=== PATIENT | male | born 1950 | race Caucasian/White ===

== ENCOUNTER 2017-08-30 11:09 | Emergency (ER) | payer OTHER ==
[2017-08-30 12:52] LABS: Absolute Lymphocytes (CBC) 0.7 K/uL (0.7-4.9); Absolute Monocytes 0.5 K/uL (0.1-1.3); Absolute Neutrophil 2.1 K/uL (1.8-8.0); Basophils % 0.7 % (0-1.3); Lymphocytes % 21.5 % (15.3-44.8); MPV 8.9 fL (7.6-11.3); Monocytes % 14.6 % (3.3-12.3); RBC Red Blood Cell Count 4.65 M/uL (4.33-5.43)
[2017-08-30 12:58] LABS: Protime INR 1.13
[2017-08-30 13:01] LABS: Bicarbonate 25 mEq/L (21-31); Glucose Level 159 mg/dL (65-120); Potassium 3.8 mEq/L (3.6-5.0); Sodium Level 136 mEq/L (135-145)
[2017-08-30 13:08] LABS: ALT/SGPT 27 IU/L (10-60); AST/SGOT 34 IU/L (10-42); Albumin 4.3 g/dL (3.2-5.5); Alkaline Phosphatase 86 IU/L (42-121); Amylase Level 50 U/L (28-100); BUN Blood Urea Nitrogen 12 mg/dL (6-20); Bilirubin Direct 0.3 mg/dL (0-0.2); Bilirubin Total 1.8 mg/dL (0.3-1.2); Protein, Total 7.8 g/dL (6.0-8.3)
[2017-08-30 14:07] LABS: Urine Blood TRACE (NEG); Urine Glucose NEGATIVE (NEG); Urine Protein NEGATIVE (NEG); Urine pH 6.5 (5.0-7.0)
[2017-08-30 14:43] LABS: Urine Bacteria NONE SEEN /HPF (NONE SEEN); Urine Culture Reflex Order NOT NEEDED
--- NOTE | 2017-08-30 16:09 | RAD REPORT ---
EXAM DESCRIPTION: CT - Abdomen Pelvis W Contrast - 08/30/2017 3:31 pm CLINICAL HISTORY: Abdominal pain, possible GI bleed, history of cirrhosis splenomegaly and hernia re pair COMPARISON: None. TECHNIQUE: Biphasic, helical CT imaging of the abdomen and pelvis was performed following 100 ml non -ionic IV contrast. Oral contrast was given. All CT scans are performed using dose optimization technique as appropriate and may include automated exposure control or mA/KV adjustment according to patient size. FINDINGS: No suspicious findings in the lung bases. Large diaphragmatic hernia is present with appro ximately 30% of the stomach intrathoracic. GE junction is not well visualized due to the hernia. Liver shows a prominent nodular capsular contour with prominent caudate and left lobes. No focal live r lesion. Splenomegaly to 16 cm is present. No focal splenic lesion. Pancreas is unremarkable. No acu te gallbladder or biliary tree finding. Symmetric renal function is seen with no hydronephrosis or suspicious renal mass. No pyelonephritis o r acute renal parenchymal process. Partially filled urinary bladder shows no suspicious finding. Pros calloway gland and seminal vesicles within normal limits. Gastric assessment is limited but no wall thickening or mass suspected. No dilatation. Small bowel lo ops are not dilated. There is a nodular appearance to the ileocecal valve still within normal limits. No appendicitis. Colon is not dilated. There is a mild sigmoid diverticulosis. Escobar of the rectosig moid colon are slightly thickened. This is in part due to incomplete distension by the oral contrast. However, given patient's symptoms, mild rectosigmoid colitis is suspected. No free air, free fluid or pneumatosis. No hernia, mass or bulky lymphadenopathy. No adrenal abnorm ality. No suspicious bony findings. IMPRESSION: Mild rectosigmoid colitis is identifiable. No colon mass. No abscess, free air or other surgically emergent finding. Liver cirrhosis with splenomegaly. No ascites or focal liver lesion. Large hiatal hernia with 30% of the stomach intrathoracic. GE junction is not well visualized due to the hernia.
[2017-08-30 16:46] LABS: Hematocrit 38.5 % (39.6-49.0)
[2017-08-30 17:32] LABS: Lipase 25 U/L (22-51)
--- NOTE | 2017-08-30 17:44 | EDPHYS ---
Physician Documentation [facility] Name: Flako Lugo Age: 67 yrs Sex: Male : 1950 Arrival Date: 08/30/2017 Time: 11:12 Bed 16 Private MD: Mary Thacker ED Physician Luis Antonio Ramos HPI: 08/30 12:15 This 67 yrs old Male presents to ER via Ambulatory with complaints of Rectal cp Bleeding. 12:15 The patient presents to the emergency department with dark colored stools. Onset: The cp symptoms/episode began/occurred 1 week(s) ago. 12:15 Context: the patient has no known special context relating to the rectal area cp complaint(s). Associate signs and symptoms: Pertinent positives: abdominal pain in the right lower quadrant and left lower quadrant, Pertinent negatives: constipation, diarrhea, dysuria, fever, vomiting. Patient reports that he takes daily iron supplement for history of anemia. Historical: - Allergies: 11:29 No Known Allergies; aj - PMHx: 11:29 Diabetes - NIDDM; Cirrhosis; Enlarged spleen; aj - PSHx: 11:29 Hernia repair; aj - Immunization history:: Adult Immunizations up to date. - Social history:: Smoking status: Patient/guardian denies using tobacco. - Ebola Screening: : Patient negative for fever greater than or equal to 101.5 degrees Fahrenheit, and additional compatible Ebola Virus Disease symptoms Patient denies exposure to infectious person Patient denies travel to an Ebola-affected area in the 21 days before illness onset No symptoms or risks identified at this time. ROS: 12:20 Constitutional: Negative for body aches, chills, fever, poor PO intake. cp 12:20 Eyes: Negative for injury, pain, redness, and discharge. cp 12:20 ENT: Negative for drainage from ear(s), ear pain, sore throat, difficulty swallowing, cp difficulty handling secretions. 12:20 Cardiovascular: Negative for chest pain, edema, palpitations. cp 12:20 Respiratory: Negative for cough, shortness of breath, wheezing. 12:20 Abdomen/GI: Positive for abdominal pain, dark colored stool, Negative for nausea, vomiting, and diarrhea, constipation, anorexia. 12:20 Back: Negative for radiated pain. 12:20 Skin: Negative for cellulitis, rash. 12:20 All other systems are negative. Exam: 12:25 Constitutional: The patient appears in no acute distress, alert, awake, cp non-diaphoretic, non-toxic, well developed, well nourished. 12:25 Head/Face: Normocephalic, atraumatic. cp 12:25 Eyes: Periorbital structures: appear normal, Pupils: equal, round, and reactive to cp light and accomodation, Conjunctiva: normal, no exudate, no injection, Lids and lashes: appear normal, bilaterally. 12:25 ENT: External ear(s): are unremarkable, Ear canal(s): are normal, clear, TM's: bulging, is not appreciated, bilaterally, dullness, bilaterally, erythema, is not appreciated, bilaterally, Nose: is normal, Mouth: Lips: moist, Oral mucosa: moist, Posterior pharynx: is normal, airway is patent, no erythema, no exudate. 12:25 Neck: ROM/movement: is normal, is supple, without pain, no range of motions limitations, no meningismus, no nuchal rigidity. 12:25 Chest/axilla: Inspection: normal, Palpation: is normal, no crepitus, no tenderness. 12:25 Cardiovascular: Rate: normal, Rhythm: regular, Pulses: Pulses are 2+ in right radial artery and left radial artery. Edema: is not appreciated, JVD: is not appreciated. 12:25 Respiratory: the patient does not display signs of respiratory distress, Respirations: normal, no use of accessory muscles, no retractions, no splinting, no tachypnea, Breath sounds: are clear throughout, no decreased breath sounds, no stridor, no wheezing. 12:25 Abdomen/GI: Inspection: abdomen appears normal, Bowel sounds: active, all quadrants, Palpation: soft, in all quadrants, mild abdominal tenderness, in the right lower quadrant and left lower quadrant, Rectal exam: Stool: guaiac positive, appears dark colored but not tarry. 12:25 Back: pain, is absent, ROM is normal. 12:25 Skin: cellulitis, is not appreciated, no rash present. 12:25 Neuro: Orientation: to person, place \T\ time. Mentation: is normal, Cerebellar function: cp is grossly normal, Motor: moves all fours, strength is normal, Sensation: is normal, Gait: is steady. Vital Signs: 11:29 BP 159 / 98; Pulse 80; Resp 18; Temp 97.8; Pulse Ox 97% on R/A; Weight 96.16 kg; Height aj 5 ft. 10 in. (177.80 cm); 13:09 BP 154 / 87; Pulse 78; Resp 17 S; Pulse Ox 96% on R/A; Pain 0/10; sg 11:29 Body Mass Index 30.42 (96.16 kg, 177.80 cm) aj [place] Coma Score: 13:09 Eye Response: spontaneous(4). Verbal Response: oriented(5). Motor Response: obeys sg commands(6). Total: 15. MDM: 11:58 Patient medically screened. cp 13:00 Differential diagnosis: hemorrhoids, diverticulitis, colitis, anemia. cp 17:25 Data reviewed: vital signs, nurses notes, lab test result(s), EKG, radiologic studies, cp CT scan. 18:00 Counseling: I had a detailed discussion with the patient and/or guardian regarding: the cp historical points, exam findings, and any diagnostic results supporting the discharge/admit diagnosis, lab results, radiology results, the need for outpatient follow up, a family practitioner, to return to the emergency department if symptoms worsen or persist or if there are any questions or concerns that arise at home. 18:00 ED course: VSS. Labs and CT reviewed and stable. Will discharge to home for continued cp monitoring. 08/30 12:09 Order name: Lipase; Complete Time: 17:36 cp 08/30 12:09 Order name: Amylase, Serum; Complete Time: 17:36 cp 08/30 12:09 Order name: Basic Metabolic Panel; Complete Time: 17:36 cp 08/30 13:20 Interpretation: Normal except: GLUC 159. cp 08/30 12:09 Order name: CBC with Diff; Complete Time: 13:19 cp 08/30 13:20 Interpretation: Normal except: WBC 3.4; HGB 13.0; PLT 105; RDW 17.2; MN% 14.6. cp 08/30 12:09 Order name: Creatinine for Radiology; Complete Time: 13:19 cp 08/30 12:09 Order name: Hepatic Function; Complete Time: 17:36 cp 08/30 14:50 Interpretation: Normal except: BILIT 1.8; BILID 0.3. cp 08/30 12:09 Order name: Urine Microscopic Only; Complete Time: 14:50 08/30 14:50 Interpretation: Normal except: URBC 5-10; SQEPI 5-10. 08/30 12:09 Order name: PT-INR; Complete Time: 13:19 cp 08/30 12:09 Order name: Ptt, Activated; Complete Time: 13:19 cp 08/30 12:09 Order name: AMMONIA; Complete Time: 13:19 cp 08/30 12:25 Order name: Type And Screen; Complete Time: 14:50 cp 08/30 14:02 Order name: Urine Dipstick--Ancillary (enter results); Complete Time: 14:50 bd 08/30 16:30 Order name: Hematocrit; Complete Time: 17:24 cp 08/30 17:25 Interpretation: Abnormal: HCT 38.5. 08/30 16:30 Order name: Hemoglobin; Complete Time: 17:24 cp 08/30 17:25 Interpretation: Abnormal: HGB 12.5. 08/30 12:09 Order name: IV Saline Lock; Complete Time: 14:12 cp 08/30 12:09 Order name: Labs collected and sent; Complete Time: 14:12 08/30 12:09 Order name: Urine Dipstick-Ancillary (obtain specimen); Complete Time: 14:13 08/30 12:26 Order name: CT Abd/Pelvis - W/Contrast; Complete Time: 16:16 08/30 16:17 Interpretation: Report reviewed. 08/30 17:42 Order name: ABO/RH no charge; Complete Time: 17:44 EDMS Administered Medications: 17:50 Not Given (Other Intervention Used): metroNIDAZOLE 500 mg 100 ml IVPB once over 30 mins sg 18:00 Drug: Flagyl 500 mg Route: PO; sg 18:00 Drug: Cipro 500 mg Route: PO; sg Disposition: 08/31 10:42 Co-signature as Attending Physician, Luis Antonio Ramos MD. [facility] Disposition: 08/30/17 17:43 Discharged to Home. Impression: Sigmoid Colitis. - Condition is Stable. - Prescriptions for Cipro 500 mg Oral Tablet - take 1 tablet by ORAL route every 12 hours for 10 days; 20 tablet. Metronidazole 500 mg Oral Tablet - take 1 tablet by ORAL route every 8 hours; 30 tablet. Bentyl 20 mg Oral Tablet - take 2 tablets by ORAL route every 6 hours As needed; 30 tablet. Zofran 4 mg Oral Tablet - take 1 tablet by ORAL route every 12 hours As needed; 20 tablet. - Medication Reconciliation Form, Thank You Letter, Antibiotic Education, Prescription Opioid Use form. - Follow up: Private Physician; When: 2 - 3 days; Reason: Recheck today's complaints. - Problem is new. - Symptoms have improved. Signatures: Dispatcher [employer] EDIsaac Delarosa RN RN sg Myers, Amanda, RN RN aj Rittger, Kevin, MD MD kdr Page, Corey, PA PA cp Corrections: (The following items were deleted from the chart) 08/30 11: 11:20 Allergies: No Known Allergies; [facility] 11:20 Home Meds: None; aj 11:20 PMHx: None; aj 11:20 PSHx: None; aj 11:20 Immunization history: Adult Immunizations up to date, [facility] 11:20 Social history: Smoking status: Patient/guardian denies using tobacco, Patient/guardian denies using street drugs, 18:02 17:43 08/30/2017 17:43 Discharged to Home. Impression: Sigmoid Colitis. Condition is sg Stable. Forms are Medication Reconciliation Form, Thank You Letter, Antibiotic Education, Prescription Opioid Use. Follow up: Private Physician; When: 2 - 3 days; Reason: Recheck today's complaints. Problem is new. Symptoms have improved. cp
--- NOTE | 2017-08-30 17:44 | ER ---
Nurse's Notes [facility] Name: Flako Lugo Age: 67 yrs Sex: Male : 1950 Arrival Date: 08/30/2017 Time: 11:12 Bed 16 Private MD: Mary Thacker Diagnosis: Sigmoid Colitis Presentation: 08/30 11:25 Presenting complaint: Patient states: Sent by Oncologist for possible GI bleed. Patient aj reports black stools for 1 week. Reports lower abdominal pain. Transition of care: patient was not received from another setting of care. Onset of symptoms was August 23, 2017. Care prior to arrival: None. 11:25 Acuity: KENYETTA 3 aj 11:25 Method Of Arrival: Ambulatory aj 12:30 Risk Assessment: Do you want to hurt yourself or someone else? Patient reports no sg desire to harm self or others. Initial Sepsis Screen: Does the patient meet any 2 criteria? No. Patient's initial sepsis screen is negative. Does the patient have a suspected source of infection? No. Patient's initial sepsis screen is negative. Triage Assessment: 11:29 General: Appears in no apparent distress. comfortable, Behavior is calm, cooperative, aj appropriate for age. Pain: Complains of pain in right lower quadrant and left lower quadrant Pain currently is 7 out of 10 on a pain scale. Neuro: Level of Consciousness is awake, alert, obeys commands, Oriented to person, place, time, situation, Appropriate for age. Respiratory: Airway is patent Trachea midline Respiratory effort is even, unlabored, Respiratory pattern is regular, symmetrical. GI: Reports lower abdominal pain, bloody stool. Derm: Skin is intact, is healthy with good turgor, Skin is pink, warm \\T\\ dry. normal. Historical: - Allergies: 11:29 No Known Allergies; aj - PMHx: 11:29 Diabetes - NIDDM; Cirrhosis; Enlarged spleen; aj - PSHx: 11:29 Hernia repair; aj - Immunization history:: Adult Immunizations up to date. - Social history:: Smoking status: Patient/guardian denies using tobacco. - Ebola Screening: : Patient negative for fever greater than or equal to 101.5 degrees Fahrenheit, and additional compatible Ebola Virus Disease symptoms Patient denies exposure to infectious person Patient denies travel to an Ebola-affected area in the 21 days before illness onset No symptoms or risks identified at this time. Screenin:30 Abuse screen: Denies threats or abuse. Denies injuries from another. Nutritional sg screening: No deficits noted. Tuberculosis screening: No symptoms or risk factors identified. Fall Risk None identified. Assessment: 12:30 General: Appears in no apparent distress. comfortable, well groomed, well developed, sg well nourished, Behavior is calm, cooperative, appropriate for age. Pain: Denies pain. Neuro: No deficits noted. Cardiovascular: Heart tones S1 S2 present Capillary refill is brisk in bilateral fingers Patient's skin is warm and dry. Chest pain is denied. Respiratory: No deficits noted. Airway is patent Respiratory effort is even, unlabored, Respiratory pattern is regular, symmetrical, Breath sounds are clear. GI: Abdomen is round obese, Bowel sounds present X 4 quads. Reports rectal bleeding, dark green/black watery stools Patient currently denies nausea, pain, vomiting. : No signs and/or symptoms were reported regarding the genitourinary system. EENT: No signs and/or symptoms were reported regarding the EENT system. Derm: Skin is pink, warm \\T\\ dry. Musculoskeletal: No signs and/or symptoms reported regarding the musculoskeletal system. 13:06 Reassessment: CT notified pt finished PO contrast at this time. sg 14:40 Reassessment: Patient appears in no apparent distress at this time. Patient and/or sg family updated on plan of care and expected duration. Pain level reassessed. Patient is alert, oriented x 3, equal unlabored respirations, skin warm/dry/pink. Patient denies pain at this time. 15:40 Reassessment: Patient appears in no apparent distress at this time. Patient and/or sg family updated on plan of care and expected duration. Pain level reassessed. Patient is alert, oriented x 3, equal unlabored respirations, skin warm/dry/pink. awaiting CT scan/ CT results at this time, no new orders received, will continue to monitor Patient denies pain at this time. 16:40 Reassessment: Patient and/or family updated on plan of care and expected duration. Pain sg level reassessed. Patient is alert, oriented x 3, equal unlabored respirations, skin warm/dry/pink. Tao FRANCO at bedside updating pt and pt family on need for repeat blood work prior to dispo, pt and pt stated understanding, repeat labs drawn, awaiting results at this time. 17:31 Reassessment: Patient appears in no apparent distress at this time. Patient and/or sg family updated on plan of care and expected duration. Pain level reassessed. Patient is alert, oriented x 3, equal unlabored respirations, skin warm/dry/pink. pt and pt family updated on lab results, awaiting dispo at this time, pt and pt family stated understanding, C.Renata FRANCO notified of returned lab results, no new orders received, will continue to monitor Patient denies pain at this time. Vital Signs: 11:29 BP 159 / 98; Pulse 80; Resp 18; Temp 97.8; Pulse Ox 97% on R/A; Weight 96.16 kg; Height aj 5 ft. 10 in. (177.80 cm); 13:09 BP 154 / 87; Pulse 78; Resp 17 S; Pulse Ox 96% on R/A; Pain 0/10; sg 11:29 Body Mass Index 30.42 (96.16 kg, 177.80 cm) aj [place] Coma Score: 13:09 Eye Response: spontaneous(4). Verbal Response: oriented(5). Motor Response: obeys sg commands(6). Total: 15. ED Course: 11:12 Patient arrived in ED. mr 11:13 Mary Thacker is Private Physician. mr 11:20 Triage completed. aj 11:29 Arm band placed on left wrist. Patient placed in waiting room. aj 11:57 Eliezer Yanez PA is PHCP. cp 11:57 Luis Antonio Ramos MD is Attending Physician. cp 12:05 Isaac Ridley, ARELIS is Primary Nurse. sg 12:20 Initial lab(s) drawn, by nm, sent to lab. Inserted saline lock: 20 gauge in left sg antecubital area, using aseptic technique. Blood collected. 12:30 Patient has correct armband on for positive identification. Placed in gown. Bed in low sg position. Call light in reach. Side rails up X2. Pulse ox on. NIBP on. Warm blanket given. Head of bed elevated. 12:30 No provider procedures requiring assistance completed. sg 12:40 T\\T\\S collected, blood band applied to patient. sg 15:[address] sj 15:26 CT completed. Patient tolerated procedure well. Patient moved back from CT. mw3 15:32 CT Abd/Pelvis - W/Contrast In Process Unspecified. EDMS 18:20 IV discontinued, intact, bleeding controlled, No redness/swelling at site. Pressure sg dressing applied. Administered Medications: 17:50 Not Given (Other Intervention Used): metroNIDAZOLE 500 mg 100 ml IVPB once over 30 mins sg 18:00 Drug: Flagyl 500 mg Route: PO; sg 18:00 Drug: Cipro 500 mg Route: PO; sg Outcome: 17:43 Discharge ordered by MD. cp 18:00 Discharged to home ambulatory, with family. sg 18:00 Condition: good 18:00 Discharge instructions given to patient, Instructed on discharge instructions, follow up and referral plans. medication usage, safety practices, Demonstrated understanding of instructions, follow-up care, medications, Prescriptions given X 4. 18:02 Patient left the ED. sg Signatures: Dispatcher [employer] EDMS Isaac Ridley RN RN sg Myers, Amanda, RN RN aj Rivera, Maria mr Jones, Eliezer Adrian PA PA cp Willis, Michelle mw3 Corrections: (The following items were deleted from the chart) :18 Presenting complaint: Patient states: "There's a parasite in my foot since yesterday." Patient c/o insect moving in right 3rd toe. Small black line noted to toe, no movement visualized. Patient is drowsy in triage :18 Transition of care: patient was not received from another setting of care. aj :18 Onset of symptoms was August 29, 2017 aj :18 Care prior to arrival: None. aj :18 Method Of Arrival: Wheelchair aj :18 Acuity: KENYETTA 5 aj 11:20 Allergies: No Known Allergies; aj aj :20 Home Meds: None; aj aj : PMHx: None; aj aj : PSHx: None; aj aj :20 Immunization history: Adult Immunizations up to date, aj 11:20 Social history: Smoking status: Patient/guardian denies using tobacco, aj Patient/guardian denies using street drugs, aj : General: Appears in no apparent distress. comfortable, Behavior is calm, drowsy, aj 11:20 Neuro: Level of Consciousness is awake, alert, obeys commands, Oriented to aj person, place, time, situation, Appropriate for age : Respiratory: Airway is patent Respiratory effort is even, unlabored, Respiratory aj pattern is regular, symmetrical, : Derm: Skin is intact, is healthy with good turgor, Skin is pink, warm \\T\\ dry. aj normal, Small black line to right 3rd toe aj : BP 125 / 79; Pulse 91bpm; Resp 20bpm; Pulse Ox 100% RA; Temp 97.6F; 90.72 kg; aj Height 6 ft. 2 in.; BMI: 25.6; aj 11: Arm band placed on left wrist. Patient placed in waiting room, Patient notified aj of wait time aj
[2017-08-30] MEDS ORDERED: metroNIDAZOLE 500 MG TABLET ONE (17:52)
[2017-08-30] MEDS ORDERED: CIPROFLOXACIN HCL 500 MG TAB ONE (17:52)
== END 2017-08-30 18:02 | disposition home or self-care (01) ==
LOC: ER 11:09
DX: K52.9 Noninfective gastroenteritis and colitis, unspecified (principal); E11.9 Type 2 diabetes mellitus without complications
CPT/HCPCS: 36415; 74177; 80048; 80076; 82140; 82150; 83690; 85014; 85018; 85025; 85610; 85730; 86850; 86900; 86901; 99284; Q9967; 81003; 81015

== ENCOUNTER 2022-03-16 09:12 | Emergency (ER) | payer OTHER ==
--- OUTSIDE RECORDS SUMMARY | 2022-03-16 09:22 | XMS REPORT | Continuity of Care Document ---
:1950 Author Organization [facility] t Address [address] [place] [address] Care Team Providers Name Role Phone Sophia Chatman Primary Care Physician [phone] LYLY GARCIA Attending Clinician Unavailable ANNI FRAGOSO Attending Clinician Unavailable Anni Fragoso MD Attending Clinician Tushar Rolando GOMEZ Attending Clinician Lyly Garcia MD Attending Clinician 2, [facility] Lab Attending Clinician Unavailable Karena Waldrop MD Attending Clinician KARENA WALDROP Attending Clinician Unavailable Only, Adc Test Attending Clinician Unavailable Pob, [facility] Lab Main Attending Clinician Unavailable Doctor Unassigned, Rosa Sanchez Attending Clinician Unavailable Barbra Colon Attending Clinician , [facility] Surg Spec Procedure Attending Clinician Unavailable LYLY GARCIA Admitting Clinician Unavailable ANNI FRAGOSO Admitting Clinician Unavailable Lyly Garcia MD Admitting Clinician Payers Payer Name Policy Type Policy Number Effective Date Expiration Date S melisa AET[employer] MEDICARE ADV [id number] 2016 00:00:00 [place] [id number] 2021 NO PREMIUM HMO/POS 00:00:00 Problems Condition Condition Condition Status Onset Resolution Last Treating Co mments Source Name Details Category Date Date Treatment Clinician Date Bladder Bladder Disease Active Overview: Univ ers neck neck 3-10 Formattin ity of contractur contractur 00:00: g of this [place] e e 00 note Medical might be Branch different from the original. Added automatic ally from request for surgery [id number] Anemia Anemia Disease Active 2016-04 Univers 05-21 ity of 00:00: [address] Allergies, Adverse Reactions, Alerts Allergy Allergy Status Severity Reaction(s) Onset Inactive Treating Comm ents Source Name Type Date Date Clinician NO KNOWN Drug Active Univers ALLERGIE Class ity of S [facility] Social History Social Habit Start Date Stop Date Quantity Comments Source Exposure to Not sure [facility] SARS-CoV-2 [facility] (event) Branch Alcohol intake 2019-11-24 2019-11-24 Current [place] of 00:00:00 00:00:00 non-drinker of [facility] alcohol Branch (finding) Tobacco use and 2017-03-20 2017-03-20 Never used Universit y of exposure 00:00:00 00:00:00 [facility] Tobacco Comment 2017-03-20 2017-03-20 Quit 35 years Univer sity of 00:00:00 00:00:00 ago [facility] Sex Assigned At [birth year] Universit y of 00:00:00 00:00:00 [facility] Smoking Status Start Date Stop Date Source Former smoker 2017-03-20 00:00:00 2017-03-20 00:00:00 Universi ty [facility] Medications Ordered Filled Start Stop Current Ordering Indication Dosage Frequency Signature Comments Components Source Medication Medication Date Date Medication? Clinician (SIG) Name Name SERTRALINE 2021-0 No 50 50MG TAB 9-30 00:00: 00 SERTRALINE 2021-0 No HCL 50MG 8-25 TAB 00:00: 00 SERTRALINE 2-0 No 50 HCL 50MG 8-25 TAB 00:00: 00 CIPROFLOXAC 2-0 No IN - HYDROCHLORI 00:00: 500MG TAB 00 CIPROFLOXAC 2021-0 No 500 IN 8- HYDROCHLORI 00:00: 500MG TAB 00 omeprazole 2021-0 No 1mg 20 mg 6-15 capsule,del 00:00: ayed 00 release omeprazole 2-0 No 1mg 20 mg 6-15 capsule,del 00:00: ayed 00 release omeprazole 2022-0 No 1mg 20 mg 3-24 capsule,del 00:00: ayed 00 release omeprazole 2022-0 No 1mg 20 mg 3-24 capsule,del 00:00: ayed 00 release lisinopril 2022-0 No 1mg 5 mg tablet 3-02 00:00: 00 sertraline 2022-0 No 1mg 50 mg 3-02 tablet 00:00: 00 metformin 2022-0 No 1mg 1,000 mg 3-02 tablet 00:00: 00 atorvastati 2022-0 No 1mg n 20 mg 3-02 tablet 00:00: 00 lisinopril 2022-0 No 1mg 5 mg tablet 3-02 00:00: 00 sertraline 2022-0 No 1mg 50 mg 3-02 tablet 00:00: 00 metformin 2022-0 No 1mg 1,000 mg 3-02 tablet 00:00: 00 atorvastati 2022-0 No 1mg n 20 mg 3-02 tablet 00:00: 00 omeprazole 2-0 No 1mg 20 mg 2-21 capsule,del 00:00: ayed 00 release omeprazole 2-0 No 1mg 20 mg 2-21 capsule,del 00:00: ayed 00 release lisinopril 1-1 No 1mg 5 mg tablet 2-31 00:00: 00 sertraline 2021-1 No 1mg 50 mg 2-31 tablet 00:00: 00 metformin 2021-1 No 1mg 1,000 mg 2-31 tablet 00:00: 00 atorvastati 1-1 No 1mg n 20 mg 2-31 tablet 00:00: 00 omeprazole 2021-1 No 1mg 20 mg 2-31 capsule,del 00:00: ayed 00 release lisinopril 2021-1 No 1mg 5 mg tablet 2-31 00:00: 00 sertraline 2021-1 No 1mg 50 mg 2-31 tablet 00:00: 00 metformin 2021-1 No 1mg 1,000 mg 2-31 tablet 00:00: 00 atorvastati 2021-1 No 1mg n 20 mg 2-31 tablet 00:00: 00 omeprazole 2021-1 No 1mg 20 mg 2-31 capsule,del 00:00: ayed 00 release sertraline 1-1 No 1mg 50 mg 0-11 tablet 00:00: 00 lisinopril 1-1 No 1mg 5 mg tablet 0-11 00:00: 00 metformin 1-1 No 1mg 1,000 mg 0-11 tablet 00:00: 00 atorvastati 1-1 No 1mg n 20 mg 0-11 tablet 00:00: 00 omeprazole 1-1 No 1mg 20 mg 0-11 capsule,del 00:00: ayed 00 release sertraline 1-1 No 1mg 50 mg 0-11 tablet 00:00: 00 lisinopril 1-1 No 1mg 5 mg tablet 0-11 00:00: 00 metformin 1-1 No 1mg 1,000 mg 0-11 tablet 00:00: 00 atorvastati 1-1 No 1mg n 20 mg 0-11 tablet 00:00: 00 omeprazole 1-1 No 1mg 20 mg 0-11 capsule,del 00:00: ayed 00 release omeprazole 1-0 No 1mg 20 mg 9-23 capsule,del 00:00: ayed 00 release omeprazole 1-0 No 1mg 20 mg 9-23 capsule,del 00:00: ayed 00 release ProAir HFA 1-0 No 2mcg/ac 90 6-07 tuation mcg/actuati 00:00: on aerosol 00 inhaler lisinopril 1-0 No 1mg 5 mg tablet 6-07 00:00: 00 sertraline 2021-0 No 1mg 50 mg 6-07 tablet 00:00: 00 metformin 1-0 No 1mg 1,000 mg 6-07 tablet 00:00: 00 atorvastati 2021-0 No 1mg n 20 mg 6-07 tablet 00:00: 00 omeprazole 2021-0 No 1mg 20 mg 6-07 capsule,del 00:00: ayed 00 release ProAir HFA 1-0 No 2mcg/ac 90 6-07 tuation mcg/actuati 00:00: on aerosol 00 inhaler lisinopril 1-0 No 1mg 5 mg tablet 6-07 00:00: 00 sertraline 2021-0 No 1mg 50 mg 6-07 tablet 00:00: 00 metformin 2021-0 No 1mg 1,000 mg 6-07 tablet 00:00: 00 atorvastati 2021-0 No 1mg n 20 mg 6-07 tablet 00:00: 00 omeprazole 2021-0 No 1mg 20 mg 6-07 capsule,del 00:00: ayed 00 release metformin 2021-0 No 1mg 1,000 mg 5-04 tablet 00:00: 00 metformin 2021-0 No 1mg 1,000 mg 5-04 tablet 00:00: 00 lisinopril 2021-0 No 1mg 5 mg tablet 3-26 00:00: 00 omeprazole 2021-0 No 1mg 20 mg 3-26 capsule,del 00:00: ayed 00 release lisinopril 2021-0 No 1mg 5 mg tablet 3-26 00:00: 00 omeprazole 2021-0 No 1mg 20 mg 3-26 capsule,del 00:00: ayed 00 release atorvastati 2021-0 No 1mg n 20 mg 2-23 tablet 00:00: 00 atorvastati 2021-0 No 1mg n 20 mg 2-23 tablet 00:00: 00 hydrocortis 2021-0 No 1% one 2.5 % 2-22 topical 00:00: cream 00 hydrocortis 2021-0 No 1% one 2.5 % 2-22 topical 00:00: cream 00 sertraline 2021-0 No 1mg 50 mg 2-18 tablet 00:00: 00 sertraline 2021-0 No 1mg 50 mg 2-18 tablet 00:00: 00 sertraline 2021-0 No 1mg 50 mg 2-17 tablet 00:00: 00 sertraline 2021-0 No 1mg 50 mg 2-17 tablet 00:00: 00 sertraline 2021-0 No 1mg 50 mg 2-17 tablet 00:00: 00 sertraline 2021-0 No 1mg 50 mg 2-17 tablet 00:00: 00 metformin 2021-0 No 1mg 1,000 mg 1-15 tablet 00:00: 00 metformin 2021-0 No 1mg 1,000 mg 1-15 tablet 00:00: 00 omeprazole 2020-1 No 1mg 20 mg 2-28 capsule,del 00:00: ayed 00 release omeprazole 2020-1 No 1mg 20 mg 2-28 capsule,del 00:00: ayed 00 release lisinopril 2020-1 No 1mg 5 mg tablet 2-21 00:00: 00 lisinopril 2020-1 No 1mg 5 mg tablet 2-21 00:00: 00 metformin 2020-1 No 1mg 1,000 mg 2-21 tablet 00:00: 00 metformin 2020-1 No 1mg 1,000 mg 2-21 tablet 00:00: 00 atorvastati 2020-1 No 1mg n 20 mg 2-21 tablet 00:00: 00 atorvastati 2020-1 No 1mg n 20 mg 2-21 tablet 00:00: 00 sertraline 2020-1 No 1mg 50 mg 2-08 tablet 00:00: 00 sertraline 2020-1 No 1mg 50 mg 2-08 tablet 00:00: 00 diclofenac 2020-1 No 1% 3 % topical 0-14 gel 00:00: 00 Bactrim DS 2020-1 No 1mg 800 mg-160 0-14 mg tablet 00:00: 00 diclofenac 2020-1 No 1% 3 % topical 0-14 gel 00:00: 00 Bactrim DS 2020-1 No 1mg 800 mg-160 0-14 mg tablet 00:00: 00 sertraline 2020-0 No 1mg 50 mg 9-30 tablet 00:00: 00 lisinopril 2020-0 No 1mg 5 mg tablet 930 00:00: 00 metformin 2020-0 No 1mg 1,000 mg 9-30 tablet 00:00: 00 sertraline 2020-0 No 1mg 50 mg 9-30 tablet 00:00: 00 lisinopril 2020-0 No 1mg 5 mg tablet 9-30 00:00: 00 metformin 2020-0 No 1mg 1,000 mg 9-30 tablet 00:00: 00 atorvastati 2020-0 No 1mg n 20 mg 9-29 tablet 00:00: 00 atorvastati 2020-0 No 1mg n 20 mg 9-29 tablet 00:00: 00 lisinopril 2020-0 No 1mg 5 mg tablet 718 00:00: 00 lisinopril 2020-0 No 1mg 5 mg tablet 718 00:00: 00 ProAir HFA 2020-0 No 2mcg/ac 90 6-25 tuation mcg/actuati 00:00: on aerosol 00 inhaler ProAir HFA 2020-0 No 2mcg/ac 90 6-25 tuation mcg/actuati 00:00: on aerosol 00 inhaler atorvastati 2020-0 Yes 20mg Take 20 mg Univers n 20 mg 6-04 by mouth ity of tablet 16:51: daily. [place] [address] Medical Branch SERTraline 2020-0 Yes 50mg Take 50 mg U nivers 50 mg 6-04 by mouth ity of tablet 16:51: daily. [place] [address] Medical Branch aspirin 81 2020-0 Yes 81mg Take 81 mg U nivers mg chewable 6-04 by mouth ity of tablet 16:51: daily. [place] [address] Medical Branch multivitami 2020-0 Yes 1{tbl} Take 1 Un iraida n tablet 6-04 tablet by ity of 16:51: mouth [place] 59 daily. Medical Branch lisinopril 2020-0 Yes 5mg Take 5 mg Un iraida 5 mg tablet 6-04 by mouth ity of 16:51: daily. [place] [address] Medical Branch atorvastati 2020-0 Yes 20mg Take 20 mg Univers n 20 mg 6-04 by mouth ity of tablet 16:51: daily. [place] [address] Medical Branch SERTraline 2020-0 Yes 50mg Take 50 mg U nivers 50 mg 6-04 by mouth ity of tablet 16:51: daily. [address] Branch aspirin 81 2020-0 Yes 81mg Take 81 mg U nivers mg chewable 6-04 by mouth ity of tablet 16:51: daily. [address] Branch multivitami 2020-0 Yes 1{tbl} Take 1 Un iraida n tablet 6-04 tablet by ity of 16:51: mouth [place] 59 daily. Medical Branch lisinopril 2020-0 Yes 5mg Take 5 mg Un iraida 5 mg tablet 6-04 by mouth ity of 16:51: daily. [place] [address] Medical Branch atorvastati 2020-0 Yes 20mg Take 20 mg Univers n 20 mg 6-04 by mouth ity of tablet 16:51: daily. [address] Branch SERTraline 2020-0 Yes 50mg Take 50 mg U nivers 50 mg 6-04 by mouth ity of tablet 16:51: daily. [address] Branch aspirin 81 2020-0 Yes 81mg Take 81 mg U nivers mg chewable 6-04 by mouth ity of tablet 16:51: daily. [place] [address] Medical Branch multivitami 2020-0 Yes 1{tbl} Take 1 Un iraida n tablet 6-04 tablet by ity of 16:51: mouth [place] 59 daily. Medical Branch lisinopril 2020-0 Yes 5mg Take 5 mg Un iraida 5 mg tablet 6-04 by mouth ity of 16:51: daily. [place] [address] Medical Branch atorvastati 2020-0 Yes 20mg Take 20 mg Univers n 20 mg 6-04 by mouth ity of tablet 16:51: daily. [place] [address] Medical Branch SERTraline 2020-0 Yes 50mg Take 50 mg U nivers 50 mg 6-04 by mouth ity of tablet 16:51: daily. [place] [address] Medical Branch aspirin 81 2020-0 Yes 81mg Take 81 mg U nivers mg chewable 6-04 by mouth ity of tablet 16:51: daily. [place] [address] Medical Branch multivitami 2020-0 Yes 1{tbl} Take 1 Un iraida n tablet 6-04 tablet by ity of 16:51: mouth [place] 59 daily. Medical Branch lisinopril 2020-0 Yes 5mg Take 5 mg Un iraida 5 mg tablet 6-04 by mouth ity of 16:51: daily. [place] [address] Medical Branch atorvastati 2020-0 Yes 20mg Take 20 mg Univers n 20 mg 6-04 by mouth ity of tablet 16:51: daily. [place] [address] Medical Branch SERTraline 2020-0 Yes 50mg Take 50 mg U nivers 50 mg 6-04 by mouth ity of tablet 16:51: daily. [address] Branch aspirin 81 2020-0 Yes 81mg Take 81 mg U nivers mg chewable 6-04 by mouth ity of tablet 16:51: daily. [place] [address] Medical Branch multivitami 2020-0 Yes 1{tbl} Take 1 Un iraida n tablet 6-04 tablet by ity of 16:51: mouth [place] 59 daily. Medical Branch lisinopril 2020-0 Yes 5mg Take 5 mg Un iraida 5 mg tablet 6-04 by mouth ity of 16:51: daily. [place] [address] Medical Branch atorvastati 2020-0 Yes 20mg Take 20 mg Univers n 20 mg 6-04 by mouth ity of tablet 16:51: daily. [place] [address] Medical Branch SERTraline 2020-0 Yes 50mg Take 50 mg U nivers 50 mg 6-04 by mouth ity of tablet 16:51: daily. [place] [address] Medical Branch aspirin 81 2020-0 Yes 81mg Take 81 mg U nivers mg chewable 6-04 by mouth ity of tablet 16:51: daily. [place] [address] Medical Branch multivitami 2020-0 Yes 1{tbl} Take 1 Un iraida n tablet 6-04 tablet by ity of 16:51: mouth [place] 59 daily. Medical Branch lisinopril 2020-0 Yes 5mg Take 5 mg Un iraida 5 mg tablet 6-04 by mouth ity of 16:51: daily. [place] [address] Medical Branch atorvastati 2020-0 Yes 20mg Take 20 mg Univers n 20 mg 6-04 by mouth ity of tablet 16:51: daily. [place] [address] Medical Branch SERTraline 2020-0 Yes 50mg Take 50 mg U nivers 50 mg 6-04 by mouth ity of tablet 16:51: daily. [address] Branch aspirin 81 2020-0 Yes 81mg Take 81 mg U nivers mg chewable 6-04 by mouth ity of tablet 16:51: daily. [address] Branch multivitami 2020-0 Yes 1{tbl} Take 1 Un iraida n tablet 6-04 tablet by ity of 16:51: mouth [place] 59 daily. Medical Branch lisinopril 2020-0 Yes 5mg Take 5 mg Un iraida 5 mg tablet 6-04 by mouth ity of 16:51: daily. [place] [address] Medical Branch atorvastati 2020-0 Yes 20mg Take 20 mg Univers n 20 mg 6-04 by mouth ity of tablet 16:51: daily. [place] [address] Medical Branch SERTraline 2020-0 Yes 50mg Take 50 mg U nivers 50 mg 6-04 by mouth ity of tablet 16:51: daily. [place] [address] Medical Branch aspirin 81 2020-0 Yes 81mg Take 81 mg U nivers mg chewable 6-04 by mouth ity of tablet 16:51: daily. [address] Branch multivitami 2020-0 Yes 1{tbl} Take 1 Un iraida n tablet 6-04 tablet by ity of 16:51: mouth [place] 59 daily. Medical Branch lisinopril 2020-0 Yes 5mg Take 5 mg Un iraida 5 mg tablet 6-04 by mouth ity of 16:51: daily. [place] 59 Medical Branch atorvastati 2020-0 Yes 20mg Take 20 mg Univers n 20 mg 6-04 by mouth ity of tablet 16:51: daily. [address] Branch SERTraline 2020-0 Yes 50mg Take 50 mg U nivers 50 mg 6-04 by mouth ity of tablet 16:51: daily. [address] aspirin 81 2020-0 Yes 81mg Take 81 mg U nivers mg chewable 6-04 by mouth ity of tablet 16:51: daily. [address] Branch multivitami 2020-0 Yes 1{tbl} Take 1 Un iraida n tablet 6-04 tablet by ity of 16:51: mouth [place] 59 daily. Medical Branch lisinopril 2020-0 Yes 5mg Take 5 mg Un iraida 5 mg tablet 6-04 by mouth ity of 16:51: daily. [address] atorvastati 2020-0 Yes 20mg Take 20 mg Univers n 20 mg 6-04 by mouth ity of tablet 16:51: daily. [address] SERTraline 2020-0 Yes 50mg Take 50 mg U nivers 50 mg 6-04 by mouth ity of tablet 16:51: daily. [address] aspirin 81 2020-0 Yes 81mg Take 81 mg U nivers mg chewable 6-04 by mouth ity of tablet 16:51: daily. [address] multivitami 2020-0 Yes 1{tbl} Take 1 Un iraida n tablet 6-04 tablet by ity of 16:51: mouth [place] 59 daily. Medical Branch lisinopril 2020-0 Yes 5mg Take 5 mg Un iraida 5 mg tablet 6-04 by mouth ity of 16:51: daily. [address] Branch metFORMIN 2020-0 Yes 500mg Take 500 Uni vers 500 mg 6-04 mg by ity of tablet 16:51: mouth 2 [place] [address] (two) Medical times Branch daily. metFORMIN 2020-0 Yes 500mg Take 500 Uni vers 500 mg 6-04 mg by ity of tablet 16:51: mouth 2 [place] [address] (two) Medical times Branch daily. metFORMIN 2020-0 Yes 500mg Take 500 Uni vers 500 mg 6-04 mg by ity of tablet 16:51: mouth 2 [place] [address] (two) Medical times Branch daily. metFORMIN 2020-0 Yes 500mg Take 500 Uni vers 500 mg 6-04 mg by ity of tablet 16:51: mouth 2 [place] 58 (two) Medical times Branch daily. metFORMIN 2020-0 Yes 500mg Take 500 Uni vers 500 mg 6-04 mg by ity of tablet 16:51: mouth 2 [place] 58 (two) Medical times Branch daily. metFORMIN 2020-0 Yes 500mg Take 500 Uni vers 500 mg 6-04 mg by ity of tablet 16:51: mouth 2 [place] 58 (two) Medical times Branch daily. metFORMIN 2020-0 Yes 500mg Take 500 Uni vers 500 mg 6-04 mg by ity of tablet 16:51: mouth 2 [place] 58 (two) Medical times Branch daily. metFORMIN 2020-0 Yes 500mg Take 500 Uni vers 500 mg 6-04 mg by ity of tablet 16:51: mouth 2 [place] 58 (two) Medical times Branch daily. metFORMIN 2020-0 Yes 500mg Take 500 Uni vers 500 mg 6-04 mg by ity of tablet 16:51: mouth 2 [place] 58 (two) Medical times Branch daily. metFORMIN 2020-0 Yes 500mg Take 500 Uni vers 500 mg 6-04 mg by ity of tablet 16:51: mouth 2 [place] [address] (two) Medical times Branch daily. lactated 2020-0 Yes 1000mL at 75 Univer s ringers IV 6-04 mL/hr, ity of infusion 15:30: 1,000 mL, [place] 1[place]000 [place] 00 IV Medical Infusion, Branch CONTINUOUS , Starting Charis 09/11/19 at 1030, Until Discontinu ed, Routine, PACU HYDROmorpho 2020-0 Yes .2mg 0.2 mg, Uni vers ne 6-04 Slow IV ity of (DILAUDID) 15:19: Push, [place] injection 39 Q5MIN PRN, Medi emilia 0.2 mg 10 doses, Branch Starting Charis 09/11/19 at 1019, Until Discontinu ed, Routine, Pain (scale 7-10), PACU
Us e approved by (Faculty): PACU USE -ANESTHESI A SERVICE-HY DROMORPHON E INJECTIONS FENTanyl PF 2020-0 Yes 25ug 25 mcg, Uni vers (SUBLIMAZE 6-04 Slow IV ity of (PF)) 15:19: Push, [place] injection 39 Q5MIN PRN, Medi emilia 25 mcg 4 doses, Branch Starting Charis 09/11/19 at 1019, Until Discontinu ed, Routine, Pain (scale 4-6), PACU ondansetron 2020-0 Yes 4mg 4 mg, Slow Univers (ZOFRAN 6-04 IV Push, ity of (PF)) 15:19: PRN, 1 [place] injection 4 39 dose, Medical mg Starting Branch Charis 09/11/19 at 1019, Until Discontinu ed, Routine, Nausea and Vomiting (N/V), PACU lactated 2020-0 2020- No 1000mL at 20 Unive rs ringers IV 6-04 06-04 mL/hr, ity of infusion 13:00: 13:12 1,000 mL, [place] 1,000 mL 00 :00 IV Medical Infusion, Branch ONCE, 1 dose, Charis 09/11/19 at 0800, Routine, DSU Pre-op atorvastati 2020-0 Yes 20mg Take 20 mg Univers n 20 mg 6-04 by mouth ity of tablet 11:51: daily. [address] SERTraline 2020-0 Yes 50mg Take 50 mg U nivers 50 mg 6-04 by mouth ity of tablet 11:51: daily. [address] aspirin 81 2020-0 Yes 81mg Take 81 mg U nivers mg chewable 6-04 by mouth ity of tablet 11:51: daily. [address] Branch multivitami 2020-0 Yes 1{tbl} Take 1 Un iraida n tablet 6-04 tablet by ity of 11:51: mouth [place] [address] daily. [facility] Branch lisinopril 2020-0 Yes 5mg Take 5 mg Un iraida 5 mg tablet 6-04 by mouth ity of 11:51: daily. [address] Branch metFORMIN 2020-0 Yes 500mg Take 500 Uni vers 500 mg 6-04 mg by ity of tablet 11:51: mouth 2 [place] 58 (two) Medical times [place] daily. metFORMIN 2020-0 Yes 500mg Take 500 Uni vers 500 mg 6-01 mg by ity of tablet 17:51: mouth 2 [place] 23 (two) Medical times [place] daily. atorvastati 2020-0 Yes 20mg Take 20 mg Univers n 20 mg 6-01 by mouth ity of tablet 17:51: daily. [address] SERTraline 2020-0 Yes 50mg Take 50 mg U nivers 50 mg 6-01 by mouth ity of tablet 17:51: daily. [place] [address] Medical Branch aspirin 81 2020-0 Yes 81mg Take 81 mg U nivers mg chewable 6-01 by mouth ity of tablet 17:51: daily. [address] Branch multivitami 2019-0 Yes 1{tbl} Take 1 Un iraida n tablet 6- tablet by ity of 17:51: mouth [place] [address] daily. Medical Branch lisinopril 2019-0 Yes 5mg Take 5 mg Un iraida 5 mg tablet 6-01 by mouth ity of 17:51: daily. [address] Branch ProAir HFA 2019-0 No 2mcg/ac 90 3-23 tuation mcg/actuati 00:00: on aerosol 00 inhaler ProAir HFA 2020-0 No 2mcg/ac 90 3-23 tuation mcg/actuati 00:00: on aerosol 00 inhaler ProAir HFA 2020-0 No 2mcg/ac 90 3-17 tuation mcg/actuati 00:00: on aerosol 00 inhaler ProAir HFA 2019-0 No 2mcg/ac 90 3-17 tuation mcg/actuati 00:00: on aerosol 00 inhaler cephALEXin 0 2020- No [id number] 500mg Take 2 Univers 250 mg 3-02 09-17 capsules ity of capsule 00:00: 04:59 by mouth [place] 00 :00 every 12 Medical (twelve) Branch hours for 5 days. cephALEXin 2020- No [id number] 500mg Take 2 Univers 250 mg 3-02 09-17 capsules ity of capsule 00:00: 04:59 by mouth [place] 00 :00 every 12 Medical (twelve) Branch hours for 5 days. cephALEXin 2019-0 2020- No [id number] 500mg Take 2 Univers 250 mg 3-02 09-17 capsules ity of capsule 00:00: 04:59 by mouth [place] 00 :00 every 12 Medical (twelve) Branch hours for 5 days. cephALEXin 2020-0 2020- No [id number] 500mg Take 2 Univers 250 mg 3-02 09-17 capsules ity of capsule 00:00: 04:59 by mouth [place] 00 :00 every 12 Medical (twelve) Branch hours for 5 days. gentamicin 2019- 2020- No [id number] 80mg U nivers injection 06-15- ity of 80 mg 23:00: 21:53 [place] 00 :00 Medical Branch gentamicin 2019-0 2020- No [id number] 80mg 80 mg, Univers injection 06-15 Intramuscu ity of 80 mg 23:00: 21:53 lar, ONCE, [place] 00 :00 1 dose, Medical [facility] 06/16/19 Branch at 1800, FAREED
Re ason for Anti-Infec tive: Surgical Prophylaxi s
Surgi emilia Prophylaxi s: Genitourin jose
Dur ation of therapy: within 24 hours of surgery gentamicin 2019-0 2020- No [id number] 80mg U nivers injection 06-15 ity of 80 mg 23:00: 21:53 [place] 00 :00 Medical Branch gentamicin 2020-0 2020- No [id number] 80mg 80 mg, Univers injection 06-15 Intramuscu ity of 80 mg 23:00: 21:53 lar, ONCE, [place] 00 :00 1 dose, Medical [facility] 06/16/19 Branch at 1800, FAREED
Re ason for Anti-Infec tive: Surgical Prophylaxi s
Surgi emilia Prophylaxi s: Genitourin jose
Dur ation of therapy: within 24 hours of surgery tamsulosin 2020-0 Yes [id number] .4mg Take 1 Univers 0.4 mg 24 2-21 capsule by ity of hr capsule 00:00: mouth at [place] 00 bedtime. Medical Branch tamsulosin 2020-0 Yes [id number] .4mg Take 1 Univers 0.4 mg 24 2-21 capsule by ity of hr capsule 00:00: mouth at [place] 00 bedtime. Medical Branch tamsulosin 2020-0 Yes [id number] .4mg Take 1 Univers 0.4 mg 24 2-21 capsule by ity of hr capsule 00:00: mouth at [place] 00 bedtime. Medical Branch tamsulosin 2020-0 Yes [id number] .4mg Take 1 Univers 0.4 mg 24 2-21 capsule by ity of hr capsule 00:00: mouth at [place] 00 bedtime. Medical Branch tamsulosin 2020-0 Yes [id number] .4mg Take 1 Univers 0.4 mg 24 2-21 capsule by ity of hr capsule 00:00: mouth at [place] 00 bedtime. Medical Branch tamsulosin 2020-0 Yes [id number] .4mg Take 1 Univers 0.4 mg 24 2-21 capsule by ity of hr capsule 00:00: mouth at [place] 00 bedtime. Medical Branch tamsulosin 2020-0 Yes [id number] .4mg Take 1 Univers 0.4 mg 24 2-21 capsule by ity of hr capsule 00:00: mouth at [place] 00 bedtime. Medical Branch tamsulosin 2020-0 Yes [id number] .4mg Take 1 Univers 0.4 mg 24 2-21 capsule by ity of hr capsule 00:00: mouth at [place] 00 bedtime. Medical Branch tamsulosin 2020-0 Yes [id number] .4mg Take 1 Univers 0.4 mg 24 2-21 capsule by ity of hr capsule 00:00: mouth at [place] 00 bedtime. Medical Branch tamsulosin 2020-0 Yes [id number] .4mg Take 1 Univers 0.4 mg 24 2-21 capsule by ity of hr capsule 00:00: mouth at [place] 00 bedtime. Medical Branch tamsulosin 2020-0 Yes [id number] .4mg Take 1 Univers 0.4 mg 24 2-21 capsule by ity of hr capsule 00:00: mouth at [place] 00 bedtime. Medical Branch tamsulosin 2020-0 Yes [id number] .4mg Take 1 Univers 0.4 mg 24 2-21 capsule by ity of hr capsule 00:00: mouth at [place] 00 bedtime. Medical Branch tamsulosin 2020-0 Yes [id number] .4mg Take 1 Univers 0.4 mg 24 2-21 capsule by ity of hr capsule 00:00: mouth at [place] 00 bedtime. Medical Branch tamsulosin 2020-0 Yes [id number] .4mg Take 1 Univers 0.4 mg 24 2-21 capsule by ity of hr capsule 00:00: mouth at [place] 00 bedtime. Medical Branch tamsulosin 2020-0 Yes [id number] .4mg Take 1 Univers 0.4 mg 24 2-21 capsule by ity of hr capsule 00:00: mouth at [place] 00 bedtime. Medical Branch tamsulosin 2020-0 Yes [id number] .4mg Take 1 Univers 0.4 mg 24 2-21 capsule by ity of hr capsule 00:00: mouth at [place] as 00 bedtime. Medical Branch tamsulosin 2020-0 Yes [id number] .4mg Take 1 Univers 0.4 mg 24 2-21 capsule by ity of hr capsule 00:00: mouth at [place] as 00 bedtime. Medical Branch tamsulosin 2020-0 Yes [id number] .4mg Take 1 Univers 0.4 mg 24 2-21 capsule by ity of hr capsule 00:00: mouth at [place] 00 bedtime. Medical Branch tamsulosin 2020-0 Yes [id number] .4mg Take 1 Univers 0.4 mg 24 2-21 capsule by ity of hr capsule 00:00: mouth at [place] as 00 bedtime. [facility] tamsulosin 2020-0 Yes [id number] .4mg Take 1 [facility] 0.4 mg 24 2-21 capsule by ity of hr capsule 00:00: mouth at [place] as 00 bedtime. [facility] tamsulosin 2020-0 Yes [id number] .4mg Take 1 [facility] 0.4 mg 24 2-21 capsule by ity of hr capsule 00:00: mouth at [place] as 00 bedtime. [facility] tamsulosin 2020-0 Yes [id number] .4mg Take 1 [facility] 0.4 mg 24 2-21 capsule by ity of hr capsule 00:00: mouth at [place] as 00 bedtime. [facility] tamsulosin 2020-0 Yes [id number] .4mg Take 1 [facility] 0.4 mg 24 2-21 capsule by ity of hr capsule 00:00: mouth at [place] as 00 bedtime. [facility] tamsulosin 2020-0 Yes [id number] .4mg Take 1 [facility] 0.4 mg 24 2-21 capsule by ity of hr capsule 00:00: mouth at [place] as 00 bedtime. [facility] tamsulosin 2020-0 Yes [id number] .4mg Take 1 [facility] 0.4 mg 24 2-21 capsule by ity of hr capsule 00:00: mouth at [place] as 00 bedtime. [facility] tamsulosin 2020-0 Yes [id number] .4mg Take 1 [facility] 0.4 mg 24 2-21 capsule by ity of hr capsule 00:00: mouth at [place] as 00 bedtime. [facility] tamsulosin 2020-0 Yes [id number] .4mg Take 1 [facility] 0.4 mg 24 2-21 capsule by ity of hr capsule 00:00: mouth at [place] as 00 bedtime. [facility] tamsulosin 2020-0 Yes [id number] .4mg Take 1 [facility] 0.4 mg 24 2-21 capsule by ity of hr capsule 00:00: mouth at [place] as 00 bedtime. [facility] tamsulosin 2020-0 Yes [id number] .4mg Take 1 [facility] 0.4 mg 24 2-21 capsule by ity of hr capsule 00:00: mouth at [place] as 00 bedtime. [facility] tamsulosin 2020-0 Yes [id number] .4mg Take 1 [facility] 0.4 mg 24 2-21 capsule by ity of hr capsule 00:00: mouth at [place] as 00 bedtime. [facility] aspirin 81 2020-0 No 1mg mg 2-10 tablet,frances 00:00: yed release 00 aspirin 81 2020-0 No 1mg mg 2-10 tablet,frances 00:00: yed release 00 metformin 2020-0 No 1mg 1,000 mg 1-06 tablet 00:00: 00 metformin 2020-0 No 1mg 1,000 mg 1-06 tablet 00:00: 00 metformin 2020-0 No 1mg 1,000 mg 1-06 tablet 00:00: 00 metformin 2020-0 No 1mg 1,000 mg 1-06 tablet 00:00: 00 Anusol-HC 2018-1 No 1% 2.5 % 0-07 topical 00:00: cream with 00 perineal applicator sertraline 2018- No 1mg 50 mg 0-07 tablet 00:00: 00 lisinopril 2018-1 No 1mg 5 mg tablet 0-07 00:00: 00 atorvastati 2018-1 No 1mg n 20 mg 0-07 tablet 00:00: 00 omeprazole 2018-1 No 1mg 20 mg 0-07 capsule,del 00:00: ayed 00 release Anusol-HC 2018-1 No 1% 2.5 % 0-07 topical 00:00: cream with 00 perineal applicator sertraline 2018- No 1mg 50 mg 0-07 tablet 00:00: 00 lisinopril 2018-1 No 1mg 5 mg tablet 0-07 00:00: 00 atorvastati 2018-1 No 1mg n 20 mg 0-07 tablet 00:00: 00 omeprazole 2018-1 No 1mg 20 mg 0-07 capsule,del 00:00: ayed 00 release multivitami 2017 Yes 1{tbl} Take 1 [place] n tablet 2-20 tablet by ity of 20:47: mouth [place] [id number] daily. [facility] lisinopril 2016-04 Yes 5mg Take 5 mg Un [place] 5 mg tablet 2-20 by mouth ity of 20:47: daily. [address] metFORMIN 2016-04 Yes 500mg Take 500 Uni vers 500 mg 2-20 mg by ity of tablet 20:47: mouth 2 [place] [address] ([facility]) Medical times [place] daily. metFORMIN 2016-04 Yes 500mg Take 500 Uni vers 500 mg 2-20 mg by ity of tablet 20:47: mouth 2 [place] [address] ([facility]) Medical times [place] daily. atorvastati 2016-04 Yes 20mg Take 20 mg Univers n 20 mg 2-20 by mouth ity of tablet 20:47: daily. [address] SERTraline 2016-04 Yes 50mg Take 50 mg U nivers 50 mg 2-20 by mouth ity of tablet 20:47: daily. [address] aspirin 81 2016-04 Yes 81mg Take 81 mg U nivers mg chewable 2-20 by mouth ity of tablet 20:47: daily. [address] multivitami 2016-04 Yes 1{tbl} Take 1 Un [place] n tablet 2-20 tablet by ity of 20:47: mouth [place] [address] daily. [facility] lisinopril 2016-04 Yes 5mg Take 5 mg Un [place] 5 mg tablet 2-20 by mouth ity of 20:47: daily. [address] atorvastati 2016-04 Yes 20mg Take 20 mg Univers n 20 mg 2-20 by mouth ity of tablet 20:47: daily. [address] metFORMIN 2016-04 Yes 500mg Take 500 Uni vers 500 mg 2-20 mg by ity of tablet 20:47: mouth 2 [place] [address] ([facility]) [facility] times [place] daily. atorvastati 2016-04 Yes 20mg Take 20 mg Univers n 20 mg 2-20 by mouth ity of tablet 20:47: daily. [address] SERTraline 2016-04 Yes 50mg Take 50 mg U nivers 50 mg 2-20 by mouth ity of tablet 20:47: daily. [address] aspirin 81 2016-04 Yes 81mg Take 81 mg U nivers mg chewable 2-20 by mouth ity of tablet 20:47: daily. [address] multivitami 2017 Yes 1{tbl} Take 1 Un [place] n tablet 2-20 tablet by ity of 20:47: mouth [place] [address] daily. [facility] lisinopril 2017 Yes 5mg Take 5 mg [facility] [place] 5 mg tablet 2-20 by mouth ity of 20:47: daily. [address] SERTraline 2016-04 Yes 50mg Take 50 mg U nivers 50 mg 2-20 by mouth ity of tablet 20:47: daily. [address] metFORMIN 2016-04 Yes 500mg Take 500 Uni vers 500 mg 2-20 mg by ity of tablet 20:47: mouth 2 [place] [address] (two) Medical times [place] daily. atorvastati 2016-04 Yes 20mg Take 20 mg [facility] n 20 mg 2-20 by mouth ity of tablet 20:47: daily. [address] SERTraline 2016-04 Yes 50mg Take 50 mg U nivers 50 mg 2-20 by mouth ity of tablet 20:47: daily. [address] aspirin 81 2016-04 Yes 81mg Take 81 mg U nivers mg chewable 2-20 by mouth ity of tablet 20:47: daily. [address] multivitami 2016-04 Yes 1{tbl} Take 1 [facility] [place] n tablet 2-20 tablet by ity of 20:47: mouth [place] [address] daily. [facility] lisinopril 2016-04 Yes 5mg Take 5 mg [facility] [place] 5 mg tablet 2-20 by mouth ity of 20:47: daily. [address] aspirin 81 2016-04 Yes 81mg Take 81 mg U nivers mg chewable 2-20 by mouth ity of tablet 20:47: daily. [address] metFORMIN 2016-04 Yes 500mg Take 500 Uni vers 500 mg 2-20 mg by ity of tablet 20:47: mouth 2 [place] [address] (two) Medical times [place] daily. atorvastati 2016-04 Yes 20mg Take 20 mg Univers n 20 mg 2-20 by mouth ity of tablet 20:47: daily. [address] SERTraline 2016-04 Yes 50mg Take 50 mg U nivers 50 mg 2-20 by mouth ity of tablet 20:47: daily. [address] aspirin 81 2016-04 Yes 81mg Take 81 mg U nivers mg chewable 2-20 by mouth ity of tablet 20:47: daily. [address] multivitami 2016-04 Yes 1{tbl} Take 1 Un [place] n tablet 2-20 tablet by ity of 20:47: mouth [place] 45 daily. [facility] lisinopril 2016-04 Yes 5mg Take 5 mg [facility] [place] 5 mg tablet 2-20 by mouth ity of 20:47: daily. [address] multivitami 2016-04 Yes 1{tbl} Take 1 [facility] [place] n tablet 2-20 tablet by ity of 20:47: mouth [place] [address] daily. Medical Branch metFORMIN 2016-04 Yes 500mg Take 500 Uni vers 500 mg 2-20 mg by ity of tablet 20:47: mouth 2 [place] [address] (two) Medical times [place] daily. atorvastati 2016-04 Yes 20mg Take 20 mg Univers n 20 mg 2-20 by mouth ity of tablet 20:47: daily. [address] SERTraline 2016-04 Yes 50mg Take 50 mg U nivers 50 mg 2-20 by mouth ity of tablet 20:47: daily. [address] aspirin 81 2016-04 Yes 81mg Take 81 mg U nivers mg chewable 2-20 by mouth ity of tablet 20:47: daily. [address] multivitami 2016-04 Yes 1{tbl} Take 1 [facility] [place] n tablet 2-20 tablet by ity of 20:47: mouth [place] [address] daily. [facility] lisinopril 2016-04 Yes 5mg Take 5 mg [place] 5 mg tablet 2-20 by mouth ity of 20:47: daily. [address] lisinopril 2016-04 Yes 5mg Take 5 mg [facility] [place] 5 mg tablet 2-20 by mouth ity of 20:47: daily. [address] metFORMIN 2016-04 Yes 500mg Take 500 Uni vers 500 mg 2-20 mg by ity of tablet 20:47: mouth 2 [place] [address] (two) Medical times Branch daily. atorvastati 2016-04 Yes 20mg Take 20 mg Univers n 20 mg 2-20 by mouth ity of tablet 20:47: daily. [address] SERTraline 2016-04 Yes 50mg Take 50 mg U nivers 50 mg 2-20 by mouth ity of tablet 20:47: daily. [address] aspirin 81 2016-04 Yes 81mg Take 81 mg U nivers mg chewable 2-20 by mouth ity of tablet 20:47: daily. [address] multivitami 2016-04 Yes 1{tbl} Take 1 [facility] [place] n tablet 2-20 tablet by ity of 20:47: mouth [place] [address] daily. [facility] lisinopril 2017 Yes 5mg Take 5 mg [facility] [place] 5 mg tablet 2-20 by mouth ity of 20:47: daily. [address] metFORMIN 2016-04 Yes 500mg Take 500 Uni vers 500 mg 2-20 mg by ity of tablet 20:47: mouth 2 [place] [address] (two) Medical times [place] daily. atorvastati 2016-04 Yes 20mg Take 20 mg Univers n 20 mg 2-20 by mouth ity of tablet 20:47: daily. [address] SERTraline 2016-04 Yes 50mg Take 50 mg U nivers 50 mg 2-20 by mouth ity of tablet 20:47: daily. [address] aspirin 81 2016-04 Yes 81mg Take 81 mg U nivers mg chewable 2-20 by mouth ity of tablet 20:47: daily. [address] multivitami 2016-04 Yes 1{tbl} Take 1 [facility] [place] n tablet 2-20 tablet by ity of 20:47: mouth [place] [address] daily. [facility] lisinopril 2016-04 Yes 5mg Take 5 mg [place] 5 mg tablet 2-20 by mouth ity of 20:47: daily. [address] metFORMIN 2016-04 Yes 500mg Take 500 Uni vers 500 mg 2-20 mg by ity of tablet 20:47: mouth 2 [place] [address] (two) Medical times [place] daily. atorvastati 2016-04 Yes 20mg Take 20 mg Univers n 20 mg 2-20 by mouth ity of tablet 20:47: daily. [address] SERTraline 2016-04 Yes 50mg Take 50 mg U nivers 50 mg 2-20 by mouth ity of tablet 20:47: daily. [address] aspirin 81 2016-04 Yes 81mg Take 81 mg U nivers mg chewable 2-20 by mouth ity of tablet 20:47: daily. [address] multivitami 2016-04 Yes 1{tbl} Take 1 [facility] [place] n tablet 2-20 tablet by ity of 20:47: mouth [place] 45 daily. [facility] lisinopril 2016-04 Yes 5mg Take 5 mg [place] 5 mg tablet 2-20 by mouth ity of 20:47: daily. [address] metFORMIN 2016-04 Yes 500mg Take 500 Uni vers 500 mg 2-20 mg by ity of tablet 20:47: mouth 2 [place] [address] (two) Medical times [place] daily. atorvastati 2016-04 Yes 20mg Take 20 mg Univers n 20 mg 2-20 by mouth ity of tablet 20:47: daily. [address] SERTraline 2016-04 Yes 50mg Take 50 mg U nivers 50 mg 2-20 by mouth ity of tablet 20:47: daily. [address] aspirin 81 2016-04 Yes 81mg Take 81 mg U nivers mg chewable 2-20 by mouth ity of tablet 20:47: daily. [address] multivitami 2016-04 Yes 1{tbl} Take 1 Un [place] n tablet 2-20 tablet by ity of 20:47: mouth [place] 45 daily. [facility] lisinopril 2016-04 Yes 5mg Take 5 mg [facility] [place] 5 mg tablet 2-20 by mouth ity of 20:47: daily. [address] metFORMIN 2016-04 Yes 500mg Take 500 Uni vers 500 mg 2-20 mg by ity of tablet 20:47: mouth 2 [place] [address] ([facility]) Medical times [place] daily. atorvastati 2016-04 Yes 20mg Take 20 mg Univers n 20 mg 2-20 by mouth ity of tablet 20:47: daily. [address] SERTraline 2016-04 Yes 50mg Take 50 mg U nivers 50 mg 2-20 by mouth ity of tablet 20:47: daily. [address] aspirin 81 2016-04 Yes 81mg Take 81 mg U nivers mg chewable 2-20 by mouth ity of tablet 20:47: daily. [address] multivitami 2016-04 Yes 1{tbl} Take 1 [place] n tablet 2-20 tablet by ity of 20:47: mouth [place] 45 daily. [facility] lisinopril 2016-04 Yes 5mg Take 5 mg [place] 5 mg tablet 2-20 by mouth ity of 20:47: daily. [address] metFORMIN 2016-04 Yes 500mg Take 500 Uni vers 500 mg 2-20 mg by ity of tablet 20:47: mouth 2 [place] [address] ([facility] times [place] daily. atorvastati 2016-04 Yes 20mg Take 20 mg Univers n 20 mg 2-20 by mouth ity of tablet 20:47: daily. [address] SERTraline 2017 Yes 50mg Take 50 mg U nivers 50 mg 2-20 by mouth ity of tablet 20:47: daily. [address] aspirin 81 2016-04 Yes 81mg Take 81 mg U nivers mg chewable 2-20 by mouth ity of tablet 20:47: daily. [address] multivitami 2016-04 Yes 1{tbl} Take 1 [place] n tablet 2-20 tablet by ity of 20:47: mouth [place] [address] daily. [facility] lisinopril 2016-04 Yes 5mg Take 5 mg [place] 5 mg tablet 2-20 by mouth ity of 20:47: daily. [address] metFORMIN 2016-04 Yes 500mg Take 500 Uni vers 500 mg 2-20 mg by ity of tablet 20:47: mouth [address] daily[address] atorvastati 2016-04 Yes 20mg Take 20 mg Univers n 20 mg 2-20 by mouth ity of tablet 20:47: daily. [address] SERTraline 2016-04 Yes 50mg Take 50 mg U nivers 50 mg 2-20 by mouth ity of tablet 20:47: daily. [address] aspirin 81 2016-04 Yes 81mg Take 81 mg U nivers mg chewable 2-20 by mouth ity of tablet 20:47: daily. [address] multivitami 2016-04 Yes 1{tbl} Take 1 [place] n tablet 2-20 tablet by ity of 20:47: mouth [place] 45 daily. [facility] lisinopril 2016- Yes 5mg Take 5 mg [place] 5 mg tablet 2-20 by mouth ity of 20:47: daily. [address] metFORMIN 2016- Yes 500mg Take 500 Uni vers 500 mg 2-20 mg by ity of tablet 20:47: mouth 2 [place] [address] ([facility]) [facility] times [place] daily. atorvastati 2016-04 Yes 20mg Take 20 mg Univers n 20 mg 2-20 by mouth ity of tablet 20:47: daily. [address] SERTraline 2016-04 Yes 50mg Take 50 mg U nivers 50 mg 2-20 by mouth ity of tablet 20:47: daily. [address] aspirin 81 2016-04 Yes 81mg Take 81 mg U nivers mg chewable 2-20 by mouth ity of tablet 20:47: daily. [address] multivitami 2016-04 Yes 1{tbl} Take 1 [place] n tablet 2-20 tablet by ity of 20:47: mouth [place] [address] daily. [facility] lisinopril 2016-04 Yes 5mg Take 5 mg [place] 5 mg tablet 2-20 by mouth ity of 20:47: daily. [address] metFORMIN 2016-04 Yes 500mg Take 500 Uni vers 500 mg 2-20 mg by ity of tablet 20:47: mouth 2 [place] [address] ([facility]) Medical times [place] daily. atorvastati 2016-04 Yes 20mg Take 20 mg Univers n 20 mg 2-20 by mouth ity of tablet 20:47: daily. [address] SERTraline 2016-04 Yes 50mg Take 50 mg U nivers 50 mg 2-20 by mouth ity of tablet 20:47: daily. [address] aspirin 81 2016-04 Yes 81mg Take 81 mg U nivers mg chewable 2-20 by mouth ity of tablet 20:47: daily. [address] multivitami 2016-04 Yes 1{tbl} Take 1 [place] n tablet 2-20 tablet by ity of 20:47: mouth [place] [address] daily. [facility] lisinopril 2016-04 Yes 5mg Take 5 mg [place] 5 mg tablet 2-20 by mouth ity of 20:47: daily. [address] metFORMIN 2016-04 Yes 500mg Take 500 Uni vers 500 mg 2-20 mg by ity of tablet 20:47: mouth 2 [place] [address] (two) Medical times [place] daily. atorvastati 2016-04 Yes 20mg Take 20 mg Univers n 20 mg 2-20 by mouth ity of tablet 20:47: daily. [address] SERTraline 2016-04 Yes 50mg Take 50 mg U nivers 50 mg 2-20 by mouth ity of tablet 20:47: daily. [address] aspirin 81 2016-04 Yes 81mg Take 81 mg U nivers mg chewable 2-20 by mouth ity of tablet 20:47: daily. [address] multivitami 2016-04 Yes 1{tbl} Take 1 [place] n tablet 2-20 tablet by ity of 20:47: mouth [place] 45 daily. [facility] lisinopril 2017 Yes 5mg Take 5 mg [place] 5 mg tablet 2-20 by mouth ity of 20:47: daily. [address] metFORMIN 2016-04 Yes 500mg Take 500 Uni vers 500 mg 2-20 mg by ity of tablet 20:47: mouth 2 [place] [address] (two) Medical times [place] daily. atorvastati 2016-04 Yes 20mg Take 20 mg Univers n 20 mg 2-20 by mouth ity of tablet 20:47: daily. [address] SERTraline 2016-04 Yes 50mg Take 50 mg U nivers 50 mg 2-20 by mouth ity of tablet 20:47: daily. [address] aspirin 81 2016-04 Yes 81mg Take 81 mg U nivers mg chewable 2-20 by mouth ity of tablet 20:47: daily. [address] multivitami 2016-04 Yes 1{tbl} Take 1 [place] n tablet 2-20 tablet by ity of 20:47: mouth [place] [address] daily. [facility] lisinopril 2016-04 Yes 5mg Take 5 mg [place] 5 mg tablet 2-20 by mouth ity of 20:47: daily. [address] metFORMIN 2016-04 Yes 500mg Take 500 Uni vers 500 mg 2-20 mg by ity of tablet 20:47: mouth 2 [place] [address] (two) [facility] times [place] daily. atorvastati 2016-04 Yes 20mg Take 20 mg Univers n 20 mg 2-20 by mouth ity of tablet 20:47: daily. [address] SERTraline 2016-04 Yes 50mg Take 50 mg U nivers 50 mg 2-20 by mouth ity of tablet 20:47: daily. [address] aspirin 81 2016-04 Yes 81mg Take 81 mg U nivers mg chewable 2-20 by mouth ity of tablet 20:47: daily. [address] ranitidine 2016-04 Yes 150mg Take 150 Un [place] 150 mg 1-06 mg by ity of tablet 00:00: mouth [place] 00 daily. [facility] Branch ranitidine 2016-04 Yes 150mg Take 150 [place] 150 mg 1-06 mg by ity of tablet 00:00: mouth [place] 00 daily. [facility] ranitidine 2016-04 Yes 150mg Take 150 [place] 150 mg 1-06 mg by ity of tablet 00:00: mouth [place] 00 daily. [facility] ranitidine 2016-04 Yes 150mg Take 150 [place] 150 mg 1-06 mg by ity of tablet 00:00: mouth [place] 00 daily. [facility] ranitidine 2016-04 Yes 150mg Take 150 [place] 150 mg 1-06 mg by ity of tablet 00:00: mouth [place] 00 daily. [facility] ranitidine 2016-04 Yes 150mg Take 150 [place] 150 mg 1-06 mg by ity of tablet 00:00: mouth [place] 00 daily. [facility] ranitidine 2016-04 Yes 150mg Take 150 [place] 150 mg 1-06 mg by ity of tablet 00:00: mouth [place] 00 daily. [facility] ranitidine 2016-04 Yes 150mg Take 150 [place] 150 mg 1-06 mg by ity of tablet 00:00: mouth [place] 00 daily. [facility] ranitidine 2016-04 Yes 150mg Take 150 [place] 150 mg 1-06 mg by ity of tablet 00:00: mouth [place] 00 daily. [facility] ranitidine 2016-04 Yes 150mg Take 150 [place] 150 mg 1-06 mg by ity of tablet 00:00: mouth [place] 00 daily. [facility] ranitidine 2016-04 Yes 150mg Take 150 [place] 150 mg 1-06 mg by ity of tablet 00:00: mouth [place] 00 daily. [facility] ranitidine 2016-04 Yes 150mg Take 150 [place] 150 mg 1-06 mg by ity of tablet 00:00: mouth [place] 00 daily. [facility] ranitidine 2016-04 Yes 150mg Take 150 [place] 150 mg 1-06 mg by ity of tablet 00:00: mouth [place] 00 daily. [facility] ranitidine 2016-04 Yes 150mg Take 150 [place] 150 mg 1-06 mg by ity of tablet 00:00: mouth [place] 00 daily. [facility] Branch ranitidine 2016-04 Yes 150mg Take 150 [place] 150 mg 1-06 mg by ity of tablet 00:00: mouth [place] 00 daily. [facility] ranitidine 2016-04 Yes 150mg Take 150 [place] 150 mg 1-06 mg by ity of tablet 00:00: mouth [place] 00 daily. [facility] ranitidine 2016-04 Yes 150mg Take 150 [place] 150 mg 1-06 mg by ity of tablet 00:00: mouth [place] 00 daily. [facility] ranitidine 2016-04 Yes 150mg Take 150 [place] 150 mg 1-06 mg by ity of tablet 00:00: mouth [place] 00 daily. [facility] ranitidine 2016-04 Yes 150mg Take 150 [place] 150 mg 1-06 mg by ity of tablet 00:00: mouth [place] 00 daily. [facility] ranitidine 2016-04 Yes 150mg Take 150 [place] 150 mg 1-06 mg by ity of tablet 00:00: mouth [place] 00 daily. [facility] ranitidine 2016-04 Yes 150mg Take 150 [place] 150 mg 1-06 mg by ity of tablet 00:00: mouth [place] 00 daily. [facility] ranitidine 2016-04 Yes 150mg Take 150 Un [place] 150 mg 1-06 mg by ity of tablet 00:00: mouth [place] 00 daily. [facility] ranitidine 2016-04 Yes 150mg Take 150 [place] 150 mg 1-06 mg by ity of tablet 00:00: mouth [place] 00 daily. [facility] ranitidine 2016-04 Yes 150mg Take 150 [place] 150 mg 1-06 mg by ity of tablet 00:00: mouth [place] 00 daily. [facility] ranitidine 2016-04 Yes 150mg Take 150 [place] 150 mg 1-06 mg by ity of tablet 00:00: mouth [place] 00 daily. [facility] ranitidine 2016-04 Yes 150mg Take 150 [place] 150 mg 1-06 mg by ity of tablet 00:00: mouth [place] 00 daily. [facility] ranitidine 2016-04 Yes 150mg Take 150 [place] 150 mg 1-06 mg by ity of tablet 00:00: mouth [place] 00 daily. [facility] ranitidine 2016-04 Yes 150mg Take 150 [place] 150 mg 1-06 mg by ity of tablet 00:00: mouth [place] 00 daily. [facility] ranitidine 2016-04 Yes 150mg Take 150 [place] 150 mg 1-06 mg by ity of tablet 00:00: mouth 00 daily. [facility] ranitidine 2016-04 Yes 150mg Take 150 [place] 150 mg 1-06 mg by ity of tablet 00:00: mouth 00 daily. [facility] Branch Immunizations Ordered Immunization Filled Immunization Date Status Commen ts Source Name Name Olaf ROBERTS 2021-02-02 Completed Vaccine 00:00:00 Olaf ROBERTS 2021-02-02 Completed Vaccine 00:00:00 Olaf MACK-[place] 2020-06-05 Completed Vaccine 00:00:00 Olaf STEARNSID-[place] 2020-05-08 Completed Vaccine 00:00:00 Olaf STEARNSID-[place] 2020-05-08 Completed Vaccine 00:00:00 Influenza, seasonal, 2018-01-02 Completed inj 00:00:00 Influenza, seasonal, 2018-01-02 Completed inj 00:00:00 Influenza, high dose 2017-02-12 Completed sea 00:00:00 Influenza, high dose 2017-02-12 Completed sea 00:00:00 DTaP-Hep B-IPV 2016-11-08 Completed 00:00:00 DTaP-Hep B-IPV 2016-11-08 Completed 00:00:00 Influenza, seasonal, 2016-04-10 Completed inj 00:00:00 Influenza, seasonal, 2016-04-10 Completed inj 00:00:00 Vital Signs Vital Name Observation Time Observation Value Comments Source Systolic blood 2019-11-24 15:42:00 131 mm[Hg] Univer sity of pressure [facility] Diastolic blood 2019-11-24 15:42:00 70 mm[Hg] Unive rsity [facility] Heart rate 2019-11-24 15:42:00 74 /min [facility] Body temperature 2019-11-24 15:42:00 36.11 [facility] 2019-11-24 15:42:00 18 /min [facility] Body weight 2019-11-24 15:42:00 97.07 kg [facility] BMI 2019-11-24 15:42:00 30.71 kg/m2 [facility] Systolic blood 2019-11-24 15:42:00 131 mm[Hg] Univer sity of pressure [facility] Diastolic blood 2019-11-24 15:42:00 70 mm[Hg] Unive rsity of pressure [facility] Heart rate 2019-11-24 15:42:00 74 /min [facility] Body temperature 2019-11-24 15:42:00 36.11 [place] Respiratory rate 2019-11-24 15:42:00 18 /min [facility] Body weight 2019-11-24 15:42:00 97.07 kg [facility] BMI 2019-11-24 15:42:00 30.71 kg/m2 [facility] Systolic blood 2019-10-21 20:10:00 130 mm[Hg] Univer sity of pressure [facility] Diastolic blood 2019-10-21 20:10:00 80 mm[Hg] Unive rsity of pressure [facility] Heart rate 2019-10-21 20:10:00 82 /min [facility] Body temperature 2019-10-21 20:10:00 36.67 [facility]ifty [facility] Respiratory rate 2019-10-21 20:10:00 18 /min [facility] Body weight 2019-10-21 20:10:00 95.89 kg [facility] BMI 2019-10-21 20:10:00 30.33 kg/m2 [facility] Systolic blood 2019-09-22 21:29:00 132 mm[Hg] Univer sity of pressure [facility] Diastolic blood 2019-09-22 21:29:00 79 mm[Hg] Unive rsity of pressure [facility] Heart rate 2019-09-22 21:29:00 76 /min [facility] Body temperature 2019-09-22 21:29:00 36.5 [facility]if[facility] Body height 2019-09-22 21:29:00 177.8 cm [facility] Body weight 2019-09-22 21:29:00 97.523 kg [facility] BMI 2019-09-22 21:29:00 30.85 kg/m2 [facility] Systolic blood 2019-09-11 16:20:00 129 mm[Hg] Univer sity of pressure [facility] Diastolic blood 2019-09-11 16:20:00 64 mm[Hg] Unive rsity of pressure [facility] Heart rate 2019-09-11 16:20:00 84 /min Universi ty of [facility] Oxygen saturation in 2019-09-11 16:20:00 96 /min University Arterial blood by [facility] Pulse oximetry Branch Respiratory rate 2019-09-11 15:50:00 16 /min Univ ersity of [facility] Body temperature 2019-09-11 13:08:00 36.5 Gifty Univ ersity of [facility] Body height 2019-09-08 17:00:00 177.8 cm Universi ty of [facility] Body weight 2019-09-08 17:00:00 97.523 kg Universi ty of [facility] BMI 2019-09-08 17:00:00 30.85 kg/m2 Universi ty of [facility] Systolic blood 2019-06-16 18:58:00 145 mm[Hg] Univer sity of pressure [facility] Diastolic blood 2019-06-16 18:58:00 78 mm[Hg] Unive rsity of pressure [facility] Heart rate 2019-06-16 18:58:00 85 /min Universi ty of [facility] Body temperature 2019-06-16 18:58:00 36.56 Gifty Univ ersity of [facility] Respiratory rate 2019-06-16 18:58:00 18 /min Univ ersity of [facility] Body weight 2019-06-16 18:58:00 99.156 kg Universi ty of [facility] BMI 2019-06-16 18:58:00 31.37 kg/m2 Universi ty of [facility] Systolic blood 2019-05-30 14:15:00 130 mm[Hg] Univer sity of pressure [facility] Diastolic blood 2019-05-30 14:15:00 82 mm[Hg] Unive rsity of pressure [facility] Heart rate 2019-05-30 14:15:00 84 /min Universi ty of [facility] Body temperature 2019-05-30 14:15:00 36.22 Gifty Univ ersity of [facility] Respiratory rate 2019-05-30 14:15:00 18 /min Univ ersity of [facility] Body weight 2019-05-30 14:15:00 99.156 kg Universi [facility] BMI 2019-05-30 14:15:00 31.37 kg/m2 [facility] Oxygen saturation in 2019-05-30 14:15:00 95 /min [facility] blood by [facility] Pulse oximetry Branch BP Systolic 2022-01-05 10:53:00 147 mm[Hg] BP Diastolic 2022-01-05 10:53:00 77 mm[Hg] Weight Measured 2022-01-05 10:53:00 202.60 pounds Height Measured 2022-01-05 10:53:00 70.00 inches Body Temperature 2022-01-05 10:53:00 98.70 degrees Heart Rate 2022-01-05 10:53:00 84.00 /min Respiratory Rate 2022-01-05 10:53:00 BP Systolic 2021-12-13 13:57:00 151 mm[Hg] BP Diastolic 2021-12-13 13:57:00 77 mm[Hg] Weight Measured 2021-12-13 13:57:00 206.40 pounds Height Measured 2021-12-13 13:57:00 70.00 inches Body Temperature 2021-12-13 13:57:00 98.70 degrees Heart Rate 2021-12-13 13:57:00 90.00 /min Respiratory Rate 2021-12-13 13:57:00 BP Systolic 2021-07-20 15:09:00 127 mm[Hg] BP Diastolic 2021-07-20 15:09:00 76 mm[Hg] Weight Measured 2021-07-20 15:09:00 209.80 pounds Height Measured 2021-07-20 15:09:00 70.00 inches Body Temperature 2021-07-20 15:09:00 98.60 degrees Heart Rate 2021-07-20 15:09:00 83.00 /min Respiratory Rate 2021-07-20 15:09:00 16.00 /min BP Systolic 2021-04-21 09:36:00 138 mm[Hg] BP Diastolic 2021-04-21 09:36:00 76 mm[Hg] Weight Measured 2021-04-21 09:36:00 206.40 pounds Height Measured 2021-04-21 09:36:00 70.00 inches Body Temperature 2021-04-21 09:36:00 97.70 degrees Heart Rate 2021-04-21 09:36:00 77.00 /min Respiratory Rate 2021-04-21 09:36:00 BP Systolic 2021-01-17 09:44:00 142 mm[Hg] BP Diastolic 2021-01-17 09:44:00 83 mm[Hg] Weight Measured 2021-01-17 09:44:00 204.60 pounds Height Measured 2021-01-17 09:44:00 70.00 inches Body Temperature 2021-01-17 09:44:00 97.50 degrees Heart Rate 2021-01-17 09:44:00 81.00 /min Respiratory Rate 2021-01-17 09:44:00 BP Systolic 2020-10-19 09:44:00 143 mm[Hg] BP Diastolic 2020-10-19 09:44:00 87 mm[Hg] Weight Measured 2020-10-19 09:44:00 211.20 pounds Height Measured 2020-10-19 09:44:00 70.00 inches Body Temperature 2020-10-19 09:44:00 97.40 degrees Heart Rate 2020-10-19 09:44:00 80.00 /min Respiratory Rate 2020-10-19 09:44:00 BP Systolic 2020-08-16 16:17:00 125 mm[Hg] BP Diastolic 2020-08-16 16:17:00 74 mm[Hg] Weight Measured 2020-08-16 16:17:00 215.60 pounds Height Measured 2020-08-16 16:17:00 70.08 inches Body Temperature 2020-08-16 16:17:00 98.00 degrees Heart Rate 2020-08-16 16:17:00 74.00 /min Respiratory Rate 2020-08-16 16:17:00 BP Systolic 2020-01-21 14:44:00 114 mm[Hg] BP Diastolic 2020-01-21 14:44:00 72 mm[Hg] Weight Measured 2020-01-21 14:44:00 216.80 pounds Height Measured 2020-01-21 14:44:00 70.00 inches Body Temperature 2020-01-21 14:44:00 98.00 degrees Heart Rate 2020-01-21 14:44:00 87.00 /min Respiratory Rate 2020-01-21 14:44:00 16.00 /min BP Systolic 2020-01-01 13:55:00 133 mm[Hg] BP Diastolic 2020-01-01 13:55:00 85 mm[Hg] Weight Measured 2020-01-01 13:55:00 210.00 pounds Height Measured 2020-01-01 13:55:00 70.00 inches Body Temperature 2020-01-01 13:55:00 Heart Rate 2020-01-01 13:55:00 Respiratory Rate 2020-01-01 13:55:00 BP Systolic 2019-10-02 11:02:00 127 mm[Hg] BP Diastolic 2019-10-02 11:02:00 72 mm[Hg] Weight Measured 2019-10-02 11:02:00 212.00 pounds Height Measured 2019-10-02 11:02:00 70.00 inches Body Temperature 2019-10-02 11:02:00 97.60 degrees Heart Rate 2019-10-02 11:02:00 75.00 /min Respiratory Rate 2019-10-02 11:02:00 BP Systolic 2019-06-24 08:26:00 147 mm[Hg] BP Diastolic 2019-06-24 08:26:00 85 mm[Hg] Weight Measured 2019-06-24 08:26:00 218.50 pounds Height Measured 2019-06-24 08:26:00 70.00 inches Body Temperature 2019-06-24 08:26:00 97.00 degrees Heart Rate 2019-06-24 08:26:00 78.00 /min Respiratory Rate 2019-06-24 08:26:00 17.00 /min Procedures Procedure Date / Time Performing Clinician Source Performed US ABDOMEN COMPLETE 2021-09-23 15:52:29 [facility] AUTO 2019-11-24 15:43:00 Lyly Garcia [facility] POCT URINALYSIS AUTO 2019-09-22 00:00:00 Lyly Garcia [facility] BASIC METABOLIC PANEL 2019-09-11 13:40:00 [facility] (NA, K, CL, CO2, [facility] GLUCOSE, BUN, CREATININE, CA) CBC WITH DIFFERENTIAL 2019-09-11 13:40:00 Jania House [facility] EKG-12 LEAD 2019-09-11 13:35:28 Patrick [facility] o f [facility] HB ABO GROUPING 2019-09-11 13:35:00 Harsh Jania [facility] ASSIGNMENT OF BENEFITS 2019-09-04 14:13:48 Doctor Unassigned, No [facility] REFERRAL- 2019-08-22 05:01:00 Doctor Unassigned, No [facility] REQUEST/RESPONSE Name [facility] EXTERNAL PROVIDER 2019-06-24 05:01:00 Doctor Unassigned, No [facility] POCT URINALYSIS AUTO 2019-06-16 19:01:00 [facility] ASSIGNMENT OF BENEFITS 2019-06-16 18:27:39 Doctor Unassigned, No [facility] EXTERNAL PROVIDER 2019-06-08 06:01:00 Doctor Unassigned, No [facility] POCT URINALYSIS AUTO 2019-05-30 14:18:00 Barbra Mccoy [facility] Plan of Care Planned Activity Planned Date Details Comments Source Goal Plan of Care Note [code = 35290-9] Goal Plan of Care Note [code = 44207-9] Goal Plan of Care Note [code = 77764-6] Goal Plan of Care Note [code = 56531-9] Goal Plan of Care Note [code = 51180-3] Goal Plan of Care Note [code = 36874-0] Goal Plan of Care Note [code = 14927-0] Goal Plan of Care Note [code = 81494-4] Goal Plan of Care Note [code = 49461-4] Goal Plan of Care Note [code = 68454-7] Goal Plan of Care Note [code = 61243-7] Goal Plan of Care Note [code = 76703-7] Goal Plan of Care Note [code = 23484-7] Goal Plan of Care Note [code = 03726-1] Goal Plan of Care Note [code = 48189-0] Goal Plan of Care Note [code = 31761-1] Goal Plan of Care Note [code = 51043-7] Goal Plan of Care Note [code = 36654-1] Goal Plan of Care Note [code = 85137-9] Goal Plan of Care Note [code = 34019-9] Goal Plan of Care Note [code = 13916-3] Goal Plan of Care Note [code = 81209-1] Goal Plan of Care Note [code = 26584-8] Goal Plan of Care Note [code = 46347-6] Goal Plan of Care Note [code = 59664-2] Goal Plan of Care Note [code = 40504-6] Goal Plan of Care Note [code = 85276-4] Goal Plan of Care Note [code = 40061-8] Goal Plan of Care Note [code = 45116-3] Goal Plan of Care Note [code = 40218-8] Goal Plan of Care Note [code = 63245-7] Goal Plan of Care Note [code = 33371-1] Goal Plan of Care Note [code = 05639-5] Goal Plan of Care Note [code = 13165-6] Goal Plan of Care Note [code = 37891-7] Goal Plan of Care Note [code = 07695-7] Goal Plan of Care Note [code = 90425-3] Goal Plan of Care Note [code = 45265-0] Goal Plan of Care Note [code = 00417-5] Goal Plan of Care Note [code = 24943-4] Goal Plan of Care Note [code = 23568-1] Goal Plan of Care Note [code = 08562-2] Goal Plan of Care Note [code = 72411-8] Goal Plan of Care Note [code = 53843-2] Goal Plan of Care Note [code = 92336-5] Goal Plan of Care Note [code = 12965-4] Encounters Start End Encounter Admission Attending Care Care Encounter Source Date/Time Date/Time Type Type Clinicians Facility Department ID 2021-02-03 Outpatient JOSE [facility] [id number] Univers 22:55:54 LYLY lan [facility]ly [facility] 2022-02-27 2022-02-27 Outpatient REAGAN KIRK [id number] Chris Burton 10:45:56 10:45:56 Alayna Newton 2022-01-05 2022-01-05 Outpatient [id number] 00:00:00 00:00:00 Visit [id number]-b -ic45-dji [id number] 2021-12-13 2021-12-13 Outpatient [id number] 00:00:00 00:00:00 Visit y4ds-[id number] [id number]-4d59-b -v7j0-l41 [id number] 2021-09-23 2021-09-23 Outpatient R [facility] [id number] Univers 10:07:46 23:59:00 ANNI Aranda [facility] 2021-09-23 2021-09-23 [facility] [id number] Univers 10:00:00 23:59:00 Encounter Anni aranda [id number] ity [place] [id number] [facility] [address] 2020-06-14 2020-06-14 [facility] 1.2.840.114 [id number] Univers 00:00:00 00:00:00 [facility] [id number] i ty of [facility] [place]ION [id number] [place] dical [address] Branch 2020-05-27 2020-05-27 Outpatient R [facility] [id number] Univers 11:00:00 11:00:00 LYLY lan [facility] 2019-11-24 2019-11-24 Office [facility] [id number] Univers 10:32:19 12:31:41 Visit Lyly Mckay [id number] i [place] [phone] [place] dical nal 204 Branch [facility] 2019-11-24 2019-11-24 [facility] 1.2.840.114 [id number] 10:32:19 12:31:41 Visit Lyly Mckay [id number] [place] [id number] Professio [phone] [facility] 204 [facility] 2019-11-24 2019-11-24 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, 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 Lab [facility] 1.2.840.114 [id number] 11:54:28 12:09:28 Visit Woody 350.1.13.10 [place] [id number] Professio [phone] [facility] 353 [facility] 2019-11-24 2019-11-24 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, 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1.13.10 i [id number] [phone] [facility] 377 [facility] 2019-10-21 2019-10-21 Out[facility] [id number] Univers 15:00:00 15:00:00 KARENA lan [facility] 2019-09-22 2019-09-22 [facility] 1.2.840.114 [id number] Univers 16:05:23 16:49:16 Visit Lyly Mckay 350.1.13.10 i [place] [phone] N[place] dical [facility] 204 [facility] 2019-09-22 2019-09-22 Outpatient [facility] [id number] Univers 16:15:00 16:15:00 LYLY ity of [facility] 2019-09-11 2019-09-11 [facility] [id number] Univers 07:56:00 11:28:00 Encounter Lyly [place]ston [id number] it[place] Surgical [phone] [address] 2019-09-10 2019-09-10 Laboratory Only, Adc Test [facility] 1.2.840. 114 [id number] Univers 09:53:37 10:08:37 Only Lyly Garcia Woody [id number] ity of [place] [phone] N[place] dic[address] 2019-09-10 2019-09-10 Outpatient [facility] [id number] Univers 10:00:00 10:00:00 LYLY ity of [facility] 2019-09-04 2019-09-04 Slicing Machine Operator Augustin, Adc Lab Main [facility] 1.2.8 [id number] Univers 09:17:03 09:32:03 Visit Lyly Garcia Woody [id number] ity of [place] [phone] N[place] dic[address] 2019-09-04 2019-09-04 Outpatient [facility] [id number] Univers 09:15:00 09:15:00 LYLY ity of [facility] 2019-09-04 2019-09-04 Orders Doctor LEEANN 1.2.840.114 [id number] Univers 00:00:00 00:00:00 Only Unassigned, FLORECITA [id number] ity of [place] [facility] 4.2.7.2.686 [place] Javier as [phone] [address] 2019-08-26 2019-08-26 Telephone Gramm, [facility] [id number] Univers 00:00:00 00:00:00 Barbra A [place] [id number] ity of [place] [phone] N[place] dical nal 204 [facility] 2019-08-22 2019-08-22 Orders Doctor LEEANN 1.2.840.114 [id number] Univers 00:00:00 00:00:00 Only Unassigned, FLORECITA [id number] ity of [place] [facility] 4.2.7.2.686 [place] Javier as [phone] [address] 2019-08-11 2019-08-11 Telephone [facility], [facility] [id number] [id number] Univers 00:00:00 00:00:00 Barbra A [place] [id number] ity of [place] [phone] N[place] dical nal 204 [facility] 2019-08-11 2019-08-11 Prep For [facility], [facility] 1.2.840.114 [id number] Univers 00:00:00 00:00:00 Surgery Barbra Isauro [place] [id number] [place] of [place] [phone] N[place] dical nal 204 [facility] 2019-07-30 2019-07-30 Telephone [facility], [facility] [id number] Univers 00:00:00 00:00:00 Barbra A [place] 350.1.13.10 ity of [place] [phone] Nj dical nal 204 [facility] 2019-06-23 2019-06-23 Telephone [facility], [facility] [id number] Univers 00:00:00 00:00:00 Barbra A [place] 350.1.13.10 ity of [place] [phone] Nj dical nal 377 [facility] 2019-06-18 2019-06-18 Telephone LEEANN Garcia 1.2.840.114 [id number] Univers 00:00:00 00:00:00 Lylyclaudy BERNABE 350.1.13.10 it y of HOSPITAL 4.2.7.2.686 [place] Javier as [phone] [facility] [address] 2019-06-16 2019-06-16 Office JoseKarlosth [facility] 1.2.840.114 [id number] Univers 13:29:45 14:45:06 Visit Rm, Adc Surg Spec Procedure [place] 3 50.1.13.10 ity of [place] [phone] [address] 2019-06-16 2019-06-16 Outpatient R JOSE [facility] [id number] Univers 13:30:00 13:30:00 [facility] ity [facility]ly [facility] 2019-06-16 2019-06-16 Orders Doctor LEEANN 1.2.840.114 [id number] Univers 00:00:00 00:00:00 Only Unassigned, FLORECITA 350.1.13.10 ity of [place] [facility] 4.2.7.2.686 [place] Javier as [phone] [address] 2019-06-16 2019-06-16 Prep For Nadine TNANTWAN 1.2.840.114 [id number] Univers 00:00:00 00:00:00 Surgery Barbra Box [place] 350.1.13.10 it[place] [phone] [address] 2019-06-08 2019-06-08 Orders Doctor BRADSHAW 1.2.840.114 [id number] Univers 00:00:00 00:00:00 Only Unassigned, FLORECITA 350.1.13.10 ity of [place] [facility] 4.2.7.2.686 [place] Javier as [phone] [address] 2019-05-30 2019-05-30 Office Barbra Mccoy Isauro [facility] 1.2.840.11 [id number] Univers 08:03:09 08:41:03 Visit Lyly Garcia 350.1.13.10 ity of [place] Profess[place] [phone] [address] Results Test Description Test Time Test Comments Results Result Comments Source TSH + FREE T4 PROFILE 2022-01-06 06:43:12 Test Item Value Reference Range Interpretation Comme nts TSH, THIRD GENERATION (test code = 2821) 1.140 UIU/ML 0.400-4.100 FREE T4 (THYROXINE) (test code = 2823) 1.08 NG/DL 0.80-1.90 LIPID [id number] 03:53:32 Test Item Value Reference Range Interpretation Comments CHOLESTEROL (test 118 MG/DL <200 code = 2210) TRIGLYCERIDES (test 231 MG/DL <150 H code = 2232) HDL CHOLESTEROL (test 33 MG/DL >39 L code = 2220) CALC LDL CHOL (test 56 MG/DL <100 NOTE: C ALCULATED LDL code = 2237) IS BASED ON LISA-SELF METHOD WHICHINCLUDES ADJUSTABLE TRIGLYCERIDE:VL DL CHOLESTEROL RAT IO.THIS FACTOR VARIES B Y MEASURED TRIGLY CERIDE AND NON-HDLCHOL ESTEROL CONCENTRATIONS WITH INCREASED CALCU LATED LDL SEENIN HIGH ER TRIGLYCERIDE OR LOWER NON-HDL SPECIME NS. FOR MOREINFORMATION , SEE CLIENT ANNOUNCE MENT AT [email or web address] RISK RATIO LDL/HDL 1.70 RATIO <3.55 (test code = 2238) COMPREHENSIVE METABOLIC [id number] 03:53:32 Test Item Value Reference Range Interpretation Comments GLUCOSE (test code = 250 MG/DL 70-99 H 2216) BUN (test code = 8 MG/DL 8-23 2207) CREATININE (test 0.70 MG/DL 0.80-1.40 L code = 2214) eGFR (2020 CKD-EPI) 99 ML/MIN/1.73 >60 (test code = 72825) CALC BUN/CREAT (test 11 RATIO 6-28 code = 2235) SODIUM (test code = 138 MEQ/L 654-669 7397) POTASSIUM (test code 4.5 MEQ/L 3.5-5.4 = 2227) CHLORIDE (test code 101 MEQ/L 95-107 = 2214) CARBON DIOXIDE (test 22 MEQ/L 19-31 code = 2206) CALCIUM (test code = 9.8 MG/DL 8.5-10.5 2208) PROTEIN, TOTAL (test 7.1 G/DL 6.1-8.3 code = 2229) ALBUMIN (test code = 4.2 G/DL 3.5-5.2 2200) CALC GLOBULIN (test 2.9 G/DL 1.9-3.7 code = 224) CALC A/G RATIO (test 1.4 RATIO 1.0-2.6 code = 2234) BILIRUBIN, TOTAL 2.9 MG/DL See_Comment H [Automated message] (test code = 2207) The syste m which generated this result transmit shahrzad reference range : <=1.2. The refe rence range was not u sed to interpret th is result as normal/abnormal . ALKALINE PHOSPHATASE 101 U/L 40-125 (test code = 2203) AST (test code = 42 U/L 9-50 2217) ALT (test code = 25 U/L 5-50 2218) HEMOGLOBIN [id number] 03:35:51 Test Item Value Reference Range Interpretation Comments HEMOGLOBIN A1c (test 10.0 % 4.2-5.6 H AMERIC AN DIABETES code = 18606) ASSOCIATION IDELINES FOR HGB A1C: PREDIABETES/INC REASED RISK . . . . . . . 5 .7-6.4% DIAGNOSIS OF DI ABETES . . . . . . . . . >=6 .5% WITH CONFIRMATION OR APPROPRIATE SYMPTOMS NOTE: ASSAY MAY BE AFFECTED BY HEMOGLOBINOPATH IES (SICKLE CELL ANEMIA, S- C DISEASE, OTHERS) OR EDWARD FICIALLY LOWERED BY DECR EASED RED CELL SURVIVAL ( HEMOLYTIC ANEMIAS, BLOOD LOSS, ETC.). CONSIDER ALTERN ATE TESTING OR LABORATORY C ONSULTATION. CBC W/AUTO DIFF WITH [id number] 02:23:35 Test Item Value Reference Range Interpretation Comments WBC (test code = 3.0 K/UL 3.5-11.0 L 1001) RBC (test code = 4.49 M/UL 4.50-6.10 L 1002) HEMOGLOBIN (test 11.4 G/DL 13.5-17.0 L code = 1003) HEMATOCRIT (test 35.9 % 40.0-51.0 L code = 1004) MCV (test code = 80.0 fL 80.0-99.0 1005) MCH (test code = 25.4 PG 25.0-33.0 1006) MCHC (test code = 31.8 G/DL 31.0-36.0 1007) RDW (test code = 15.2 % 11.5-15.0 H 1038) NEUTROPHILS (test 65.2 % code = 1008) LYMPHOCYTES (test 19.2 % code = 1010) MONOCYTES (test code 12.6 % = 1011) EOSINOPHILS (test 2.0 % code = 1012) BASOPHILS (test code 0.7 % = 1013) IMMATURE 0.3 % GRANULOCYTES (test code = 1036) NUCLEATED RBCS (test 0.0 /100 See_Comment [Autom ated message] code = 1065) WBC'S The system [employer] generated this result transmitted ref erence range: 0.0. The reference range was not used to int erpret this result as normal/abnormal . PLATELET COUNT (test 89 K/UL 130-400 L code = 1015) ABSOLUTE NEUTROPHILS 1.97 K/UL 1.50-7.50 (test code = 1066) ABSOLUTE LYMPHOCYTES 0.58 K/UL 1.00-4.00 L (test code = 1067) ABSOLUTE MONOCYTES 0.38 K/UL 0.20-1.00 (test code = 1068) ABSOLUTE EOSINOPHILS 0.06 K/UL 0.00-0.50 (test code = 1040) ABSOLUTE BASOPHILS 0.02 K/UL 0.00-0.20 (test code = 1069) ABS IMMATURE 0.01 K/UL 0.00-0.10 GRANULOCYTES (test code = 1020) ABS NUCLEATED RBCS 0.00 K/UL 0.00-0.11 UNLESS O THERWISE (test code = 51056) INDICATE D, ALL TESTING PERFORM ED ATCLINICAL PATH [facility], [facility]. [address] [place] [id number] [place] [address] DIRECTOR: YOMI FOLEY M.D. CLIA NUMBER [id number] CAP ACCREDITATION N O. [id number] LIPID PANEL [ADDED]2022-01-06 00:00:00 Test Item Value Reference Range Interpretation Comments CHOLESTEROL (test code = 2210) 118 MG/DL TRIGLYCERIDES (test code = 2232) 231 MG/DL HDL CHOLESTEROL (test code = 2220) 33 MG/DL CALC LDL CHOL (test code = 2237) 56 MG/DL RISK RATIO LDL/HDL (test code = 1.70 RATIO 2238) LIPID PANEL [ADDED]2022-01-06 00:00:00 Test Item Value Reference Range Interpretation Comments CHOLESTEROL (test code = 2210) 118 MG/DL TRIGLYCERIDES (test code = 2232) 231 MG/DL HDL CHOLESTEROL (test code = 2220) 33 MG/DL CALC LDL CHOL (test code = 2237) 56 MG/DL RISK RATIO LDL/HDL (test code = 1.70 RATIO 2238) COMPREHENSIVE METABOLIC PANEL [ADDED]2022-01-06 00:00:00 Test Item Value Reference Range Interpretation Comments GLUCOSE (test code = 2217) 250 MG/DL BUN (test code = 2208) 8 MG/DL CREATININE (test code = 2214) 0.70 MG/DL eGFR (2020 CKD-EPI) (test code 99 ML/MIN/1.73 = 46027) CALC BUN/CREAT (test code = 11 RATIO 2235) SODIUM (test code = 2231) 138 MEQ/L POTASSIUM (test code = 2228) 4.5 MEQ/L CHLORIDE (test code = 2215) 101 MEQ/L CARBON DIOXIDE (test code = 22 MEQ/L 2205) CALCIUM (test code = 2209) 9.8 MG/DL PROTEIN, TOTAL (test code = 7.1 G/DL 2228) ALBUMIN (test code = 2201) 4.2 G/DL CALC GLOBULIN (test code = 2.9 G/DL 2240) CALC A/G RATIO (test code = 1.4 RATIO 2234) BILIRUBIN, TOTAL (test code = 2.9 MG/DL 2207) ALKALINE PHOSPHATASE (test 101 U/L code = 2204) AST (test code = 2218) 42 U/L ALT (test code = 2219) 25 U/L COMPREHENSIVE METABOLIC PANEL [ADDED]2022-01-06 00:00:00 Test Item Value Reference Range Interpretation Comments GLUCOSE (test code = 2217) 250 MG/DL BUN (test code = 2208) 8 MG/DL CREATININE (test code = 2214) 0.70 MG/DL eGFR (2020 CKD-EPI) (test code 99 ML/MIN/1.73 = 99013) CALC BUN/CREAT (test code = 11 RATIO 2235) SODIUM (test code = 2231) 138 MEQ/L POTASSIUM (test code = 2228) 4.5 MEQ/L CHLORIDE (test code = 2215) 101 MEQ/L CARBON DIOXIDE (test code = 22 MEQ/L 2205) CALCIUM (test code = 2209) 9.8 MG/DL PROTEIN, TOTAL (test code = 7.1 G/DL 2228) ALBUMIN (test code = 2201) 4.2 G/DL CALC GLOBULIN (test code = 2.9 G/DL 2239) CALC A/G RATIO (test code = 1.4 RATIO 4) BILIRUBIN, TOTAL (test code = 2.9 MG/DL 2206) ALKALINE PHOSPHATASE (test 101 U/L code = 2204) AST (test code = 2218) 42 U/L ALT (test code = 2219) 25 U/L TSH + FREE T4 PROFILE [ADDED]2022-01-06 00:00:00 Test Item Value Reference Range Interpretation Comments TSH, THIRD GENERATION (test code 1.140 UIU/ML = 2821) FREE T4 (THYROXINE) (test code = 1.08 NG/DL 2823) TSH + FREE T4 PROFILE [ADDED]2022-01-06 00:00:00 Test Item Value Reference Range Interpretation Comments TSH, THIRD GENERATION (test code 1.140 UIU/ML = 2821) FREE T4 (THYROXINE) (test code = 1.08 NG/DL 2823) TSH + FREE T4 PROFILE [ADDED]2022-01-06 00:00:00 Test Item Value Reference Range Interpretation Comments TSH, THIRD GENERATION (test code 1.140 UIU/ML = 2821) FREE T4 (THYROXINE) (test code = 1.08 NG/DL 2823) CBC W/AUTO DIFF WITH PLATELETS [ADDED]2022-01-06 00:00:00 Test Item Value Reference Range Interpretation Comments WBC (test code = 1001) 3.0 K/UL RBC (test code = 1002) 4.49 M/UL HEMOGLOBIN (test code = 1003) 11.4 G/DL HEMATOCRIT (test code = 1004) 35.9 % MCV (test code = 1005) 80.0 fL MCH (test code = 1006) 25.4 PG MCHC (test code = 1007) 31.8 G/DL RDW (test code = 1038) 15.2 % NEUTROPHILS (test code = 1008) 65.2 % LYMPHOCYTES (test code = 1010) 19.2 % MONOCYTES (test code = 1011) 12.6 % EOSINOPHILS (test code = 1012) 2.0 % BASOPHILS (test code = 1013) 0.7 % IMMATURE GRANULOCYTES (test 0.3 % code = 1036) NUCLEATED RBCS (test code = 0.0 /100WBC'S 1065) PLATELET COUNT (test code = 89 K/UL 1015) ABSOLUTE NEUTROPHILS (test code 1.97 K/UL = 1066) ABSOLUTE LYMPHOCYTES (test code 0.58 K/UL = 1067) ABSOLUTE MONOCYTES (test code = 0.38 K/UL 1068) ABSOLUTE EOSINOPHILS (test code 0.06 K/UL = 1040) ABSOLUTE BASOPHILS (test code = 0.02 K/UL 1069) ABS IMMATURE GRANULOCYTES (test 0.01 K/UL code = 1020) ABS NUCLEATED RBCS (test code = 0.00 K/UL 89963) CBC W/AUTO DIFF WITH PLATELETS [ADDED]2022-01-06 00:00:00 Test Item Value Reference Range Interpretation Comments WBC (test code = 1001) 3.0 K/UL RBC (test code = 1002) 4.49 M/UL HEMOGLOBIN (test code = 1003) 11.4 G/DL HEMATOCRIT (test code = 1004) 35.9 % MCV (test code = 1005) 80.0 fL MCH (test code = 1006) 25.4 PG MCHC (test code = 1007) 31.8 G/DL RDW (test code = 1038) 15.2 % NEUTROPHILS (test code = 1008) 65.2 % LYMPHOCYTES (test code = 1010) 19.2 % MONOCYTES (test code = 1011) 12.6 % EOSINOPHILS (test code = 1012) 2.0 % BASOPHILS (test code = 1013) 0.7 % IMMATURE GRANULOCYTES (test 0.3 % code = 1036) NUCLEATED RBCS (test code = 0.0 /100WBC'S 1065) PLATELET COUNT (test code = 89 K/UL 1015) ABSOLUTE NEUTROPHILS (test code 1.97 K/UL = 1066) ABSOLUTE LYMPHOCYTES (test code 0.58 K/UL = 1067) ABSOLUTE MONOCYTES (test code = 0.38 K/UL 1068) ABSOLUTE EOSINOPHILS (test code 0.06 K/UL = 1040) ABSOLUTE BASOPHILS (test code = 0.02 K/UL 1069) ABS IMMATURE GRANULOCYTES (test 0.01 K/UL code = 1020) ABS NUCLEATED RBCS (test code = 0.00 K/UL 08305) CBC W/AUTO DIFF WITH PLATELETS [ADDED]2022-01-06 00:00:00 Test Item Value Reference Range Interpretation Comments WBC (test code = 1001) 3.0 K/UL RBC (test code = 1002) 4.49 M/UL HEMOGLOBIN (test code = 1003) 11.4 G/DL HEMATOCRIT (test code = 1004) 35.9 % MCV (test code = 1005) 80.0 fL MCH (test code = 1006) 25.4 PG MCHC (test code = 1007) 31.8 G/DL RDW (test code = 1038) 15.2 % NEUTROPHILS (test code = 1008) 65.2 % LYMPHOCYTES (test code = 1010) 19.2 % MONOCYTES (test code = 1011) 12.6 % EOSINOPHILS (test code = 1012) 2.0 % BASOPHILS (test code = 1013) 0.7 % IMMATURE GRANULOCYTES (test 0.3 % code = 1036) NUCLEATED RBCS (test code = 0.0 /100WBC'S 1065) PLATELET COUNT (test code = 89 K/UL 1015) ABSOLUTE NEUTROPHILS (test code 1.97 K/UL = 1066) ABSOLUTE LYMPHOCYTES (test code 0.58 K/UL = 1067) ABSOLUTE MONOCYTES (test code = 0.38 K/UL 1068) ABSOLUTE EOSINOPHILS (test code 0.06 K/UL = 1040) ABSOLUTE BASOPHILS (test code = 0.02 K/UL 1069) ABS IMMATURE GRANULOCYTES (test 0.01 K/UL code = 1020) ABS NUCLEATED RBCS (test code = 0.00 K/UL 12428) HEMOGLOBIN A1c [ADDED]2022-01-06 00:00:00 Test Item Value Reference Range Interpretation Comments HEMOGLOBIN A1c (test code = 56299) 10.0 % HEMOGLOBIN A1c [ADDED]2022-01-06 00:00:00 Test Item Value Reference Range Interpretation Comments HEMOGLOBIN A1c (test code = 82382) 10.0 % HEMOGLOBIN A1c [ADDED]2022-01-06 00:00:00 Test Item Value Reference Range Interpretation Comments HEMOGLOBIN A1c (test code = 31084) 10.0 % HEMOGLOBIN [id number] 11:30:19 Test Item Value Reference Range Interpretation Comments HEMOGLOBIN A1c (test 7.7 % 4.2-5.6 H [employer] AN DIABETES code = 03340) ASSOCIATION IDELINES FOR HGB A1C: PREDIABETES/INC REASED RISK . . . . . . . 5.7 -6.4% DIAGNOSIS OF DI ABETES . . . . . . . . . >=6 .5% WITH CONFIRMATION OR APPROPRIATE SYMPTOMS NOTE: ASSAY MAY BE AFFECTED BY HEMOGLOBINOPATH IES (SICKLE CELL ANEMIA, S- C DISEASE, OTHERS) OR DEWARD FICIALLY LOWERED BY DECR EASED RED CELL SURVIVAL ( HEMOLYTIC ANEMIAS, BLOOD LOSS, ETC.). CONSIDER ALTERN ATE TESTING OR LABORATORY C ONSULTATION. CBC W/AUTO DIFF WITH [id number] 06:08:59 Test Item Value Reference Range Interpretation Comments WBC (test code = 2.2 K/UL 3.5-11.0 L 1001) RBC (test code = 4.07 M/UL 4.50-6.10 L 1002) HEMOGLOBIN (test code 10.2 G/DL 13.5-17.0 L = 1003) HEMATOCRIT (test code 32.2 % 40.0-51.0 L = 1004) MCV (test code = 79.1 fL 80.0-99.0 L 1005) MCH (test code = 25.1 PG 25.0-33.0 1006) MCHC (test code = 31.7 G/DL 31.0-36.0 1007) RDW (test code = 15.0 % 11.5-15.0 1038) NEUTROPHILS (test 58.8 % code = 1008) LYMPHOCYTES (test 23.1 % code = 1010) MONOCYTES (test code 15.3 % = 1011) EOSINOPHILS (test 2.3 % code = 1012) BASOPHILS (test code 0.5 % = 1013) IMMATURE GRANULOCYTES 0.0 % (test code = 1036) NUCLEATED RBCS (test 0.0 /100 WBC'S See_Comment [Aut omated code = 1065) message] The sy stem which generated this result transmitted reference range : 0.0. The refere nce range was not u sed to interpret th is result as normal/abnormal . PLATELET COUNT (test 94 K/UL 130-400 L code = 1015) ABSOLUTE NEUTROPHILS 1.27 K/UL 1.50-7.50 L (test code = 1066) ABSOLUTE LYMPHOCYTES 0.50 K/UL 1.00-4.00 L (test code = 1067) ABSOLUTE MONOCYTES 0.33 K/UL 0.20-1.00 (test code = 1068) ABSOLUTE EOSINOPHILS 0.05 K/UL 0.00-0.50 (test code = 1040) ABSOLUTE BASOPHILS 0.01 K/UL 0.00-0.20 (test code = 1069) ABS IMMATURE 0.00 K/UL 0.00-0.10 GRANULOCYTES (test code = 1020) ABS NUCLEATED RBCS 0.00 K/UL 0.00-0.11 (test code = 91511) COMPREHENSIVE METABOLIC [id number] 05:29:47 Test Item Value Reference Range Interpretation Comments GLUCOSE (test code = 166 MG/DL 70-99 H 2216) BUN (test code = 11 MG/DL 8-23 2207) CREATININE (test 0.77 MG/DL 0.80-1.40 L code = 2213) eGFR (2020 CKD-EPI) 96 ML/MIN/1.73 >60 (test code = 88665) CALC BUN/CREAT (test 14 RATIO 6-28 code = 2235) SODIUM (test code = 142 MEQ/L 993-423 2119) POTASSIUM (test code 4.3 MEQ/L 3.5-5.4 = 2227) CHLORIDE (test code 106 MEQ/L 95-107 = 2214) CARBON DIOXIDE (test 25 MEQ/L 19-31 code = 220) CALCIUM (test code = 9.5 MG/DL 8.5-10.5 2208) PROTEIN, TOTAL (test 6.9 G/DL 6.1-8.3 code = 222) ALBUMIN (test code = 4.2 G/DL 3.5-5.2 2200) CALC GLOBULIN (test 2.7 G/DL 1.9-3.7 code = 2240) CALC A/G RATIO (test 1.6 RATIO 1.0-2.6 code = 2234) BILIRUBIN, TOTAL 2.6 MG/DL See_Comment H [Automated message] (test code = 220) The syste m which generated this result transmit shahrzad reference range : <=1.2. The refe rence range was not u sed to interpret th is result as normal/abnormal . ALKALINE PHOSPHATASE 93 U/L 40-125 (test code = 2203) AST (test code = 34 U/L 9-50 2217) ALT (test code = 21 U/L 50 2218) PROTHROMBIN TIME (PT)2021-07-21 05:26:49 Test Item Value Reference Range Interpretation Comments PROTHROMBIN TIME 15.4 SECONDS 12.5-14.7 H (PT) (test code = 1402) INR (test code = 1.2 SEE BELOW CURRENT 03391) RECOMMENDATIONS ARE FOR AN INR OF 2 .0-3.0 FOR ALL PATIENT S ON VITAMIN K ANTAG ONISTS, EXCEPT THOSE WI TH PROSTHETIC HEAR T VALVES, FOR WHO M INR OF 2.5-3.5 IS RECOMMENDED. UN LESS OTHERWISE INDIC ATED, ALL TESTING PER FORMED [facility], [id number] [place] [address] [facility] DIRECTOR: YOMI FOLEY M.D. CLIA NUMBER [id number] CAP ACCREDITATION N O. [id number] COMPREHENSIVE METABOLIC [id number] 00:00:00 Test Item Value Reference Range Interpretation Comments GLUCOSE (test code = 2217) 166 MG/DL BUN (test code = 2208) 11 MG/DL CREATININE (test code = 2214) 0.77 MG/DL eGFR (2020 CKD-EPI) (test code 96 ML/MIN/1.73 = 03295) CALC BUN/CREAT (test code = 14 RATIO 2235) SODIUM (test code = 2231) 142 MEQ/L POTASSIUM (test code = 2228) 4.3 MEQ/L CHLORIDE (test code = 2215) 106 MEQ/L CARBON DIOXIDE (test code = 25 MEQ/L 2205) CALCIUM (test code = 2209) 9.5 MG/DL PROTEIN, TOTAL (test code = 6.9 G/DL 2228) ALBUMIN (test code = 2201) 4.2 G/DL CALC GLOBULIN (test code = 2.7 G/DL 2240) CALC A/G RATIO (test code = 1.6 RATIO 2234) BILIRUBIN, TOTAL (test code = 2.6 MG/DL 2206) ALKALINE PHOSPHATASE (test 93 U/L code = 2204) AST (test code = 2218) 34 U/L ALT (test code = 2219) 21 U/L COMPREHENSIVE METABOLIC [id number] 00:00:00 Test Item Value Reference Range Interpretation Comments GLUCOSE (test code = 2217) 166 MG/DL BUN (test code = 2208) 11 MG/DL CREATININE (test code = 2214) 0.77 MG/DL eGFR (2020 CKD-EPI) (test code 96 ML/MIN/1.73 = 34514) CALC BUN/CREAT (test code = 14 RATIO 2235) SODIUM (test code = 2231) 142 MEQ/L POTASSIUM (test code = 2228) 4.3 MEQ/L CHLORIDE (test code = 2215) 106 MEQ/L CARBON DIOXIDE (test code = 25 MEQ/L 2205) CALCIUM (test code = 2209) 9.5 MG/DL PROTEIN, TOTAL (test code = 6.9 G/DL 2228) ALBUMIN (test code = 2201) 4.2 G/DL CALC GLOBULIN (test code = 2.7 G/DL 2239) CALC A/G RATIO (test code = 1.6 RATIO 2233) BILIRUBIN, TOTAL (test code = 2.6 MG/DL 2206) ALKALINE PHOSPHATASE (test 93 U/L code = 2204) AST (test code = 2218) 34 U/L ALT (test code = 2219) 21 U/L HEMOGLOBIN [id number] 00:00:00 Test Item Value Reference Range Interpretation Comments HEMOGLOBIN A1c (test code = 56142) 7.7 % HEMOGLOBIN [id number] 00:00:00 Test Item Value Reference Range Interpretation Comments HEMOGLOBIN A1c (test code = 93828) 7.7 % HEMOGLOBIN [id number] 00:00:00 Test Item Value Reference Range Interpretation Comments HEMOGLOBIN A1c (test code = 35127) 7.7 % PROTHROMBIN TIME (PT)2021-07-21 00:00:00 Test Item Value Reference Range Interpretation Comments PROTHROMBIN TIME (PT) (test code 15.4 SECONDS = 1402) INR (test code = 64218) 1.2 PROTHROMBIN TIME (PT)2021-07-21 00:00:00 Test Item Value Reference Range Interpretation Comments PROTHROMBIN TIME (PT) (test code 15.4 SECONDS = 1402) INR (test code = 18977) 1.2 CBC W/AUTO [id number] 00:00:00 Test Item Value Reference Range Interpretation Comments WBC (test code = 1001) 2.2 K/UL RBC (test code = 1002) 4.07 M/UL HEMOGLOBIN (test code = 1003) 10.2 G/DL HEMATOCRIT (test code = 1004) 32.2 % MCV (test code = 1005) 79.1 fL MCH (test code = 1006) 25.1 PG MCHC (test code = 1007) 31.7 G/DL RDW (test code = 1038) 15.0 % NEUTROPHILS (test code = 1008) 58.8 % LYMPHOCYTES (test code = 1010) 23.1 % MONOCYTES (test code = 1011) 15.3 % EOSINOPHILS (test code = 1012) 2.3 % BASOPHILS (test code = 1013) 0.5 % IMMATURE GRANULOCYTES (test 0.0 % code = 1036) NUCLEATED RBCS (test code = 0.0 /100WBC'S 1065) PLATELET COUNT (test code = 94 K/UL 1015) ABSOLUTE NEUTROPHILS (test code 1.27 K/UL = 1066) ABSOLUTE LYMPHOCYTES (test code 0.50 K/UL = 1067) ABSOLUTE MONOCYTES (test code = 0.33 K/UL 1068) ABSOLUTE EOSINOPHILS (test code 0.05 K/UL = 1040) ABSOLUTE BASOPHILS (test code = 0.01 K/UL 1069) ABS IMMATURE GRANULOCYTES (test 0.00 K/UL code = 1020) ABS NUCLEATED RBCS (test code = 0.00 K/UL 51430) CBC W/AUTO [id number] 00:00:00 Test Item Value Reference Range Interpretation Comments WBC (test code = 1001) 2.2 K/UL RBC (test code = 1002) 4.07 M/UL HEMOGLOBIN (test code = 1003) 10.2 G/DL HEMATOCRIT (test code = 1004) 32.2 % MCV (test code = 1005) 79.1 fL MCH (test code = 1006) 25.1 PG MCHC (test code = 1007) 31.7 G/DL RDW (test code = 1038) 15.0 % NEUTROPHILS (test code = 1008) 58.8 % LYMPHOCYTES (test code = 1010) 23.1 % MONOCYTES (test code = 1011) 15.3 % EOSINOPHILS (test code = 1012) 2.3 % BASOPHILS (test code = 1013) 0.5 % IMMATURE GRANULOCYTES (test 0.0 % code = 1036) NUCLEATED RBCS (test code = 0.0 /100WBC'S 1065) PLATELET COUNT (test code = 94 K/UL 1015) ABSOLUTE NEUTROPHILS (test code 1.27 K/UL = 1066) ABSOLUTE LYMPHOCYTES (test code 0.50 K/UL = 1067) ABSOLUTE MONOCYTES (test code = 0.33 K/UL 1068) ABSOLUTE EOSINOPHILS (test code 0.05 K/UL = 1040) ABSOLUTE BASOPHILS (test code = 0.01 K/UL 1069) ABS IMMATURE GRANULOCYTES (test 0.00 K/UL code = 1020) ABS NUCLEATED RBCS (test code = 0.00 K/UL 95939) CBC W/AUTO [id number] 00:00:00 Test Item Value Reference Range Interpretation Comments WBC (test code = 1001) 2.2 K/UL RBC (test code = 1002) 4.07 M/UL HEMOGLOBIN (test code = 1003) 10.2 G/DL HEMATOCRIT (test code = 1004) 32.2 % MCV (test code = 1005) 79.1 fL MCH (test code = 1006) 25.1 PG MCHC (test code = 1007) 31.7 G/DL RDW (test code = 1038) 15.0 % NEUTROPHILS (test code = 1008) 58.8 % LYMPHOCYTES (test code = 1010) 23.1 % MONOCYTES (test code = 1011) 15.3 % EOSINOPHILS (test code = 1012) 2.3 % BASOPHILS (test code = 1013) 0.5 % IMMATURE GRANULOCYTES (test 0.0 % code = 1036) NUCLEATED RBCS (test code = 0.0 /100WBC'S 1065) PLATELET COUNT (test code = 94 K/UL 1015) ABSOLUTE NEUTROPHILS (test code 1.27 K/UL = 1066) ABSOLUTE LYMPHOCYTES (test code 0.50 K/UL = 1067) ABSOLUTE MONOCYTES (test code = 0.33 K/UL 1068) ABSOLUTE EOSINOPHILS (test code 0.05 K/UL = 1040) ABSOLUTE BASOPHILS (test code = 0.01 K/UL 1069) ABS IMMATURE GRANULOCYTES (test 0.00 K/UL code = 1020) ABS NUCLEATED RBCS (test code = 0.00 K/UL 75800) COMPREHENSIVE METABOLIC [id number] 00:00:00 Test Item Value Reference Range Interpretation Comments GLUCOSE (test code = 2217) 166 MG/DL BUN (test code = 2208) 11 MG/DL CREATININE (test code = 2214) 0.77 MG/DL eGFR (2020 CKD-EPI) (test code 96 ML/MIN/1.73 = 21199) CALC BUN/CREAT (test code = 14 RATIO 2235) SODIUM (test code = 2231) 142 MEQ/L POTASSIUM (test code = 2228) 4.3 MEQ/L CHLORIDE (test code = 2215) 106 MEQ/L CARBON DIOXIDE (test code = 25 MEQ/L 2205) CALCIUM (test code = 2209) 9.5 MG/DL PROTEIN, TOTAL (test code = 6.9 G/DL 2228) ALBUMIN (test code = 2201) 4.2 G/DL CALC GLOBULIN (test code = 2.7 G/DL 2240) CALC A/G RATIO (test code = 1.6 RATIO 2234) BILIRUBIN, TOTAL (test code = 2.6 MG/DL 2206) ALKALINE PHOSPHATASE (test 93 U/L code = 2204) AST (test code = 2218) 34 U/L ALT (test code = 2219) 21 U/L COMPREHENSIVE METABOLIC [id number] 00:00:00 Test Item Value Reference Range Interpretation Comments GLUCOSE (test code = 2217) 166 MG/DL BUN (test code = 2208) 11 MG/DL CREATININE (test code = 2214) 0.77 MG/DL eGFR (2020 CKD-EPI) (test code 96 ML/MIN/1.73 = 29949) CALC BUN/CREAT (test code = 14 RATIO 2235) SODIUM (test code = 2231) 142 MEQ/L POTASSIUM (test code = 2228) 4.3 MEQ/L CHLORIDE (test code = 2215) 106 MEQ/L CARBON DIOXIDE (test code = 25 MEQ/L 2205) CALCIUM (test code = 2209) 9.5 MG/DL PROTEIN, TOTAL (test code = 6.9 G/DL 2228) ALBUMIN (test code = 2201) 4.2 G/DL CALC GLOBULIN (test code = 2.7 G/DL 2240) CALC A/G RATIO (test code = 1.6 RATIO 2234) BILIRUBIN, TOTAL (test code = 2.6 MG/DL 2206) ALKALINE PHOSPHATASE (test 93 U/L code = 2204) AST (test code = 2218) 34 U/L ALT (test code = 2219) 21 U/L HEMOGLOBIN [id number] 00:00:00 Test Item Value Reference Range Interpretation Comments HEMOGLOBIN A1c (test code = 52422) 7.7 % HEMOGLOBIN [id number] 00:00:00 Test Item Value Reference Range Interpretation Comments HEMOGLOBIN A1c (test code = 97645) 7.7 % HEMOGLOBIN [id number] 00:00:00 Test Item Value Reference Range Interpretation Comments HEMOGLOBIN A1c (test code = 62245) 7.7 % PROTHROMBIN TIME (PT)2021-07-21 00:00:00 Test Item Value Reference Range Interpretation Comments PROTHROMBIN TIME (PT) (test code 15.4 SECONDS = 1402) INR (test code = 72046) 1.2 PROTHROMBIN TIME (PT)2021-07-21 00:00:00 Test Item Value Reference Range Interpretation Comments PROTHROMBIN TIME (PT) (test code 15.4 SECONDS = 1402) INR (test code = 84710) 1.2 CBC W/AUTO [id number] 00:00:00 Test Item Value Reference Range Interpretation Comments WBC (test code = 1001) 2.2 K/UL RBC (test code = 1002) 4.07 M/UL HEMOGLOBIN (test code = 1003) 10.2 G/DL HEMATOCRIT (test code = 1004) 32.2 % MCV (test code = 1005) 79.1 fL MCH (test code = 1006) 25.1 PG MCHC (test code = 1007) 31.7 G/DL RDW (test code = 1038) 15.0 % NEUTROPHILS (test code = 1008) 58.8 % LYMPHOCYTES (test code = 1010) 23.1 % MONOCYTES (test code = 1011) 15.3 % EOSINOPHILS (test code = 1012) 2.3 % BASOPHILS (test code = 1013) 0.5 % IMMATURE GRANULOCYTES (test 0.0 % code = 1036) NUCLEATED RBCS (test code = 0.0 /100WBC'S 1065) PLATELET COUNT (test code = 94 K/UL 1015) ABSOLUTE NEUTROPHILS (test code 1.27 K/UL = 1066) ABSOLUTE LYMPHOCYTES (test code 0.50 K/UL = 1067) ABSOLUTE MONOCYTES (test code = 0.33 K/UL 1068) ABSOLUTE EOSINOPHILS (test code 0.05 K/UL = 1040) ABSOLUTE BASOPHILS (test code = 0.01 K/UL 1069) ABS IMMATURE GRANULOCYTES (test 0.00 K/UL code = 1020) ABS NUCLEATED RBCS (test code = 0.00 K/UL 08325) CBC W/AUTO [id number] 00:00:00 Test Item Value Reference Range Interpretation Comments WBC (test code = 1001) 2.2 K/UL RBC (test code = 1002) 4.07 M/UL HEMOGLOBIN (test code = 1003) 10.2 G/DL HEMATOCRIT (test code = 1004) 32.2 % MCV (test code = 1005) 79.1 fL MCH (test code = 1006) 25.1 PG MCHC (test code = 1007) 31.7 G/DL RDW (test code = 1038) 15.0 % NEUTROPHILS (test code = 1008) 58.8 % LYMPHOCYTES (test code = 1010) 23.1 % MONOCYTES (test code = 1011) 15.3 % EOSINOPHILS (test code = 1012) 2.3 % BASOPHILS (test code = 1013) 0.5 % IMMATURE GRANULOCYTES (test 0.0 % code = 1036) NUCLEATED RBCS (test code = 0.0 /100WBC'S 1065) PLATELET COUNT (test code = 94 K/UL 1015) ABSOLUTE NEUTROPHILS (test code 1.27 K/UL = 1066) ABSOLUTE LYMPHOCYTES (test code 0.50 K/UL = 1067) ABSOLUTE MONOCYTES (test code = 0.33 K/UL 1068) ABSOLUTE EOSINOPHILS (test code 0.05 K/UL = 1040) ABSOLUTE BASOPHILS (test code = 0.01 K/UL 1069) ABS IMMATURE GRANULOCYTES (test 0.00 K/UL code = 1020) ABS NUCLEATED RBCS (test code = 0.00 K/UL 23186) CBC W/AUTO [id number] 00:00:00 Test Item Value Reference Range Interpretation Comments WBC (test code = 1001) 2.2 K/UL RBC (test code = 1002) 4.07 M/UL HEMOGLOBIN (test code = 1003) 10.2 G/DL HEMATOCRIT (test code = 1004) 32.2 % MCV (test code = 1005) 79.1 fL MCH (test code = 1006) 25.1 PG MCHC (test code = 1007) 31.7 G/DL RDW (test code = 1038) 15.0 % NEUTROPHILS (test code = 1008) 58.8 % LYMPHOCYTES (test code = 1010) 23.1 % MONOCYTES (test code = 1011) 15.3 % EOSINOPHILS (test code = 1012) 2.3 % BASOPHILS (test code = 1013) 0.5 % IMMATURE GRANULOCYTES (test 0.0 % code = 1036) NUCLEATED RBCS (test code = 0.0 /100WBC'S 1065) PLATELET COUNT (test code = 94 K/UL 1015) ABSOLUTE NEUTROPHILS (test code 1.27 K/UL = 1066) ABSOLUTE LYMPHOCYTES (test code 0.50 K/UL = 1067) ABSOLUTE MONOCYTES (test code = 0.33 K/UL 1068) ABSOLUTE EOSINOPHILS (test code 0.05 K/UL = 1040) ABSOLUTE BASOPHILS (test code = 0.01 K/UL 1069) ABS IMMATURE GRANULOCYTES (test 0.00 K/UL code = 1020) ABS NUCLEATED RBCS (test code = 0.00 K/UL 93611) HEMOGLOBIN [id number] 00:39:46 Test Item Value Reference Range Interpretation Comments HEMOGLOBIN A1c (test 7.2 % 4.2-5.6 H [employer] AN DIABETES code = 24744) ASSOCIATION IDELINES FOR HGB A1C: PREDIABETES/INC REASED RISK . . . . . . . 5.7 -6.4% DIAGNOSIS OF DI ABETES . . . . . . . . . >=6 .5% WITH CONFIRMATION OR APPROPRIATE SYMPTOMS NOTE: ASSAY MAY BE AFFECTED BY HEMOGLOBINOPATH IES (SICKLE CELL ANEMIA, S- C DISEASE, OTHERS) OR EDWARD FICIALLY LOWERED BY DECR EASED RED CELL SURVIVAL ( HEMOLYTIC ANEMIAS, BLOOD LOSS, ETC.). CONSIDER ALTERN ATE TESTING OR LABORATORY C ONSULTATION. HEMOGLOBIN [id number] 00:00:00 Test Item Value Reference Range Interpretation Comments HEMOGLOBIN A1c (test code = 96941) 7.2 % HEMOGLOBIN [id number] 00:00:00 Test Item Value Reference Range Interpretation Comments HEMOGLOBIN A1c (test code = 69009) 7.2 % HEMOGLOBIN [id number] 00:00:00 Test Item Value Reference Range Interpretation Comments HEMOGLOBIN A1c (test code = 26888) 7.2 % HEMOGLOBIN [id number] 00:00:00 Test Item Value Reference Range Interpretation Comments HEMOGLOBIN A1c (test code = 98086) 7.2 % HEMOGLOBIN [id number] 00:00:00 Test Item Value Reference Range Interpretation Comments HEMOGLOBIN A1c (test code = 84893) 7.2 % HEMOGLOBIN [id number] 00:00:00 Test Item Value Reference Range Interpretation Comments HEMOGLOBIN A1c (test code = 32273) 7.2 % CBC W/AUTO DIFF WITH [id number] 13:09:01 Test Item Value Reference Range Interpretation Comments WBC (test code = 1001) 2.1 K/UL 3.5-11.0 L RBC (test code = 1002) 4.30 M/UL 4.50-6.10 L HEMOGLOBIN (test code 11.0 G/DL 13.5-17.0 L = 1003) HEMATOCRIT (test code 35.5 % 40.0-51.0 L = 1004) MCV (test code = 1005) 82.6 fL 80.0-99.0 MCH (test code = 1006) 25.6 PG 25.0-33.0 MCHC (test code = 31.0 G/DL 31.0-36.0 1007) RDW (test code = 1038) 15.5 % 11.5-15.0 H NEUTROPHILS (test code 59.7 % = 1008) LYMPHOCYTES (test code 26.3 % = 1010) MONOCYTES (test code = 9.6 % 1011) EOSINOPHILS (test code 2.6 % = 1012) BASOPHILS (test code = 1.8 % 1013) PLATELET COUNT (test 63 K/UL 130-400 L code = 1015) ABSOLUTE NEUTROPHILS 1.25 K/UL 1.50-7.50 L (test code = 1066) ABSOLUTE LYMPHOCYTES 0.55 K/UL 1.00-4.00 L (test code = 1067) ABSOLUTE MONOCYTES 0.20 K/UL 0.20-1.00 (test code = 1068) ABSOLUTE EOSINOPHILS 0.05 K/UL 0.00-0.50 (test code = 1040) ABSOLUTE BASOPHILS 0.04 K/UL 0.00-0.20 (test code = 1069) COMMENTS (test code = (NOTE) SLIGH T ANISOCYTOSIS 1016) FEW ELLIPTOCYTE S PLATELETS APPEA R MARKEDLY DECREA SED LIPID [id number] 06:03:32 Test Item Value Reference Range Interpretation Comments CHOLESTEROL (test 129 MG/DL <200 code = 2210) TRIGLYCERIDES (test 149 MG/DL <150 code = 2232) HDL CHOLESTEROL (test 43 MG/DL >39 code = 2220) CALC LDL CHOL (test 63 MG/DL <100 NOTE: C ALCULATED LDL code = 2237) IS BASED ON LISA-SELF METHOD WHICHINCLUDES ADJUSTABLE TRIGLYCERIDE:VL DL CHOLESTEROL RAT IO.THIS FACTOR VARIES B Y MEASURED TRIGLY CERIDE AND NON-HDLCHOL ESTEROL CONCENTRATIONS WITH INCREASED CALCU LATED LDL SEENIN HIGH ER TRIGLYCERIDE OR LOWER NON-HDL SPECIME NS. FOR MOREINFORMATION , SEE CLIENT ANNOUNCE MENT AT [email or web address] [email or web address] RATIO LDL/HDL 1.47 RATIO <3.55 (test code = 2238) COMPREHENSIVE METABOLIC [id number] 06:03:32 Test Item Value Reference Range Interpretation Comments GLUCOSE (test code = 170 MG/DL 70-99 H 2216) BUN (test code = 13 MG/DL 8-23 2207) CREATININE (test 0.83 MG/DL 0.80-1.40 code = 2214) eGFR (2020 CKD-EPI) 94 >60 (test code = 98099) ML/MIN/1.73 CALC BUN/CREAT (test 16 RATIO 6-28 code = 2235) SODIUM (test code = 144 MEQ/L 596-615 2581) POTASSIUM (test code 4.6 MEQ/L 3.5-5.4 = 222) CHLORIDE (test code 105 MEQ/L 95-107 = 221) CARBON DIOXIDE (test 27 MEQ/L 19-31 code = 2206) CALCIUM (test code = 9.8 MG/DL 8.5-10.5 2208) PROTEIN, TOTAL (test 7.1 G/DL 6.1-8.3 code = 2229) ALBUMIN (test code = 4.2 G/DL 3.5-5.2 2200) CALC GLOBULIN (test 2.9 G/DL 1.9-3.7 code = 2240) CALC A/G RATIO (test 1.4 RATIO 1.0-2.6 code = 2234) BILIRUBIN, TOTAL 2.6 MG/DL See_Comment H [Automated message] (test code = 2207) The [employer] which generated this result transmitted ref erence range: <=1.2. T he reference range was not used to int erpret this result as normal/abnormal . ALKALINE PHOSPHATASE 102 U/L 40-125 (test code = 4) AST (test code = 31 U/L 9-50 2217) ALT (test code = 22 U/L 5-50 UNLESS OTH ERWISE 2219) INDICATED, ALL TESTING PERFORM [facility], [facility]. [address] [place], [place] [id number] [place] [address] DIRECTOR: YOMI FOLEY M.D. CLIA NUMBER [id number] CAP ACCREDITATION N O. [id number] CBC W/AUTO [id number] 00:00:00 Test Item Value Reference Range Interpretation Comments WBC (test code = 1001) 2.1 K/UL RBC (test code = 1002) 4.30 M/UL HEMOGLOBIN (test code = 1003) 11.0 G/DL HEMATOCRIT (test code = 1004) 35.5 % MCV (test code = 1005) 82.6 fL MCH (test code = 1006) 25.6 PG MCHC (test code = 1007) 31.0 G/DL RDW (test code = 1038) 15.5 % NEUTROPHILS (test code = 1008) 59.7 % LYMPHOCYTES (test code = 1010) 26.3 % MONOCYTES (test code = 1011) 9.6 % EOSINOPHILS (test code = 1012) 2.6 % BASOPHILS (test code = 1013) 1.8 % PLATELET COUNT (test code = 1015) 63 K/UL ABSOLUTE NEUTROPHILS (test code = 1.25 K/UL 1066) ABSOLUTE LYMPHOCYTES (test code = 0.55 K/UL 1067) ABSOLUTE MONOCYTES (test code = 0.20 K/UL 1068) ABSOLUTE EOSINOPHILS (test code = 0.05 K/UL 1040) ABSOLUTE BASOPHILS (test code = 0.04 K/UL 1069) COMMENTS (test code = 1016) (NOTE) LIPID [id number] 00:00:00 Test Item Value Reference Range Interpretation Comments CHOLESTEROL (test code = 2210) 129 MG/DL TRIGLYCERIDES (test code = 2232) 149 MG/DL HDL CHOLESTEROL (test code = 2220) 43 MG/DL CALC LDL CHOL (test code = 2237) 63 MG/DL RISK RATIO LDL/HDL (test code = 1.47 RATIO 2238) LIPID [id number] 00:00:00 Test Item Value Reference Range Interpretation Comments CHOLESTEROL (test code = 2210) 129 MG/DL TRIGLYCERIDES (test code = 2232) 149 MG/DL HDL CHOLESTEROL (test code = 2220) 43 MG/DL CALC LDL CHOL (test code = 2237) 63 MG/DL RISK RATIO LDL/HDL (test code = 1.47 RATIO 2238) COMPREHENSIVE METABOLIC [id number] 00:00:00 Test Item Value Reference Range Interpretation Comments GLUCOSE (test code = 2217) 170 MG/DL BUN (test code = 2208) 13 MG/DL CREATININE (test code = 2214) 0.83 MG/DL eGFR (2020 CKD-EPI) (test code 94 ML/MIN/1.73 = 69062) CALC BUN/CREAT (test code = 16 RATIO 2235) SODIUM (test code = 2231) 144 MEQ/L POTASSIUM (test code = 2228) 4.6 MEQ/L CHLORIDE (test code = 2215) 105 MEQ/L CARBON DIOXIDE (test code = 27 MEQ/L 2205) CALCIUM (test code = 2209) 9.8 MG/DL PROTEIN, TOTAL (test code = 7.1 G/DL 2228) ALBUMIN (test code = 2201) 4.2 G/DL CALC GLOBULIN (test code = 2.9 G/DL 0) CALC A/G RATIO (test code = 1.4 RATIO 2234) BILIRUBIN, TOTAL (test code = 2.6 MG/DL 2206) ALKALINE PHOSPHATASE (test 102 U/L code = 2204) AST (test code = 2218) 31 U/L ALT (test code = 2219) 22 U/L COMPREHENSIVE METABOLIC [id number] 00:00:00 Test Item Value Reference Range Interpretation Comments GLUCOSE (test code = 2217) 170 MG/DL BUN (test code = 2208) 13 MG/DL CREATININE (test code = 2214) 0.83 MG/DL eGFR (2020 CKD-EPI) (test code 94 ML/MIN/1.73 = 93256) CALC BUN/CREAT (test code = 16 RATIO 2235) SODIUM (test code = 2231) 144 MEQ/L POTASSIUM (test code = 2228) 4.6 MEQ/L CHLORIDE (test code = 2215) 105 MEQ/L CARBON DIOXIDE (test code = 27 MEQ/L 2205) CALCIUM (test code = 2209) 9.8 MG/DL PROTEIN, TOTAL (test code = 7.1 G/DL 9) ALBUMIN (test code = 2201) 4.2 G/DL CALC GLOBULIN (test code = 2.9 G/DL 2240) CALC A/G RATIO (test code = 1.4 RATIO 4) BILIRUBIN, TOTAL (test code = 2.6 MG/DL 2206) ALKALINE PHOSPHATASE (test 102 U/L code = 2204) AST (test code = 2218) 31 U/L ALT (test code = 2219) 22 U/L CBC W/AUTO [id number] 00:00:00 Test Item Value Reference Range Interpretation Comments WBC (test code = 1001) 2.1 K/UL RBC (test code = 1002) 4.30 M/UL HEMOGLOBIN (test code = 1003) 11.0 G/DL HEMATOCRIT (test code = 1004) 35.5 % MCV (test code = 1005) 82.6 fL MCH (test code = 1006) 25.6 PG MCHC (test code = 1007) 31.0 G/DL RDW (test code = 1038) 15.5 % NEUTROPHILS (test code = 1008) 59.7 % LYMPHOCYTES (test code = 1010) 26.3 % MONOCYTES (test code = 1011) 9.6 % EOSINOPHILS (test code = 1012) 2.6 % BASOPHILS (test code = 1013) 1.8 % PLATELET COUNT (test code = 1015) 63 K/UL ABSOLUTE NEUTROPHILS (test code = 1.25 K/UL 1066) ABSOLUTE LYMPHOCYTES (test code = 0.55 K/UL 1067) ABSOLUTE MONOCYTES (test code = 0.20 K/UL 1068) ABSOLUTE EOSINOPHILS (test code = 0.05 K/UL 1040) ABSOLUTE BASOPHILS (test code = 0.04 K/UL 1069) COMMENTS (test code = 1016) (NOTE) CBC W/AUTO [id number] 00:00:00 Test Item Value Reference Range Interpretation Comments WBC (test code = 1001) 2.1 K/UL RBC (test code = 1002) 4.30 M/UL HEMOGLOBIN (test code = 1003) 11.0 G/DL HEMATOCRIT (test code = 1004) 35.5 % MCV (test code = 1005) 82.6 fL MCH (test code = 1006) 25.6 PG MCHC (test code = 1007) 31.0 G/DL RDW (test code = 1038) 15.5 % NEUTROPHILS (test code = 1008) 59.7 % LYMPHOCYTES (test code = 1010) 26.3 % MONOCYTES (test code = 1011) 9.6 % EOSINOPHILS (test code = 1012) 2.6 % BASOPHILS (test code = 1013) 1.8 % PLATELET COUNT (test code = 1015) 63 K/UL ABSOLUTE NEUTROPHILS (test code = 1.25 K/UL 1066) ABSOLUTE LYMPHOCYTES (test code = 0.55 K/UL 1067) ABSOLUTE MONOCYTES (test code = 0.20 K/UL 1068) ABSOLUTE EOSINOPHILS (test code = 0.05 K/UL 1040) ABSOLUTE BASOPHILS (test code = 0.04 K/UL 1069) COMMENTS (test code = 1016) (NOTE) CBC W/AUTO [id number] 00:00:00 Test Item Value Reference Range Interpretation Comments WBC (test code = 1001) 2.1 K/UL RBC (test code = 1002) 4.30 M/UL HEMOGLOBIN (test code = 1003) 11.0 G/DL HEMATOCRIT (test code = 1004) 35.5 % MCV (test code = 1005) 82.6 fL MCH (test code = 1006) 25.6 PG MCHC (test code = 1007) 31.0 G/DL RDW (test code = 1038) 15.5 % NEUTROPHILS (test code = 1008) 59.7 % LYMPHOCYTES (test code = 1010) 26.3 % MONOCYTES (test code = 1011) 9.6 % EOSINOPHILS (test code = 1012) 2.6 % BASOPHILS (test code = 1013) 1.8 % PLATELET COUNT (test code = 1015) 63 K/UL ABSOLUTE NEUTROPHILS (test code = 1.25 K/UL 1066) ABSOLUTE LYMPHOCYTES (test code = 0.55 K/UL 1067) ABSOLUTE MONOCYTES (test code = 0.20 K/UL 1068) ABSOLUTE EOSINOPHILS (test code = 0.05 K/UL 1040) ABSOLUTE BASOPHILS (test code = 0.04 K/UL 1069) COMMENTS (test code = 1016) (NOTE) LIPID [id number] 00:00:00 Test Item Value Reference Range Interpretation Comments CHOLESTEROL (test code = 2210) 129 MG/DL TRIGLYCERIDES (test code = 2232) 149 MG/DL HDL CHOLESTEROL (test code = 2220) 43 MG/DL CALC LDL CHOL (test code = 2237) 63 MG/DL RISK RATIO LDL/HDL (test code = 1.47 RATIO 2238) LIPID [id number] 00:00:00 Test Item Value Reference Range Interpretation Comments CHOLESTEROL (test code = 2210) 129 MG/DL TRIGLYCERIDES (test code = 2232) 149 MG/DL HDL CHOLESTEROL (test code = 2220) 43 MG/DL CALC LDL CHOL (test code = 2237) 63 MG/DL RISK RATIO LDL/HDL (test code = 1.47 RATIO 2238) COMPREHENSIVE METABOLIC [id number] 00:00:00 Test Item Value Reference Range Interpretation Comments GLUCOSE (test code = 2217) 170 MG/DL BUN (test code = 2208) 13 MG/DL CREATININE (test code = 2214) 0.83 MG/DL eGFR (2020 CKD-EPI) (test code 94 ML/MIN/1.73 = 26295) CALC BUN/CREAT (test code = 16 RATIO 2235) SODIUM (test code = 2231) 144 MEQ/L POTASSIUM (test code = 2228) 4.6 MEQ/L CHLORIDE (test code = 2215) 105 MEQ/L CARBON DIOXIDE (test code = 27 MEQ/L 2205) CALCIUM (test code = 2209) 9.8 MG/DL PROTEIN, TOTAL (test code = 7.1 G/DL 2228) ALBUMIN (test code = 2201) 4.2 G/DL CALC GLOBULIN (test code = 2.9 G/DL 2240) CALC A/G RATIO (test code = 1.4 RATIO 2234) BILIRUBIN, TOTAL (test code = 2.6 MG/DL 2206) ALKALINE PHOSPHATASE (test 102 U/L code = 2204) AST (test code = 2218) 31 U/L ALT (test code = 2219) 22 U/L COMPREHENSIVE METABOLIC [id number] 00:00:00 Test Item Value Reference Range Interpretation Comments GLUCOSE (test code = 2217) 170 MG/DL BUN (test code = 2208) 13 MG/DL CREATININE (test code = 2214) 0.83 MG/DL eGFR (2020 CKD-EPI) (test code 94 ML/MIN/1.73 = 25708) CALC BUN/CREAT (test code = 16 RATIO 2234) SODIUM (test code = 2231) 144 MEQ/L POTASSIUM (test code = 2228) 4.6 MEQ/L CHLORIDE (test code = 2215) 105 MEQ/L CARBON DIOXIDE (test code = 27 MEQ/L 2205) CALCIUM (test code = 2209) 9.8 MG/DL PROTEIN, TOTAL (test code = 7.1 G/DL 2228) ALBUMIN (test code = 2201) 4.2 G/DL CALC GLOBULIN (test code = 2.9 G/DL 2239) CALC A/G RATIO (test code = 1.4 RATIO 2233) BILIRUBIN, TOTAL (test code = 2.6 MG/DL 2206) ALKALINE PHOSPHATASE (test 102 U/L code = 220) AST (test code = 2218) 31 U/L ALT (test code = 2219) 22 U/L CBC W/AUTO [id number] 00:00:00 Test Item Value Reference Range Interpretation Comments WBC (test code = 1001) 2.1 K/UL RBC (test code = 1002) 4.30 M/UL HEMOGLOBIN (test code = 1003) 11.0 G/DL HEMATOCRIT (test code = 1004) 35.5 % MCV (test code = 1005) 82.6 fL MCH (test code = 1006) 25.6 PG MCHC (test code = 1007) 31.0 G/DL RDW (test code = 1038) 15.5 % NEUTROPHILS (test code = 1008) 59.7 % LYMPHOCYTES (test code = 1010) 26.3 % MONOCYTES (test code = 1011) 9.6 % EOSINOPHILS (test code = 1012) 2.6 % BASOPHILS (test code = 1013) 1.8 % PLATELET COUNT (test code = 1015) 63 K/UL ABSOLUTE NEUTROPHILS (test code = 1.25 K/UL 1066) ABSOLUTE LYMPHOCYTES (test code = 0.55 K/UL 1067) ABSOLUTE MONOCYTES (test code = 0.20 K/UL 1068) ABSOLUTE EOSINOPHILS (test code = 0.05 K/UL 1040) ABSOLUTE BASOPHILS (test code = 0.04 K/UL 1069) COMMENTS (test code = 1016) (NOTE) CBC W/AUTO [id number] 00:00:00 Test Item Value Reference Range Interpretation Comments WBC (test code = 1001) 2.1 K/UL RBC (test code = 1002) 4.30 M/UL HEMOGLOBIN (test code = 1003) 11.0 G/DL HEMATOCRIT (test code = 1004) 35.5 % MCV (test code = 1005) 82.6 fL MCH (test code = 1006) 25.6 PG MCHC (test code = 1007) 31.0 G/DL RDW (test code = 1038) 15.5 % NEUTROPHILS (test code = 1008) 59.7 % LYMPHOCYTES (test code = 1010) 26.3 % MONOCYTES (test code = 1011) 9.6 % EOSINOPHILS (test code = 1012) 2.6 % BASOPHILS (test code = 1013) 1.8 % PLATELET COUNT (test code = 1015) 63 K/UL ABSOLUTE NEUTROPHILS (test code = 1.25 K/UL 1066) ABSOLUTE LYMPHOCYTES (test code = 0.55 K/UL 1067) ABSOLUTE MONOCYTES (test code = 0.20 K/UL 1068) ABSOLUTE EOSINOPHILS (test code = 0.05 K/UL 1040) ABSOLUTE BASOPHILS (test code = 0.04 K/UL 1069) COMMENTS (test code = 1016) (NOTE) HEMOGLOBIN [id number] 00:00:00 Test Item Value Reference Range Interpretation Comments HEMOGLOBIN A1c (test code = 65799) 7.3 % HEMOGLOBIN [id number] 00:00:00 Test Item Value Reference Range Interpretation Comments HEMOGLOBIN A1c (test code = 63682) 7.3 % HEMOGLOBIN [id number] 00:00:00 Test Item Value Reference Range Interpretation Comments HEMOGLOBIN A1c (test code = 82461) 7.3 % LIPID [id number] 00:00:00 Test Item Value Reference Range Interpretation Comments CHOLESTEROL (test code = 2210) 138 MG/DL TRIGLYCERIDES (test code = 2232) 169 MG/DL HDL CHOLESTEROL (test code = 2220) 41 MG/DL CALC LDL CHOL (test code = 2237) 72 MG/DL RISK RATIO LDL/HDL (test code = 1.76 RATIO 2238) LIPID [id number] 00:00:00 Test Item Value Reference Range Interpretation Comments CHOLESTEROL (test code = 2210) 138 MG/DL TRIGLYCERIDES (test code = 2232) 169 MG/DL HDL CHOLESTEROL (test code = 2220) 41 MG/DL CALC LDL CHOL (test code = 2237) 72 MG/DL RISK RATIO LDL/HDL (test code = 1.76 RATIO 2238) COMPREHENSIVE METABOLIC [id number] 00:00:00 Test Item Value Reference Range Interpretation Comments GLUCOSE (test code = 2217) 191 MG/DL BUN (test code = 2208) 11 MG/DL CREATININE (test code = 2214) 0.73 MG/DL eGFR AMER. (test code 109 ML/MIN/1.73 = 36194) eGFR NON- AMER. (test 94 ML/MIN/1.73 code = 74066) CALC BUN/CREAT (test code = 15 RATIO 2235) SODIUM (test code = 2231) 140 MEQ/L POTASSIUM (test code = 2228) 4.5 MEQ/L CHLORIDE (test code = 2215) 103 MEQ/L CARBON DIOXIDE (test code = 26 MEQ/L 2205) CALCIUM (test code = 2209) 9.8 MG/DL PROTEIN, TOTAL (test code = 7.3 G/DL 2228) ALBUMIN (test code = 2201) 4.3 G/DL CALC GLOBULIN (test code = 3.0 G/DL 2240) CALC A/G RATIO (test code = 1.4 RATIO 2234) BILIRUBIN, TOTAL (test code = 3.8 MG/DL 2207) ALKALINE PHOSPHATASE (test 82 U/L code = 2204) AST (test code = 2218) 27 U/L ALT (test code = 2219) 22 U/L COMPREHENSIVE METABOLIC [id number] 00:00:00 Test Item Value Reference Range Interpretation Comments GLUCOSE (test code = 2217) 191 MG/DL BUN (test code = 2208) 11 MG/DL CREATININE (test code = 2214) 0.73 MG/DL eGFR AMER. (test code 109 ML/MIN/1.73 = 93854) eGFR NON- AMER. (test 94 ML/MIN/1.73 code = 67815) CALC BUN/CREAT (test code = 15 RATIO 2235) SODIUM (test code = 2231) 140 MEQ/L POTASSIUM (test code = 2228) 4.5 MEQ/L CHLORIDE (test code = 2215) 103 MEQ/L CARBON DIOXIDE (test code = 26 MEQ/L 2205) CALCIUM (test code = 2209) 9.8 MG/DL PROTEIN, TOTAL (test code = 7.3 G/DL 2228) ALBUMIN (test code = 2201) 4.3 G/DL CALC GLOBULIN (test code = 3.0 G/DL 0) CALC A/G RATIO (test code = 1.4 RATIO 2233) BILIRUBIN, TOTAL (test code = 3.8 MG/DL 2206) ALKALINE PHOSPHATASE (test 82 U/L code = 2204) AST (test code = 2218) 27 U/L ALT (test code = 2219) 22 U/L CBC W/AUTO [id number] 00:00:00 Test Item Value Reference Range Interpretation Comments WBC (test code = 1001) 2.3 K/UL RBC (test code = 1002) 4.81 M/UL HEMOGLOBIN (test code = 1003) 13.0 G/DL HEMATOCRIT (test code = 1004) 40.5 % MCV (test code = 1005) 84.2 fL MCH (test code = 1006) 27.0 PG MCHC (test code = 1007) 32.1 G/DL RDW (test code = 1038) 14.3 % NEUTROPHILS (test code = 1008) 59.9 % LYMPHOCYTES (test code = 1010) 22.4 % MONOCYTES (test code = 1011) 14.7 % EOSINOPHILS (test code = 1012) 1.7 % BASOPHILS (test code = 1013) 0.9 % IMMATURE GRANULOCYTES (test 0.4 % code = 1036) NUCLEATED RBCS (test code = 0.0 /100WBC'S 1065) PLATELET COUNT (test code = 71 K/UL 1015) ABSOLUTE NEUTROPHILS (test code 1.39 K/UL = 1066) ABSOLUTE LYMPHOCYTES (test code 0.52 K/UL = 1067) ABSOLUTE MONOCYTES (test code = 0.34 K/UL 1068) ABSOLUTE EOSINOPHILS (test code 0.04 K/UL = 1040) ABSOLUTE BASOPHILS (test code = 0.02 K/UL 1069) ABS IMMATURE GRANULOCYTES (test 0.01 K/UL code = 1020) ABS NUCLEATED RBCS (test code = 0.00 K/UL 95354) CBC W/AUTO [id number] 00:00:00 Test Item Value Reference Range Interpretation Comments WBC (test code = 1001) 2.3 K/UL RBC (test code = 1002) 4.81 M/UL HEMOGLOBIN (test code = 1003) 13.0 G/DL HEMATOCRIT (test code = 1004) 40.5 % MCV (test code = 1005) 84.2 fL MCH (test code = 1006) 27.0 PG MCHC (test code = 1007) 32.1 G/DL RDW (test code = 1038) 14.3 % NEUTROPHILS (test code = 1008) 59.9 % LYMPHOCYTES (test code = 1010) 22.4 % MONOCYTES (test code = 1011) 14.7 % EOSINOPHILS (test code = 1012) 1.7 % BASOPHILS (test code = 1013) 0.9 % IMMATURE GRANULOCYTES (test 0.4 % code = 1036) NUCLEATED RBCS (test code = 0.0 /100WBC'S 1065) PLATELET COUNT (test code = 71 K/UL 1015) ABSOLUTE NEUTROPHILS (test code 1.39 K/UL = 1066) ABSOLUTE LYMPHOCYTES (test code 0.52 K/UL = 1067) ABSOLUTE MONOCYTES (test code = 0.34 K/UL 1068) ABSOLUTE EOSINOPHILS (test code 0.04 K/UL = 1040) ABSOLUTE BASOPHILS (test code = 0.02 K/UL 1069) ABS IMMATURE GRANULOCYTES (test 0.01 K/UL code = 1020) ABS NUCLEATED RBCS (test code = 0.00 K/UL 42735) CBC W/AUTO [id number] 00:00:00 Test Item Value Reference Range Interpretation Comments WBC (test code = 1001) 2.3 K/UL RBC (test code = 1002) 4.81 M/UL HEMOGLOBIN (test code = 1003) 13.0 G/DL HEMATOCRIT (test code = 1004) 40.5 % MCV (test code = 1005) 84.2 fL MCH (test code = 1006) 27.0 PG MCHC (test code = 1007) 32.1 G/DL RDW (test code = 1038) 14.3 % NEUTROPHILS (test code = 1008) 59.9 % LYMPHOCYTES (test code = 1010) 22.4 % MONOCYTES (test code = 1011) 14.7 % EOSINOPHILS (test code = 1012) 1.7 % BASOPHILS (test code = 1013) 0.9 % IMMATURE GRANULOCYTES (test 0.4 % code = 1036) NUCLEATED RBCS (test code = 0.0 /100WBC'S 1065) PLATELET COUNT (test code = 71 K/UL 1015) ABSOLUTE NEUTROPHILS (test code 1.39 K/UL = 1066) ABSOLUTE LYMPHOCYTES (test code 0.52 K/UL = 1067) ABSOLUTE MONOCYTES (test code = 0.34 K/UL 1068) ABSOLUTE EOSINOPHILS (test code 0.04 K/UL = 1040) ABSOLUTE BASOPHILS (test code = 0.02 K/UL 1069) ABS IMMATURE GRANULOCYTES (test 0.01 K/UL code = 1020) ABS NUCLEATED RBCS (test code = 0.00 K/UL 25685) HEMOGLOBIN [id number] 00:00:00 Test Item Value Reference Range Interpretation Comments HEMOGLOBIN A1c (test code = 93635) 7.3 % HEMOGLOBIN [id number] 00:00:00 Test Item Value Reference Range Interpretation Comments HEMOGLOBIN A1c (test code = 94069) 7.3 % HEMOGLOBIN [id number] 00:00:00 Test Item Value Reference Range Interpretation Comments HEMOGLOBIN A1c (test code = 85543) 7.3 % LIPID [id number] 00:00:00 Test Item Value Reference Range Interpretation Comments CHOLESTEROL (test code = 2210) 138 MG/DL TRIGLYCERIDES (test code = 2232) 169 MG/DL HDL CHOLESTEROL (test code = 2220) 41 MG/DL CALC LDL CHOL (test code = 2237) 72 MG/DL RISK RATIO LDL/HDL (test code = 1.76 RATIO 2238) LIPID [id number] 00:00:00 Test Item Value Reference Range Interpretation Comments CHOLESTEROL (test code = 2210) 138 MG/DL TRIGLYCERIDES (test code = 2232) 169 MG/DL HDL CHOLESTEROL (test code = 2220) 41 MG/DL CALC LDL CHOL (test code = 2237) 72 MG/DL RISK RATIO LDL/HDL (test code = 1.76 RATIO 2238) COMPREHENSIVE METABOLIC [id number] 00:00:00 Test Item Value Reference Range Interpretation Comments GLUCOSE (test code = 2217) 191 MG/DL BUN (test code = 2208) 11 MG/DL CREATININE (test code = 2214) 0.73 MG/DL eGFR AMER. (test code 109 ML/MIN/1.73 = 42895) eGFR NON- AMER. (test 94 ML/MIN/1.73 code = 42622) CALC BUN/CREAT (test code = 15 RATIO 2235) SODIUM (test code = 2231) 140 MEQ/L POTASSIUM (test code = 2228) 4.5 MEQ/L CHLORIDE (test code = 2215) 103 MEQ/L CARBON DIOXIDE (test code = 26 MEQ/L 220) CALCIUM (test code = 2209) 9.8 MG/DL PROTEIN, TOTAL (test code = 7.3 G/DL 2228) ALBUMIN (test code = 2201) 4.3 G/DL CALC GLOBULIN (test code = 3.0 G/DL 2240) CALC A/G RATIO (test code = 1.4 RATIO 2234) BILIRUBIN, TOTAL (test code = 3.8 MG/DL 2206) ALKALINE PHOSPHATASE (test 82 U/L code = 2204) AST (test code = 2218) 27 U/L ALT (test code = 2219) 22 U/L COMPREHENSIVE METABOLIC [id number] 00:00:00 Test Item Value Reference Range Interpretation Comments GLUCOSE (test code = 2217) 191 MG/DL BUN (test code = 2208) 11 MG/DL CREATININE (test code = 2214) 0.73 MG/DL eGFR AMER. (test code 109 ML/MIN/1.73 = 05999) eGFR NON- AMER. (test 94 ML/MIN/1.73 code = 52118) CALC BUN/CREAT (test code = 15 RATIO 2235) SODIUM (test code = 2231) 140 MEQ/L POTASSIUM (test code = 2228) 4.5 MEQ/L CHLORIDE (test code = 2215) 103 MEQ/L CARBON DIOXIDE (test code = 26 MEQ/L 220) CALCIUM (test code = 2209) 9.8 MG/DL PROTEIN, TOTAL (test code = 7.3 G/DL 2228) ALBUMIN (test code = 2201) 4.3 G/DL CALC GLOBULIN (test code = 3.0 G/DL 2240) CALC A/G RATIO (test code = 1.4 RATIO 2234) BILIRUBIN, TOTAL (test code = 3.8 MG/DL 2206) ALKALINE PHOSPHATASE (test 82 U/L code = 2204) AST (test code = 2218) 27 U/L ALT (test code = 2219) 22 U/L CBC W/AUTO [id number] 00:00:00 Test Item Value Reference Range Interpretation Comments WBC (test code = 1001) 2.3 K/UL RBC (test code = 1002) 4.81 M/UL HEMOGLOBIN (test code = 1003) 13.0 G/DL HEMATOCRIT (test code = 1004) 40.5 % MCV (test code = 1005) 84.2 fL MCH (test code = 1006) 27.0 PG MCHC (test code = 1007) 32.1 G/DL RDW (test code = 1038) 14.3 % NEUTROPHILS (test code = 1008) 59.9 % LYMPHOCYTES (test code = 1010) 22.4 % MONOCYTES (test code = 1011) 14.7 % EOSINOPHILS (test code = 1012) 1.7 % BASOPHILS (test code = 1013) 0.9 % IMMATURE GRANULOCYTES (test 0.4 % code = 1036) NUCLEATED RBCS (test code = 0.0 /100WBC'S 1065) PLATELET COUNT (test code = 71 K/UL 1015) ABSOLUTE NEUTROPHILS (test code 1.39 K/UL = 1066) ABSOLUTE LYMPHOCYTES (test code 0.52 K/UL = 1067) ABSOLUTE MONOCYTES (test code = 0.34 K/UL 1068) ABSOLUTE EOSINOPHILS (test code 0.04 K/UL = 1040) ABSOLUTE BASOPHILS (test code = 0.02 K/UL 1069) ABS IMMATURE GRANULOCYTES (test 0.01 K/UL code = 1020) ABS NUCLEATED RBCS (test code = 0.00 K/UL 24981) CBC W/AUTO [id number] 00:00:00 Test Item Value Reference Range Interpretation Comments WBC (test code = 1001) 2.3 K/UL RBC (test code = 1002) 4.81 M/UL HEMOGLOBIN (test code = 1003) 13.0 G/DL HEMATOCRIT (test code = 1004) 40.5 % MCV (test code = 1005) 84.2 fL MCH (test code = 1006) 27.0 PG MCHC (test code = 1007) 32.1 G/DL RDW (test code = 1038) 14.3 % NEUTROPHILS (test code = 1008) 59.9 % LYMPHOCYTES (test code = 1010) 22.4 % MONOCYTES (test code = 1011) 14.7 % EOSINOPHILS (test code = 1012) 1.7 % BASOPHILS (test code = 1013) 0.9 % IMMATURE GRANULOCYTES (test 0.4 % code = 1036) NUCLEATED RBCS (test code = 0.0 /100WBC'S 1065) PLATELET COUNT (test code = 71 K/UL 1015) ABSOLUTE NEUTROPHILS (test code 1.39 K/UL = 1066) ABSOLUTE LYMPHOCYTES (test code 0.52 K/UL = 1067) ABSOLUTE MONOCYTES (test code = 0.34 K/UL 1068) ABSOLUTE EOSINOPHILS (test code 0.04 K/UL = 1040) ABSOLUTE BASOPHILS (test code = 0.02 K/UL 1069) ABS IMMATURE GRANULOCYTES (test 0.01 K/UL code = 1020) ABS NUCLEATED RBCS (test code = 0.00 K/UL 19045) CBC W/AUTO [id number] 00:00:00 Test Item Value Reference Range Interpretation Comments WBC (test code = 1001) 2.3 K/UL RBC (test code = 1002) 4.81 M/UL HEMOGLOBIN (test code = 1003) 13.0 G/DL HEMATOCRIT (test code = 1004) 40.5 % MCV (test code = 1005) 84.2 fL MCH (test code = 1006) 27.0 PG MCHC (test code = 1007) 32.1 G/DL RDW (test code = 1038) 14.3 % NEUTROPHILS (test code = 1008) 59.9 % LYMPHOCYTES (test code = 1010) 22.4 % MONOCYTES (test code = 1011) 14.7 % EOSINOPHILS (test code = 1012) 1.7 % BASOPHILS (test code = 1013) 0.9 % IMMATURE GRANULOCYTES (test 0.4 % code = 1036) NUCLEATED RBCS (test code = 0.0 /100WBC'S 1065) PLATELET COUNT (test code = 71 K/UL 1015) ABSOLUTE NEUTROPHILS (test code 1.39 K/UL = 1066) ABSOLUTE LYMPHOCYTES (test code 0.52 K/UL = 1067) ABSOLUTE MONOCYTES (test code = 0.34 K/UL 1068) ABSOLUTE EOSINOPHILS (test code 0.04 K/UL = 1040) ABSOLUTE BASOPHILS (test code = 0.02 K/UL 1069) ABS IMMATURE GRANULOCYTES (test 0.01 K/UL code = 1020) ABS NUCLEATED RBCS (test code = 0.00 K/UL 75013) CBC W/AUTO [id number] 00:00:00 Test Item Value Reference Range Interpretation Comments WBC (test code = 1001) 2.5 K/UL RBC (test code = 1002) 4.61 M/UL HEMOGLOBIN (test code = 1003) 13.3 G/DL HEMATOCRIT (test code = 1004) 40.3 % MCV (test code = 1005) 87.4 fL MCH (test code = 1006) 28.9 PG MCHC (test code = 1007) 33.0 G/DL RDW (test code = 1038) 14.2 % NEUTROPHILS (test code = 1008) 60.1 % LYMPHOCYTES (test code = 1010) 24.5 % MONOCYTES (test code = 1011) 13.4 % EOSINOPHILS (test code = 1012) 1.2 % BASOPHILS (test code = 1013) 0.8 % IMMATURE GRANULOCYTES (test 0.0 % code = 1036) NUCLEATED RBCS (test code = 0.0 /100WBC'S 1065) PLATELET COUNT (test code = 72 K/UL 1015) ABSOLUTE NEUTROPHILS (test code 1.52 K/UL = 1066) ABSOLUTE LYMPHOCYTES (test code 0.62 K/UL = 1067) ABSOLUTE MONOCYTES (test code = 0.34 K/UL 1068) ABSOLUTE EOSINOPHILS (test code 0.03 K/UL = 1040) ABSOLUTE BASOPHILS (test code = 0.02 K/UL 1069) ABS IMMATURE GRANULOCYTES (test 0.00 K/UL code = 1020) ABS NUCLEATED RBCS (test code = 0.00 K/UL 79290) HEMOGLOBIN [id number] 00:00:00 Test Item Value Reference Range Interpretation Comments HEMOGLOBIN A1c (test code = 42240) 7.3 % HEMOGLOBIN [id number] 00:00:00 Test Item Value Reference Range Interpretation Comments HEMOGLOBIN A1c (test code = 06796) 7.3 % HEMOGLOBIN [id number] 00:00:00 Test Item Value Reference Range Interpretation Comments HEMOGLOBIN A1c (test code = 39831) 7.3 % LIPID [id number] 00:00:00 Test Item Value Reference Range Interpretation Comments CHOLESTEROL (test code = 2210) 140 MG/DL TRIGLYCERIDES (test code = 2232) 132 MG/DL HDL CHOLESTEROL (test code = 2220) 44 MG/DL CALC LDL CHOL (test code = 2237) 74 MG/DL RISK RATIO LDL/HDL (test code = 1.68 RATIO 2238) LIPID [id number] 00:00:00 Test Item Value Reference Range Interpretation Comments CHOLESTEROL (test code = 2210) 140 MG/DL TRIGLYCERIDES (test code = 2232) 132 MG/DL HDL CHOLESTEROL (test code = 2220) 44 MG/DL CALC LDL CHOL (test code = 2237) 74 MG/DL RISK RATIO LDL/HDL (test code = 1.68 RATIO 2238) COMPREHENSIVE METABOLIC [id number] 00:00:00 Test Item Value Reference Range Interpretation Comments GLUCOSE (test code = 2217) 159 MG/DL BUN (test code = 2208) 9 MG/DL CREATININE (test code = 2214) 0.87 MG/DL eGFR AMER. (test code 101 ML/MIN/1.73 = 56286) eGFR NON- AMER. (test 87 ML/MIN/1.73 code = 13814) CALC BUN/CREAT (test code = 10 RATIO 2235) SODIUM (test code = 2231) 141 MEQ/L POTASSIUM (test code = 2228) 4.9 MEQ/L CHLORIDE (test code = 2215) 103 MEQ/L CARBON DIOXIDE (test code = 28 MEQ/L 2205) CALCIUM (test code = 2209) 9.9 MG/DL PROTEIN, TOTAL (test code = 7.1 G/DL 2228) ALBUMIN (test code = 2201) 4.3 G/DL CALC GLOBULIN (test code = 2.8 G/DL 2240) CALC A/G RATIO (test code = 1.5 RATIO 2234) BILIRUBIN, TOTAL (test code = 2.5 MG/DL 2206) ALKALINE PHOSPHATASE (test 77 U/L code = 2204) AST (test code = 2218) 36 U/L ALT (test code = 2219) 23 U/L COMPREHENSIVE METABOLIC [id number] 00:00:00 Test Item Value Reference Range Interpretation Comments GLUCOSE (test code = 2217) 159 MG/DL BUN (test code = 2208) 9 MG/DL CREATININE (test code = 2214) 0.87 MG/DL eGFR AMER. (test code 101 ML/MIN/1.73 = 07323) eGFR NON- AMER. (test 87 ML/MIN/1.73 code = 47044) CALC BUN/CREAT (test code = 10 RATIO 2235) SODIUM (test code = 2231) 141 MEQ/L POTASSIUM (test code = 2228) 4.9 MEQ/L CHLORIDE (test code = 2215) 103 MEQ/L CARBON DIOXIDE (test code = 28 MEQ/L 220) CALCIUM (test code = 2209) 9.9 MG/DL PROTEIN, TOTAL (test code = 7.1 G/DL 2228) ALBUMIN (test code = 2201) 4.3 G/DL CALC GLOBULIN (test code = 2.8 G/DL 224) CALC A/G RATIO (test code = 1.5 RATIO 2233) BILIRUBIN, TOTAL (test code = 2.5 MG/DL 2206) ALKALINE PHOSPHATASE (test 77 U/L code = 2204) AST (test code = 2218) 36 U/L ALT (test code = 2219) 23 U/L CBC W/AUTO [id number] 00:00:00 Test Item Value Reference Range Interpretation Comments WBC (test code = 1001) 2.5 K/UL RBC (test code = 1002) 4.61 M/UL HEMOGLOBIN (test code = 1003) 13.3 G/DL HEMATOCRIT (test code = 1004) 40.3 % MCV (test code = 1005) 87.4 fL MCH (test code = 1006) 28.9 PG MCHC (test code = 1007) 33.0 G/DL RDW (test code = 1038) 14.2 % NEUTROPHILS (test code = 1008) 60.1 % LYMPHOCYTES (test code = 1010) 24.5 % MONOCYTES (test code = 1011) 13.4 % EOSINOPHILS (test code = 1012) 1.2 % BASOPHILS (test code = 1013) 0.8 % IMMATURE GRANULOCYTES (test 0.0 % code = 1036) NUCLEATED RBCS (test code = 0.0 /100WBC'S 1065) PLATELET COUNT (test code = 72 K/UL 1015) ABSOLUTE NEUTROPHILS (test code 1.52 K/UL = 1066) ABSOLUTE LYMPHOCYTES (test code 0.62 K/UL = 1067) ABSOLUTE MONOCYTES (test code = 0.34 K/UL 1068) ABSOLUTE EOSINOPHILS (test code 0.03 K/UL = 1040) ABSOLUTE BASOPHILS (test code = 0.02 K/UL 1069) ABS IMMATURE GRANULOCYTES (test 0.00 K/UL code = 1020) ABS NUCLEATED RBCS (test code = 0.00 K/UL 60740) CBC W/AUTO [id number] 00:00:00 Test Item Value Reference Range Interpretation Comments WBC (test code = 1001) 2.5 K/UL RBC (test code = 1002) 4.61 M/UL HEMOGLOBIN (test code = 1003) 13.3 G/DL HEMATOCRIT (test code = 1004) 40.3 % MCV (test code = 1005) 87.4 fL MCH (test code = 1006) 28.9 PG MCHC (test code = 1007) 33.0 G/DL RDW (test code = 1038) 14.2 % NEUTROPHILS (test code = 1008) 60.1 % LYMPHOCYTES (test code = 1010) 24.5 % MONOCYTES (test code = 1011) 13.4 % EOSINOPHILS (test code = 1012) 1.2 % BASOPHILS (test code = 1013) 0.8 % IMMATURE GRANULOCYTES (test 0.0 % code = 1036) NUCLEATED RBCS (test code = 0.0 /100WBC'S 1065) PLATELET COUNT (test code = 72 K/UL 1015) ABSOLUTE NEUTROPHILS (test code 1.52 K/UL = 1066) ABSOLUTE LYMPHOCYTES (test code 0.62 K/UL = 1067) ABSOLUTE MONOCYTES (test code = 0.34 K/UL 1068) ABSOLUTE EOSINOPHILS (test code 0.03 K/UL = 1040) ABSOLUTE BASOPHILS (test code = 0.02 K/UL 1069) ABS IMMATURE GRANULOCYTES (test 0.00 K/UL code = 1020) ABS NUCLEATED RBCS (test code = 0.00 K/UL 83173) CBC W/AUTO [id number] 00:00:00 Test Item Value Reference Range Interpretation Comments WBC (test code = 1001) 2.5 K/UL RBC (test code = 1002) 4.61 M/UL HEMOGLOBIN (test code = 1003) 13.3 G/DL HEMATOCRIT (test code = 1004) 40.3 % MCV (test code = 1005) 87.4 fL MCH (test code = 1006) 28.9 PG MCHC (test code = 1007) 33.0 G/DL RDW (test code = 1038) 14.2 % NEUTROPHILS (test code = 1008) 60.1 % LYMPHOCYTES (test code = 1010) 24.5 % MONOCYTES (test code = 1011) 13.4 % EOSINOPHILS (test code = 1012) 1.2 % BASOPHILS (test code = 1013) 0.8 % IMMATURE GRANULOCYTES (test 0.0 % code = 1036) NUCLEATED RBCS (test code = 0.0 /100WBC'S 1065) PLATELET COUNT (test code = 72 K/UL 1015) ABSOLUTE NEUTROPHILS (test code 1.52 K/UL = 1066) ABSOLUTE LYMPHOCYTES (test code 0.62 K/UL = 1067) ABSOLUTE MONOCYTES (test code = 0.34 K/UL 1068) ABSOLUTE EOSINOPHILS (test code 0.03 K/UL = 1040) ABSOLUTE BASOPHILS (test code = 0.02 K/UL 1069) ABS IMMATURE GRANULOCYTES (test 0.00 K/UL code = 1020) ABS NUCLEATED RBCS (test code = 0.00 K/UL 98367) HEMOGLOBIN [id number] 00:00:00 Test Item Value Reference Range Interpretation Comments HEMOGLOBIN A1c (test code = 81075) 7.3 % HEMOGLOBIN [id number] 00:00:00 Test Item Value Reference Range Interpretation Comments HEMOGLOBIN A1c (test code = 14653) 7.3 % HEMOGLOBIN [id number] 00:00:00 Test Item Value Reference Range Interpretation Comments HEMOGLOBIN A1c (test code = 79861) 7.3 % LIPID [id number] 00:00:00 Test Item Value Reference Range Interpretation Comments CHOLESTEROL (test code = 2210) 140 MG/DL TRIGLYCERIDES (test code = 2232) 132 MG/DL HDL CHOLESTEROL (test code = 2220) 44 MG/DL CALC LDL CHOL (test code = 2237) 74 MG/DL RISK RATIO LDL/HDL (test code = 1.68 RATIO 2238) LIPID [id number] 00:00:00 Test Item Value Reference Range Interpretation Comments CHOLESTEROL (test code = 2210) 140 MG/DL TRIGLYCERIDES (test code = 2232) 132 MG/DL HDL CHOLESTEROL (test code = 2220) 44 MG/DL CALC LDL CHOL (test code = 2237) 74 MG/DL RISK RATIO LDL/HDL (test code = 1.68 RATIO 2238) COMPREHENSIVE METABOLIC [id number] 00:00:00 Test Item Value Reference Range Interpretation Comments GLUCOSE (test code = 2217) 159 MG/DL BUN (test code = 2208) 9 MG/DL CREATININE (test code = 2214) 0.87 MG/DL eGFR AMER. (test code 101 ML/MIN/1.73 = 24981) eGFR NON- AMER. (test 87 ML/MIN/1.73 code = 85847) CALC BUN/CREAT (test code = 10 RATIO 2235) SODIUM (test code = 2231) 141 MEQ/L POTASSIUM (test code = 2228) 4.9 MEQ/L CHLORIDE (test code = 2215) 103 MEQ/L CARBON DIOXIDE (test code = 28 MEQ/L 2205) CALCIUM (test code = 2209) 9.9 MG/DL PROTEIN, TOTAL (test code = 7.1 G/DL 2228) ALBUMIN (test code = 2201) 4.3 G/DL CALC GLOBULIN (test code = 2.8 G/DL 2239) CALC A/G RATIO (test code = 1.5 RATIO 2234) BILIRUBIN, TOTAL (test code = 2.5 MG/DL 2206) ALKALINE PHOSPHATASE (test 77 U/L code = 2204) AST (test code = 2218) 36 U/L ALT (test code = 2219) 23 U/L COMPREHENSIVE METABOLIC [id number] 00:00:00 Test Item Value Reference Range Interpretation Comments GLUCOSE (test code = 2217) 159 MG/DL BUN (test code = 2208) 9 MG/DL CREATININE (test code = 2214) 0.87 MG/DL eGFR AMER. (test code 101 ML/MIN/1.73 = 36539) eGFR NON- AMER. (test 87 ML/MIN/1.73 code = 86803) CALC BUN/CREAT (test code = 10 RATIO 2235) SODIUM (test code = 2231) 141 MEQ/L POTASSIUM (test code = 2228) 4.9 MEQ/L CHLORIDE (test code = 2215) 103 MEQ/L CARBON DIOXIDE (test code = 28 MEQ/L 220) CALCIUM (test code = 2209) 9.9 MG/DL PROTEIN, TOTAL (test code = 7.1 G/DL 2229) ALBUMIN (test code = 2201) 4.3 G/DL CALC GLOBULIN (test code = 2.8 G/DL 2240) CALC A/G RATIO (test code = 1.5 RATIO 2234) BILIRUBIN, TOTAL (test code = 2.5 MG/DL 2207) ALKALINE PHOSPHATASE (test 77 U/L code = 2204) AST (test code = 2218) 36 U/L ALT (test code = 2219) 23 U/L CBC W/AUTO [id number] 00:00:00 Test Item Value Reference Range Interpretation Comments WBC (test code = 1001) 2.5 K/UL RBC (test code = 1002) 4.61 M/UL HEMOGLOBIN (test code = 1003) 13.3 G/DL HEMATOCRIT (test code = 1004) 40.3 % MCV (test code = 1005) 87.4 fL MCH (test code = 1006) 28.9 PG MCHC (test code = 1007) 33.0 G/DL RDW (test code = 1038) 14.2 % NEUTROPHILS (test code = 1008) 60.1 % LYMPHOCYTES (test code = 1010) 24.5 % MONOCYTES (test code = 1011) 13.4 % EOSINOPHILS (test code = 1012) 1.2 % BASOPHILS (test code = 1013) 0.8 % IMMATURE GRANULOCYTES (test 0.0 % code = 1036) NUCLEATED RBCS (test code = 0.0 /100WBC'S 1065) PLATELET COUNT (test code = 72 K/UL 1015) ABSOLUTE NEUTROPHILS (test code 1.52 K/UL = 1066) ABSOLUTE LYMPHOCYTES (test code 0.62 K/UL = 1067) ABSOLUTE MONOCYTES (test code = 0.34 K/UL 1068) ABSOLUTE EOSINOPHILS (test code 0.03 K/UL = 1040) ABSOLUTE BASOPHILS (test code = 0.02 K/UL 1069) ABS IMMATURE GRANULOCYTES (test 0.00 K/UL code = 1020) ABS NUCLEATED RBCS (test code = 0.00 K/UL 86607) CBC W/AUTO [id number] 00:00:00 Test Item Value Reference Range Interpretation Comments WBC (test code = 1001) 2.5 K/UL RBC (test code = 1002) 4.61 M/UL HEMOGLOBIN (test code = 1003) 13.3 G/DL HEMATOCRIT (test code = 1004) 40.3 % MCV (test code = 1005) 87.4 fL MCH (test code = 1006) 28.9 PG MCHC (test code = 1007) 33.0 G/DL RDW (test code = 1038) 14.2 % NEUTROPHILS (test code = 1008) 60.1 % LYMPHOCYTES (test code = 1010) 24.5 % MONOCYTES (test code = 1011) 13.4 % EOSINOPHILS (test code = 1012) 1.2 % BASOPHILS (test code = 1013) 0.8 % IMMATURE GRANULOCYTES (test 0.0 % code = 1036) NUCLEATED RBCS (test code = 0.0 /100WBC'S 1065) PLATELET COUNT (test code = 72 K/UL 1015) ABSOLUTE NEUTROPHILS (test code 1.52 K/UL = 1066) ABSOLUTE LYMPHOCYTES (test code 0.62 K/UL = 1067) ABSOLUTE MONOCYTES (test code = 0.34 K/UL 1068) ABSOLUTE EOSINOPHILS (test code 0.03 K/UL = 1040) ABSOLUTE BASOPHILS (test code = 0.02 K/UL 1069) ABS IMMATURE GRANULOCYTES (test 0.00 K/UL code = 1020) ABS NUCLEATED RBCS (test code = 0.00 K/UL 33415) POCT URINALYSIS, [id number] 15:44:00 Test Item Value Reference Range Interpretation Comments POCT U SP GRAV (test code = 1.020 mg/dl 1.005-1.025 3255) POCT PH U (test code = 3254) 7.0 mg/dl 5-8 POCT U LEUK EST (test code = Negative Negative - Negative 3263) POCT U NIT (test code = 3262) Negative Negative - Negative POCT U PROT (test code = Negative Negative - Negative 3259) POCT U GLU (test code = 3256) Negative Negative - Negative POCT U KETONE (test code = Negative Negative - Negative 3258) POCT U UROBILI (test code = 1.0 mg/dl 0.2-1 3260) POCT U BILI (test code = Negative Negative - Negative 3261) POCT U BLD (test code = 3257) Negative Negative - Negative POCT U COLOR (test code = yellow 3266) POCT U APPEAR (test code = clear 3267) Lab Interpretation (test code Normal = 33476-6) [facility] URINALYSIS, [id number] 15:44:00 Test Item Value Reference Range Interpretation Comments POCT U SP GRAV (test code = 1.020 mg/dl 1.005-1.025 3255) POCT PH U (test code = 3254) 7.0 mg/dl 5-8 POCT U LEUK EST (test code = Negative Negative - Negative 3263) POCT U NIT (test code = 3262) Negative Negative - Negative POCT U PROT (test code = Negative Negative - Negative 3259) POCT U GLU (test code = 3256) Negative Negative - Negative POCT U KETONE (test code = Negative Negative - Negative 3258) POCT U UROBILI (test code = 1.0 mg/dl 0.2-1 3260) POCT U BILI (test code = Negative Negative - Negative 3261) POCT U BLD (test code = 3257) Negative Negative - Negative POCT U COLOR (test code = yellow 3266) POCT U APPEAR (test code = clear 3267) Lab Interpretation (test code Normal = 67398-3) [facility] URINALYSIS, [id number] 15:44:00 Test Item Value Reference Range Interpretation Comments POCT U SP GRAV (test code = 1.020 mg/dl 1.005-1.025 3255) POCT PH U (test code = 3254) 7.0 mg/dl 5-8 POCT U LEUK EST (test code = Negative Negative - Negative 3263) POCT U NIT (test code = 3262) Negative Negative - Negative POCT U PROT (test code = Negative Negative - Negative 3259) POCT U GLU (test code = 3256) Negative Negative - Negative POCT U KETONE (test code = Negative Negative - Negative 3258) POCT U UROBILI (test code = 1.0 mg/dl 0.2-1 3260) POCT U BILI (test code = Negative Negative - Negative 3261) POCT U BLD (test code = 3257) Negative Negative - Negative POCT U COLOR (test code = yellow 3266) POCT U APPEAR (test code = clear 3267) Lab Interpretation (test code Normal = 75568-5) [id number]:00 Test Item Value Reference Range Interpretation Comments HEMOGLOBIN A1c (test code = 6.7 %oftotalHgb 4548-4) CBC (INCLUDES DIFF/PLT)2019-10-03 00:00:00 Test Item Value Reference Range Interpretation Comments WHITE BLOOD CELL COUNT (test 2.6 Thousand/uL code = 6690-2) RED BLOOD CELL COUNT (test 4.80 Million/uL code = 789-8) HEMOGLOBIN (test code = 12.7 g/dL 718-7) HEMATOCRIT (test code = 40.5 % 4544-3) MCV (test code = 787-2) 84.4 fL MCH (test code = 785-6) 26.5 pg MCHC (test code = 786-4) 31.4 g/dL RDW (test code = 788-0) 14.6 % PLATELET COUNT (test code = 85 Thousand/uL 777-3) MPV (test code = 776-5) 11.9 fL ABSOLUTE NEUTROPHILS (test 1503 cells/uL code = 751-8) ABSOLUTE BAND NEUTROPHILS DNR cells/uL (test code = 94760-4) ABSOLUTE METAMYELOCYTES (test DNR cells/uL code = 60940-4) ABSOLUTE MYELOCYTES (test DNR cells/uL code = 55747-1) ABSOLUTE PROMYELOCYTES (test DNR cells/uL code = 23307-0) ABSOLUTE LYMPHOCYTES (test 637 cells/uL code = 731-0) ABSOLUTE MONOCYTES (test code 380 cells/uL = 742-7) ABSOLUTE EOSINOPHILS (test 60 cells/uL code = 711-2) ABSOLUTE BASOPHILS (test code 21 cells/uL = 704-7) ABSOLUTE BLASTS (test code = DNR cells/uL 22438-3) ABSOLUTE NUCLEATED RBC (test DNR cells/uL code = 29173-7) NEUTROPHILS (test code = 57.8 % 770-8) BAND NEUTROPHILS (test code = DNR % 764-1) METAMYELOCYTES (test code = DNR % 740-1) MYELOCYTES (test code = DNR % 749-2) PROMYELOCYTES (test code = DNR % 783-1) LYMPHOCYTES (test code = 24.5 % 736-9) REACTIVE LYMPHOCYTES (test DNR % code = 79526-0) MONOCYTES (test code = 14.6 % 5905-5) EOSINOPHILS (test code = 2.3 % 713-8) BASOPHILS (test code = 706-2) 0.8 % BLASTS (test code = 709-6) DNR % NUCLEATED RBC (test code = DNR /100WBC 88620-0) COMMENT(S) (test code = DNR 8251-1) HEMOGLOBIN [id number] 00:00:00 Test Item Value Reference Range Interpretation Comments HEMOGLOBIN A1c (test code = 6.7 %oftotalHgb 4548-4) CBC (INCLUDES DIFF/PLT)2019-10-03 00:00:00 Test Item Value Reference Range Interpretation Comments WHITE BLOOD CELL COUNT (test 2.6 Thousand/uL code = 6690-2) RED BLOOD CELL COUNT (test 4.80 Million/uL code = 789-8) HEMOGLOBIN (test code = 12.7 g/dL 718-7) HEMATOCRIT (test code = 40.5 % 4544-3) MCV (test code = 787-2) 84.4 fL MCH (test code = 785-6) 26.5 pg MCHC (test code = 786-4) 31.4 g/dL RDW (test code = 788-0) 14.6 % PLATELET COUNT (test code = 85 Thousand/uL 777-3) MPV (test code = 776-5) 11.9 fL ABSOLUTE NEUTROPHILS (test 1503 cells/uL code = 751-8) ABSOLUTE BAND NEUTROPHILS DNR cells/uL (test code = 64257-6) ABSOLUTE METAMYELOCYTES (test DNR cells/uL code = 11797-9) ABSOLUTE MYELOCYTES (test DNR cells/uL code = 78892-2) ABSOLUTE PROMYELOCYTES (test DNR cells/uL code = 12542-9) ABSOLUTE LYMPHOCYTES (test 637 cells/uL code = 731-0) ABSOLUTE MONOCYTES (test code 380 cells/uL = 742-7) ABSOLUTE EOSINOPHILS (test 60 cells/uL code = 711-2) ABSOLUTE BASOPHILS (test code 21 cells/uL = 704-7) ABSOLUTE BLASTS (test code = DNR cells/uL 74009-0) ABSOLUTE NUCLEATED RBC (test DNR cells/uL code = 49218-2) NEUTROPHILS (test code = 57.8 % 770-8) BAND NEUTROPHILS (test code = DNR % 764-1) METAMYELOCYTES (test code = DNR % 740-1) MYELOCYTES (test code = DNR % 749-2) PROMYELOCYTES (test code = DNR % 783-1) LYMPHOCYTES (test code = 24.5 % 736-9) REACTIVE LYMPHOCYTES (test DNR % code = 98828-8) MONOCYTES (test code = 14.6 % 5905-5) EOSINOPHILS (test code = 2.3 % 713-8) BASOPHILS (test code = 706-2) 0.8 % BLASTS (test code = 709-6) DNR % NUCLEATED RBC (test code = DNR /100WBC 94971-8) COMMENT(S) (test code = DNR 8251-1) POCT URINALYSIS, [id number] 21:47:00 Test Item Value Reference Range Interpretation Comments POCT U SP GRAV (test code >=1.030 1.005-1.025 = 3255) POCT PH U (test code = 6.0 mg/dl 5-8 3254) POCT U LEUK EST (test negative Negative - Negative code = 3263) POCT U NIT (test code = negative Negative - Negative 3262) POCT U PROT (test code = Negative - Negative 3259) POCT U GLU (test code = negative Negative - Negative 3256) POCT U KETONE (test code negative Negative - Negative = 3258) POCT U UROBILI (test code 1.0 mg/dl 0.2-1 = 3260) POCT U BILI (test code = small Negative - Negative 3261) POCT U BLD (test code = moderate Negative - Negative 3257) POCT U COLOR (test code = otilia 3266) POCT U APPEAR (test code slightly cloudy = 3267) [facility] [id number] 21:47:00 Test Item Value Reference Range Interpretation Comments POCT U SP GRAV (test code >=1.030 1.005-1.025 = 3255) POCT PH U (test code = 6.0 mg/dl 5-8 3254) POCT U LEUK EST (test negative Negative - Negative code = 3263) POCT U NIT (test code = negative Negative - Negative 3262) POCT U PROT (test code = Negative - Negative 3259) POCT U GLU (test code = negative Negative - Negative 3256) POCT U KETONE (test code negative Negative - Negative = 3258) POCT U UROBILI (test code 1.0 mg/dl 0.2-1 = 3260) POCT U BILI (test code = small Negative - Negative 3261) POCT U BLD (test code = moderate Negative - Negative 3257) POCT U COLOR (test code = otilia 3266) POCT U APPEAR (test code slightly cloudy = 3267) [facility] WITH [id number] 16:47:00 Test Item Value Reference Range Interpretation Comments WBC (test code = See_Comment LL [Automated 3190-2) message] The sy stem which generated this result transmitted reference range : 4.20 - 10.70 10*3/?L. The reference range was not used to interpret this result as normal/abnormal . RBC (test code = See_Comment L [Automated 409-8) message] The sy stem which generated this result transmitted reference range : 4.26 - 5.52 10*6/?L. The reference range was not used to interpret this result as normal/abnormal . HGB (test code = 11.5 g/dL 12.2-16.4 L 718-7) HCT (test code = 35.7 % 38.4-49.3 L 4544-3) MCV (test code = 84.4 fL 81.7-95.6 787-2) MCH (test code = 27.2 pg 26.1-32.7 785-6) MCHC (test code = 32.2 g/dL 31.2-35 786-4) RDW-SD (test code = 43.3 fL 38.5-51.6 82758-4) RDW-CV (test code = 14.0 % 12.1-15.4 788-0) PLT (test code = See_Comment L [Automated 777-3) message] The sy stem which generated this result transmitted reference range : 150 - 328 10*3/ ?L. The reference r michelle was not used to interpret this result as normal/abnormal . MPV (test code = 11.2 fL 9.8-13 10364-9) IPF % (test code = 4.7 % 1.2-10.7 Platelet count 9348267426) measured by fluorescence method. NRBC/100 WBC (test See_Comment [Automat ed code = [id number]) message] The system which generated this result transmitted reference range : 0.0 - 10.0 /100 WBCs. The refer ence range was not u sed to interpret th is result as normal/abnormal . NRBC x10^3 (test code <0.01 See_Comment [Auto mated = 8502046502) message] The s ystem which generated this result transmitted reference range : 10*3/?L. The reference range was not used to interpret this result as normal/abnormal . GRAN MAT (NEUT) % 57.3 % (test code = 770-8) IMM GRAN % (test code 0.00 % = 3073792809) LYMPH % (test code = 24.7 % 736-9) MONO % (test code = 15.5 % 5905-5) EOS % (test code = 1.5 % 713-8) BASO % (test code = 1.0 % 706-2) GRAN MAT x10^3(ANC) 1.11 10*3/uL 1.99-6.95 L (test code = 4873786117) IMM GRAN x10^3 (test <0.03 0-0.06 code = 7042731274) LYMPH x10^3 (test code 0.48 10*3/uL 1.09-3.23 L = 731-0) MONO x10^3 (test code 0.30 10*3/uL 0.36-1.02 L = 742-7) EOS x10^3 (test code = 0.03 10*3/uL 0.06-0.53 L 711-2) BASO x10^3 (test code <0.03 0.01-0.09 = 704-7) Lab Interpretation Abnormal (test code = 55617-4) [facility] [id number] 14:57:10 Test Item Value Reference Range Interpretation Comments ABO & RH (test code A Positive Performe d at [facility] = 20) Laboratory Serv ices - [facility] [address] [place] [id number] Free: [phone] A No. [id number] IAT (test code = Negative Performed a t [facility] 1185) Laboratory Serv [facility] [address] [place] [id number] Free: [phone] A No. [id number] [facility] METABOLIC PANEL (NA, K, CL, CO2, GLUCOSE, BUN, CREATININE, CA)2019-09-11 14:03:00 Test Item Value Reference Range Interpretation Comments NA (test code = 138 mmol/L 135-145 0511008189) K (test code = 4.3 mmol/L 3.5-5 1741542443) CL (test code = 106 mmol/L 98-108 6811657314) CO2 TOTAL (test code = 27 mmol/L 23-31 4577226207) AGAP (test code = 2-16 4047301918) BUN (test code = 12 mg/dL 7-23 7929632501) GLUCOSE (test code = 153 mg/dL 70-110 H 3060473796) CREATININE (test code = 0.65 mg/dL 0.6-1.25 2556074133) CALCIUM (test code = 9.8 mg/dL 8.6-10.6 7325962887) eGFR Calculation mL/min/1.73m2 (Non-) (test code = 7475022964) eGFR Calculation mL/min/1.73m2 () (test code = 8432111445) HUE (test code = HUE) Association of Glomerular Filtration Rate (GFR) and Staging of Kidney Disease* + --+ --+ ------+| GFR (mL/min/1.73 m2) ?| With Kidney Damage ?| ?Without Kidney Damage+ --------+ --------+ +| ?>90 ?| ?Stage one ?| ? Normal ?+ ---+ ---+ -------+| ?60-89 ?| ?Stage two ?| ? Decreased GFR ? + --+ --+ ------+| ?30-59 ?| ?Stage three ?| ? Stage three ? + --+ --+ ------+| ?15-29 ?| ?Stage four ? | ? Stage four ?+ ---+ ---+ -------+| ?<15 (or dialysis) ? ?| ?Stage five ? | ? Stage five ?+ ---+ ---+ -------+ *Each stage assumes the associated GFR level has been in effect for at least three months. ?Stages 1 to 5, with or without kidney disease, indicate chronic kidney disease. Notes: Determination of stages one and two (with eGFR >59mL/min/1.73 m2) requires estimation of kidney damage for at least three months as defined by structural or functional abnormalities of the kidney, manifested by either:Pathological abnormalities or Markers of kidney damage (including abnormalities in the composition of the blood or urine or abnormalities in imaging tests). Lab Interpretation Abnormal (test code = 30876-1) [facility] URINALYSIS, [id number] 19:02:00 Test Item Value Reference Range Interpretation Comments POCT U SP GRAV (test code = >=1.030 1.005-1.025 3255) POCT PH U (test code = 3254) 5.5 mg/dl 5-8 POCT U LEUK EST (test code = negative Negative - Negative 3263) POCT U NIT (test code = 3262) negative Negative - Negative POCT U PROT (test code = 3259) negative Negative - Negative POCT U GLU (test code = 3256) negtive Negative - Negative POCT U KETONE (test code = negative Negative - Negative 3258) POCT U UROBILI (test code = 1.0 mg/dl 0.2-1 0) POCT U BILI (test code = 3261) small Negative - Negative POCT U BLD (test code = 3257) negative Negative - Negative POCT U COLOR (test code = 3266) orange POCT U APPEAR (test code = clear 7) [facility] URINALYSIS, [id number] 19:02:00 Test Item Value Reference Range Interpretation Comments POCT U SP GRAV (test code = >=1.030 1.005-1.025 3255) POCT PH U (test code = 3254) 5.5 mg/dl 5-8 POCT U LEUK EST (test code = negative Negative - Negative 3263) POCT U NIT (test code = 3262) negative Negative - Negative POCT U PROT (test code = 3259) negative Negative - Negative POCT U GLU (test code = 3256) negtive Negative - Negative POCT U KETONE (test code = negative Negative - Negative 3258) POCT U UROBILI (test code = 1.0 mg/dl 0.2-1 3260) POCT U BILI (test code = 3261) small Negative - Negative POCT U BLD (test code = 3257) negative Negative - Negative POCT U COLOR (test code = 3266) orange POCT U APPEAR (test code = clear 3267) [facility] [id number] 14:19:00 Test Item Value Reference Range Interpretation Comments POCT U SP GRAV (test code = >=1.030 1.005-1.025 3255) POCT PH U (test code = 3254) 5.5 mg/dl 5-8 POCT U LEUK EST (test code = negative Negative - Negative 3) POCT U NIT (test code = 3262) negative Negative - Negative POCT U PROT (test code = 3259) negative Negative - Negative POCT U GLU (test code = 3256) Negative - Negative POCT U KETONE (test code = negative Negative - Negative 3258) POCT U UROBILI (test code = 1.0 mg/dl 0.2-1 3260) POCT U BILI (test code = 3261) small Negative - Negative POCT U BLD (test code = 3257) negative Negative - Negative POCT U COLOR (test code = 3266) yellow POCT U APPEAR (test code = clear 3267) [facility] [id number] 14:19:00 Test Item Value Reference Range Interpretation Comments POCT U SP GRAV (test code = >=1.030 1.005-1.025 3255) POCT PH U (test code = 3254) 5.5 mg/dl 5-8 POCT U LEUK EST (test code = negative Negative - Negative 3263) POCT U NIT (test code = 3262) negative Negative - Negative POCT U PROT (test code = 3259) negative Negative - Negative POCT U GLU (test code = 3256) Negative - Negative POCT U KETONE (test code = negative Negative - Negative 3258) POCT U UROBILI (test code = 1.0 mg/dl 0.2-1 3260) POCT U BILI (test code = 3261) small Negative - Negative POCT U BLD (test code = 3257) negative Negative - Negative POCT U COLOR (test code = 3266) yellow POCT U APPEAR (test code = clear 3267) [id number] Test Item Value Reference Range Interpretation Comments CHOLESTEROL, TOTAL (test code 155 mg/dL = 2093-3) HDL CHOLESTEROL (test code = 41 mg/dL 2085-9) TRIGLYCERIDES (test code = 156 mg/dL 2571-8) LDL-CHOLESTEROL (test code = 89 mg/dL(calc) 58420-8) CHOL/HDLC RATIO (test code = 3.8 (calc) 9830-1) NON HDL CHOLESTEROL (test 114 mg/dL(calc) code = 07186-3) CBC (INCLUDES DIFF/PLT)2019-05-20 00:00:00 Test Item Value Reference Range Interpretation Comments WHITE BLOOD CELL COUNT (test 2.7 Thousand/uL code = 6690-2) RED BLOOD CELL COUNT (test 5.08 Million/uL code = 789-8) HEMOGLOBIN (test code = 14.3 g/dL 718-7) HEMATOCRIT (test code = 43.7 % 4544-3) MCV (test code = 787-2) 86.0 fL MCH (test code = 785-6) 28.1 pg MCHC (test code = 786-4) 32.7 g/dL RDW (test code = 788-0) 14.2 % PLATELET COUNT (test code = 64 Thousand/uL 777-3) MPV (test code = 776-5) 12.1 fL ABSOLUTE NEUTROPHILS (test 1561 cells/uL code = 751-8) ABSOLUTE BAND NEUTROPHILS DNR cells/uL (test code = 13459-9) ABSOLUTE METAMYELOCYTES (test DNR cells/uL code = 99218-8) ABSOLUTE MYELOCYTES (test DNR cells/uL code = 32452-7) ABSOLUTE PROMYELOCYTES (test DNR cells/uL code = 01529-7) ABSOLUTE LYMPHOCYTES (test 751 cells/uL code = 731-0) ABSOLUTE MONOCYTES (test code 340 cells/uL = 742-7) ABSOLUTE EOSINOPHILS (test 30 cells/uL code = 711-2) ABSOLUTE BASOPHILS (test code 19 cells/uL = 704-7) ABSOLUTE BLASTS (test code = DNR cells/uL 11921-1) ABSOLUTE NUCLEATED RBC (test DNR cells/uL code = 06519-4) NEUTROPHILS (test code = 57.8 % 770-8) BAND NEUTROPHILS (test code = DNR % 764-1) METAMYELOCYTES (test code = DNR % 740-1) MYELOCYTES (test code = DNR % 749-2) PROMYELOCYTES (test code = DNR % 783-1) LYMPHOCYTES (test code = 27.8 % 736-9) REACTIVE LYMPHOCYTES (test DNR % code = 51935-7) MONOCYTES (test code = 12.6 % 5905-5) EOSINOPHILS (test code = 1.1 % 713-8) BASOPHILS (test code = 706-2) 0.7 % BLASTS (test code = 709-6) DNR % NUCLEATED RBC (test code = DNR /100WBC 07370-8) COMMENT(S) (test code = 8251-1) HEMOGLOBIN [id number] 00:00:00 Test Item Value Reference Range Interpretation Comments HEMOGLOBIN A1c (test code = 7.1 %oftotalHgb 4548-4) PSA, [id number] 00:00:00 Test Item Value Reference Range Interpretation Comments PSA, TOTAL (test code = 2857-1) 0.2 ng/mL PLATELET ESTIMATION [ADDED]2019-05-20 00:00:00 Test Item Value Reference Range Interpretation Comments PLATELET ESTIMATION (test code = DECREASED 9317-9) COMPREHENSIVE METABOLIC [id number] 00:00:00 Test Item Value Reference Range Interpretation Comments GLUCOSE (test code = 115 mg/dL 2345-7) UREA NITROGEN (BUN) 14 mg/dL (test code = 3094-0) CREATININE (test code = 0.73 mg/dL 2160-0) eGFR NON-AFR. BURUNDIAN 84 mL/min/1.73m2 (test code = 25475-5) eGFR 97 mL/min/1.73m2 (test code = 99718-3) BUN/CREATININE RATIO NOT APPLICABLE (calc) (test code = 3097-3) SODIUM (test code = 140 mmol/L 2951-2) POTASSIUM (test code = 4.5 mmol/L 2823-3) CHLORIDE (test code = 103 mmol/L 2075-0) CARBON DIOXIDE (test 24 mmol/L code = 2027-9) CALCIUM (test code = 9.5 mg/dL 89697-8) PROTEIN, TOTAL (test 7.0 g/dL code = 2885-2) ALBUMIN (test code = 4.2 g/dL 1751-7) GLOBULIN (test code = 2.8 g/dL(calc) 07913-2) ALBUMIN/GLOBULIN RATIO 1.5 (calc) (test code = 1759-0) BILIRUBIN, TOTAL (test 2.3 mg/dL code = 1975-2) ALKALINE PHOSPHATASE 78 U/L (test code = 6768-6) AST (test code = 18 U/L 1920-8) ALT (test code = 15 U/L 1742-6) LIPID [id number] 00:00:00 Test Item Value Reference Range Interpretation Comments CHOLESTEROL, TOTAL (test code 155 mg/dL = 2093-3) HDL CHOLESTEROL (test code = 41 mg/dL 2084-9) TRIGLYCERIDES (test code = 156 mg/dL 2571-8) LDL-CHOLESTEROL (test code = 89 mg/dL(calc) 96772-6) CHOL/HDLC RATIO (test code = 3.8 (calc) 9830-1) NON HDL CHOLESTEROL (test 114 mg/dL(calc) code = 12790-4) CBC (INCLUDES DIFF/PLT)2019-05-20 00:00:00 Test Item Value Reference Range Interpretation Comments WHITE BLOOD CELL COUNT (test 2.7 Thousand/uL code = 6690-2) RED BLOOD CELL COUNT (test 5.08 Million/uL code = 789-8) HEMOGLOBIN (test code = 14.3 g/dL 718-7) HEMATOCRIT (test code = 43.7 % 4544-3) MCV (test code = 787-2) 86.0 fL MCH (test code = 785-6) 28.1 pg MCHC (test code = 786-4) 32.7 g/dL RDW (test code = 788-0) 14.2 % PLATELET COUNT (test code = 64 Thousand/uL 777-3) MPV (test code = 776-5) 12.1 fL ABSOLUTE NEUTROPHILS (test 1561 cells/uL code = 751-8) ABSOLUTE BAND NEUTROPHILS DNR cells/uL (test code = 44335-7) ABSOLUTE METAMYELOCYTES (test DNR cells/uL code = 01396-6) ABSOLUTE MYELOCYTES (test DNR cells/uL code = 03469-8) ABSOLUTE PROMYELOCYTES (test DNR cells/uL code = 00587-9) ABSOLUTE LYMPHOCYTES (test 751 cells/uL code = 731-0) ABSOLUTE MONOCYTES (test code 340 cells/uL = 742-7) ABSOLUTE EOSINOPHILS (test 30 cells/uL code = 711-2) ABSOLUTE BASOPHILS (test code 19 cells/uL = 704-7) ABSOLUTE BLASTS (test code = DNR cells/uL 55180-7) ABSOLUTE NUCLEATED RBC (test DNR cells/uL code = 89642-0) NEUTROPHILS (test code = 57.8 % 770-8) BAND NEUTROPHILS (test code = DNR % 764-1) METAMYELOCYTES (test code = DNR % 740-1) MYELOCYTES (test code = DNR % 749-2) PROMYELOCYTES (test code = DNR % 783-1) LYMPHOCYTES (test code = 27.8 % 736-9) REACTIVE LYMPHOCYTES (test DNR % code = 68862-2) MONOCYTES (test code = 12.6 % 5905-5) EOSINOPHILS (test code = 1.1 % 713-8) BASOPHILS (test code = 706-2) 0.7 % BLASTS (test code = 709-6) DNR % NUCLEATED RBC (test code = DNR /100WBC 87552-6) COMMENT(S) (test code = 8251-1) HEMOGLOBIN [id number] 00:00:00 Test Item Value Reference Range Interpretation Comments HEMOGLOBIN A1c (test code = 7.1 %oftotalHgb 4548-4) PSA, [id number] 00:00:00 Test Item Value Reference Range Interpretation Comments PSA, TOTAL (test code = 2857-1) 0.2 ng/mL PLATELET ESTIMATION [ADDED]2019-05-20 00:00:00 Test Item Value Reference Range Interpretation Comments PLATELET ESTIMATION (test code = DECREASED 9317-9) COMPREHENSIVE METABOLIC [id number] 00:00:00 Test Item Value Reference Range Interpretation Comments GLUCOSE (test code = 115 mg/dL 2345-7) UREA NITROGEN (BUN) 14 mg/dL (test code = 3094-0) CREATININE (test code = 0.73 mg/dL 2160-0) eGFR NON-AFR. BURUNDIAN 84 mL/min/1.73m2 (test code = 17927-6) eGFR 97 mL/min/1.73m2 (test code = 86732-4) BUN/CREATININE RATIO NOT APPLICABLE (calc) (test code = 3097-3) SODIUM (test code = 140 mmol/L 2951-2) POTASSIUM (test code = 4.5 mmol/L 2823-3) CHLORIDE (test code = 103 mmol/L 2075-0) CARBON DIOXIDE (test 24 mmol/L code = 2027-9) CALCIUM (test code = 9.5 mg/dL 46071-9) PROTEIN, TOTAL (test 7.0 g/dL code = 2885-2) ALBUMIN (test code = 4.2 g/dL 1751-7) GLOBULIN (test code = 2.8 g/dL(calc) 30992-9) ALBUMIN/GLOBULIN RATIO 1.5 (calc) (test code = 1759-0) BILIRUBIN, TOTAL (test 2.3 mg/dL code = 1974-2) ALKALINE PHOSPHATASE 78 U/L (test code = 6768-6) AST (test code = 18 U/L 1920-8) ALT (test code = 15 U/L 1742-6)"
[2022-03-16 09:38] LABS: Absolute Lymphocytes (CBC) 0.1 K/uL (0.7-4.9); Hematocrit 32.2 % (39.6-49.0); Lymphocytes % 12.3 % (15.3-44.8); MCV 77.1 fL (80-100); MPV 8.3 fL (7.6-11.3); RBC Red Blood Cell Count 4.18 M/uL (4.33-5.43)
[2022-03-16 09:52] LABS: Potassium 4.1 mmol/L (3.5-5.1)
[2022-03-16 09:58] LABS: Urine Blood Negative (Negative); Urine Glucose Negative (Negative); Urine Protein Negative (Negative); Urine Specific Gravity 1.025 (1.005-1.030)
[2022-03-16] MEDS ORDERED: NA CHLORIDE 0.9% 500 ML ONE (10:16)
[2022-03-16 11:35] LABS: SARS-COV-2 RT PCR NEGATIVE (NEGATIVE)
[2022-03-16] MEDS ORDERED: OSELTAMIVIR 75 MG CAP PO ONE (11:48)
--- NOTE | 2022-03-16 12:01 | EDPHYS ---
Physician Documentation [facility] Name: Flako Lugo Age: 72 yrs Sex: Male : 1950 Arrival Date: 03/16/2022 Time: 09:14 Bed 8 Private MD: ED Physician Zia Pollard HPI: 03/16 09:31 This 72 yrs old Male presents to ER via EMS with complaints of Cough, Fever, Weakness - pm1 with a fall. 09:31 The patient or guardian reports cough, with no sputum, flu symptoms. Onset: The pm1 symptoms/episode began/occurred yesterday. Severity of symptoms: in the emergency department the symptoms are unchanged. Modifying factors: The symptoms are alleviated by nothing, the symptoms are aggravated by nothing. Associated signs and symptoms: Pertinent positives: fever, sore throat, Pertinent negatives: chest pain, diarrhea, nausea, vomiting, shortness of breath. The patient has not recently seen a physician. Patient with onset dry cough, sore throat, fever and generalized weakness yesterday. Patient also reports fall this morning when he stood up from bed. Patient felt generalized weakness with getting up from the bed and landed on his buttocks. No headache, head injury, neck pain, LOC. Historical: - Allergies: 09:20 No Known Allergies; ll1 - PMHx: 09:20 Diabetes - NIDDM; enlarged spleen; Cirrhosis; ll1 - PSHx: 09:20 None; ll1 - Immunization history:: Client reports receiving the 2nd dose of the Covid vaccine. - Social history:: Smoking status: unknown. ROS: 09:31 Eyes: Negative for injury, pain, redness, and discharge. pm1 09:31 Neck: Negative for injury, pain, and swelling, Cardiovascular: Negative for chest pain, palpitations, and edema. 09:31 Abdomen/GI: Negative for abdominal pain, nausea, vomiting, diarrhea, and constipation, Back: Negative for injury and pain, MS/Extremity: Negative for injury and deformity, Skin: Negative for injury, rash, and discoloration. 09:31 Constitutional: Positive for body aches, fatigue, fever, decreased PO intake. 09:31 ENT: Positive for sore throat, Negative for ear pain. 09:31 Respiratory: Positive for cough, with no reported sputum, Negative for shortness of breath, sputum production, wheezing. 09:31 Neuro: Positive for generalized weakness, Negative for dizziness, headache, numbness, tingling. 09:31 All other systems are negative. Exam: 09:31 Head/Face: Normocephalic, atraumatic. pm1 09:31 Back: No spinal tenderness. No costovertebral tenderness. Full range of motion. Skin: Warm, dry with normal turgor. Normal color with no rashes, no lesions, and no evidence of cellulitis. MS/ Extremity: Pulses equal, no cyanosis. Neurovascular intact. Full, normal range of motion. 09:31 Constitutional: The patient appears in no acute distress, alert, awake, comfortable, non-diaphoretic, non-toxic, well developed, well groomed, well nourished, febrile. 09:31 Eyes: Exam is negative for acute changes, Periorbital structures: no acute changes, Extraocular movements: intact throughout, Conjunctiva: no acute changes, no injection. 09:31 ENT: Exam is negative for acute changes, Mouth: no acute changes, Lips: normal, moist, Oral mucosa: normal, pink and intact, moist, Posterior pharynx: Tonsils: bilaterally enlarged, with erythema, no exudate, no ulcerations, peritonsillar mass, is not appreciated, Voice: no acute changes. 09:31 Neck: Exam negative for acute changes, External neck: no acute changes, C-spine: no acute changes, vertebral tenderness, is not appreciated, Lymph nodes: no appreciated lymphadenopathy. 09:31 Chest/axilla: Inspection: no acute changes, Palpation: no acute changes. 09:31 Cardiovascular: Exam negative for acute changes, Rate: normal, Rhythm: regular, Pulses: no pulse deficits are appreciated, Heart sounds: normal. 09:31 Respiratory: Exam negative for acute changes, respiratory distress, shortness of breath, Breath sounds: are clear throughout. 09:31 Abdomen/GI: Inspection: obese Palpation: abdomen is soft and non-tender, in all quadrants, Hernia: noted in the umbilical area, incarceration, is not appreciated, tenderness, is not appreciated. 09:31 Neuro: Exam negative for acute changes, Orientation: is normal, Mentation: is normal, Motor: is normal, moves all fours. Vital Signs: 09:15 BP 133 / 68; Pulse 98; Resp 18; Temp 101.6(O); Pulse Ox 98% ; Weight 90.72 kg; Height 5 ll1 ft. 6 in. (167.64 cm); Pain 0/10; 10:06 BP 132 / 61 Supine; Pulse 97; ll1 10:08 BP 122 / 63 Sitting; Pulse 103; ll1 10:10 ll1 10:58 BP 132 / 64; Pulse 89; Pulse Ox 97% on R/A; ll1 11:02 Temp 100.4; ll1 12:30 BP 129 / 65; Pulse 89; Resp 19; Temp 99.9; Pulse Ox 97% ; ll1 09:15 Body Mass Index 32.28 (90.72 kg, 167.64 cm) ll1 10:10 Got too dizzy to obtain standing orthostatics. Josue Scott informed. ll1 MDM: 09:21 Patient medically screened. pm1 10:10 ED course: Orthostasis present with orthostatic blood pressures. Patient reports pm1 dizziness with sitting position from lying. Will give normal saline bolus 500 mL and reevaluate. 10:31 Data reviewed: vital signs. Data interpreted: Pulse oximetry: on room air is 98 %. pm1 Interpretation: normal. 11:56 ED course: Patient aware of history of low white count and low platelets. Compared to pm1 prior lab results from previous ER visit. Last lab WBC baseline in the threes. Patient also with history of anemia that he is aware. Informed patient no need for platelet transfusion or blood transfusion. Patient diagnoses of influenza a. Instructed patient to follow-up with PCP for reevaluation of CBC. Patient's vital signs within normal limits. Patient without sepsis will discharge patient home with Tamiflu and antitussive medication. Patient and his spouse without any further questions or concerns prior to discharge. 11:57 Counseling: I had a detailed discussion with the patient and/or guardian regarding: the pm1 historical points, exam findings, and any diagnostic results supporting the discharge/admit diagnosis, lab results, the need for outpatient follow up, to return to the emergency department if symptoms worsen or persist or if there are any questions or concerns that arise at home. 12:04 ED course: [place] reviewed. pm1 03/16 09:22 Order name: COVID-19/FLU A+B; Complete Time: 11:44 pm1 03/16 09:22 Order name: Strep; Complete Time: 09:57 pm1 12/08 09:24 Order name: CBC with Diff pm1 03/16 09:24 Order name: BMP; Complete Time: 09:57 pm1 1208 09:54 Order name: Throat Culture EDMS 03/16 09:58 Order name: Manual Differential EDMS 03/16 09:24 Order name: Orthostatic Blood Pressure; Complete Time: 10:06 pm1 1208 09:24 Order name: IV Saline Lock; Complete Time: 09:35 pm1 12 09:24 Order name: Urine Dipstick-Ancillary (obtain specimen); Complete Time: 10:06 pm1 03/16 09:26 Order name: EKG; Complete Time: 09:26 pm1 12 09:26 Order name: EKG - Nurse/Tech; Complete Time: 09:43 pm1 03/16 09:58 Order name: Urine Dipstick-Ancillary; Complete Time: 10:09 EDMS EC:41 Rate is 94 beats/min. Rhythm is regular, Normal Sinus Rhythm with No ectopy. Right axis pm1 deviation noted. [place] interval is normal. QRS interval is normal. No Q waves. T waves are Normal. No ST changes noted. Clinical impression: Normal sinus rhythm, rightward axis deviation,. Administered Medications: 10:45 Drug: NS 0.9% 500 ml Route: IV; Rate: bolus; Site: right antecubital; ll1 12:56 Follow up: Response: No adverse reaction; IV Status: Completed infusion; IV Intake: ll1 500ml 11:51 Drug: Tamiflu (oseltamivir) 75 mg Route: PO; ll1 12:56 Follow up: Response: No adverse reaction ll1 Disposition: 13:33 Co-signature as Attending Physician, Zia Pollard MD. rn Disposition Summary: 03/16/22 12:00 Discharge Ordered Location: Home pm1 Problem: new pm1 Symptoms: have improved pm1 Condition: Stable pm1 Diagnosis - Influenza due to identified novel influenza A virus pm1 Followup: pm1 - With: Emergency Department - When: As needed - Reason: Worsening of condition Followup: pm1 - With: Private Physician - When: 2 - 3 days - Reason: Recheck today's complaints, Continuance of care, Re-evaluation by your physician Discharge Instructions: - Discharge Summary Sheet pm1 - Influenza, Adult pm1 Forms: - Medication Reconciliation Form pm1 - Thank You Letter pm1 - Antibiotic Education pm1 - Prescription Opioid Use pm1 Prescriptions: - Tamiflu 75 mg Oral Capsule - take 1 tablet by ORAL route every 12 hours for 5 days; 10 tablet; Refills: 0, pm1 Product Selection Permitted - Guaifenesin AC 10-100 mg/5 mL Oral Liquid - take 10 milliliters by ORAL route every 4 hours As needed; 240 milliliter; pm1 Refills: 0, Product Selection Permitted Signatures: Dispatcher [employer] EDMS Zia Pollard MD MD rn Marinas, Patrick, NP OR FIRST ASSIST REGISTERED NURSE pm1 Denisse Rivera RN RN ll1
--- NOTE | 2022-03-16 12:01 | ER ---
Nurse's Notes [facility] Name: Flako Lugo Age: 72 yrs Sex: Male : 1950 Arrival Date: 03/16/2022 Time: 09:14 Bed 8 Private MD: Diagnosis: Influenza due to identified novel influenza A virus Presentation: 03/16 09:15 Chief complaint: Patient states: Cough, sore throat, PALACIO since yesterday. Generalized ll1 weakness made him fall this morning. Coronavirus screen: Vaccine status: Patient reports receiving the 2nd dose of the covid vaccine. Client denies travel out of the [place] in the last 14 days. congestion, cough unrelated to allergies, fatigue, fever, headache, Client presents with at least one sign or symptom that may indicate coronavirus-19. Standard/surgical mask placed on the client. Ebola Screen: Patient denies travel to an Ebola-affected area in the 21 days before illness onset. No acute neurological deficit is noted. Initial Sepsis Screen: Does the patient meet any 2 criteria? No. Patient's initial sepsis screen is negative. Does the patient have a suspected source of infection? Yes: Productive cough/pneumonia. Risk Assessment: Do you want to hurt yourself or someone else? Patient reports no desire to harm self or others. Onset of symptoms was March 15, 2022. 09:15 Method Of Arrival: EMS ll1 09:15 Acuity: KENYETTA 3 ll1 09:20 Chief complaint: EMS states: Tylenol 1 gram PO given en route. ll1 Triage Assessment: 09:21 General: Appears uncomfortable, Behavior is calm, cooperative, appropriate for age. ll1 Pain: Denies pain. EENT: Reports pain when swallowing. Neuro: Reports headache. Cardiovascular: Reports fatigue. Respiratory: Reports cough that is. GI: Reports nausea. Stroke Activation: Symptom onset > 6 hours Physician: Stroke Attending; Name: ; Notified At: ; Arrived At: Physician: Chief Stroke Resident; Name: ; Notified At: ; Arrived At: Physician: Stroke Resident; Name: ; Notified At: ; Arrived At: Physician: ED Attending; Name: ; Notified At: ; Arrived At: Physician: ED Resident; Name: ; Notified At: ; Arrived At: Historical: - Allergies: 09:20 No Known Allergies; ll1 - PMHx: 09:20 Diabetes - NIDDM; enlarged spleen; Cirrhosis; ll1 - PSHx: 09:20 None; ll1 - Immunization history:: Client reports receiving the 2nd dose of the Covid vaccine. - Social history:: Smoking status: unknown. Screenin:59 Abuse screen: Denies threats or abuse. Nutritional screening: No deficits noted. ll1 Tuberculosis screening: No symptoms or risk factors identified. Fall Risk IV access (20 points). Gait- Weak (10 pts.). Total Barroso Fall Scale indicates Low Risk Score (25-44 pts). Fall prevention measures have been instituted. Side Rails Up X 2 Placed close to Nursing Station Frequent Obs/Assesments occuring Family Present and informed to notify staff if they need to leave bedside As available Patient and Family Educated on Fall Prevention Program and strategies. Assessment: 10:15 Reassessment: No changes from previously documented assessment. Patient and/or family ll1 updated on plan of care and expected duration. Pain level reassessed. 10:50 Reassessment: No changes from previously documented assessment. ll1 11:03 Reassessment: No changes from previously documented assessment. Patient and/or family ll1 updated on plan of care and expected duration. Pain level reassessed. Patient is alert, oriented x 3, equal unlabored respirations, skin warm/dry/pink. 12:00 Reassessment: No changes from previously documented assessment. Patient and/or family ll1 updated on plan of care and expected duration. Pain level reassessed. Patient is alert, oriented x 3, equal unlabored respirations, skin warm/dry/pink. 12:30 Reassessment: No changes from previously documented assessment. Patient and/or family ll1 updated on plan of care and expected duration. Pain level reassessed. Patient is alert, oriented x 3, equal unlabored respirations, skin warm/dry/pink. Vital Signs: 09:15 BP 133 / 68; Pulse 98; Resp 18; Temp 101.6(O); Pulse Ox 98% ; Weight 90.72 kg; Height 5 ll1 ft. 6 in. (167.64 cm); Pain 0/10; 10:06 BP 132 / 61 Supine; Pulse 97; ll1 10:08 BP 122 / 63 Sitting; Pulse 103; ll1 10:10 ll1 10:58 BP 132 / 64; Pulse 89; Pulse Ox 97% on R/A; ll1 11:02 Temp 100.4; ll1 12:30 BP 129 / 65; Pulse 89; Resp 19; Temp 99.9; Pulse Ox 97% ; ll1 09:15 Body Mass Index 32.28 (90.72 kg, 167.64 cm) ll1 10:10 Got too dizzy to obtain standing orthostatics. Josue Scott informed. ll1 ED Course: 09:14 Patient arrived in ED. ll1 09:20 Triage completed. ll1 09:21 Collins cSott, ISRA[place] is PHCP. pm1 09:21 Zia Pollard MD is Attending Physician. pm1 09:21 Arm band placed on Patient placed in an exam room, on a stretcher. ll1 09:23 Denisse Rivera RN is Primary Nurse. ll1 09:35 Inserted saline lock: 20 gauge in right antecubital area, using aseptic technique. jd3 Blood collected. placed by Maryana HOPKINS observed by Edmar INFANTE. 09:43 Strep Sent. ll1 09:43 COVID-19/FLU A+B Sent. ll1 09:49 COVID-19/FLU A+B Sent. ll1 10:59 Patient has correct armband on for positive identification. Placed in gown. Bed in low ll1 position. Call light in reach. Side rails up X 1. Client placed on continuous cardiac and pulse oximetry monitoring. NIBP monitoring applied. panel monitor on. 12:30 No provider procedures requiring assistance completed. IV discontinued, intact, ll1 bleeding controlled, No redness/swelling at site. Pressure dressing applied. Administered Medications: 10:45 Drug: NS 0.9% 500 ml Route: IV; Rate: bolus; Site: right antecubital; ll1 12:56 Follow up: Response: No adverse reaction; IV Status: Completed infusion; IV Intake: ll1 500ml 11:51 Drug: Tamiflu (oseltamivir) 75 mg Route: PO; ll1 12:56 Follow up: Response: No adverse reaction ll1 Medication: 10:59 VIS not applicable for this client. ll1 Intake: 12:56 IV: 500ml; Total: 500ml. ll1 Outcome: 12:00 Discharge ordered by . pm1 12:30 Patient left the ED. ll1 12:30 Discharged to home via wheelchair. ll1 12:30 Condition: stable 12:30 Discharge instructions given to patient, family, Instructed on discharge instructions, follow up and referral plans. no drinking with medication, no driving heavy equipment, medication usage, Demonstrated understanding of instructions, follow-up care, medications, Prescriptions given X 2. Signatures: Collins Scott NP METALIZING MACHINE OPERATOR [employer]OMATIC pm1 Edmar Wyatt RN RN [id number] Denisse Rivera RN RN ll1
[2022-03-16 13:38] VITALS: BP 132/64; O2SAT 97
[2022-03-16 13:40] VITALS: TEMP 100.4
[2022-03-16 13:48] LABS: Blood Morphology Comment NOTED (NOT SEEN); Platelet Estimate DECR
[2022-03-16 13:49] LABS: Anisocytosis SLIGHT
--- NOTE | 2022-03-17 17:40 | EKG ---
Test Date: 2022-03-16 Test Time: 09:41:24 [employer] Director: EVER MEASUREMENT RESULTS: Intervals: Rate: 94 CO: 152 QRSD: 78 QT: 372 QTc: 465 Meigs: P: 66 CO: 152 QRS: 91 T: 9 INTERPRETIVE STATEMENTS: Normal sinus rhythm Rightward axis Nonspecific T wave abnormality Prolonged QT Abnormal ECG Compared to ECG 11/12/2020 10:40:10 Right-axis deviation now present T-wave abnormality now present Ventricular premature complex(es) no longer present Electronically Signed On 03-17-22 17:38:10 EXCELLENCE COACH by Dedrick Silveira
== END 2022-03-16 12:30 | disposition home or self-care (01) ==
LOC: ER 09:12
DX: J10.1 Influenza due to other identified influenza virus with other respiratory manifestations (principal); Z20.822 Contact with and (suspected) exposure to COVID-19; E11.9 Type 2 diabetes mellitus without complications
CPT/HCPCS: 96361; 93005; 87070; 85025; 80048; 36415; 87081; 81003; 0240U; 96360; 99284; J7040

== ENCOUNTER 2023-12-23 17:34 | Emergency (ER) | payer OTHER ==
--- OUTSIDE RECORDS SUMMARY | 2023-12-23 17:44 | XMS REPORT | Continuity of Care Document ---
Author Name Unknown Address [address] [facility] [address] [place] [address] [facility] Address [address] [place] [address] Care Team Providers Care Bean Snipper Name Role Phone MICHELL FOREMAN Primary Care Physician Unavailab BILL Heredia Attending Clinician Unavailable KALI RODRIGUEZ Attending Clinician Unavailable REY JACKSON Attending Clinician Unavailable MICHELL FOREMAN Attending Clinician Unava ilable LAB39 Attending Clinician Unavailable ALINE FERNANDEZ Attending Clinician Unavailable RAYO MURO Attending Clinician U SULEMAN Sterling Attending Clinician Unava ilable [facility] Attending Clinician UnavailDEMETRIO Morgan Attending Clinician Unavailable MD LULÚ Attending Clinician Unavailab REYMUNDO Gr Attending Clinician Unavai lable RADIOLOGY, DEPT Attending Clinician Unavailable TIARA MORENO Attending Clinician Unavaila ble LAB90 Attending Clinician Unavailable SIVAKUMAR GONSALVES Attending Clinician Unavailable JOSE LUIS MORRIS Attending Clinician Unavailable BASIA GARCIA Attending Clinician Unavailable LAB45 Attending Clinician Unavailable GHULAM BUITRAGO Attending Clinician Unavailable ROMINA BIGGS Attending Clinician Unavailable YUDELKA LUCAS Attending Clinician Unavailable ANTONIO BOYD Attending Clinician Unavailable LE, NELLA Attending Clinician Unavailable BRENDA GARCIA Attending Clinician Leslie CIERA Waggonre Attending Clinician Unavailable ROSMERY SANFORD Attending Clinician UnaALON Albright Attending Clinician EVERARDO Murillo Attending Clinician Unavailable Rodrigo INFANTE, Julee Perkins Attending Clinician Unavailab PAULETTE Lozada Attending Clinician Unavailable Brittany Vital MD Attending Clinician [phone] CASTILLO, Lay Alan Attending Clinician + [phone] Paulette Arteaga MD Attending Clinician [phone] RAJAN RAMIREZ Attending Clinician CORDELL Jang Attending Clinician Unavailable LAB47 Attending Clinician Unavailable ARUNA CHAPPELL Attending Clinician Unavailable LAB53 Attending Clinician Unavailable ALYSSA LARKIN Attending Clinician Unavail able STACI MULTANI Attending Clinician Unavailable JONY TODD Attending Clinician Unavailable GITA LIPSCOMB Attending Clinician Unavailab WEN Devries Attending Clinician UnavailCOLE Gong Attending Clinician Unavaila RADHA Vazquez Attending Clinician Radha Marcus MD Attending Clinician [phone] Rolando Finley DO Attending Clinician [phone] Bill Sanford MD Attending Clinician [phone], [facility] Attending Clinician Unavailable Supriya Waldrop MD Attending Clinician [phone] SUPRIYA WALDROP Attending Clinician Unavailable Only, Adc Test Attending Clinician Unavailable Pob, [facility] Lab Main Attending Clinician Unavailgisel e Doctor Unassigned, [place] Attending Clinician U navailable Gramm HOSPICE MASSAGE THERAPIST, Barbra Box Attending Clinician [phone] , Adc Surg Spec Procedure Attending Clinician Unavailable BILL SANFORD Admitting Clinician Unavailable LAY DASH Admitting Clinician UnavailLay Browning MD Admitting Clinician [phone] RADHA MADRID Admitting Clinician Bill Vann MD Admitting Clinician [phone] Payers Payer Name Policy Type Policy Number Effective Date Expirati on Date Source AET[employer] MEDICARE ADV [id number] 1 00:00:00 [employer] HMO-POS 7 [id number] 1 00:00:00 [place] [place] H[place]/POS [id number] 2021 00:00:00 Problems Condition Name Condition Details Condition Category Status Onset Date Resolution Date Last Treatment Date Treating Clinician Comments Source Secondary malignant neoplasm lymph nodes of head, 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, face and neck (multi HCC) Disease Active 11-28 00:00: 00 Ann Plazaold - Externa l Malignant neoplasm of base of tongue (multi HCC) Malignant neoplasm of base of tongue (multi HCC) Disease Active 11-26 00:00: 00 Ann Dayybold - Externa l Congestive heart failure, unspecifie d HF chronicity , unspecifie d heart failure type (multi HCC) Congestive heart failure, unspecifie d HF chronicity , unspecifie d heart failure type (multi HCC) Disease Active 09-30 00:00: 00 Ann Plazaold - Externa l Major depressive disorder, single episode, moderate Major depressive disorder, single episode, moderate Disease Active 09-30 00:00: 00 Ann Dayybold - Externa l Stricture of artery Stricture of artery Disease Active 09-30 00:00: 00 Ann Plazaold - Externa l 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 09-30 00:00: 00 Ann Plazaold - Externa l Hiatal hernia with GERD Hiatal hernia with GERD Disease Active 09-30 00:00: 00 Ann Adams - Externa l History of colon polyps History of colon polyps Disease Active 09-30 00:00: 00 Ann Adams - Externa l Well adult exam Well adult exam Disease Active 4-30 00:00: 00 Ann Adams - Externa nisa Dementia Dementia Disease Active 2024-0 3-15 00:00: 00 Ann Adams - Externa l Cat bite, initial encounter Cat bite, initial encounter Disease Active 1-03 00:00: 00 [facility] 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 Disease Active 8-31 00:00: 00 Ann Adams - Externa l Thrombocyt openia Thrombocyt openia Disease Active 5-30 00:00: 00 Ann Plazaold - Externa l Iron deficiency anemia due to chronic blood loss Iron deficiency anemia due to chronic blood loss Disease Active 3-02 00:00: 00 Ann Plazaold - Externa l Splenomega ly - Unchanged Splenomega ly - Unchanged Disease Active 05-22 00:00: 00 Ann Plazaold - Externa l Other ascites - Unchanged Other ascites - Unchanged Disease Active 05-22 00:00: 00 Ann Plazaold - Externa l 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) (HCC) - Unchanged 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) (HCC) - Unchanged Disease Active 05-22 00:00: 00 Ann Adams - Externa l Hyperlipid emia Hyperlipid emia Disease Active 05-22 00:00: 00 Ann Plazaold - Externa l Controlled type 2 diabetes mellitus without complicati on, without long-term current use of insulin (HCC) - Unchanged Controlled type 2 diabetes mellitus without complicati on, without long-term current use of insulin (HCC) - Unchanged Disease Active 05-22 00:00: 00 Ann Adams - Externa l Primary hypertensi on - Not Controlled Primary hypertensi on - Not Controlled Disease Active 2- 00:00: 00 Ann Adams - Externa l Gall stones - Unchanged Gall stones - Unchanged Disease Active 05-22 00:00: 00 Ann Adams - Externa l Umbilical hernia without obstructio n and without gangrene - Not Controlled Umbilical hernia without obstructio n and without gangrene - Not Controlled Disease Active - 00:00: 00 Ann Quicka l Type 2 diabetes mellitus with hyperlipid emia (multi HCC) Type 2 diabetes mellitus with hyperlipid emia (multi HCC) Disease Active 05-22 00:00: 00 Ann Quicka l Bladder neck contractur e Bladder neck contractur e Disease Active 3- 00:00: 00 Overview: Formattin g of this note might be different from the original. Added automatic ally from request for surgery [id number] [facility] Anemia Anemia Disease Active 2016-04 00:00: 00 [facility] Allergies, Adverse Reactions, Alerts Allergy Name Allergy Type Status Severity Reaction(s) Onset Date Inactive Date Treating Clinician Comments Source NO KNOWN ALLERGIE S Drug Class Active [facility] Social History Social Habit Start Date Stop Date Quantity Comments Source Gender identity Naila Adams - External Exposure to SARS-CoV-2 (event) Not sure [facility] History of tobacco use Current smoker [facility] Alcoholic beverage intake 2023-12-04 00:00:00 2023-12-04 00:00:00 Ex-drinker (finding) Ann Adams - External Alcohol intake 2023-07-02 00:00:00 2023-07-02 00:00:00 Ex-drinker (finding) Ann Adams - External Tobacco Comment 2023-04-11 00:00:00 2023-04-11 00:00:00 Quit 35 years ago [facility] Tobacco use and exposure 2022-05-22 00:00:00 2022-05-22 00:00:00 Smokeless tobacco non-user Ann Adams - External Sex 2021-08-18 14:40:39 2021-08-18 14:40:39 Male (finding) Ann Adams - External History of Social function 2019-09-11 00:00:00 2019-09-11 00:00:00 [facility] Sex assigned at 1950 00:00:00 1950 00:00:00 Ann Adams - External Smoking Status Start Date Stop Date Source Ex-smoker 2023-04-11 00:00:00 2023-04-11 00:00:00 [facility] Never smoked tobacco Ann España Medications Ordered Medication Name Filled Medication Name Start Date Stop Date Current Medication? Ordering Clinician Indication Dosage Frequency Signature (SIG) Comments Components Source Ferrous Sulfate 325 (65 Fe) MG oral Tablet 12-03 08:34: 43 Yes 325mg QD Take 1 tablet (325 mg total) by mouth daily (with breakfast) . Ann Quicka nisa HYDROcodone -Acetaminop hen (NORCO) 5-325 MG oral Tablet 12-03 00:00: 00 Yes 1{tbl} [id number] 3D Take 1 tablet by mouth every 8 hours as needed for pain. Ann Quicka nisa Lidocaine HCl (Lidocaine Viscous HCl) 2 % mouth/throa t Solution 11-30 00:00: 00 12-31 04:59 :00 Yes [id number] 5mL Q.25D Take 5 mL by mouth every 6 hours as needed for pain (Sore throat). Ann paula Tramadol HCl (ULTRAM) 50 MG oral Tablet 11-28 00:00: 00 12-03 00:00 :00 No [id number] 50mg QD Take 1 tablet (50 mg total) by mouth daily as needed for pain. Ann Quicka l Ferrous Sulfate 325 (65 Fe) MG oral Tablet 11-21 08:58: 53 Yes 325mg QD Take 1 tablet (325 mg total) by mouth daily (with breakfast) . Ann Quicka l HYDROcodone -Acetaminop hen 7.5-325 MG oral Tablet 11-21 00:00: 00 Yes [id number] 1{tbl} Q.25D Take 1 tablet by mouth every 6 hours as needed for pain. Ann Quicka l Lidocaine HCl (Lidocaine Viscous HCl) 2 % mouth/throa t Solution 11-21 00:00: 00 12-22 04:59 :00 Yes 5mL Q.25D Take 5 mL by mouth every 6 hours as needed for pain (Sore throat). Ann paula Ferrous Sulfate 325 (65 Fe) MG oral Tablet 10-03 09:58: 29 Yes 325mg QD Take 1 tablet (325 mg total) by mouth daily (with breakfast) . Ann paula Nadolol 20 MG oral Tablet 10-03 00:00: 00 Yes 10mg QD Take 0.5 tablets (10 mg total) by mouth daily. Ann paula Ferrous Sulfate 325 (65 Fe) MG oral Tablet 09-11 07:43: 20 Yes 325mg Take 1 tablet (325 mg total) by mouth daily (with breakfast) . Ann paula Iron Dextran (INFED) 975 mg in sodium chloride 0.9 % 500 mL infusion 09-09 17:15: 00 09-09 18:36 :00 No [id number] 975mg 975 mg, at 500 mL/hr, Administer over 60 Minutes, intravenou s, ONCE, On Sun09/10/23 at 1215, For 1 dose, Give 60 minutes after test dose. Solumedrol is recommende d only if patient has: Asthma, or Allergy to more than one drug, or History of inflammato ry arthritis. Solu-Medro l is recommende d only if the patient has: None of the below. Please indicate the Primary and Secondary diagnoses for Iron Treatment: Primary diagnosis: D50.0 Iron deficiency anemia secondary to blood loss , Secondary diagnosis: K90.4 Malabsorpt ion due to intoleranc e, not elsewhere classified Monitor and record vital signs at the completion of the Infed infusion. Ann paula Iron Dextran (INFED) 25 mg in sodium chloride 0.9 % 50 mL infusion 09-09 16:30: 00 09-09 16:38 :00 No [id number] 25mg 25 mg, at 300 mL/hr, Administer over 10 Minutes, intravenou s, ONCE, On Sun09/10/23 at 1130, For 1 dose, Observe the patient for at least 1 hour after test dose administra tion. Monitor and record vital signs at 15 minutes, 30 minutes, and 60 minutes for 1 hour observatio n. Ann paula Metformin HCl 1000 MG oral Tablet 09-06 00:00: 00 Yes [id number] 1000mg Take 1 tablet (1,000 mg total) by mouth in the morning and 1 tablet (1,000 mg total) in the evening. Take with meals. Ann paula Omeprazole 20 MG oral Delayed Release Capsule 09-06 00:00: 00 Yes [id number] 20mg QD Take 1 capsule (20 mg total) by mouth daily. Ann paula Sertraline HCl 50 MG oral Tablet 09-06 00:00: 00 Yes 50mg QD TAKE 1 TABLET BY MOUTH EVERY DAY Ann paula Ferrous Sulfate 325 (65 Fe) MG oral Tablet 08-08 14:20: 48 Yes 325mg Take 1 tablet (325 mg total) by mouth daily (with breakfast) . Ann paula Gabapentin 100 MG oral Capsule 08-08 00:00: 00 Yes [id number] 100mg Q.5D Take 1 capsule (100 mg total) by mouth 2 times daily as needed (pain). Ann paula Valacyclovi r HCl 1 g oral Tablet 08-08 00:00: 00 09-30 00:00 :00 No [id number] 1000mg Take 1 tablet (1,000 mg total) by mouth 3 times daily. Ann paula Multiple Vitamin (MULTIVITAM IN ADULT OR) 07-17 15:54: 57 07-17 00:00 :00 No 1{tbl} Take 1 tablet by mouth daily Ann paula Ferrous Sulfate 325 (65 Fe) MG oral Tablet 07-17 15:40: 12 Yes 325mg Take 1 tablet (325 mg total) by mouth daily (with breakfast) . Ann paula Furosemide 40 MG oral Tablet 07-17 00:00: 00 10-16 04:59 :00 No [id number] 40mg QD Take 1 tablet (40 mg total) by mouth daily. Ann paula Spironolact one 100 MG oral Tablet 07-17 00:00: 00 10-16 04:59 :00 No [id number] 100mg QD Take 1 tablet (100 mg total) by mouth daily. Ann paula Ferrous Sulfate 325 (65 Fe) MG oral Tablet 07-01 13:37: 37 Yes 325mg Take 1 tablet (325 mg total) by mouth daily (with breakfast) . Ann paula Multiple Vitamin (MULTIVITAM IN ADULT OR) 07-01 13:37: 37 Yes 1{tbl} Take 1 tablet by mouth daily Ann paula Sod Picosulfate -Mag Ox-Cit Acd (Clenpiq) 10-3.5-12 MG-GM -GM/175ML oral Solution 07-01 00:00: 00 Yes [id number] Instructio ns provided to patient. Follow instructio ns provided by provider.. Ann paula Ferrous Sulfate 325 (65 Fe) MG oral Tablet 06-21 10:30: 14 Yes 325mg Take 1 tablet (325 mg total) by mouth daily (with breakfast) . Ann paula Multiple Vitamin (MULTIVITAM IN ADULT OR) 06-21 10:30: 14 Yes 1{tbl} Take 1 tablet by mouth daily Ann paula Atorvastati n Calcium 20 MG oral Tablet 06-21 00:00: 00 Yes [id number] 20mg QD Take 1 tablet (20 mg total) by mouth daily. Ann paula Lisinopril 10 MG oral Tablet 06-21 00:00: 00 Yes [id number] 10mg QD Take 1 tablet (10 mg total) by mouth daily. Ann paula Lisinopril 5 MG oral Tablet 06-20 00:00: 00 06-21 00:00 :00 No [id number] 5mg TAKE 1 TABLET (5 MG TOTAL) BY MOUTH DAILY. Ann paula Omeprazole 20 MG oral Delayed Release Capsule 06-07 00:00: 00 Yes [id number] 20mg Take 1 capsule (20 mg total) by mouth daily. Ann paula Metformin HCl 1000 MG oral Tablet 3- 00:00: 00 Yes [id number] 1000mg Take 1 tablet (1,000 mg total) by mouth in the morning and 1 tablet (1,000 mg total) in the evening. Take with meals. Ann paula HYDROcodone -Acetaminop hen (NORCO) 5-325 MG oral Tablet 2-15 00:00: 00 07-17 00:00 :00 No 1{tbl} Take 1 tablet by mouth every 4 to 6 hours as needed for pain. Ann paula silver sulfADIAZIN E (SILVADENE) 1 % cream 04-17 02:00: 00 04-24 01:59 :00 No Topical, BID, 14 doses, First dose on Sun04/16/23 at 1999, Last dose on Sun04/23/23 at 08, Routine [facility] amoxicillin -clavulanat e (AUGMENTIN) 875-125 mg per tablet 1 tablet - 02:00: 00 04-24 01:59 :00 No 1{tbl} 1 tablet, Oral, Q12H, 14 doses, First dose on Sun04/16/23 at 1999, Last dose on Sun04/23/23 at 08, Routine
Reason for Anti-Infec tive: Empiric Therapy for Suspected Infection< br>Empiric Therapy Site: Skin / Soft tissue
Duration of therapy: 5 days [facility] metFORMIN 500 mg tablet 04-16 13:16: 13 Yes 500mg Take 500 mg by mouth 2 (two) times daily. [facility] atorvastati n 20 mg tablet 04-16 13:16: 13 Yes 20mg Take 20 mg by mouth daily. [facility] SERTraline 50 mg tablet 04-16 13:16: 13 Yes 50mg Take 50 mg by mouth daily. [facility] aspirin 81 mg chewable tablet 04-16 13:16: 13 Yes 81mg Take 81 mg by mouth daily. [facility] multivitami n tablet 04-16 13:16: 13 Yes 1{tbl} Take 1 tablet by mouth daily. [facility] lisinopril 5 mg tablet 04-16 13:16: 13 Yes 5mg Take 5 mg by mouth daily. [facility] Sliding Scale Insulin - Lispro (HumaLOG) 04-16 03:00: 00 Yes Subcutaneo us, TID MEALS+HS, First dose on 04/15/23 at 2100, Until Discontinu ed, Routine [facility] predniSONE (DELTASONE) tablet 10 mg 04-16 02:30: 00 04-16 02:41 :00 No 10mg 10 mg, Oral, ONCE, 1 dose, On 04/15/23 at 2030, Routine [facility] SSD 1 % apply externally Cream 04-16 00:00: 00 Yes 1{packa ge} Q.5D Apply 1 package topically 2 times daily FOR 7 DAYS. Ann paula glucagon (GLUCAGEN DIAGNOSTIC KIT) injection 1 mg 04-16 00:00: 00 Yes 1mg 1 mg, Intramuscu lar, PRN, Starting on 04/15/23 at 1800, Until Discontinu ed, FAREED, Blood Glucose < or = 70 mg/dL and patient is NPO, unable to swallow or has mental changes. [facility] dextrose 50 % in water (D50W) injection 25 mL 04-16 00:00: 00 Yes 25mL 25 mL, Slow IV Push, PRN, Starting on 04/15/23 at 1800, Until Discontinu ed, FAREED, Blood Glucose < or = 70 mg/dL and patient is NPO, unable to swallow or has mental status changes. [facility] Tramadol HCl (ULTRAM) 50 MG oral Tablet 04-16 00:00: 00 07-17 00:00 :00 No 50mg Q.25D Take 1 tablet (50 mg total) by mouth every 6 hours as needed PLEASE SEE ATTACHED FOR DETAILED DIRECTIONS . Ann paula amoxicillin -clavulanat e 875-125 mg per tablet 04-16 00:00: 00 04-24 05:59 :00 No [id number] 1{tbl} Take 1 tablet by mouth every 12 (twelve) hours for 7 days. [facility] silver sulfADIAZIN E 1 % cream 04-16 00:00: 00 04-24 05:59 :00 No [id number] Apply to area(s) 2 (two) times daily for 7 days. [facility] magnesium sulfate in water 2 gram/50 mL (4 %) infusion 2 g 04-15 03:00: 00 04-15 06:20 :00 No 2g 2 g, IV Piggyback, Administer over 60 Minutes, ONCE, 1 dose, On 04/14/23 at 2100, Routine [facility] vancomycin 1,250 mg in NaCl 0.9% (NS) 250 mL VIAL-MATE IV piggyback 04-15 02:00: 00 04-16 16:46 :40 No 1250mg 1,250 mg, IV Piggyback, Q12H ABX, 5 doses, First dose on 04/14/23 at 2000, Last dose on Sun04/16/23 at 2000, Administer over 90 Minutes, 250 mL
Reas on for Anti-Infec tive: Empiric Therapy for Suspected Infection< br>Empiric Therapy Site: Skin / Soft tissue
Duration of therapy: 5 days [facility] iopamidol (ISOVUE 370-500 mL) injection 90 mL 04-15 01:00: 00 04-15 01:15 :00 No [id number] 90mL 90 mL, Intravenou s, ONCE, 1 dose, On 04/14/23 at 1915, Routine [facility] ampicillin- sulbactam (UNASYN) 3 g in NaCl 0.9% (NS) 100 mL MINI-BAG 04-14 20:45: 00 04-16 16:46 :40 No 3g 3 g, IV Piggyback, Q6H ABX, 20 doses, First dose (after last reorder) on 04/14/23 at 1445, Last dose on Charis 04/19/23 at 0845, Administer over 30 Minutes, 100 mL
Reas on for Anti-Infec tive: Empiric Therapy for Suspected Infection< br>Empiric Therapy Site: Skin / Soft tissue
Duration of therapy: 5 days [facility] pantoprazol e (PROTONIX) EC tablet 40 mg 04-13 17:15: 00 Yes 40mg 40 mg, Oral, DAILY, First dose (after last modificati on) on Sun04/13/23 at 1115, Until Discontinu ed, Routine [facility] KCL (KLOR-CON M20) tablet 40 mEq 04-13 14:45: 00 04-13 14:00 :00 No 40meq 40 mEq, Oral, ONCE, 1 dose, On Sun04/13/23 at 0845, Routine [facility] tamsulosin (FLOMAX) capsule 0.4 mg 04-13 03:00: 00 Yes .4mg 0.4 mg, Oral, QHS, First dose on Charis 04/12/23 at 2100, Until Discontinu ed, Routine [facility] vancomycin (VANCOCIN) 1,000 mg in NaCl 0.9% (NS) 250 mL VIAL-MATE IV piggyback 04-13 02:00: 00 04-14 17:47 :53 No 1000mg 1,000 mg, IV Piggyback, Q12H ABX, 9 doses, First dose (after last modificati on) on Sun04/12/23 at 2000, Last dose on Sun04/16/23 at 2000, Administer over 60 Minutes, 250 mL
Reas on for Anti-Infec tive: Empiric Therapy for Suspected Infection< br>Empiric Therapy Site: Skin / Soft tissue
Duration of therapy: 5 days [facility] ampicillin- sulbactam (UNASYN) 3 g in NaCl 0.9% (NS) 100 mL MINI-BAG 04-12 23:45: 00 04-13 23:08 :48 No 3g 3 g, IV Piggyback, Q6H ABX, 5 doses, First dose on Sun04/12/23 at 1745, Last dose on Sun04/13/23 at 1745, Administer over 30 Minutes, 100 mL
Reas on for Anti-Infec tive: Empiric Therapy for Suspected Infection< br>Empiric Therapy Site: Skin / Soft tissue
Duration of therapy: 5 days [facility] FENTanyl PF (SUBLIMAZE (PF)) injection 25 mcg 04-12 20:41: 53 Yes 25ug 25 mcg, Slow IV Push, Q4HPRN, Starting on Sun04/12/23 at 1441, Until Discontinu ed, Routine, Pain (scale 7-10) [facility] traMADoL (ULTRAM) tablet 50 mg 04-12 20:40: 30 Yes 50mg 50 mg, Oral, Q6HPRN, Starting on Sun04/12/23 at 1440, Until Discontinu ed, Routine, Pain (scale 4-6) [facility] SERTraline (ZOLOFT) tablet 50 mg 04-12 15:00: 00 Yes 50mg 50 mg, Oral, DAILY, First dose on Sun04/12/23 at 0900, Until Discontinu ed, Routine [facility] atorvastati n (LIPITOR) tablet 20 mg 04-12 15:00: 00 Yes 20mg 20 mg, Oral, DAILY, First dose on Sun04/12/23 at 0900, Until Discontinu ed, Routine [facility] aspirin chewable tablet 81 mg 04-12 15:00: 00 Yes 81mg 81 mg, Oral, DAILY, First dose on Sun04/12/23 at 0900, Until Discontinu ed, Routine [facility] piperacilli n-tazobacta m (ZOSYN) 3.375 g in NaCl 0.9% (NS) 100 mL MINI-BAG 04-12 12:30: 00 04-12 22:40 :07 No 3.375g 3.375 g, IV Piggyback, Q8H ABX, 27 doses, First dose on Sun04/12/23 at 0630, Last dose on Sun04/20/23 at 2230, Administer over 4 Hours, 100 mL
Reas on for Anti-Infec tive: Documented Infection& lt;br>Docu mented Infection Site: Skin / Soft Tissue
Duration of Therapy: 7 days [facility] acetaminoph en (TYLENOL) tablet 650 mg 04-12 05:12: 23 Yes 650mg 650 mg, Oral, Q6HPRN, Starting on Sun04/11/23 at 2312, Until Discontinu ed, Routine, Pain (scale 1-3), Temp > 38 C [facility] FENTanyl PF (SUBLIMAZE (PF)) injection 25 mcg 04-12 05:12: 11 04-12 20:42 :12 No 25ug 25 mcg, Slow IV Push, Q4HPRN, Starting on Sun04/11/23 at 2312, Until Charis 04/12/23 at 1442, Routine, Pain (scale 4-6), Pain (scale 7-10) [facility] levoFLOXaci n in D5W (LEVAQUIN) 750 mg/150 mL Piggyback 750 mg 04-12 05:00: 00 04-12 22:40 :07 No 750mg 750 mg, IV Piggyback, at 100 mL/hr Administer over 90 Minutes, Q24H ABX, 9 doses, First dose on Sun04/11/23 at 2300, Last dose on Sun04/19/23 at 2300, FAREED
Re ason for Anti-Infec tive: Documented Infection< br>Documen shahrzad Infection Site: Skin / Soft Tissue
Duration of Therapy: 7 days [facility] acetaminoph en (TYLENOL) tablet 1,000 mg 04-12 03:30: 00 04-12 02:26 :00 No 1000mg 1,000 mg, Oral, ONCE, 1 dose, On Sun04/11/23 at 2130, FAREED [facility] FENTanyl PF (SUBLIMAZE (PF)) injection 75 mcg 04-12 03:30: 00 04-12 02:24 :00 No 75ug 75 mcg, Slow IV Push, ONCE, 1 dose, On Sun04/11/23 at 2130, STAT [facility] ceFEPIme (MAXIPIME) 2,000 mg in NaCl 0.9% (NS) 100 mL MINI-BAG 04-12 02:45: 00 04-12 03:05 :00 No 2000mg 2,000 mg, IV Piggyback, ONCE, 1 dose, On Sun04/11/23 at 2044, Administer over 60 Minutes, 100 mL
Reas on for Anti-Infec tive: Documented Infection< br>Documen shahrzad Infection Site: Skin / Soft Tissue
Duration of Therapy: Other (see Comments) [facility] vancomycin (VANCOCIN) 1,500 mg in NaCl 0.9% (NS) 500 mL VIAL-MATE IV piggyback 04-12 02:45: 00 04-12 04:02 :00 No 15mg/kg 1,500 mg (rounded from 1,360.5 mg = 15 mg/kg ?90.7 kg), IV Piggyback, ONCE, 1 dose, On Sun04/11/23 at 2044, Administer over 90 Minutes, 500 mL
Reas on for Anti-Infec tive: Documented Infection& lt;br>Docu mented Infection Site: Skin / Soft Tissue
Duration of Therapy: Other (see Comments) [facility] ketorolac (TORADOL) injection 15 mg 04-12 01:45: 00 04-12 01:18 :00 No 15mg 15 mg, Slow IV Push, ONCE, 1 dose, On Sun04/11/23 at 1945, FAREED [facility] Sertraline HCl 50 MG oral Tablet 2022-04 00:00: 00 Yes 50mg Take 1 tablet (50 mg total) by mouth daily. [facility] Ferrous Sulfate 325 (65 Fe) MG oral Tablet 2022-04 09:37: 36 Yes 325mg Take 1 tablet (325 mg total) by mouth daily (with breakfast) . [facility] Multiple Vitamin (MULTIVITAM IN ADULT OR) 2022-04 09:37: 36 Yes 1{tbl} Take 1 tablet by mouth daily [facility] Ferrous Sulfate 325 (65 Fe) MG oral Tablet 2022-04 14:07: 25 Yes 325mg Take 1 tablet (325 mg total) by mouth daily (with breakfast) . [facility] Multiple Vitamin (MULTIVITAM IN ADULT OR) 2022-04 14:07: 25 Yes 1{tbl} Take 1 tablet by mouth daily [facility] Amoxicillin (AMOXIL) 500 MG oral Capsule 2022-04 00:00: 00 06-21 00:00 :00 No [id number] 500mg Take 1 capsule (500 mg total) by mouth 3 times daily. [facility] Sertraline HCl 50 MG oral Tablet 2022-04 00:00: 00 Yes 50mg TAKE 1 TABLET BY MOUTH EVERY DAY [facility] Ferrous Sulfate 325 (65 Fe) MG oral Tablet 12-07 15:13: 06 Yes 325mg Take 1 tablet (325 mg total) by mouth daily (with breakfast) . [facility] Multiple Vitamin (MULTIVITAM IN ADULT OR) 12-07 15:13: 06 Yes 1{tbl} Take 1 tablet by mouth daily [facility] Omeprazole 20 MG oral Delayed Release Capsule 12-07 00:00: 00 02-06 00:00 :00 No 20mg Take 1 capsule (20 mg total) by mouth daily. [facility] Furosemide (LASIX) 20 MG oral Tablet 12-05 00:00: 00 Yes 40mg QD TAKE 2 TABLETS (40 MG TOTAL) BY MOUTH DAILY. [facility] Ferrous Sulfate 325 (65 Fe) MG oral Tablet 11-03 09:43: 53 Yes 325mg Take 1 tablet (325 mg total) by mouth daily (with breakfast) [facility] Multiple Vitamin (MULTIVITAM IN ADULT OR) 11-03 09:43: 53 Yes 1{tbl} Take 1 tablet by mouth daily [facility] Furosemide 40 MG oral Tablet 11-03 00:00: 00 07-17 00:00 :00 No 40mg Take 1 tablet (40 mg total) by mouth daily [facility] Spironolact one 100 MG oral Tablet 11-03 00:00: 00 07-17 00:00 :00 No 100mg Take 1 tablet (100 mg total) by mouth daily [facility] Sertraline HCl 50 MG oral Tablet 10-22 00:00: 00 Yes 50mg Take 1 tablet (50 mg total) by mouth daily [facility] Furosemide (LASIX) 20 MG oral Tablet 10-12 00:00: 00 11-03 00:00 :00 No 40mg TAKE 2 TABLETS (40 MG TOTAL) BY MOUTH DAILY. [facility] Ferrous Sulfate 325 (65 Fe) MG oral Tablet 09-15 13:23: 31 Yes 325mg Take 1 tablet (325 mg total) by mouth daily (with breakfast) [facility] Multiple Vitamin (MULTIVITAM IN ADULT OR) 09-15 13:23: 31 Yes 1{tbl} Take 1 tablet by mouth daily [facility] Spironolact one 50 MG oral Tablet 09-15 00:00: 00 Yes 100mg Take 2 tablets (100 mg total) by mouth daily [facility] Furosemide (LASIX) 20 MG oral Tablet 09-15 00:00: 00 10-16 04:59 :00 No 40mg Take 2 tablets (40 mg total) by mouth daily [facility] Ferrous Sulfate 325 (65 Fe) MG oral Tablet 09-05 13:36: 31 Yes 325mg Take 1 tablet (325 mg total) by mouth daily (with breakfast) [facility] Multiple Vitamin (MULTIVITAM IN ADULT OR) 09-05 13:36: 31 Yes 1{tbl} Take 1 tablet by mouth daily [facility] Aspirin 81 MG oral Chewable Tablet 09-05 13:34: 30 09-05 00:00 :00 No 81mg Take 1 tablet (81 mg total) by mouth daily [facility] Sertraline HCl 50 MG oral Tablet 08-27 00:00: 00 Yes TAKE 1 TABLET BY MOUTH EVERY DAY [facility] Ferrous Sulfate 325 (65 Fe) MG oral Tablet 08-04 10:26: 23 Yes 325mg Take 1 tablet (325 mg total) by mouth daily (with breakfast) [facility] Multiple Vitamin (MULTIVITAM IN ADULT OR) 08-04 10:26: 23 Yes 1{tbl} Take 1 tablet by mouth daily [facility] Aspirin 81 MG oral Chewable Tablet 08-04 10:26: 23 Yes 81mg Take 1 tablet (81 mg total) by mouth daily [facility] Spironolact one 50 MG oral Tablet 08-04 00:00: 00 09-15 00:00 :00 No 50mg Take 1 tablet (50 mg total) by mouth daily [facility] Furosemide (LASIX) 20 MG oral Tablet 08-04 00:00: 00 09-15 00:00 :00 No 20mg Take 1 tablet (20 mg total) by mouth daily [facility] Sertraline HCl 50 MG oral Tablet 07-26 00:00: 00 Yes 50mg Take 1 tablet (50 mg total) by mouth daily [facility] Sertraline HCl 50 MG oral Tablet 07-18 11:10: 07 Yes 50mg Take 1 tablet (50 mg total) by mouth daily [facility] Ferrous Sulfate 325 (65 Fe) MG oral Tablet 07-18 11:10: 07 Yes 325mg Take 1 tablet (325 mg total) by mouth daily (with breakfast) [facility] Multiple Vitamin (MULTIVITAM IN ADULT OR) 07-18 11:10: 07 Yes 1{tbl} Take 1 tablet by mouth daily [facility] Aspirin 81 MG oral Chewable Tablet 07-18 11:10: 07 Yes 81mg Take 1 tablet (81 mg total) by mouth daily [facility] NEOMYCIN-PO LYMYXIN-HC, OTIC, 1 % otic Solution 07-18 00:00: 00 09-05 00:00 :00 No [id number] 2[drp] Place 2 drops into the left ear 3 times daily [facility] Ferumoxytol (FERAHEME) 510 mg in sodium chloride 0.9 % 100 mL infusion 07-14 20:00: 00 07-14 20:51 :00 No [id number] 510mg Allergic to or failed INFED: Yes
510 mg, at 100 mL/hr, Administer over 60 Minutes, intravenou s, ONCE, On Sun07/14/22 at 1500, For 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
[facility] Sertraline HCl 50 MG oral Tablet 07-04 11:39: 14 Yes 50mg Take 50 mg by mouth daily [facility] Ferrous Sulfate 325 (65 Fe) MG oral Tablet 07-04 11:39: 14 Yes 325mg Take 325 mg by mouth daily (with breakfast) [facility] Multiple Vitamin (MULTIVITAM IN ADULT OR) 07-04 11:39: 14 Yes 1{tbl} Take 1 tablet by mouth daily [facility] Aspirin 81 MG oral Chewable Tablet 07-04 11:39: 14 Yes 81mg Take 81 mg by mouth daily [facility] Albuterol HFA 108 (90 Base) MCG/ACT IN AERS 07-04 00:00: 00 09-05 00:00 :00 No [id number] 2{puff} Q.25D Inhale 2 puffs into the lungs every 6 hours as needed for wheezing [facility] Benzonatate 100 MG oral Capsule 07-04 00:00: 00 09-05 00:00 :00 No [id number] 100mg [id number] 3D Take 1 capsule (100 mg total) by mouth 3 times daily as needed for cough [facility] Amoxicillin -Pot Clavulanate 875-125 MG oral Tablet 07-04 00:00: 00 07-18 00:00 :00 No [id number] 1{tbl} Take 1 tablet by mouth 2 times daily [facility] Azithromyci n 250 MG oral Tablet 07-04 00:00: 00 07-10 04:59 :00 No [id number] Take 2 tablets by mouth on day 1 then 1 tablet by mouth daily for 4 days thereafter . [facility] Atorvastati n Calcium 20 MG oral Tablet 07-03 00:00: 00 Yes [id number] 20mg Take 1 tablet (20 mg total) by mouth daily [facility] Lisinopril 5 MG oral Tablet 07-03 00:00: 00 06-20 00:00 :00 No [id number] 5mg Take 1 tablet (5 mg total) by mouth daily [facility] Ferumoxytol (FERAHEME) 510 mg in sodium chloride 0.9 % 100 mL infusion 06-30 14:15: 00 06-30 15:17 :00 No [id number] 510mg Allergic to or failed INFED: Yes
510 mg, at 100 mL/hr, Administer over 60 Minutes, intravenou s, ONCE, On Sun06/30/22 at 0915, For 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
[facility] Lisinopril 5 MG oral Tablet 06-14 15:19: 29 Yes 5mg Take 5 mg by mouth daily [facility] Atorvastati n Calcium 20 MG oral Tablet 06-14 15:19: 29 Yes 20mg Take 20 mg by mouth daily [facility] Sertraline HCl 50 MG oral Tablet 06-14 15:19: 29 Yes 50mg Take 50 mg by mouth daily [facility] Ferrous Sulfate 325 (65 Fe) MG oral Tablet 06-14 15:19: 29 Yes 325mg Take 1 tablet (325 mg total) by mouth daily (with breakfast) . [facility] Multiple Vitamin (MULTIVITAM IN ADULT OR) 06-14 15:19: 29 Yes 1{tbl} Take 1 tablet by mouth daily [facility] Aspirin 81 MG oral Chewable Tablet 06-14 15:19: 29 Yes 81mg Take 81 mg by mouth daily [facility] Omeprazole 20 MG oral Delayed Release Capsule 06-14 00:00: 00 Yes 20mg Take 1 capsule (20 mg total) by mouth daily [facility] Metformin HCl 1000 MG oral Tablet 06-14 00:00: 00 Yes [id number] 1000mg Take 1 tablet (1,000 mg total) by mouth in the morning and 1 tablet (1,000 mg total) in the evening. Take with meals. [facility] Omeprazole 20 MG oral Tablet Delayed Response 06-14 00:00: 00 Yes [id number] 20mg Take 1 tablet (20 mg total) by mouth daily [facility] Metformin HCl 1000 MG oral Tablet 06-06 14:23: 12 Yes 1000mg Take 1,000 mg by mouth in the morning and 1,000 mg in the evening. Take with meals. [facility] Lisinopril 5 MG oral Tablet 06-06 14:23: 12 Yes 5mg Take 5 mg by mouth daily [facility] Atorvastati n Calcium 20 MG oral Tablet 06-06 14:23: 12 Yes 20mg Take 20 mg by mouth daily [facility] Sertraline HCl 50 MG oral Tablet 06-06 14:23: 12 Yes 50mg Take 50 mg by mouth daily [facility] Omeprazole 20 MG oral Tablet Delayed Response 06-06 14:23: 12 Yes 20mg Take 20 mg by mouth daily [facility] Ferrous Sulfate 325 (65 Fe) MG oral Tablet 06-06 14:23: 12 Yes 325mg Take 325 mg by mouth daily (with breakfast) [facility] Multiple Vitamin (MULTIVITAM IN ADULT OR) 06-06 14:23: 12 Yes 1{tbl} Take 1 tablet by mouth daily [facility] Aspirin 81 MG oral Chewable Tablet 06-06 14:23: 12 Yes 81mg Take 81 mg by mouth daily [facility] Metformin HCl 1000 MG oral Tablet 05-22 11:18: 00 Yes 1000mg Take 1,000 mg by mouth in the morning and 1,000 mg in the evening. Take with meals. [facility] Lisinopril 5 MG oral Tablet 05-22 11:18: 00 Yes 5mg Take 5 mg by mouth daily [facility] Atorvastati n Calcium 20 MG oral Tablet 05-22 11:18: 00 Yes 20mg Take 20 mg by mouth daily [facility] Sertraline HCl 50 MG oral Tablet 05-22 11:18: 00 Yes 50mg Take 50 mg by mouth daily [facility] Omeprazole 20 MG oral Tablet Delayed Response 05-22 11:18: 00 Yes 20mg Take 20 mg by mouth daily [facility] Ferrous Sulfate 325 (65 Fe) MG oral Tablet 05-22 11:18: 00 Yes 325mg Take 325 mg by mouth daily (with breakfast) [facility] - Externa l Multiple Vitamin (MULTIVITAM IN ADULT OR) 0 2-13 11:18: 00 Yes 1{tbl} Take 1 tablet by mouth daily [facility] Aspirin 81 MG oral Chewable Tablet 0 2-13 11:18: 00 Yes 81mg Take 81 mg by mouth daily [facility] LISINOPRIL 5MG TAB 1 2-06 00:00: 00 No SERTRALINE 50MG TAB 2021-0 9-30 00:00: 00 No 50 SERTRALINE 50MG TAB 2021-0 9-30 00:00: 00 No 50 SERTRALINE HCL 50MG TAB 2021-0 8-25 00:00: 00 No SERTRALINE HCL 50MG TAB 2021-0 8-25 00:00: 00 No SERTRALINE HCL 50MG TAB 2021-0 8-25 00:00: 00 No 50 CIPROFLOXAC IN HYDROCHLORI 500MG TAB 2021-0 8-22 00:00: 00 No CIPROFLOXAC IN HYDROCHLORI 500MG TAB 2021-0 8-22 00:00: 00 No CIPROFLOXAC IN HYDROCHLORI 500MG TAB 2021-0 8-22 00:00: 00 No 500 omeprazole 20 mg capsule,del ayed release 2021-0 6-15 00:00: 00 No 1mg omeprazole 20 mg capsule,del ayed release 2021-0 6-15 00:00: 00 No 1mg omeprazole 20 mg capsule,del ayed release 2021-0 6-15 00:00: 00 No 1mg omeprazole 20 mg capsule,del ayed release 2021-0 3-24 00:00: 00 No 1mg omeprazole 20 mg capsule,del ayed release 2021-0 3-24 00:00: 00 No 1mg omeprazole 20 mg capsule,del ayed release 2021-0 3-24 00:00: 00 No 1mg lisinopril 5 mg tablet 0 3-02 00:00: 00 No 1mg sertraline 50 mg tablet 0 3- 00:00: 00 No 1mg metformin 1,000 mg tablet 2021-0 3-02 00:00: 00 No 1mg atorvastati n 20 mg tablet 0 3- 00:00: 00 No 1mg lisinopril 5 mg tablet 0 3- 00:00: 00 No 1mg sertraline 50 mg tablet 0 3- 00:00: 00 No 1mg metformin 1,000 mg tablet 0 3- 00:00: 00 No 1mg atorvastati n 20 mg tablet 0 3- 00:00: 00 No 1mg lisinopril 5 mg tablet 0 3- 00:00: 00 No 1mg sertraline 50 mg tablet 0 3- 00:00: 00 No 1mg metformin 1,000 mg tablet 0 3- 00:00: 00 No 1mg atorvastati n 20 mg tablet - 00:00: 00 No 1mg omeprazole 20 mg capsule,del ayed release 0 2- 00:00: 00 No 1mg omeprazole 20 mg capsule,del ayed release 0 2- 00:00: 00 No 1mg omeprazole 20 mg capsule,del ayed release 0 2- 00:00: 00 No 1mg lisinopril 5 mg tablet 2020-04 2- 00:00: 00 No 1mg sertraline 50 mg tablet 2020-04 2- 00:00: 00 No 1mg metformin 1,000 mg tablet 2020-04 2- 00:00: 00 No 1mg atorvastati n 20 mg tablet 2020-04 2- 00:00: 00 No 1mg omeprazole 20 mg capsule,del ayed release 2020-04 2- 00:00: 00 No 1mg lisinopril 5 mg tablet 2020-04 2- 00:00: 00 No 1mg sertraline 50 mg tablet 2020-04 2- 00:00: 00 No 1mg metformin 1,000 mg tablet 2020-04 2- 00:00: 00 No 1mg atorvastati n 20 mg tablet 2020-04 2- 00:00: 00 No 1mg omeprazole 20 mg capsule,del ayed release 2020-04 2- 00:00: 00 No 1mg lisinopril 5 mg tablet 2020-04 2- 00:00: 00 No 1mg sertraline 50 mg tablet 2020-04 2- 00:00: 00 No 1mg metformin 1,000 mg tablet 2020-04 2 00:00: 00 No 1mg atorvastati n 20 mg tablet 2020-04 2 00:00: 00 No 1mg omeprazole 20 mg capsule,del ayed release 2020-04 2 00:00: 00 No 1mg sertraline 50 mg tablet 2020-04 0-11 00:00: 00 No 1mg lisinopril 5 mg tablet 2020-04 0-11 00:00: 00 No 1mg metformin 1,000 mg tablet 2020-04 0-11 00:00: 00 No 1mg atorvastati n 20 mg tablet 2020-04 0-11 00:00: 00 No 1mg omeprazole 20 mg capsule,del ayed release 2020-04 0-11 00:00: 00 No 1mg sertraline 50 mg tablet 2020-04 0-11 00:00: 00 No 1mg lisinopril 5 mg tablet 2020-04 0-11 00:00: 00 No 1mg metformin 1,000 mg tablet 2020-04 0-11 00:00: 00 No 1mg atorvastati n 20 mg tablet 2020-04 0-11 00:00: 00 No 1mg omeprazole 20 mg capsule,del ayed release 2020-04 0-11 00:00: 00 No 1mg sertraline 50 mg tablet 2020-04 0-11 00:00: 00 No 1mg lisinopril 5 mg tablet 2020-04 0-11 00:00: 00 No 1mg metformin 1,000 mg tablet 2020-04 0-11 00:00: 00 No 1mg atorvastati n 20 mg tablet 2020-04 0-11 00:00: 00 No 1mg omeprazole 20 mg capsule,del ayed release 2020-04 0-11 00:00: 00 No 1mg omeprazole 20 mg capsule,del ayed release 0 9- 00:00: 00 No 1mg omeprazole 20 mg capsule,del ayed release 0 9- 00:00: 00 No 1mg omeprazole 20 mg capsule,del ayed release 9- 00:00: 00 No 1mg ProAir HFA 90 mcg/actuati on aerosol inhaler 09-13 00:00: 00 No 2mcg/ac tuation lisinopril 5 mg tablet 09-13 00:00: 00 No 1mg sertraline 50 mg tablet 09-13 00:00: 00 No 1mg metformin 1,000 mg tablet 09-13 00:00: 00 No 1mg atorvastati n 20 mg tablet 09-13 00:00: 00 No 1mg omeprazole 20 mg capsule,del ayed release 09-13 00:00: 00 No 1mg ProAir HFA 90 mcg/actuati on aerosol inhaler 09-13 00:00: 00 No 2mcg/ac tuation lisinopril 5 mg tablet 09-13 00:00: 00 No 1mg sertraline 50 mg tablet 09-13 00:00: 00 No 1mg metformin 1,000 mg tablet 09-13 00:00: 00 No 1mg atorvastati n 20 mg tablet 09-13 00:00: 00 No 1mg omeprazole 20 mg capsule,del ayed release 09-13 00:00: 00 No 1mg ProAir HFA 90 mcg/actuati on aerosol inhaler 09-13 00:00: 00 No 2mcg/ac tuation lisinopril 5 mg tablet 09-13 00:00: 00 No 1mg sertraline 50 mg tablet 09-13 00:00: 00 No 1mg metformin 1,000 mg tablet 09-13 00:00: 00 No 1mg atorvastati n 20 mg tablet 09-13 00:00: 00 No 1mg omeprazole 20 mg capsule,del ayed release 09-13 00:00: 00 No 1mg metformin 1,000 mg tablet 08-10 00:00: 00 No 1mg metformin 1,000 mg tablet 08-10 00:00: 00 No 1mg metformin 1,000 mg tablet 08-10 00:00: 00 No 1mg lisinopril 5 mg tablet 0 3- 00:00: 00 No 1mg omeprazole 20 mg capsule,del ayed release 0 3- 00:00: 00 No 1mg lisinopril 5 mg tablet 0 3- 00:00: 00 No 1mg omeprazole 20 mg capsule,del ayed release 0 3- 00:00: 00 No 1mg lisinopril 5 mg tablet 0 3- 00:00: 00 No 1mg omeprazole 20 mg capsule,del ayed release 0 3 00:00: 00 No 1mg atorvastati n 20 mg tablet 0 2- 00:00: 00 No 1mg atorvastati n 20 mg tablet 0 2-23 00:00: 00 No 1mg atorvastati n 20 mg tablet 0 2-23 00:00: 00 No 1mg hydrocortis one 2.5 % topical cream 0 2-22 00:00: 00 No 1% hydrocortis one 2.5 % topical cream 0 2-22 00:00: 00 No 1% hydrocortis one 2.5 % topical cream 0 2-22 00:00: 00 No 1% sertraline 50 mg tablet 0 2-18 00:00: 00 No 1mg sertraline 50 mg tablet 0 2-18 00:00: 00 No 1mg sertraline 50 mg tablet 2020-0 2-18 00:00: 00 No 1mg sertraline 50 mg tablet 0 2-17 00:00: 00 No 1mg sertraline 50 mg tablet 0 2-17 00:00: 00 No 1mg sertraline 50 mg tablet 0 2-17 00:00: 00 No 1mg metformin 1,000 mg tablet 0 1-15 00:00: 00 No 1mg metformin 1,000 mg tablet 0 1-15 00:00: 00 No 1mg metformin 1,000 mg tablet 0 1-15 00:00: 00 No 1mg omeprazole 20 mg capsule,del ayed release 1 2- 00:00: 00 No 1mg omeprazole 20 mg capsule,del ayed release 2019-04 00:00: 00 No 1mg omeprazole 20 mg capsule,del ayed release 2019-04 00:00: 00 No 1mg lisinopril 5 mg tablet 2019-04 00:00: 00 No 1mg lisinopril 5 mg tablet 2019-04 00:00: 00 No 1mg metformin 1,000 mg tablet 2019-04 00:00: 00 No 1mg metformin 1,000 mg tablet 2019-04 00:00: 00 No 1mg atorvastati n 20 mg tablet 2019-04 00:00: 00 No 1mg atorvastati n 20 mg tablet 2019-04 00:00: 00 No 1mg lisinopril 5 mg tablet 2019-04 00:00: 00 No 1mg metformin 1,000 mg tablet 2019-04 00:00: 00 No 1mg atorvastati n 20 mg tablet 2019-04 00:00: 00 No 1mg sertraline 50 mg tablet 2019-04 00:00: 00 No 1mg sertraline 50 mg tablet 2019-04 00:00: 00 No 1mg sertraline 50 mg tablet 2019-04 00:00: 00 No 1mg diclofenac 3 % topical gel 2019-04 0-14 00:00: 00 No 1% Bactrim DS 800 mg-160 mg tablet 2019-04 014 00:00: 00 No 1mg diclofenac 3 % topical gel 2019-04 014 00:00: 00 No 1% Bactrim DS 800 mg-160 mg tablet 2019-04 014 00:00: 00 No 1mg diclofenac 3 % topical gel 2019-04 014 00:00: 00 No 1% Bactrim DS 800 mg-160 mg tablet 2019-04 014 00:00: 00 No 1mg sertraline 50 mg tablet 01-06 00:00: 00 No 1mg lisinopril 5 mg tablet 01-06 00:00: 00 No 1mg metformin 1,000 mg tablet 01-06 00:00: 00 No 1mg sertraline 50 mg tablet 01-06 00:00: 00 No 1mg lisinopril 5 mg tablet 01-06 00:00: 00 No 1mg metformin 1,000 mg tablet 01-06 00:00: 00 No 1mg sertraline 50 mg tablet 01-06 00:00: 00 No 1mg lisinopril 5 mg tablet 01-06 00:00: 00 No 1mg metformin 1,000 mg tablet 01-06 00:00: 00 No 1mg atorvastati n 20 mg tablet 01-05 00:00: 00 No 1mg atorvastati n 20 mg tablet 01-05 00:00: 00 No 1mg atorvastati n 20 mg tablet 01-05 00:00: 00 No 1mg lisinopril 5 mg tablet 10-24 00:00: 00 No 1mg lisinopril 5 mg tablet 10-24 00:00: 00 No 1mg lisinopril 5 mg tablet 10-24 00:00: 00 No 1mg ProAir HFA 90 mcg/actuati on aerosol inhaler 10-01 00:00: 00 No 2mcg/ac tuation ProAir HFA 90 mcg/actuati on aerosol inhaler 10-01 00:00: 00 No 2mcg/ac tuation ProAir HFA 90 mcg/actuati on aerosol inhaler 10-01 00:00: 00 No 2mcg/ac tuation atorvastati n 20 mg tablet 09-10 16:51: 59 Yes 20mg Take 20 mg by mouth daily. [facility] SERTraline 50 mg tablet 09-10 16:51: 59 Yes 50mg Take 50 mg by mouth daily. [facility] aspirin 81 mg chewable tablet 09-10 16:51: 59 Yes 81mg Take 81 mg by mouth daily. [facility] multivitami n tablet 09-10 16:51: 59 Yes 1{tbl} Take 1 tablet by mouth daily. [facility] lisinopril 5 mg tablet 09-10 16:51: 59 Yes 5mg Take 5 mg by mouth daily. [facility] metFORMIN 500 mg tablet 09-10 16:51: 58 Yes 500mg Take 500 mg by mouth 2 (two) times daily. [facility] lactated ringers IV infusion 1,000 mL 09-10 15:30: 00 Yes 1000mL at 75 mL/hr, 1,000 mL, IV Infusion, CONTINUOUS , Starting Charis 09/11/19 at 1030, Until Discontinu ed, Routine, PACU [facility] HYDROmorpho ne (DILAUDID) injection 0.2 mg 09-10 15:19: 39 Yes .2mg 0.2 mg, Slow IV Push, Q5MIN PRN, 10 doses, Starting Charis 09/11/19 at 1019, Until Discontinu ed, Routine, Pain (scale 7-10), PACU
Us e approved by (Faculty): PACU USE -ANESTHESI A SERVICE-HY DROMORPHON E INJECTIONS [facility] FENTanyl PF (SUBLIMAZE (PF)) injection 25 mcg 09-10 15:19: 39 Yes 25ug 25 mcg, Slow IV Push, Q5MIN PRN, 4 doses, Starting Charis 09/11/19 at 1019, Until Discontinu ed, Routine, Pain (scale 4-6), PACU [facility] ondansetron (ZOFRAN (PF)) injection 4 mg 09-10 15:19: 39 Yes 4mg 4 mg, Slow IV Push, PRN, 1 dose, Starting Charis 09/11/19 at 1019, Until Discontinu ed, Routine, Nausea and Vomiting (N/V), PACU [facility] lactated ringers IV infusion 1,000 mL 09-10 13:00: 00 09-10 13:12 :00 No 1000mL at 20 mL/hr, 1,000 mL, IV Infusion, ONCE, 1 dose, Charis 09/11/19 at 0800, Routine, DSU Pre-op [facility] atorvastati n 20 mg tablet 09-10 11:51: 59 Yes 20mg Take 20 mg by mouth daily. [facility] SERTraline 50 mg tablet 09-10 11:51: 59 Yes 50mg Take 50 mg by mouth daily. [facility] aspirin 81 mg chewable tablet 09-10 11:51: 59 Yes 81mg Take 81 mg by mouth daily. [facility] multivitami n tablet 09-10 11:51: 59 Yes 1{tbl} Take 1 tablet by mouth daily. [facility] lisinopril 5 mg tablet 09-10 11:51: 59 Yes 5mg Take 5 mg by mouth daily. [facility] metFORMIN 500 mg tablet 09-10 11:51: 58 Yes 500mg Take 500 mg by mouth 2 (two) times daily. [facility] metFORMIN 500 mg tablet 09-07 17:51: 23 Yes 500mg Take 500 mg by mouth 2 (two) times daily. [facility] atorvastati n 20 mg tablet 09-07 17:51: 23 Yes 20mg Take 20 mg by mouth daily. [facility] SERTraline 50 mg tablet 09-07 17:51: 23 Yes 50mg Take 50 mg by mouth daily. [facility] aspirin 81 mg chewable tablet 09-07 17:51: 23 Yes 81mg Take 81 mg by mouth daily. [facility] multivitami n tablet 09-07 17:51: 23 Yes 1{tbl} Take 1 tablet by mouth daily. [facility] lisinopril 5 mg tablet 09-07 17:51: 23 Yes 5mg Take 5 mg by mouth daily. [facility] ProAir HFA 90 mcg/actuati on aerosol inhaler 0 06-29 00:00: 00 No 2mcg/ac tuation ProAir HFA 90 mcg/actuati on aerosol inhaler 06-29 00:00: 00 No 2mcg/ac tuation ProAir HFA 90 mcg/actuati on aerosol inhaler 23 00:00: 00 No 2mcg/ac tuation ProAir HFA 90 mcg/actuati on aerosol inhaler 17 00:00: 00 No 2mcg/ac tuation ProAir HFA 90 mcg/actuati on aerosol inhaler 06-23 00:00: 00 No 2mcg/ac tuation ProAir HFA 90 mcg/actuati on aerosol inhaler 06-23 00:00: 00 No 2mcg/ac tuation cephALEXin 250 mg capsule 06-17 00:00: 00 06-23 04:59 :00 No [id number] 500mg Take 2 capsules by mouth every 12 (twelve) hours for 5 days. [facility] gentamicin injection 80 mg 06-15 23:00: 00 06-15 21:53 :00 No [id number]4 [facility] 24 hr capsule 05-30 00:00: 00 Yes [id number] .4mg Take 1 capsule by mouth at bedtime. [facility] aspirin 81 mg tablet,frances yed release 05-19 00:00: 00 No 1mg aspirin 81 mg tablet,frances yed release 2 00:00: 00 No 1mg aspirin 81 mg tablet,frances yed release 2 00:00: 00 No 1mg metformin 1,000 mg tablet 04-14 00:00: 00 No 1mg metformin 1,000 mg tablet 04-14 00:00: 00 No 1mg metformin 1,000 mg tablet 04-14 00:00: 00 No 1mg metformin 1,000 mg tablet 04-14 00:00: 00 No 1mg metformin 1,000 mg tablet 04-14 00:00: 00 No 1mg metformin 1,000 mg tablet 04-14 00:00: 00 No 1mg Anusol-HC 2.5 % topical cream with perineal applicator 2018-04 00:00: 00 No 1% sertraline 50 mg tablet 2018-04 00:00: 00 No 1mg lisinopril 5 mg tablet 2018-04 00:00: 00 No 1mg atorvastati n 20 mg tablet 2018-04 00:00: 00 No 1mg omeprazole 20 mg capsule,del ayed release 2018-04 00:00: 00 No 1mg Anusol-HC 2.5 % topical cream with perineal applicator 2018-04 00:00: 00 No 1% Anusol-HC 2.5 % topical cream with perineal applicator 2018-04 00:00: 00 No 1% sertraline 50 mg tablet 2018-04 00:00: 00 No 1mg lisinopril 5 mg tablet 2018-04 00:00: 00 No 1mg atorvastati n 20 mg tablet 2018-04 00:00: 00 No 1mg omeprazole 20 mg capsule,del ayed release 2018-04 00:00: 00 No 1mg sertraline 50 mg tablet 2018-04 00:00: 00 No 1mg lisinopril 5 mg tablet 2018-04 00:00: 00 No 1mg atorvastati n 20 mg tablet 2018-04 00:00: 00 No 1mg omeprazole 20 mg capsule,del ayed release 2018-04 00:00: 00 No 1mg multivitami n tablet 2016-04 20:47: 45 Yes 1{tbl} Take 1 tablet by mouth daily. [facility] lisinopril 5 mg tablet 2016-04 20:47: 45 Yes 5mg Take 5 mg by mouth daily. [facility] metFORMIN 500 mg tablet 2016-04 20:47: 45 Yes 500mg Take 500 mg by mouth 2 (two) times daily. [facility] atorvastati n 20 mg tablet 2016-04 20:47: 45 Yes 20mg Take 20 mg by mouth daily. [facility] SERTraline 50 mg tablet 2016-04 20:47: 45 Yes 50mg Take 50 mg by mouth daily. [facility] aspirin 81 mg chewable tablet 2016-04 20:47: 45 Yes 81mg Take 81 mg by mouth daily. [facility] ranitidine 150 mg tablet 2016-04 00:00: 00 Yes 150mg Take 150 mg by mouth daily. [facility] Immunizations Ordered Immunization Name Filled Immunization Name Date Status Comments Source Influenza Virus Vaccine, Quadrivalent, High Dose, Age 65 And Up 2022-02-03 00:00:00 Completed Ann Seybold - External Influenza Virus Vaccine, Quadrivalent, High Dose, Age 65 And Up 2022-02-03 00:00:00 Completed Ann Seybold - External Influenza Virus Vaccine, Quadrivalent, High Dose, Age 65 And Up 2022-02-03 00:00:00 Completed Ann Seybold - External Influenza Virus Vaccine, Quadrivalent, High Dose, Age 65 And Up 2022-02-03 00:00:00 Completed Ann Seybold - External Influenza Virus Vaccine, Quadrivalent, High Dose, Age 65 And Up 2022-02-03 00:00:00 Completed Ann Seybold - External Influenza Virus Vaccine, Quadrivalent, High Dose, Age 65 And Up 2022-02-03 00:00:00 Completed Ann Seybold - External Influenza Virus Vaccine, Quadrivalent, High Dose, Age 65 And Up 2022-02-03 00:00:00 Completed Ann Seybold - External Influenza Virus Vaccine, Quadrivalent, High Dose, Age 65 And Up 2022-02-03 00:00:00 Completed Ann Seybold - External Covid-19 Vaccine Moderna (Spikevax), Mrna-lnp, Ramon Protein, Pf 2021-02-02 00:00:00 Completed Ann Seybold - External Covid-19 Vaccine Moderna (Spikevax), Mrna-lnp, Ramon Protein, Pf 2021-02-02 00:00:00 Completed Ann Seybold - External Covid-19 Vaccine Moderna (Spikevax), Mrna-lnp, Ramon Protein, Pf 2021-02-02 00:00:00 Completed Ann Seybold - External Covid-19 Vaccine Moderna (Spikevax), Mrna-lnp, Ramon Protein, Pf 2021-02-02 00:00:00 Completed Ann Seybold - External Covid-19 Vaccine Moderna (Spikevax), Mrna-lnp, Ramon Protein, Pf 2021-02-02 00:00:00 Completed Ann Seybold - External Covid-19 Vaccine Moderna (Spikevax), Mrna-lnp, Ramon Protein, Pf 2021-02-02 00:00:00 Completed Ann Seybold - External Covid-19 Vaccine Moderna (Spikevax), Mrna-lnp, Ramon Protein, Pf 2021-02-02 00:00:00 Completed Ann Seybold - External Covid-19 Vaccine Moderna (Spikevax), Mrna-lnp, Ramon Protein, Pf 2021-02-02 00:00:00 Completed Ann Seybold - External Covid-19 Vaccine Moderna (Spikevax), Mrna-lnp, Ramon Protein, Pf 2021-02-02 00:00:00 Completed Ann Seybold - External Covid-19 Vaccine Moderna (Spikevax), Mrna-lnp, Ramon Protein, Pf 2021-02-02 00:00:00 Completed Ann Seybold - External Covid-19 Vaccine Moderna (Spikevax), Mrna-lnp, Ramon Protein, Pf 2021-02-02 00:00:00 Completed Ann Seybold - External Covid-19 Vaccine Moderna (Spikevax), Mrna-lnp, Ramon Protein, Pf 2021-02-02 00:00:00 Completed Ann Seybold - External Covid-19 Vaccine Moderna (Spikevax), Mrna-lnp, Ramon Protein, 2021-02-02 00:00:00 Completed Ann Seybold - External Covid-19 Vaccine Moderna (Spikevax), Mrna-lnp, Ramon Protein, 2021-02-02 00:00:00 Completed Ann Seybold - External Covid-19 Vaccine Moderna (Spikevax), Mrna-lnp, Ramon Protein, 2021-02-02 00:00:00 Completed Ann Seybold - External Covid-19 Vaccine Moderna (Spikevax), Mrna-lnp, Ramon Protein, 2021-02-02 00:00:00 Completed Ann Seybold - External Covid-19 Vaccine Moderna (Spikevax), Mrna-lnp, Ramon Protein, Pf 2021-02-02 00:00:00 Completed Ann Seybold - External Covid-19 Vaccine Moderna (Spikevax), Mrna-lnp, Ramon Protein, Pf 2021-02-02 00:00:00 Completed Ann Seybold - External Covid-19 Vaccine Moderna (Spikevax), Mrna-lnp, Ramon Protein, Pf 2021-02-02 00:00:00 Completed Ann Seybold - External Covid-19 Vaccine Moderna (Spikevax), Mrna-lnp, Ramon Protein, Pf 2021-02-02 00:00:00 Completed Ann Seybold - External Covid-19 Vaccine Moderna (Spikevax), Mrna-lnp, Ramon Protein, Pf 2021-02-02 00:00:00 Completed Ann Seybold - External Covid-19 Vaccine Moderna (Spikevax), Mrna-lnp, Ramon Protein, Pf 2021-02-02 00:00:00 Completed Ann Seybold - External Moderna COVID-19 Vaccine 2021-02-02 00:00:00 Completed Moderna COVID-19 Vaccine 2021-02-02 00:00:00 Completed Moderna COVID-19 Vaccine 2021-02-02 00:00:00 Completed Influenza Virus Vaccine, Quadrivalent, High Dose, Age 65 And Up 2021-01-20 00:00:00 Completed Ann Seybold - External Influenza Virus Vaccine, Quadrivalent, High Dose, Age 65 And Up 2021-01-20 00:00:00 Completed Ann Seybold - External Influenza Virus Vaccine, Quadrivalent, High Dose, Age 65 And Up 2021-01-20 00:00:00 Completed Ann Seybold - External Influenza Virus Vaccine, Quadrivalent, High Dose, Age 65 And Up 2021-01-20 00:00:00 Completed Ann Seybold - External Influenza Virus Vaccine, Quadrivalent, High Dose, Age 65 And Up 2021-01-20 00:00:00 Completed Ann Seybold - External Influenza Virus Vaccine, Quadrivalent, High Dose, Age 65 And Up 2021-01-20 00:00:00 Completed Ann Seybold - External Influenza Virus Vaccine, Quadrivalent, High Dose, Age 65 And Up 2021-01-20 00:00:00 Completed Ann Seybold - External Influenza Virus Vaccine, Quadrivalent, High Dose, Age 65 And Up 2021-01-20 00:00:00 Completed Ann Seybold - External Covid-19 Vaccine Moderna (Spikevax), Mrna-lnp, Ramon Protein, Pf 2020-06-05 00:00:00 Completed Ann Seybold - External Covid-19 Vaccine Moderna (Spikevax), Mrna-lnp, Ramon Protein, Pf 2020-06-05 [facility] (S[facility]vax), Mrna-lnp, Ramon Protein, Pf 2020-06-05 [facility] Moderna (Spikevax), Mrna-lnp, Ramon Protein, Pf 2020-06-05 00:[facility] Moderna (Spikevax), Mrna-lnp, Ramon Protein, Pf 2020-06-05 00:[facility] Moderna (Spikevax), Mrna-lnp, Ramon Protein, Pf 2020-06-05 [facility] Moderna (Spikevax), Mrna-lnp, Ramon Protein, Pf 2020-06-05 00:[facility] Moderna (Spikevax), Mrna-lnp, Ramon Protein, Pf 2020-06-05 00:[facility] Moderna (Spikevax), Mrna-lnp, Ramon Protein, Pf 2020-06-05 00:00[facility] Vaccine Moderna (Spikevax), Mrna-lnp, Ramon Protein, Pf 2020-06-05 00:00:00 Completed Ann Seybold - External Covid-19 Vaccine Moderna (Spikevax), Mrna-lnp, Ramon Protein, Pf 2020-06-05 00:00:00 Completed Ann Seybold - External Covid-19 Vaccine Moderna (Spikevax), Mrna-lnp, Ramon Protein, Pf 2020-06-05 00:00:00 Completed Ann Seybold - External Covid-19 Vaccine Moderna (Spikevax), Mrna-lnp, Ramon Protein, Pf 2020-06-05 00:00:00 Completed Ann Seybold - External Covid-19 Vaccine Moderna (Spikevax), Mrna-lnp, Ramon Protein, Pf 2020-06-05 00:00:00 Completed Ann Seybold - External Covid-19 Vaccine Moderna (Spikevax), Mrna-lnp, Ramon Protein, Pf 2020-06-05 00:00:00 Completed Ann Seybold - External Covid-19 Vaccine Moderna (Spikevax), Mrna-lnp, Ramon Protein, Pf 2020-06-05 00:00[facility] Moderna (Spikevax), Mrna-lnp, Ramon Protein, Pf 2020-06-05 00:00:00 Completed Ann Seybold - External Covid-19 Vaccine Moderna (Spikevax), Mrna-lnp, Ramon Protein, Pf 2020-06-05 00:00[facility] Moderna (Spikevax), Mrna-lnp, Ramon Protein, Pf 2020-06-05 00:[facility] Moderna (Spikevax), Mrna-lnp, Ramon Protein, Pf 2020-06-05 00:00[facility] Vaccine Moderna (Spikevax), Mrna-lnp, Ramon Protein, Pf 2020-06-05 00:00[facility] Vaccine Moderna (Spikevax), Mrna-lnp, Ramon Protein, Pf 2020-06-05 00:00:00 Completed Ann Seybold - External Moderna COVID-19 Vaccine 2020-06-05 00:00:00 Completed Moderna COVID-19 Vaccine 2020-06-05 00:00:00 Completed Covid-19 Vaccine Moderna (Spikevax), Mrna-lnp, Ramon Protein, Pf 2020-05-08 00:00:00 Completed Ann Seybold - External Covid-19 Vaccine Moderna (Spikevax), Mrna-lnp, Ramon Protein, Pf 2020-05-08 00:00:00 Completed Ann Seybold - External Covid-19 Vaccine Moderna (Spikevax), Mrna-lnp, Ramon Protein, Pf 2020-05-08 00:00:00 Completed Ann Seybold - External Covid-19 Vaccine Moderna (Spikevax), Mrna-lnp, Ramon Protein, Pf 2020-05-08 00:00:00 Completed Ann Seybold - External Covid-19 Vaccine Moderna (Spikevax), Mrna-lnp, Ramon Protein, Pf 2020-05-08 00:00:00 Completed Ann Seybold - External Covid-19 Vaccine Moderna (Spikevax), Mrna-lnp, Ramon Protein, Pf 2020-05-08 00:00:00 Completed Ann Seybold - External Covid-19 Vaccine Moderna (Spikevax), Mrna-lnp, Ramon Protein, Pf 2020-05-08 00:[facility] Moderna (Spikevax), Mrna-lnp, Ramon Protein, Pf 2020-05-08 00:00[facility] Vaccine Moderna (Spikevax), Mrna-lnp, Ramon Protein, Pf 2020-05-08 00:00:00 Completed Ann Seybold - External Covid-19 Vaccine Moderna (Spikevax), Mrna-lnp, Ramon Protein, Pf 2020-05-08 00:00:00 Completed Ann Seybold - External Covid-19 Vaccine Moderna (Spikevax), Mrna-lnp, Ramon Protein, Pf 2020-05-08 00:00:00 Completed Ann Seybold - External Covid-19 Vaccine Moderna (Spikevax), Mrna-lnp, Ramon Protein, Pf 2020-05-08 00:00:00 Completed Ann Seybold - External Covid-19 Vaccine Moderna (Spikevax), Mrna-lnp, Ramon Protein, Pf 2020-05-08 00:00:00 Completed Ann Seybold - External Covid-19 Vaccine Moderna (Spikevax), Mrna-lnp, Ramon Protein, Pf 2020-05-08 00:00:00 Completed Ann Seybold - External Covid-19 Vaccine Moderna (Spikevax), Mrna-lnp, Ramon Protein, Pf 2020-05-08 00:00:00 Completed Ann Seybold - External Covid-19 Vaccine Moderna (Spikevax), Mrna-lnp, Ramon Protein, Pf 2020-05-08 00:00:00 Completed Ann Seybold - External Covid-19 Vaccine Moderna (Spikevax), Mrna-lnp, Ramon Protein, Pf 2020-05-08 00:00:00 Completed Ann Seybold - External Covid-19 Vaccine Moderna (Spikevax), Mrna-lnp, Ramon Protein, Pf 2020-05-08 00:00:00 Completed Ann Seybold - External Covid-19 Vaccine Moderna (Spikevax), Mrna-lnp, Ramon Protein, 2020-05-08 00:00:00 Completed Ann Seybold - External Covid-19 Vaccine Moderna (Spikevax), Mrna-lnp, Ramon Protein, Pf 2020-05-08 00:00:00 Completed Ann Seybold - External Covid-19 Vaccine Moderna (Spikevax), Mrna-lnp, Ramon Protein, 2020-05-08 00:00:00 Completed Ann Seybold - External Covid-19 Vaccine Moderna (Spikevax), Mrna-lnp, Ramon Protein, 2020-05-08 00:00:00 Completed Ann Seybold - External Moderna COVID-19 Vaccine 2020-05-08 00:00:00 Completed Moderna COVID-19 Vaccine 2020-05-08 00:00:00 Completed Moderna COVID-19 Vaccine 2020-05-08 00:00:00 Completed Influenza, Seasonal, Injectable 2018-01-02 00:00:00 Completed Ann Seybold - External Influenza, Seasonal, Injectable 2018-01-02 00:00:00 Completed Ann Seybold - External Influenza, Seasonal, Injectable 2018-01-02 00:00:00 Completed Ann Seybold - External Influenza, Seasonal, Injectable 2018-01-02 00:00:00 Completed Ann Seybold - External Influenza, Seasonal, Injectable 2018-01-02 00:00:00 Completed Ann Seybold - External Influenza, Seasonal, Injectable 2018-01-02 00:00:00 Completed Ann Seybold - External Influenza, Seasonal, Injectable 2018-01-02 00:00:00 Completed Ann Seybold - External Influenza, Seasonal, Injectable 2018-01-02 00:00:00 Completed Ann Seybold - External Influenza, Seasonal, Injectable 2018-01-02 00:00:00 Completed Ann Seybold - External Influenza, Seasonal, Injectable 2018-01-02 00:00:00 Completed Ann Seybold - External Influenza, Seasonal, Injectable 2018-01-02 00:00:00 Completed Ann Seybold - External Influenza, Seasonal, Injectable 2018-01-02 00:00:00 Completed Ann Seybold - External Influenza, Seasonal, Injectable 2018-01-02 00:00:00 Completed Ann Seybold - External Influenza, Seasonal, Injectable 2018-01-02 00:00:00 Completed Ann Seybold - External Influenza, Seasonal, Injectable 2018-01-02 00:00:00 Completed Ann Seybold - External Influenza, Seasonal, Injectable 2018-01-02 00:00:00 Completed Ann Seybold - External Influenza, Seasonal, Injectable 2018-01-02 00:00:00 Completed Ann Seybold - External Influenza, Seasonal, Injectable 2018-01-02 00:00:00 Completed Ann Seybold - External Influenza, Seasonal, Injectable 2018-01-02 00:00:00 Completed Ann Seybold - External Influenza, Seasonal, Injectable 2018-01-02 00:00:00 Completed Ann Seybold - External Influenza, Seasonal, Injectable 2018-01-02 00:00:00 Completed Ann Seybold - External Influenza, Seasonal, Injectable 2018-01-02 00:00:00 Completed Ann Seybold - External Influenza, seasonal, inj 2018-01-02 00:00:00 Completed Influenza, seasonal, inj 2018-01-02 00:00:00 Completed Influenza, seasonal, inj 2018-01-02 00:00:00 Completed Influenza Virus Vaccine, High Dose, Age 65 And Up 2017-02-12 00:00:00 Completed Ann Seybold - External Influenza Virus Vaccine, High Dose, Age 65 And Up 2017-02-12 00:00:00 Completed Ann Seybold - External Influenza Virus Vaccine, High Dose, Age 65 And Up 2017-02-12 00:00:00 Completed Ann Seybold - External Influenza Virus Vaccine, High Dose, Age 65 And Up 2017-02-12 00:00:00 Completed Ann Seybold - External Influenza Virus Vaccine, High Dose, Age 65 And Up 2017-02-12 00:00:00 Completed Ann Seybold - External Influenza Virus Vaccine, High Dose, Age 65 And Up 2017-02-12 00:00:00 Completed Ann Seybold - External Influenza Virus Vaccine, High Dose, Age 65 And Up 2017-02-12 00:00:00 Completed Ann Seybold - External Influenza Virus Vaccine, High Dose, Age 65 And Up 2017-02-12 00:00:00 Completed Ann Seybold - External Influenza Virus Vaccine, High Dose, Age 65 And Up 2017-02-12 00:00:00 Completed Ann Seybold - External Influenza Virus Vaccine, High Dose, Age 65 And Up 2017-02-12 00:00:00 Completed Ann Seybold - External Influenza Virus Vaccine, High Dose, Age 65 And Up 2017-02-12 00:00:00 Completed Ann Seybold - External Influenza, high dose [facility] 2017-02-12 00:00:00 Completed Influenza, high dose [facility] 2017-02-12 00:00:00 Completed Influenza, high dose [facility] 2017-02-12 00:00:00 Completed DTaP/Hep B/IPV 2016-11-08 00:00:00 Completed Ann Seybold - External DTaP/Hep B/IPV 2016-11-08 00:00:00 Completed Ann Seybold - External DTaP/Hep B/IPV 2016-11-08 00:00:00 Completed Ann Seybold - External DTaP/Hep B/IPV 2016-11-08 00:00:00 Completed Ann Seybold - External DTaP/Hep B/IPV 2016-11-08 00:00:00 Completed Ann Seybold - External DTaP/Hep B/IPV 2016-11-08 00:00:00 Completed Ann Seybold - External DTaP/Hep B/IPV 2016-11-08 00:00:00 Completed Ann Seybold - External DTaP/Hep B/IPV 2016-11-08 00:00:00 Completed Ann Seybold - External DTaP/Hep B/IPV 2016-11-08 00:00:00 Completed Ann Seybold - External DTaP/Hep B/IPV 2016-11-08 00:00:00 Completed Ann Seybold - External DTaP/Hep B/IPV 2016-11-08 00:00:00 Completed Ann Dayybold - External DTaP/Hep B/IPV 2016-11-08 00:00:00 Completed Ann Seybold - External DTaP/Hep B/IPV 2016-11-08 00:00:00 Completed Ann Seybold - External DTaP/Hep B/IPV 2016-11-08 00:00:00 Completed Ann Seybold - External DTaP/Hep B/IPV 2016-11-08 00:00:00 Completed Ann Seybold - External DTaP/Hep B/IPV 2016-11-08 00:00:00 Completed Ann Seybold - External DTaP/Hep B/IPV 2016-11-08 00:00:00 Completed Ann Seybold - External DTaP/Hep B/IPV 2016-11-08 00:00:00 Completed Ann Seybold - External DTaP/Hep B/IPV 2016-11-08 00:00:00 Completed Ann Seybold - External DTaP/Hep B/IPV 2016-11-08 00:00:00 Completed Ann Seybold - External DTaP/Hep B/IPV 2016-11-08 00:00:00 Completed Ann Dayybold - External DTaP/Hep B/IPV 2016-11-08 00:00:00 Completed Ann ybold - External DTaP-Hep B-IPV 2016-11-08 00:00:00 Completed DTaP-Hep B-IPV 2016-11-08 00:00:00 Completed DTaP-Hep B-IPV 2016-11-08 00:00:00 Completed Influenza, Seasonal, Injectable 2016-04-10 00:00:00 Completed Ann Adams - External Influenza, Seasonal, Injectable 2016-04-10 00:00:00 Completed Ann Plazaold - External Influenza, Seasonal, Injectable 2016-04-10 00:00:00 Completed Ann Plazaold - External Influenza, Seasonal, Injectable 2016-04-10 00:00:00 Completed Ann Seybold - External Influenza, Seasonal, Injectable 2016-04-10 00:00:00 Completed Ann Seybold - External Influenza, Seasonal, Injectable 2016-04-10 00:00:00 Completed Ann Seybold - External Influenza, Seasonal, Injectable 2016-04-10 00:00:00 Completed Ann Seybold - External Influenza, Seasonal, Injectable 2016-04-10 00:00:00 Completed Ann Seybold - External Influenza, Seasonal, Injectable 2016-04-10 00:00:00 Completed Ann Seybold - External Influenza, Seasonal, Injectable 2016-04-10 00:00:00 Completed Ann Seybold - External Influenza, Seasonal, Injectable 2016-04-10 00:00:00 Completed Ann Seybold - External Influenza, Seasonal, Injectable 2016-04-10 00:00:00 Completed Ann Seybold - External Influenza, Seasonal, Injectable 2016-04-10 00:00:00 Completed Ann Seybold - External Influenza, Seasonal, Injectable 2016-04-10 00:00:00 Completed Ann Seybold - External Influenza, Seasonal, Injectable 2016-04-10 00:00:00 Completed Ann Seybold - External Influenza, Seasonal, Injectable 2016-04-10 00:00:00 Completed Ann Seybold - External Influenza, Seasonal, Injectable 2016-04-10 00:00:00 Completed Ann Seybold - External Influenza, Seasonal, Injectable 2016-04-10 00:00:00 Completed Ann Seybold - External Influenza, Seasonal, Injectable 2016-04-10 00:00:00 Completed Ann Seybold - External Influenza, Seasonal, Injectable 2016-04-10 00:00:00 Completed Ann Seybold - External Influenza, Seasonal, Injectable 2016-04-10 00:00:00 Completed Ann Seybold - External Influenza, Seasonal, Injectable 2016-04-10 00:00:00 Completed Ann Seybold - External Influenza, seasonal, inj 2016-04-10 00:00:00 Completed Influenza, seasonal, inj 2016-04-10 00:00:00 Completed Influenza, seasonal, inj 2016-04-10 00:00:00 Completed DTaP/Hep B/IPV Unknown Completed Kelse y Seybold - External Influenza Virus Vaccine, High Dose, Age 65 And Up Unknown [facility], [facility], Injectable Unknown Completed [facility] - External Influenza, Seasonal, Injectable Unknown Completed [facility] - External Covid-19 Vaccine Moderna (Spikevax), Mrna-lnp, Ramon Protein, Pf Unknown Completed [facility] External Covid-19 Vaccine Moderna (Spikevax), Mrna-lnp, Ramon Protein, Pf Unknown Completed [facility] - External Covid-19 Vaccine Moderna (Spikevax), Mrna-lnp, Ramon Protein, Pf Unknown Completed [facility] - External Influenza Virus Vaccine, Quadrivalent, High Dose, Age 65 And Up Unknown Completed [facility] eybold - External Influenza Virus Vaccine, Quadrivalent, High Dose, Age 65 And Up Unknown Completed [facility] - External Influenza vaccine, quadrivalent, adjuvanted, 65+ Unknown Completed [facility] - External Influenza Virus Vaccine, High Dose, Age 65 And Up Unknown Completed [facility] - External Hepatitis B, Adult (3 dose) Unknown Completed [facility] - External Pneumococcal Vaccine, Polysaccharide Unknown Completed [facility] - External [facility] Vacc[facility], High Dose, Age 65 And Up Unknown Completed [facility] - External AFLURIA TRIVALENT MDV Unknown Completed [facility] - External AFLURIA TRIVALENT MDV Unknown Completed [facility] External Covid-19 Vaccine Moderna (Spikevax), Mrna-lnp, Ramon Protein, Pf Unknown Completed [facility] - External Covid-19 Vaccine Moderna (Spikevax), Mrna-lnp, Ramon Protein, Pf Unknown Completed [facility] - External Covid-19 Vaccine Moderna (Spikevax), Mrna-lnp, Ramon Protein, Pf Unknown [facility] Influenza Virus Vaccine, Quadrivalent, High Dose, Age 65 And Up Unknown Completed Ann S eybold - External Influenza Virus Vaccine, Quadrivalent, High Dose, Age 65 And Up Unknown Completed [facility] eybold - External Influenza vaccine, quadrivalent, adjuvanted, 65+ Unknown [facility] Influenza Virus Vaccine, High Dose, Age 65 And Up Unknown Completed Ann ybold - External Hepatitis B, Adult (3 dose) Unknown Completed Ann ybold - External Pneumococcal Vaccine, Polysaccharide Unknown [facility] Unknown Completed Roel y Seybold - External Influenza Virus Vaccine, High Dose, Age 65 And Up Unknown Completed Ann ybold - External AFLURIA TRIVALENT MDV [facility] AFLURIA TRIVALENT MDV [facility] Covid-19 Vaccine Moderna (Spikevax), Mrna-lnp, Ramon Protein, Pf Unknown [facility] Covid-19 Vaccine Moderna (Spikevax), Mrna-lnp, Ramon Protein, Pf Unknown [facility] Vaccine Moderna (Spikevax), Mrna-lnp, Ramon Protein, Pf Unknown [facility] Influenza Virus Vaccine, Quadrivalent, High Dose, Age 65 And Up Unknown Completed Ann S eybold - External Influenza Virus Vaccine, Quadrivalent, High Dose, Age 65 And Up Unknown Completed [facility] eybold - External Influenza vaccine, quadrivalent, adjuvanted, 65+ Unknown [facility] Influenza Virus Vaccine, High Dose, Age 65 And Up [facility], Adult (3 dose) Unknown Completed Ann ybold - External Pneumococcal Vaccine, Polysaccharide Unknown [facility]/IPV Unknown Completed [facility] - External Influenza Virus Vaccine, High Dose, Age 65 And Up Unknown [facility] Influenza, Seasonal, Injectable Unknown [facility] Influenza, Seasonal, Injectable Unknown [facility] Covid-19 Vaccine Moderna (Spikevax), Mrna-lnp, Ramon Protein, Pf Unknown [facility] Covid-[facility] Vaccine Moderna (Spikevax), Mrna-lnp, Ramon Protein, Pf Unknown [facility] Covid-[facility] Vaccine Moderna (Spikevax), Mrna-lnp, Ramon Protein, Pf Unknown [facility] DTaP/Hep B/IPV Unknown Completed [facility] y Seybold - External Influenza, Seasonal, Injectable Unknown Completed Ann Seybold - External Influenza, Seasonal, Injectable Unknown Completed Ann Seybold - External Covid-19 Vaccine Moderna (Spikevax), Mrna-lnp, Ramon Protein, Pf Unknown Completed Ann Seybold - External Covid-19 Vaccine Moderna (Spikevax), Mrna-lnp, Ramon Protein, Pf Unknown Completed Ann Seybold - External Covid-19 Vaccine Moderna (Spikevax), Mrna-lnp, Ramon Protein, Pf Unknown Completed Ann Seybold - External Influenza Virus Vaccine, Quadrivalent, High Dose, Age 65 And Up Unknown Completed Ann S eybold - External Influenza Virus Vaccine, Quadrivalent, High Dose, Age 65 And Up Unknown Completed Ann S eybold - External Influenza vaccine, quadrivalent, adjuvanted, 65+ Unknown Completed Ann [facility]bo [facility] - External Influenza Virus Vaccine, High Dose, Age 65 And Up Unknown Completed Ann Seybold - External DTaP/Hep B/IPV Unknown Completed Roel y Seybold - External Influenza Virus Vaccine, High Dose, Age 65 And Up Unknown Completed Ann Seybold - External Influenza, Seasonal, Injectable Unknown Completed Ann Seybold - External Influenza, Seasonal, Injectable Unknown Completed Ann Seybold - External Covid-19 Vaccine Moderna (Spikevax), Mrna-lnp, Ramon Protein, Pf Unknown Completed Ann Seybold - External Covid-19 Vaccine Moderna (Spikevax), Mrna-lnp, Ramon Protein, Pf Unknown Completed Ann Seybold - External Covid-19 Vaccine Moderna (Spikevax), Mrna-lnp, Ramon Protein, Pf [facility] Completed Roel y Seybold - External Influenza, Seasonal, Injectable Unknown Completed Ann Seybold - External Influenza, Seasonal, Injectable Unknown Completed Ann Seybold - External Covid-19 Vaccine Moderna (Spikevax), Mrna-lnp, Ramon Protein, Pf Unknown Completed Ann Seybold - External Covid-19 Vaccine Moderna (Spikevax), Mrna-lnp, Ramon Protein, Pf Unknown Completed Ann Seybold - External Covid-19 Vaccine Moderna (Spikevax), Mrna-lnp, Ramon Protein, Pf Unknown Completed Ann Seybold - External Influenza Virus Vaccine, Quadrivalent, High Dose, Age 65 And Up Unknown Completed Ann S eybold - External Influenza Virus Vaccine, Quadrivalent, High Dose, Age 65 And Up Unknown Completed Ann S eybold - External Influenza vaccine, quadrivalent, adjuvanted, 65+ Unknown Completed Ann Plazao ld - External Influenza Virus Vaccine, High Dose, Age 65 And Up Unknown Completed Ann Seybold - External DTaP/Hep B/IPV Unknown Completed Melanie y Seybold - External Influenza Virus Vaccine, High Dose, Age 65 And Up Unknown Completed Ann Seybold - External Influenza, Seasonal, Injectable Unknown Completed Ann Seybold - External Influenza, Seasonal, Injectable Unknown Completed Ann Dayybold - External Covid-19 Vaccine Moderna (Spikevax), Mrna-lnp, Ramon Protein, Pf Unknown Completed Ann Seybold - External Covid-19 Vaccine Moderna (Spikevax), Mrna-lnp, Ramon Protein, [facility] Moderna (Spikevax), Mrna-lnp, Ramon Protein, Pf Unknown Completed Ann Seybold - External DTaP/Hep B/IPV Unknown Completed Melanie y Seybold - External Influenza, Seasonal, Injectable Unknown Completed Ann Dayybold - External Influenza, Seasonal, Injectable Unknown Completed Ann ybold - External Covid-19 Vaccine Moderna (Spikevax), Mrna-lnp, Ramon Protein, Pf [facility] Moderna (Spikevax), Mrna-lnp, Ramon Protein, Pf Unknown Completed Ann Seybold - External Covid-19 Vaccine Moderna (Spikevax), Mrna-lnp, Ramon Protein, Pf Unknown Completed Ann Dayybold - External Influenza Virus Vaccine, Quadrivalent, High Dose, Age 65 And Up Unknown Completed Ann S eybold - External Influenza Virus Vaccine, Quadrivalent, High Dose, Age 65 And Up Unknown Completed Ann S eybold - External Influenza vaccine, quadrivalent, adjuvanted, 65+ Unknown Completed Ann Plazao ld - External Influenza Virus Vaccine, High Dose, Age 65 And Up Unknown Completed Ann Seybold - External DTaP/Hep B/IPV Unknown Completed Melanie y Seybold - External Influenza Virus Vaccine, High Dose, Age 65 And Up Unknown Completed Ann Seybold - External Influenza, Seasonal, Injectable Unknown Completed Ann Seybold - External Influenza, Seasonal, Injectable Unknown Completed Ann Seybold - External Covid-19 Vaccine Moderna (Spikevax), Mrna-lnp, Ramon Protein, Pf Unknown Completed Ann Seybold - External Covid-19 Vaccine Moderna (Spikevax), Mrna-lnp, Ramon Protein, Pf [facility] Vaccine Moderna (Spikevax), Mrna-lnp, Ramon Protein, Pf [facility] D[facility]P/Hep B/IPV Unknown Completed [facility] y Seybold - External Influenza, Seasonal, Injectable Unknown Completed Ann Seybold - External Influenza, Seasonal, Injectable Unknown [facility] Vaccine Moderna (Spikevax), Mrna-lnp, Ramon Protein, Pf [facility] Cov[facility] Vaccine Moderna (Spikevax), Mrna-lnp, Ramon Protein, Pf [facility] Vaccine Moderna (Spikevax), Mrna-lnp, Ramon Protein, Pf [facility] Influenza Virus Vaccine, Quadrivalent, High Dose, Age 65 And Up Unknown Completed [facility] eybold - External Influenza Virus Vaccine, Quadrivalent, High Dose, Age 65 And Up Unknown Completed [facility] eybold - External Influenza vaccine, quadrivalent, adjuvanted, 65+ Unknown Com[facility] - External Influenza Virus Vaccine, High Dose, Age 65 And Up [facility] DTaP/Hep B/IPV Unknown Completed [facility] y Seybold - External Influenza Virus Vaccine, High Dose, Age 65 And Up [facility] Influenza, Seasonal, Injectable Unknown [facility] Influenza, Seasonal, Injectable Unknown [facility] Covid-[facility] Vaccine Moderna (Spikevax), Mrna-lnp, Ramon Protein, Pf [facility] Covid-[facility] Vaccine Moderna (Spikevax), Mrna-lnp, Ramon Protein, Pf [facility] Covid-[facility] Vaccine Moderna (Spikevax), Mrna-lnp, Ramon Protein, Pf [facility] D[facility]/Hep [facility]/IPV [facility] - External Influenza, Seasonal, Injectable Unknown Completed Ann Seybold - External Influenza, Seasonal, Injectable Unknown Completed [facility] Seybold - External Covid-19 Vaccine Moderna (Spikevax), Mrna-lnp, Ramon Protein, Pf Unknown [facility] Cov[facility] Vaccine Moderna (Spikevax), Mrna-lnp, Ramon Protein, Pf [facility] Cov[facility] Vaccine Moderna (Spikevax), Mrna-lnp, Ramon Protein, Pf [facility] Influenza Virus Vaccine, Quadrivalent, High Dose, Age 65 And Up Unknown Completed [facility] S eybold - External Influenza Virus Vaccine, Quadrivalent, High Dose, Age 65 And Up Unknown Completed [facility] eybold - External Influenza vaccine, quadrivalent, adjuvanted, 65+ Unknown Completed [facility] - External Influenza Virus Vaccine, High Dose, Age 65 And Up [facility] Hepatitis B, Adult (3 dose) [facility] DTaP/Hep B/IPV Unknown Completed [facility] y Seybold - External Influenza Virus Vaccine, High Dose, Age 65 And Up Unknown Completed [facility] Seybold - External Influenza, Seasonal, Injectable Unknown [facility] Influenza, Seasonal, Injectable Unknown [facility] Covid-[facility] Vaccine Moderna (Spikevax), Mrna-lnp, Ramon Protein, Pf Unknown Completed [facility] Seybold - External Covid-19 Vaccine Moderna (Spikevax), Mrna-lnp, Ramon Protein, Pf Unknown [facility] Covid-[facility] Vaccine Moderna (Spikevax), Mrna-lnp, Ramon Protein, Pf Unknown Completed Ann Seybold - External DTaP/Hep B/IPV Unknown [facility] - External Influenza, Seasonal, Injectable Unknown Completed Ann Seybold - External Influenza, Seasonal, Injectable Unknown Completed [facility] Seybold - External Covid-19 Vaccine Moderna (Spikevax), Mrna-lnp, Ramon Protein, Pf Unknown Completed [facility] Seybold - External Covid-19 Vaccine Moderna (Spikevax), Mrna-lnp, Ramon Protein, Pf [facility] Vaccine Moderna (Spikevax), Mrna-lnp, Ramon Protein, Pf [facility] Influenza Virus Vaccine, Quadrivalent, High Dose, Age 65 And Up Unknown Completed Ann S eybold - External Influenza Virus Vaccine, Quadrivalent, High Dose, Age 65 And Up Unknown Completed Ann S eybold - External Influenza vaccine, quadrivalent, adjuvanted, 65+ Unknown Completed Ann Seybo ld - External Influenza Virus Vaccine, High Dose, Age 65 And Up [facility], Adult (3 dose) [facility] External Pneumococcal Vaccine, Polysaccharide Unknown Completed Ann Seol d - External DTaP/Hep B/IPV Unknown Completed [facility] y Seybold - External Influenza Virus Vaccine, High Dose, Age 65 And Up [facility] Influenza, Seasonal, Injectable Unknown [facility] External Influenza, Seasonal, Injectable Unknown [facility] Covid-[facility] Vaccine Moderna (Spikevax), Mrna-lnp, Ramon Protein, Pf Unknown [facility] Covid-[facility] Vaccine Moderna (Spikevax), Mrna-lnp, Ramon Protein, Pf Unknown [facility] Covid-[facility] Vaccine Moderna (Spikevax), Mrna-lnp, Ramon Protein, Pf Unknown [facility] DTaP/Hep B/IPV Unknown Completed [facility] y Seybold - External Influenza, Seasonal, Injectable Unknown [facility] External Influenza, Seasonal, Injectable Unknown [facility] Covid-[facility] Vaccine Moderna (Spikevax), Mrna-lnp, Ramon Protein, Pf Unknown [facility] Covid-[facility] Vaccine Moderna (Spikevax), Mrna-lnp, Ramon Protein, Pf Unknown Completed [facility] Seybold - External Covid-19 Vaccine Moderna (Spikevax), Mrna-lnp, Ramon Protein, Pf Unknown [facility] External Influenza Virus Vaccine, Quadrivalent, High Dose, Age 65 And Up Unknown Completed [facility] S eybold - External Influenza Virus Vaccine, Quadrivalent, High Dose, Age 65 And Up Unknown Completed Ann S eybold - External Influenza vaccine, quadrivalent, adjuvanted, 65+ Unknown Completed Ann Dayybo ld - External Influenza Virus Vaccine, High Dose, Age 65 And Up Unknown Completed Ann Dayybold - External Hepatitis B, Adult (3 dose) Unknown Completed Ann Dayybold - External Pneumococcal Vaccine, Polysaccharide Unknown Completed [facility] - External DTaP/Hep B/IPV Unknown Completed Melanie y Seybold - External Influenza Virus Vaccine, High Dose, Age 65 And Up Unknown Completed Ann Seybold - External Influenza, Seasonal, Injectable Unknown Completed Ann Seybold - External Influenza, Seasonal, Injectable Unknown Completed Ann Seybold - External Covid-19 Vaccine Moderna (Spikevax), Mrna-lnp, Ramon Protein, Pf Unknown Completed Ann Seybold - External Covid-19 Vaccine Moderna (Spikevax), Mrna-lnp, Ramon Protein, Pf Unknown Completed Ann Seybold - External Covid-19 Vaccine Moderna (Spikevax), Mrna-lnp, Ramon Protein, Pf Unknown Completed Ann Dayybold - External DTaP/Hep B/IPV Unknown Completed Melanie y Seybold - External Influenza, Seasonal, Injectable Unknown Completed Ann Seybold - External Influenza, Seasonal, Injectable Unknown Completed Ann Seybold - External Covid-19 Vaccine Moderna (Spikevax), Mrna-lnp, Ramon Protein, Pf Unknown Completed Ann Seybold - External Covid-19 Vaccine Moderna (Spikevax), Mrna-lnp, Ramon Protein, Pf Unknown Completed Ann Seybold - External Covid-19 Vaccine Moderna (Spikevax), Mrna-lnp, Ramon Protein, Pf Unknown Completed Ann Seybold - External Influenza Virus Vaccine, Quadrivalent, High Dose, Age 65 And Up Unknown Completed Ann S eybold - External Influenza Virus Vaccine, Quadrivalent, High Dose, Age 65 And Up Unknown Completed Ann S eybold - External Influenza vaccine, quadrivalent, adjuvanted, 65+ Unknown Completed Ann Plazao ld - External Influenza Virus Vaccine, High Dose, Age 65 And Up Unknown Completed Ann Dayybold - External Hepatitis B, Adult (3 dose) Unknown Completed Ann Seybold - External Pneumococcal Vaccine, Polysaccharide Unknown Completed Ann ybol d - External DTaP/Hep B/IPV Unknown Completed Melanie y Seybold - External Influenza Virus Vaccine, High Dose, Age 65 And Up Unknown Completed Ann Seybold - External Influenza, Seasonal, Injectable Unknown Completed Ann ybold - External Influenza, Seasonal, Injectable Unknown [facility] Vaccine Moderna (Spikevax), Mrna-lnp, Ramon Protein, Pf Unknown [facility] Covid-[facility] Vaccine Moderna (Spikevax), Mrna-lnp, Ramon Protein, Pf Unknown [facility] Covid-[facility] Vaccine Moderna (Spikevax), Mrna-lnp, Ramon Protein, Pf Unknown [facility] External Influenza Virus Vaccine, Quadrivalent, High Dose, Age 65 And Up Unknown Completed [facility] eybold - External Influenza Virus Vaccine, Quadrivalent, High Dose, Age 65 And Up Unknown Completed [facility] eybold - External Influenza vaccine, quadrivalent, adjuvanted, 65+ Unknown Completed Ann [facility] - External Influenza Virus Vaccine, High Dose, Age 65 And Up [facility], Adult (3 dose) Unknown Completed Ann ybold - External Pneumococcal Vaccine, Polysaccharide [facility] Completed Roel y Seybold - External Influenza Virus Vaccine, High Dose, Age 65 And Up [facility] External Influenza, Seasonal, Injectable Unknown Completed Ann Seybold - External Influenza, Seasonal, Injectable Unknown [facility] Covid-[facility] Vaccine Moderna (Spikevax), Mrna-lnp, Ramon Protein, Pf Unknown [facility] Covid-19 Vaccine Moderna (Spikevax), Mrna-lnp, Ramon Protein, Pf Unknown Completed Ann Seybold - External Covid-19 Vaccine Moderna (Spikevax), Mrna-lnp, Ramon Protein, Pf Unknown Completed [facility] Seybold - External Influenza Virus Vaccine, Quadrivalent, High Dose, Age 65 And Up Unknown Completed [facility] S eybold - External Influenza Virus Vaccine, Quadrivalent, High Dose, Age 65 And Up Unknown Completed [facility] S eybold - External Influenza vaccine, quadrivalent, adjuvanted, 65+ Unknown Completed Ann Plazao ld - External Influenza Virus Vaccine, High Dose, Age 65 And Up Unknown Completed Ann [facility] - External Hepatitis B, Adult (3 dose) Unknown Completed Ann Plazaold - External Pneumococcal Vaccine, Polysaccharide Unknown Completed Ann [facility] - External Vital Signs Vital Name Observation Time Observation Value Comments S ource Systolic blood pressure 2023-12-04 13:32:00 144 mm[Hg] Ann Seybo ld - External Diastolic blood pressure 2023-12-04 13:32:00 75 mm[Hg] Ann Dayybo ld - External Heart rate 2023-12-04 13:32:00 73 /min Kelse y Seybold - External Body temperature 2023-12-04 13:32:00 36.5 Gifty Ann Seybold - External Respiratory rate 2023-12-04 13:32:00 16 /min Ann Seybold - External Body height 2023-12-04 13:32:00 177.8 cm Naila ey Seybold - External Body weight 2023-12-04 13:32:00 83.598 kg Naila ey Seybold - External BMI 2023-12-04 13:32:00 26.44 kg/m2 Naila ey Seybold - External Oxygen saturation in Arterial blood by Pulse oximetry 2023-12-04 13:32:00 96 /min Ann Plazao ld - External Body weight 2023-11-22 13:58:00 84.369 kg Naila ey Seybold - External BMI 2023-11-22 13:58:00 26.69 kg/m2 Naila ey Seybold - External Systolic blood pressure 2023-10-04 14:57:00 122 mm[Hg] Ann Dayybo ld - External Diastolic blood pressure 2023-10-04 14:57:00 70 mm[Hg] Ann Dayybo ld - External Heart rate 2023-10-04 14:57:00 60 /min Kelse y Seybold - External Body temperature 2023-10-04 14:57:00 36.56 Gifty Ann Seybold - External Respiratory rate 2023-10-04 14:57:00 16 /min Ann Seybold - External Body height 2023-10-04 14:57:00 177.8 cm Naila ey Seybold - External Body weight 2023-10-04 14:57:00 84.369 kg Naila ey Seybold - External BMI 2023-10-04 14:57:00 26.69 kg/m2 Naila ey Seybold - External Systolic blood pressure 2023-09-10 18:25:00 139 mm[Hg] Ann Seybo ld - External Diastolic blood pressure 2023-09-10 18:25:00 76 mm[Hg] Ann Seybo ld - External Heart rate 2023-09-10 18:25:00 71 /min Roelse y Seybold - External Body temperature 2023-09-10 16:04:00 36.33 Gifty Ann Seybold - External Respiratory rate 2023-09-10 16:04:00 18 /min Ann Seybold - External Body height 2023-09-10 16:04:00 177.8 cm Naila ey Seybold - External Body weight 2023-09-10 16:04:00 90.629 kg Naila ey Seybold - External BMI 2023-09-10 16:04:00 28.67 kg/m2 Naila ey Seybold - External Oxygen saturation in Arterial blood by Pulse oximetry 2023-09-10 16:04:00 98 /min Ann Dayybo ld - External Systolic blood pressure 2023-08-09 19:34:00 138 mm[Hg] Ann Seybo ld - External Diastolic blood pressure 2023-08-09 19:34:00 76 mm[Hg] Ann Dayybo ld - External Heart rate 2023-08-09 19:20:00 79 /min Kelse y Seybold - External Body temperature 2023-08-09 19:20:00 37.11 Gifty Ann Seybold - External Respiratory rate 2023-08-09 19:20:00 20 /min Ann Seybold - External Body height 2023-08-09 19:20:00 177.8 cm Naila ey Seybold - External Body weight 2023-08-09 19:20:00 92.534 kg Naila ey Seybold - External BMI 2023-08-09 19:20:00 29.27 kg/m2 Naila ey Seybold - External Oxygen saturation in Arterial blood by Pulse oximetry 2023-08-09 19:20:00 100 /min Ann Seybo ld - External Systolic blood pressure 2023-08-07 21:44:00 143 mm[Hg] Ann Seybo ld - External Diastolic blood pressure 2023-08-07 21:44:00 68 mm[Hg] Ann Seybo ld - External Heart rate 2023-08-07 21:44:00 83 /min Kelse y Seybold - External Body temperature 2023-08-07 21:44:00 37.44 Gifty Ann Seybold - External Respiratory rate 2023-08-07 21:44:00 15 /min Ann Seybold - External Body height 2023-08-07 21:44:00 177.8 cm Naila ey Seybold - External Body weight 2023-08-07 21:44:00 92.534 kg Naila ey Seybold - External BMI 2023-08-07 21:44:00 29.27 kg/m2 Naila ey Seybold - External Oxygen saturation in Arterial blood by Pulse oximetry 2023-08-07 21:44:00 97 /min Ann Seybo ld - External Systolic blood pressure 2023-07-18 20:36:00 139 mm[Hg] Ann Seybo ld - External Diastolic blood pressure 2023-07-18 20:36:00 67 mm[Hg] Ann Seybo ld - External Heart rate 2023-07-18 20:36:00 76 /min Kelse y Seybold - External Body temperature 2023-07-18 20:36:00 36.83 Gifty Ann Seybold - External Respiratory rate 2023-07-18 20:36:00 15 /min Ann Seybold - External Body height 2023-07-18 20:36:00 177.8 cm Naila ey Seybold - External Body weight 2023-07-18 20:36:00 92.987 kg Naila ey Seybold - External BMI 2023-07-18 20:36:00 29.41 kg/m2 Naila ey Seybold - External Oxygen saturation in Arterial blood by Pulse oximetry 2023-07-18 20:36:00 96 /min Ann Seybo ld - External Systolic blood pressure 2023-07-02 18:43:00 150 mm[Hg] Ann Seybo ld - External Diastolic blood pressure 2023-07-02 18:43:00 72 mm[Hg] Ann Seybo ld - External Heart rate 2023-07-02 18:36:00 71 /min Kelse y Seybold - External Body temperature 2023-07-02 18:36:00 36.06 Gifty Ann Seybold - External Respiratory rate 2023-07-02 18:36:00 18 /min Ann Seybold - External Body height 2023-07-02 18:36:00 177.8 cm Naila ey Seybold - External Body weight 2023-07-02 18:36:00 91.808 kg Naila ey Seybold - External BMI 2023-07-02 18:36:00 29.04 kg/m2 Naila ey Seybold - External Systolic blood pressure 2023-06-22 15:27:00 164 mm[Hg] Ann Seybo ld - External Diastolic blood pressure 2023-06-22 15:27:00 80 mm[Hg] Ann Seybo ld - External Heart rate 2023-06-22 15:27:00 76 /min Roelse y Seybold - External Body temperature 2023-06-22 15:27:00 36.78 Gifty Ann Seybold - External Respiratory rate 2023-06-22 15:27:00 14 /min Ann Seybold - External Body height 2023-06-22 15:27:00 177.8 cm Naila ey Seybold - External Body weight 2023-06-22 15:27:00 91.173 kg Naila ey Seybold - External BMI 2023-06-22 15:27:00 28.84 kg/m2 Naila ey Seybold - External Systolic blood pressure 2023-04-16 17:17:00 108 mm[Hg] [facility] Diastolic blood pressure 2023-04-16 17:17:00 42 mm[Hg] [facility] Heart rate 2023-04-16 17:17:00 73 /min [facility] Body temperature 2023-04-16 17:17:00 36.44 Gifty [facility] Respiratory rate 2023-04-16 17:17:00 18 /min [facility] Oxygen saturation in Arterial blood by Pulse oximetry 2023-04-16 17:17:00 94 /min [place] [facility] Body weight 2023-04-16 09:35:00 92.488 kg [facility] BMI 2023-04-16 09:35:00 29.26 kg/m2 [facility] Body height 2023-04-12 05:08:00 177.8 cm [facility] Systolic blood pressure 2023-02-16 15:36:00 133 mm[Hg] Ann Seybo ld - External Diastolic blood pressure 2023-02-16 15:36:00 68 mm[Hg] Ann Seybo ld - External Heart rate 2023-02-16 15:36:00 65 /min Kelse y Seybold - External Body temperature 2023-02-16 15:36:00 36.61 Gifty Ann Seybold - External Respiratory rate 2023-02-16 15:36:00 17 /min Ann Seybold - External Body height 2023-02-16 15:36:00 177.8 cm Naila ey Seybold - External Body weight 2023-02-16 15:36:00 88.451 kg Naila ey Seybold - External BMI 2023-02-16 15:36:00 27.98 kg/m2 Naila ey Seybold - External Systolic blood pressure 2023-02-06 19:05:00 136 mm[Hg] Ann Seybo ld - External Diastolic blood pressure 2023-02-06 19:05:00 64 mm[Hg] Ann Seybo ld - External Heart rate 2023-02-06 19:05:00 97 /min Kelse y Seybold - External Body temperature 2023-02-06 19:05:00 36.56 Gifty Ann Seybold - External Respiratory rate 2023-02-06 19:05:00 14 /min Ann Seybold - External Body height 2023-02-06 19:05:00 177.8 cm Naila ey Seybold - External Body weight 2023-02-06 19:05:00 91.173 kg Naila ey Seybold - External BMI 2023-02-06 19:05:00 28.84 kg/m2 Naila ey Seybold - External Systolic blood pressure 2022-12-07 20:14:00 123 mm[Hg] Ann Seybo ld - External Diastolic blood pressure 2022-12-07 20:14:00 74 mm[Hg] Ann Seybo ld - External Heart rate 2022-12-07 20:14:00 78 /min Kelse y Seybold - External Body temperature 2022-12-07 20:14:00 36.67 Gifty Ann Seybold - External Respiratory rate 2022-12-07 20:14:00 16 /min Ann Seybold - External Body height 2022-12-07 20:14:00 177.8 cm Naila ey Seybold - External Body weight 2022-12-07 20:14:00 88.451 kg Naila ey Seybold - External BMI 2022-12-07 20:14:00 27.98 kg/m2 Naila ey Seybold - External Oxygen saturation in Arterial blood by Pulse oximetry 2022-12-07 20:14:00 95 /min Ann Seybo ld - External Systolic blood pressure 2022-11-03 14:41:00 137 mm[Hg] Ann Seybo ld - External Diastolic blood pressure 2022-11-03 14:41:00 71 mm[Hg] Ann Seybo ld - External Heart rate 2022-11-03 14:41:00 72 /min Roelse y Seybold - External Body temperature 2022-11-03 14:41:00 36.44 Gifty Ann Seybold - External Respiratory rate 2022-11-03 14:41:00 20 /min Ann Seybold - External Body height 2022-11-03 14:41:00 177.8 cm Naila ey Seybold - External Body weight 2022-11-03 14:41:00 86.818 kg Naila ey Seybold - External BMI 2022-11-03 14:41:00 27.46 kg/m2 Naila ey Seybold - External Systolic blood pressure 2022-09-15 18:22:00 132 mm[Hg] Ann Seybo ld - External Diastolic blood pressure 2022-09-15 18:22:00 64 mm[Hg] Ann Seybo ld - External Heart rate 2022-09-15 18:22:00 75 /min Kelse y Seybold - External Body temperature 2022-09-15 18:22:00 36.33 Gifty Ann Seybold - External Respiratory rate 2022-09-15 18:22:00 17 /min Ann Seybold - External Body height 2022-09-15 18:22:00 177.8 cm Naila ey Seybold - External Body weight 2022-09-15 18:22:00 91.989 kg Naila ey Seybold - External BMI 2022-09-15 18:22:00 29.10 kg/m2 Naila ey Seybold - External Oxygen saturation in Arterial blood by Pulse oximetry 2022-09-15 18:22:00 95 /min Ann Seybo ld - External Systolic blood pressure 2022-09-05 18:30:00 149 mm[Hg] Ann Seybo ld - External Diastolic blood pressure 2022-09-05 18:30:00 83 mm[Hg] Ann Seybo ld - External Heart rate 2022-09-05 18:30:00 82 /min Roelse y Seybold - External Body temperature 2022-09-05 18:30:00 36.89 Gifty Ann Seybold - External Body height 2022-09-05 18:30:00 177.8 cm Naila ey Seybold - External Body weight 2022-09-05 18:30:00 91.082 kg Naila ey Seybold - External BMI 2022-09-05 18:30:00 28.81 kg/m2 Naila ey Seybold - External Oxygen saturation in Arterial blood by Pulse oximetry 2022-09-05 18:30:00 96 /min Ann Seybo ld - External Systolic blood pressure 2022-08-04 15:25:00 140 mm[Hg] Ann Seybo ld - External Diastolic blood pressure 2022-08-04 15:25:00 72 mm[Hg] Ann Seybo ld - External Heart rate 2022-08-04 15:25:00 67 /min Kelse y Seybold - External Body temperature 2022-08-04 15:25:00 36.44 Gifty Ann Seybold - External Respiratory rate 2022-08-04 15:25:00 18 /min Ann Seybold - External Body height 2022-08-04 15:25:00 177.8 cm Naila ey Seybold - External Body weight 2022-08-04 15:25:00 91.717 kg Naila ey Seybold - External BMI 2022-08-04 15:25:00 29.01 kg/m2 Naila ey Seybold - External Oxygen saturation in Arterial blood by Pulse oximetry 2022-08-04 15:25:00 97 /min Ann Seybo ld - External Systolic blood pressure 2022-07-18 16:07:00 138 mm[Hg] Ann Seybo ld - External Diastolic blood pressure 2022-07-18 16:07:00 70 mm[Hg] Ann Seybo ld - External Heart rate 2022-07-18 16:07:00 84 /min Kelse y Seybold - External Body temperature 2022-07-18 16:07:00 36.06 Gifty Ann Seybold - External Respiratory rate 2022-07-18 16:07:00 15 /min Ann Seybold - External Body height 2022-07-18 16:07:00 177.8 cm Naila ey Seybold - External Body weight 2022-07-18 16:07:00 91.173 kg Naila ey Seybold - External BMI 2022-07-18 16:07:00 28.84 kg/m2 Naila ey Seybold - External Systolic blood pressure 2022-07-14 19:27:00 149 mm[Hg] Ann Seybo ld - External Diastolic blood pressure 2022-07-14 19:27:00 73 mm[Hg] Ann Seybo ld - External Heart rate 2022-07-14 19:27:00 77 /min Kelse y Seybold - External Body temperature 2022-07-14 19:27:00 36.17 Gifty Ann Seybold - External Respiratory rate 2022-07-14 19:27:00 20 /min Ann Seybold - External Body height 2022-07-14 19:27:00 177.8 cm Naila ey Seybold - External Body weight 2022-07-14 19:27:00 90.447 kg Naila ey Seybold - External BMI 2022-07-14 19:27:00 28.61 kg/m2 Naila ey Seybold - External Oxygen saturation in Arterial blood by Pulse oximetry 2022-07-14 19:27:00 95 /min Ann Seybo ld - External Systolic blood pressure 2022-07-04 16:36:00 168 mm[Hg] Ann Seybo ld - External Diastolic blood pressure 2022-07-04 16:36:00 80 mm[Hg] Ann Seybo ld - External Heart rate 2022-07-04 16:36:00 102 /min Kelse y Seybold - External Body temperature 2022-07-04 16:36:00 36.67 Gifty Ann Seybold - External Respiratory rate 2022-07-04 16:36:00 15 /min Ann Seybold - External Body height 2022-07-04 16:36:00 177.8 cm Naila ey Seybold - External Body weight 2022-07-04 16:36:00 92.534 kg Naila ey Seybold - External BMI 2022-07-04 16:36:00 29.27 kg/m2 Naila ey Seybold - External Systolic blood pressure 2022-06-30 15:05:00 157 mm[Hg] Ann Seybo ld - External Diastolic blood pressure 2022-06-30 15:05:00 89 mm[Hg] Ann Seybo ld - External Heart rate 2022-06-30 15:05:00 76 /min Kelse y Seybold - External Body temperature 2022-06-30 13:30:00 36.72 Gifty Ann Seybold - External Respiratory rate 2022-06-30 13:30:00 18 /min Ann Seybold - External Body height 2022-06-30 13:30:00 177.8 cm Naila ey Seybold - External Body weight 2022-06-30 13:30:00 91.173 kg Naila ey Seybold - External BMI 2022-06-30 13:30:00 28.84 kg/m2 Naila ey Seybold - External Oxygen saturation in Arterial blood by Pulse oximetry 2022-06-30 13:30:00 96 /min Ann Seybo ld - External Body height 2022-06-06 20:25:00 177.8 cm Naila ey Seybold - External Body weight 2022-06-06 20:25:00 92.443 kg Naila ey Seybold - External BMI 2022-06-06 20:25:00 29.24 kg/m2 Naila ey Seybold - External Oxygen saturation in Arterial blood by Pulse oximetry 2022-06-06 20:25:00 95 /min Ann Seybo ld - External Systolic blood pressure 2022-06-06 20:25:00 131 mm[Hg] Ann Seybo ld - External Diastolic blood pressure 2022-06-06 20:25:00 76 mm[Hg] Ann Seybo ld - External Heart rate 2022-06-06 20:25:00 89 /min Kelse y Seybold - External Body temperature 2022-06-06 20:25:00 37 Gifty Ann Seybold - External Respiratory rate 2022-06-06 20:25:00 16 /min Ann Seybold - External Systolic blood pressure 2022-05-22 17:16:00 146 mm[Hg] Ann Seybo ld - External Diastolic blood pressure 2022-05-22 17:16:00 80 mm[Hg] Ann Seybo ld - External Heart rate 2022-05-22 17:16:00 69 /min Roelse y Seybold - External Body temperature 2022-05-22 17:16:00 36.56 Gifty Ann Seybold - External Respiratory rate 2022-05-22 17:16:00 19 /min Ann Seybold - External Body height 2022-05-22 17:16:00 177.8 cm Naila ey Seybold - External Body weight 2022-05-22 17:16:00 91.173 kg Naila ey Seybold - External BMI 2022-05-22 17:16:00 28.84 kg/m2 Naila ey Seybold - External Oxygen saturation in Arterial blood by Pulse oximetry 2022-05-22 17:16:00 99 /min Ann Seybo ld - External Systolic blood pressure 2019-11-24 15:42:00 131 mm[Hg] [facility] Diastolic blood pressure 2019-11-24 15:42:00 70 mm[Hg] [facility] Heart rate 2019-11-24 15:42:00 74 /min [facility] Body temperature 2019-11-24 15:42:00 36.11 Gifty [facility] Respiratory rate 2019-11-24 15:42:00 18 /min [facility] Body weight 2019-11-24 15:42:00 97.07 kg [facility] BMI 2019-11-24 15:42:00 30.71 kg/m2 [facility] Systolic blood pressure 2019-11-24 15:42:00 131 mm[Hg] [facility] Diastolic blood pressure 2019-11-24 15:42:00 70 mm[Hg] [facility] Heart rate 2019-11-24 15:42:00 74 /min Unive [facility] Body temperature 2019-11-24 15:42:00 36.11 [facility] Respiratory rate 2019-11-24 15:42:00 18 /min [facility] Body weight 2019-11-24 15:42:[address] [facility] BMI 2019-11-24 15:42:00 30.71 kg/m2 [facility] Systolic blood pressure 2019-10-21 20:10:00 130 mm[Hg] [facility] Diastolic blood pressure 2019-10-21 20:10:00 80 mm[Hg] [facility] Heart rate 2019-10-21 20:10:00 82 /min Unive [facility] Body temperature 2019-10-21 20:10:00 36.67 Gifty [facility] Respiratory rate 2019-10-21 20:10:00 18 /min [facility] Body weight 2019-10-21 20:10:00 95.89 kg [facility] BMI 2019-10-21 20:10:00 30.33 kg/m2 Univ [facility] Systolic blood pressure 2019-09-22 21:29:00 132 mm[Hg] [facility] Diastolic blood pressure 2019-09-22 21:29:00 79 mm[Hg] [facility] Heart rate 2019-09-22 21:29:00 76 /min Unive [facility] Body temperature 2019-09-22 21:29:00 36.5 Gifty [facility] Body height 2019-09-22 21:29:[address] [facility] Body weight 2019-09-22 21:29:[address] [facility] BMI 2019-09-22 21:29:00 30.85 kg/m2 [facility] Systolic blood pressure 2019-09-11 16:20:00 129 mm[Hg] [facility] Diastolic blood pressure 2019-09-11 16:20:00 64 mm[Hg] [facility] Heart rate 2019-09-11 16:20:00 84 /min Unive [facility] Oxygen saturation in Arterial blood by Pulse oximetry 2019-09-11 16:20:00 96 /min [facility] Respiratory rate 2019-09-11 15:50:00 16 /min [facility] Body temperature 2019-09-11 13:08:00 36.5 Gifty [facility] Body height 2019-09-08 17:00:[address] [facility] Body weight 2019-09-08 17:00:00 97.523 kg [facility] BMI 2019-09-08 17:00:00 30.85 kg/m2 Univ [facility] Systolic blood pressure 2019-06-16 18:58:00 145 mm[Hg] [facility] Diastolic blood pressure 2019-06-16 18:58:00 78 mm[Hg] [facility] Heart rate 2019-06-16 18:58:00 85 /min Unive [facility] Body temperature 2019-06-16 18:58:00 36.56 Gifty [facility] Respiratory rate 2019-06-16 18:58:00 18 /min [facility] Body weight 2019-06-16 18:58:[address] [facility] BMI 2019-06-16 18:58:00 31.37 kg/m2 [facility] Systolic blood pressure 2019-05-30 14:15:00 130 mm[Hg] [facility] Diastolic blood pressure 2019-05-30 14:15:00 82 mm[Hg] [facility] Heart rate 2019-05-30 14:15:00 84 /min Unive [facility] Body temperature 2019-05-30 14:15:00 36.22 Gifty [facility] Respiratory rate 2019-05-30 14:15:00 18 /min [facility] Body weight 2019-05-30 14:15:00 99.156 kg [facility] BMI 2019-05-30 14:15:00 31.37 kg/m2 [facility] Oxygen saturation in Arterial blood by Pulse oximetry 2019-05-30 14:15:00 95 /min [facility] BP Systolic 2022-02-27 10:51:00 162 mm[Hg] BP Diastolic 2022-02-27 10:51:00 81 mm[Hg] Weight Measured 2022-02-27 10:51:00 202.80 pounds Height Measured 2022-02-27 10:51:00 70.00 inches Body Temperature 2022-02-27 10:51:00 98.40 degrees Heart Rate 2022-02-27 10:51:00 78.00 /min Respiratory Rate 2022-02-27 10:51:00 BP Systolic 2022-01-05 10:53:00 147 mm[Hg] BP [...] 17.00 /min Procedures Procedure Date / Time Performed Performing Clinician Source ENT SCOPE EXAMINATION 2023-11-22 14:00:32 Suleman Lerner Seybold - External QUANTAFLO 2023-08-07 22:11:20 Demetrio Gomez Seybold - External POCT GLUCOSE (AUTOMATED) 2023-04-16 18:00:00 Jg Dash [facility] VANCOMYCIN TROUGH 2023-04-16 13:56:00 Nae Ramirez [facility] POCT GLUCOSE (AUTOMATED) 2023-04-16 13:50:00 Jg Dash [facility] CBC WITH DIFF 2023-04-16 10:22:00 Mariela Justice [facility] MAGNESIUM 2023-04-16 09:33:00 Mariela Justice [facility] BASIC METABOLIC PANEL (NA, K, CL, CO2, GLUCOSE, BUN, CREATININE, CA) 2023-04-16 09:33:00 Mariela Justice [facility] LIPID PANEL (43436)(TOTAL CHOLESTEROL, TRIGLYCERIDES, HDL) 2023-04-16 09:33:00 Mariela Justice [facility] POCT GLUCOSE (AUTOMATED) 2023-04-16 02:40:00 Jg Dash [facility] XR SHOULDER 2+ VW LEFT 2023-04-16 02:36:11 Refugio Montez [facility] BASIC METABOLIC PANEL (NA, K, CL, CO2, GLUCOSE, BUN, CREATININE, CA) 2023-04-15 17:29:00 Mariela Justice [facility] CT HAND LEFT W CONTRAST 2023-04-15 01:02:07 St renetta Justice [facility] VANCOMYCIN TROUGH 2023-04-14 14:13:00 Jah Villalobos U [facility] PROTHROMBIN TIME / INR 2023-04-14 14:13:00 Zuri Dash [facility] ACTIVATED PARTIAL THRMPLAS NELLA 2023-04-14 14:13:00 Lay Dash [facility] MAGNESIUM 2023-04-14 09:14:00 Oma Justice [facility] BASIC METABOLIC PANEL (NA, K, CL, CO2, GLUCOSE, BUN, CREATININE, CA) 2023-04-14 09:14:00 Oma Justice [facility] CBC WITH DIFF 2023-04-14 09:14:00 Oma Justice [facility] CT HAND LEFT WO CONTRAST 2023-04-13 18:35:12 Ester Justice [facility] BASIC METABOLIC PANEL (NA, K, CL, CO2, GLUCOSE, BUN, CREATININE, CA) 2023-04-13 10:02:00 Karlee Bernard [facility] CBC WITH DIFF 2023-04-13 10:02:00 Karlee Bernard [facility] MRSA / MSSA SCREEN BY PCRSHELTON 2023-04-12 15:34:00 Arturo Montez [facility] CBC WITH DIFF 2023-04-12 02:28:00 Tara Penn [facility] GLYCOSYLATED HEMOGLOBIN (A1C) 2023-04-12 02:28:00 Lay Dash [facility] URINALYSIS 2023-04-12 01:15:00 [facility] CHEST 1 VW 2023-04-12 00:50:20 Tara Penn [facility] XR FOREARM 2 VW LEFT 2023-04-12 00:50:20 Robin Penn [facility] XR HAND <3 VW LEFT 2023-04-12 00:50:20 Opal Penn [facility] BLOOD CULTURE SCREEN 2023-04-12 00:42:00 Monika Vital [facility] RAPID INFLUENZA A/B 2023-04-12 00:42:00 Shirley Vital [facility] COVID-19 (ID NOW RAPID TESTING) 2023-04-12 00:42:00 Brittany Vital [facility] LAB ONLY COVID INTERPRETATION 2023-04-12 00:42:00 Brittany Vital [facility] LACTIC ACID WHOLE BLOOD 2023-04-12 00:40:00 Tara Penn [facility] BLOOD CULTURE SCREEN 2023-04-12 00:36:00 Monika Vital [facility] MAGNESIUM 2023-04-12 00:36:00 Tara [facility] AMMONIA, PLASMA 2023-04-12 00:36:00 Tara Penn [facility] TROPONIN I 2023-04-12 00:36:00 Brittany [facility] COMP. METABOLIC PANEL (97306) 2023-04-12 00:36:00 Tara Penn [facility] EKG-12 LEAD 2023-04-12 00:24:00 Doctor Unass igned, [place] [facility] US ABDOMEN COMPLETE 2021-09-23 15:52:29 Radha Barton [facility] POCT URINALYSIS AUTO 2019-11-24 15:43:00 Linette Sanford [facility] POCT URINALYSIS AUTO 2019-09-22 00:00:00 Linette Sanford [facility] BASIC METABOLIC PANEL (NA, K, CL, CO2, GLUCOSE, BUN, CREATININE, CA) 2019-09-11 13:40:00 Jania House [facility] CBC WITH DIFFERENTIAL 2019-09-11 13:40:00 Jania House [facility] EKG-12 LEAD 2019-09-11 13:35:28 Bill [facility] HB ABO GROUPING 2019-09-11 13:35:00 Bony House [facility] ASSIGNMENT OF BENEFITS 2019-09-04 14:13:48 Docto r Unassigned, [place] [facility] REFERRAL- REQUEST/RESPONSE 2019-08-22 05:01:00 Doctor Unassigned, [place] [facility] EXTERNAL PROVIDER RECORDS 2019-06-24 05:01:00 Do ctor Unassigned, [place] [facility] POCT URINALYSIS AUTO 2019-06-16 19:01:00 Linette Sanford [facility] ASSIGNMENT OF BENEFITS 2019-06-16 18:27:39 Docto r Unassigned, [place] [facility] EXTERNAL PROVIDER RECORDS 2019-06-08 06:01:00 Do ctor Unassigned, [place] [facility] POCT URINALYSIS AUTO 2019-05-30 14:18:00 Barbra Mccoy [facility] Plan of Care Planned Activity Planned Date Details Comments Source Goal Plan of Care Note [code = 38272-3] Goal Plan of Care Note [code = 04655-9] Goal Plan of Care Note [code = 11564-9] Goal Plan of Care Note [code = 33650-6] Goal Plan of Care Note [code = 48925-8] Goal Plan of Care Note [code = 25204-2] Goal Plan of Care Note [code = 29202-8] Goal Plan of Care Note [code = 05392-0] Goal Plan of Care Note [code = 67288-5] Goal Plan of Care Note [code = 23974-1] Goal Plan of Care Note [code = 16675-7] Goal Plan of Care Note [code = 05335-8] Goal Plan of Care Note [code = 08233-9] Goal Plan of Care Note [code = 62781-8] Goal Plan of Care Note [code = 01695-1] Goal Plan of Care Note [code = 66506-8] Goal Plan of Care Note [code = 59112-4] Goal Plan of Care Note [code = 96122-5] Goal Plan of Care Note [code = 01492-9] Goal Plan of Care Note [code = 35452-2] Goal Plan of Care Note [code = 47854-7] Goal Plan of Care Note [code = 11869-3] Goal Plan of Care Note [code = 66530-6] Goal Plan of Care Note [code = 09096-1] Goal Plan of Care Note [code = 32636-2] Goal Plan of Care Note [code = 27391-0] Goal Plan of Care Note [code = 12440-7] Goal Plan of Care Note [code = 84423-7] Goal Plan of Care Note [code = 41669-1] Goal Plan of Care Note [code = 08043-1] Goal Plan of Care Note [code = 88573-9] Goal Plan of Care Note [code = 42220-0] Goal Plan of Care Note [code = 93579-5] Goal Plan of Care Note [code = 59845-6] Goal Plan of Care Note [code = 61870-2] Goal Plan of Care Note [code = 49227-7] Goal Plan of Care Note [code = 80282-8] Goal Plan of Care Note [code = 98368-6] Goal Plan of Care Note [code = 52877-3] Goal Plan of Care Note [code = 38152-9] Goal Plan of Care Note [code = 23251-1] Goal Plan of Care Note [code = 09475-5] Goal Plan of Care Note [code = 32190-0] Goal Plan of Care Note [code = 58603-1] Goal Plan of Care Note [code = 17682-0] Goal Plan of Care Note [code = 30981-1] Goal Plan of Care Note [code = 02924-1] Goal Plan of Care Note [code = 82221-4] Goal Plan of Care Note [code = 06610-4] Goal Plan of Care Note [code = 40999-8] Goal Plan of Care Note [code = 08664-3] Goal Plan of Care Note [code = 05053-5] Goal Plan of Care Note [code = 32875-3] Goal Plan of Care Note [code = 59281-4] Goal Plan of Care Note [code = 45830-7] Goal Plan of Care Note [code = 26320-8] Goal Plan of Care Note [code = 54144-7] Goal Plan of Care Note [code = 08949-2] Goal Plan of Care Note [code = 76105-6] Goal Plan of Care Note [code = 43581-2] Goal Plan of Care Note [code = 53341-9] Goal Plan of Care Note [code = 50445-4] Goal Plan of Care Note [code = 19614-6] Goal Plan of Care Note [code = 59143-4] Goal Plan of Care Note [code = 36975-5] Goal Plan of Care Note [code = 95669-7] Goal Plan of Care Note [code = 73002-4] Encounters Start Date/Time End Date/Time Encounter Type Admission Type Attending Clinicians [facility] Facility Care Department Encounter ID Source 2021-02-03 22:55:54 Outpatient [facility]ILL [facility] [id number] [facility] 2024-01-01 13:30:00 2024-01-01 13:30:00 Outpatient [id number] [facility]-01 13:30:00 2024-01-01 13:30:00 Outpatient KALI RODRIGUEZ [id number] [facility] 2023-12-25 10:00:00 2023-12-25 10:00:00 Outpatient [facility]ACK[facility] [id number] [facility]23-[facility]-20 10:00:00 2023-12-20 10:00:00 Outpatient REY JACKSON [id number] [facility] 2023-12-17 09:30:00 2023-12-17 09:30:00 Outpatient ANN CAMPOS [id number] [facility] 2023-12-17 08:30:00 2023-12-17 08:30:00 Outpatient ANN CAMP[facility] [id number] [facility] 2023-12-14 00:00:00 2023-12-14 00:00:00 Outpatient MICHELL FOREMAN [id number] [facility] 2023-12-13 00:00:00 2023-12-13 00:00:00 Outpatient ANN CAMPOS [id number] Ann Seybtaylor 2023-12-07 00:00:00 2023-12-07 00:00:00 Outpatient ANN CAMPOS [id number] Ann Seybtaylor 2023-12-07 00:00:00 2023-12-07 00:00:00 Outpatient REY JACKSON [id number] [facility] 2023-12-06 00:00:00 2023-12-06 00:00:00 Outpatient REY JACKSONSEY [id number] Ann Seybold 2023-12-04 14:30:00 2023-12-04 14:30:00 Outpatient ANN CAMPOS [id number] Ann Seybold 2023-12-04 14:30:00 2023-12-04 14:30:00 Outpatient KALI RODRIGUEZ ANN CAMPOS [id number] Ann Seybold 2023-12-04 10:15:00 2023-12-04 10:15:00 Outpatient LAB39 ANN CAMPOS [id number] Ann Seybold 2023-12-04 08:40:00 2023-12-04 08:40:00 Outpatient THEREY FORMAN ANN CAMPOS [id number] Ann Seybold 2023-12-04 00:00:00 2023-12-04 00:00:00 Outpatient REY JACKSON ANN CAMPOS [id number] Ann Seybold 2023-12-01 00:00:00 2023-12-01 00:00:00 Outpatient ALINE FERNANDEZ [id number] Ann Seybold 2023-12-01 00:00:00 2023-12-01 00:00:00 Outpatient MEHNAZ MUROANNAMaine CAMPOS [id number] Ann Seybold 2023-12-01 00:00:00 2023-12-01 00:00:00 Outpatient [facility] [facility] [id number] Ann Seybold 2023-11-29 11:30:00 2023-11-29 11:30:00 Outpatient CATHLEEN HOUSTON [id number] Ann Seybold 2023-11-29 00:00:00 2023-11-29 00:00:00 Outpatient [facility] [id number] Ann Seybold 2023-11-29 00:00:00 2023-11-29 00:00:00 Outpatient DEMETRIO GOMEZ [id number] Ann Seybold 2023-11-27 00:00:00 2023-11-27 00:00:00 Outpatient [facility] [id number] Ann Seybtaylor 2023-11-27 00:00:00 2023-11-27 00:00:00 Outpatient SULEMAN KEBEDEYESY CAMPOS [id number] Ann Dayybtaylor 2023-11-26 00:00:00 2023-11-26 00:00:00 Outpatient CHERELLEEster DEMETRIO CAMPOS [id number] [facility] 2023-11-26 00:00:00 2023-11-26 00:00:00 Outpatient MD ANN CASTILLO [id number] [facility] 2023-11-26 00:00:00 2023-11-26 00:00:00 Outpatient SULEMAN KEBEDE ANN CAMPOS [id number] Ann Dayybtaylor 2023-11-22 10:00:00 2023-11-22 10:00:00 Outpatient SULEMAN KEBEDE ANN CAMPOS [id number] [facility] 2023-[facility]-22 09:30:00 2023-11-22 09:30:00 Outpatient SULEMAN KEBEDE ANN CAMPOS [id number] [facility] 2023-11-22 09:30:00 2023-11-22 09:30:00 Outpatient SULEMAN KEBEDE ANN CAMPOS [id number] Ann [facility] 2023-11-22 09:05:00 2023-11-22 09:05:00 Outpatient ANN CAMPOS [id number] Ann Seybold 2023-11-20 15:30:00 2023-11-20 15:30:00 Outpatient ANN CAMPOS [id number] Ann Seybold 2023-11-20 15:15:00 2023-11-20 15:15:00 Outpatient ANN CAMPOS [id number] Ann Seybold 2023-11-20 14:30:00 2023-11-20 14:30:00 Outpatient ANN CAMPOS [id number] nAn Seybtaylor 2023-11-20 00:00:00 2023-11-20 00:00:00 Outpatient REYMUNDO ACE ANN CAMPOS [id number] Ann taylor 2023-11-19 00:00:00 2023-11-19 00:00:00 Outpatient DEMETRIO GOMEZ [id number] [facility] 2023-11-19 00:00:00 2023-11-19 00:00:00 Outpatient RADIOLOGY, DEPT ANN CAMPOS [id number] [facility] 2023-11-16 11:02:00 2023-11-16 15:56:00 [id number] 2023-11-16 00:00:00 2023-11-16 00:00:00 Outpatient DEMETRIO GOMEZ [id number] [facility] 2023-11-16 00:00:00 2023-11-16 00:00:00 Outpatient MALKAREYMUNDO PEÑA ANN CAMPOS [id number] [facility] 2023-11-06 09:00:00 2023-11-06 09:00:00 Outpatient ANN CAMPOS [id number] [facility] 2023-11-01 08:20:00 2023-11-01 08:20:00 Outpatient LAB90 ANN CAMPOS [id number] [facility] 2023-10-30 00:00:00 2023-10-30 00:00:00 Outpatient MD ANN CASTILLO [id number] [facility] 2023-10-30 00:00:00 2023-10-30 00:00:00 Outpatient RADIOLOGY, DEPT ANN CAMPOS [id number] [facility] 2023-10-30 00:00:00 2023-10-30 00:00:00 Outpatient DEMETRIO GOMEZ [id number] [facility] 2023-10-30 00:00:00 2023-10-30 00:00:00 Outpatient SIVAKUMAR GONSALVES [id number] [facility] 2023-10-12 10:00:00 2023-10-12 10:00:00 Outpatient JOSE LUIS MORRIS [id number] Ann Seybold 2023-10-08 00:00:00 2023-10-08 00:00:00 Outpatient PREDEMETRIO TREVINO ANN CAMPOS [id number] Ann Seybold 2023-10-05 13:00:00 2023-10-05 13:00:00 Outpatient GARCIABASIA ANN CAMPOS [id number] Ann Seybold 2023-10-04 10:30:00 2023-10-04 10:30:00 Outpatient LAB45 ANN CAMPOS [id number] Ann Seybold 2023-10-04 10:00:00 2023-10-04 10:00:00 Outpatient SIVAKUMAR GONSALVES [id number] Ann Seybold 2023-10-01 10:30:00 2023-10-01 10:30:00 Outpatient PREZAS, DEMETRIO ANN CAMPOS [id number] Ann Seybold 2023-09-26 16:00:00 2023-09-26 16:00:00 Outpatient PREZADEMETRIO Norman ANN CAMPOS [id number] Ann Seybold 2023-09-26 00:00:00 2023-09-26 00:00:00 Outpatient SIVAKUMAR GONSALVES [id number] Ann Seybold 2023-09-25 13:00:00 2023-09-25 13:00:00 Outpatient ANN CAMPOS [id number] Ann Seybold 2023-09-20 08:20:00 2023-09-20 08:20:00 Outpatient LAB90 ANN CAMPOS [id number] Ann Seybold 2023-09-19 00:00:00 2023-09-19 00:00:00 Outpatient RADIOLOGY, DEPT ANN CAMPOS [id number] Ann Seybold 2023-09-17 00:00:00 2023-09-17 00:00:00 Outpatient BUITRAGOGHULAM Box [id number] Ann Seybold 2023-09-12 07:30:00 2023-09-12 07:30:00 Outpatient SIVAKUMAR GONSALVES [id number] Ann Seybold 2023-09-10 11:00:00 2023-09-10 11:00:00 Outpatient INFUSION, ROMINA CAMPOS [id number] Ann ybtaylor 2023-09-07 00:00:00 2023-09-07 00:00:00 Outpatient MD ANN CASTILLO [id number] Ann ybtaylor 2023-09-05 00:00:00 2023-09-05 00:00:00 Outpatient PREZAS, DEMETRIO ANN CAMPOS [id number] Ann ybtaylor 2023-09-03 00:00:00 2023-09-03 00:00:00 Outpatient MEHNAZ FOREMANAN ANN CAMPOS [id number] Ann ybtaylor 2023-08-31 00:00:00 2023-08-31 00:00:00 Outpatient SHAYY YUDELKA ANN CAMPOS [id number] Ann ybtaylor 2023-08-23 09:30:00 2023-08-23 09:30:00 Outpatient ANN CAMPOS [id number] Ann ybtaylor 2023-08-16 08:45:00 2023-08-16 08:45:00 Outpatient PREZAS, DEMETRIO ANN CAMPOS [id number] Ann ybtaylor 2023-08-10 11:00:00 2023-08-10 11:00:00 Outpatient OU, ANTONIO ANN CAMPOS [id number] Ann ybtaylor 2023-08-09 14:00:00 2023-08-09 14:00:00 Outpatient PREZAS, DEMETRIO CAMPOS [id number] [facility] 2023-08-09 00:00:00 2023-08-09 00:00:00 Outpatient PREZAS, DEMETRIO CAMPOS [id number] [facility] 2023-08-08 07:30:00 2023-08-08 07:30:00 Outpatient ANN CAMPOS [id number] [facility] 2023-08-08 00:00:00 2023-08-08 00:00:00 Outpatient PREZAS, DEMETRIO CAMPOS [id number] [facility] 2023-08-07 16:30:00 2023-08-07 16:30:00 Outpatient PREZADEMETRIO Norman ANN CAMPOS [id number] Ann Seybold 2023-08-07 15:45:00 2023-08-07 15:45:00 Outpatient PREZADEMETRIO Norman ANN CAMPOS [id number] [facility] Seybold 2023-08-03 00:00:00 2023-08-03 00:00:00 Outpatient LE, NLELA ANN CAMPOS [id number] [facility] 2023-08-02 00:00:00 2023-08-02 00:00:00 Outpatient THEREY FORMAN ANN CAMPOS [id number] [facility] 2023-08-02 00:00:00 2023-08-02 00:00:00 Outpatient LE, NELLA ANN CAMPOS [id number] [facility] 2023-08-01 16:00:00 2023-08-01 16:00:00 Outpatient BUITRAGO, GHULAM CAMPOS [id number] [facility] 2023-07-19 10:25:00 2023-07-19 10:25:00 Outpatient ANN CAMPOS [id number] [facility] Seybold 2023-07-18 15:45:00 2023-07-18 15:45:00 Outpatient PREZADEMETRIO Norman ANN CAMPOS [id number] Ann Seybold 2023-07-16 00:00:00 2023-07-16 00:00:00 Outpatient BRENDA ESTRADA [id number] [facility] 2023-07-06 11:30:00 2023-07-06 11:30:00 Outpatient CELSOCATHLEEN ANN CAMPOS [id number] [facility] Seybold 2023-07-04 00:00:00 2023-07-04 00:00:00 Outpatient ANN CAMPOS [id number] [facility] Seybold 2023-07-02 14:30:00 2023-07-02 14:30:00 Outpatient LAB39 ANN CAMPOS [id number] Ann Seybold 2023-07-02 14:00:00 2023-07-02 14:00:00 Outpatient SIVAKUMAR GONSALVES [id number] [facility] 2023-07-02 00:00:00 2023-07-02 00:00:00 Outpatient CIERA PECK [id number] [facility] 2023-06-28 00:00:00 2023-06-28 00:00:00 Outpatient MD ANN CASTILLO [id number] [facility] 2023-06-26 00:00:00 2023-06-26 00:00:00 Outpatient MD ANN CASTILLO [id number] [facility] 2023-06-25 13:15:00 2023-06-25 13:15:00 Outpatient ROSMERY SANFORD [id number] [facility] 2023-06-25 00:00:00 2023-06-25 00:00:00 Outpatient REY JACKSON [id number] [facility] 2023-06-22 11:05:00 2023-06-22 11:05:00 Outpatient SUSHANT CAMPOS [id number] [facility] 2023-06-22 10:30:00 2023-06-22 10:30:00 Outpatient MICHELL FOREMAN [id number] [facility] Sey[facility] 2023-06-22 00:00:00 2023-06-22 00:00:00 Outpatient MD ANN CASTILLO [id number] [facility] 2023-06-20 00:00:00 2023-06-20 00:00:00 Outpatient MICHELL FOREMAN [id number] [facility] Sey[facility] 2023-06-16 00:00:00 2023-06-16 00:00:00 Outpatient MICHELL FOREMAN [id number] [facility] Seybold 2023-06-08 00:00:00 2023-06-08 00:00:00 Outpatient DEMETRIO GOMEZ [id number] [facility] 2023-06-07 15:20:00 2023-06-07 15:20:00 Outpatient REY JACKSON [id number] [facility] 2023-05-28 00:00:00 2023-05-28 00:00:00 Outpatient MICHELL FOREMAN ANN CAMPOS [id number] [facility] 2023-05-16 00:00:00 2023-05-16 00:00:00 Outpatient ALON BAIRD ANN CAMPOS [id number] [facility] 2023-05-16 00:00:00 2023-05-16 00:00:00 Outpatient ALON BAIRD ANN CAMPOS [id number] [facility] 2023-04-24 00:00:00 2023-04-24 00:00:00 Outpatient ISABELLEEVERARDO Cash ANN CAMPOS [id number] [facility] 2023-04-24 00:00:00 2023-04-24 00:00:00 Outpatient MD ANN CASTILLO [id number] [facility] 2023-04-20 00:00:00 2023-04-20 00:00:00 Outpatient ANN CAMPOS [id number] [facility] 2023-04-18 00:00:00 2023-04-18 00:00:00 Outpatient ANN CAMPOS [id number] [facility] 2023-04-17 00:00:00 2023-04-17 00:00:00 Transition of Care Julee Wallace .2.840.114 350.1.13.10 4.2.7.2.686 [id number] [facility] 2023-04-11 18:17:00 2023-04-16 13:11:00 Inpatient X PAULETTE ARTEAGA [facility] MARIA GUADALUPE [id number] [facility] 2023-04-11 18:17:00 2023-04-16 13:11:00 Hospital Encounter Brittany Vital Mohammad A. [place], Jelani [facility] 1.2.840.114 350.1.13.10 4.2.7.2.686 [id number] [facility] 2023-04-13 00:00:00 2023-04-13 00:00:00 Outpatient ANN CAMPOS [id number] [facility] 2023-04-13 00:00:00 2023-04-13 00:00:00 Outpatient RAJAN RAMIREZ ANN CAMPOS [id number] [facility] 2023-04-11 00:00:00 2023-04-11 00:00:00 Outpatient CORDELL MCGILL ANN CAMPOS [id number] [facility] 2023-03-14 00:00:00 2023-03-14 00:00:00 Outpatient ISABELLEEVERARDO Cash [id number] [facility] 2023-03-13 00:00:00 2023-03-13 00:00:00 Outpatient STACEYLUCRECIAEster DEMETRIO ANN CAMPOS [id number] [facility] 2023-03-12 14:20:00 2023-03-12 14:20:00 Outpatient REY JACKSON ANN CAMPOS [id number] [facility] 2023-03-09 10:40:00 2023-03-09 10:40:00 Outpatient ISABELLE, EVERARDO CAMPOS [id number] [facility] 2023-03-07 00:00:00 2023-03-07 00:00:00 Outpatient MD ANN CASTILLO [id number] [facility] 2023-02-19 00:00:00 2023-02-19 00:00:00 Outpatient ISABELLE, EVERARDOJose Antonio CAMPOS [id number] [facility] 2023-02-17 09:15:00 2023-02-17 09:15:00 Outpatient ANN CAMPOS [id number] [facility] 2023-02-16 10:55:00 2023-02-16 10:55:00 Outpatient LAB47 ANN CAMPOS [id number] [facility] 2023-02-16 10:20:00 2023-02-16 10:20:00 Outpatient ISABELLE, EVERARDOJose Antonio CAMPOS [id number] [facility] 2023-02-06 14:00:00 2023-02-06 14:00:00 Outpatient HUNDLARUNA ANN CAMPOS [id number] [facility] 2023-01-22 00:00:00 2023-01-22 00:00:00 Outpatient PREZADEMETRIO Norman ANN CAMPOS [id number] [facility] 2023-01-15 00:00:00 2023-01-15 00:00:00 Outpatient ISABELLE, EVERARDO ANN CAMPOS [id number] [facility] 2023-01-12 00:00:00 2023-01-12 00:00:00 Outpatient ISABLELE, EVERARDOJose Antonio CAMPOS [id number] [facility] 2023-01-10 09:30:00 2023-01-10 09:30:00 Outpatient LAB90 ANN CAMPOS [id number] [facility] 2023-01-05 00:00:00 2023-01-05 00:00:00 Outpatient THEBO, REY ANN CAMPOS [id number] [facility] 2022-12-27 08:00:00 2022-12-27 08:00:00 Outpatient ANN CAMPOS [id number] [facility] 2022-12-14 00:00:00 2022-12-14 00:00:00 Outpatient ISABELLE, EVERARDOJose Antonio CAMPOS [id number] [facility] 2022-12-07 15:55:00 2022-12-07 15:55:00 Outpatient LAB53 ANN CAMPOS [id number] [facility] 2022-12-07 15:20:00 2022-12-07 15:20:00 Outpatient THEBO, REY ANN CAMPOS [id number] [facility] 2022-12-05 00:00:00 2022-12-05 00:00:00 Outpatient ISABELLE, EVERARDO CAMPOS [id number] [facility] 2022-11-30 00:00:00 2022-11-30 00:00:00 Outpatient ISABELLE, EVERARDO CAMPOS [id number] [facility] 2022-11-30 00:00:00 2022-11-30 00:00:00 Outpatient MD ANN CASTILLO [id number] [facility] 2022-11-23 00:00:00 2022-11-23 00:00:00 Outpatient LARKINALYSSA JACKSON ANN CAMPOS [id number] [facility] 2022-11-20 00:00:00 2022-11-20 00:00:00 Outpatient ISABELLE, EVERARDO CAMPOS [id number] [facility] 2022-11-20 00:00:00 2022-11-20 00:00:00 Outpatient MD ANN CASTILLO [id number] [facility] 2022-11-20 00:00:00 2022-11-20 00:00:00 Outpatient ISABELLE, EVERARDO CAMPOS [id number] [facility] 2022-11-06 00:00:00 2022-11-06 00:00:00 Outpatient ISABELLE, EVERARDO CAMPOS [id number] [facility] 2022-11-03 10:35:00 2022-11-03 10:35:00 Outpatient LAB47 ANN CAMPOS [id number] [facility] 2022-11-03 10:00:00 2022-11-03 10:00:00 Outpatient ISABELLE, EVERARDOJose Antonio CAMPOS [id number] [facility] 2022-10-22 00:00:00 2022-10-22 00:00:00 Outpatient PREZADEMETRIO Norman ANN CAMPOS [id number] [facility] 2022-10-12 00:00:00 2022-10-12 00:00:00 Outpatient ISABELLE, EVERARDO CAMPOS [id number] [facility] 2022-09-30 00:00:00 2022-09-30 00:00:00 Outpatient ISABELLE, EVERARDO CAMPOS [id number] [facility] 2022-09-26 00:00:00 2022-09-26 00:00:00 Outpatient ISABELLE, EVERARDO CAMPOS [id number] [facility] 2022-09-22 08:30:00 2022-09-22 08:30:00 Outpatient LAB90 ANN CAMPOS [id number] [facility] 2022-09-21 00:00:00 2022-09-21 00:00:00 Outpatient PREZASDEMETRIO ANN CAMPOS [id number] [facility] 2022-09-15 13:40:00 2022-09-15 13:40:00 Outpatient ISABELLEEVERARDO Cash ANN CAMPOS [id number] [facility] 2022-09-06 00:00:00 2022-09-06 00:00:00 Outpatient REY JACKSON ANN CAMPOS [id number] [facility] 2022-09-05 14:35:00 2022-09-05 14:35:00 Outpatient LAB53 ANN CAMPOS [id number] [facility] 2022-09-05 14:00:00 2022-09-05 14:00:00 Outpatient THEDASIA, REY ANN CAMPOS [id number] [facility] 2022-08-27 00:00:00 2022-08-27 00:00:00 Outpatient PREZASDEMETRIO ANN CAMPOS [id number] [facility] 2022-08-09 14:30:00 2022-08-09 14:30:00 Outpatient NERISSASTACI ANN CAMPOS [id number] [facility] 2022-08-04 11:15:00 2022-08-04 11:15:00 Outpatient LAB47 ANN CAMPOS [id number] [facility] 2022-08-04 10:40:00 2022-08-04 10:40:00 Outpatient ISABELLE, EVERARDOJose Antonio CAMPOS [id number] [facility] 2022-07-26 00:00:00 2022-07-26 00:00:00 Outpatient PREZAS DEMETRIO CAMPOS [id number] [facility] 2022-07-18 11:00:00 2022-07-18 11:00:00 Outpatient MICHELL FOREMAN [id number] [facility] 2022-07-14 14:30:00 2022-07-14 14:30:00 Outpatient INFUSION, ROMINA CAMPOS [id number] [facility] 2022-07-07 00:00:00 2022-07-07 00:00:00 Outpatient TRIELISABETHJONY Box ANN CAMPOS [id number] [facility] 2022-07-06 00:00:00 2022-07-06 00:00:00 Outpatient DEISI GITANisa CAMPOS [id number] [facility] 2022-07-04 11:45:00 2022-07-04 11:45:00 Outpatient MICHELL FOREMAN [id number] [facility] 2022-07-03 00:00:00 2022-07-03 00:00:00 Outpatient MICHELL FOREMAN [id number] [facility] 2022-06-30 09:00:00 2022-06-30 09:00:00 Outpatient INFUSION, ROMINA CAMPOS [id number] [facility] 2022-06-27 00:00:00 2022-06-27 00:00:00 Outpatient DEISI GITALYNNETTE CAMPOS [id number] [facility] 2022-06-23 00:00:00 2022-06-23 00:00:00 Outpatient SHAYY DERIKBUSHRABRYANAdrian CAMPOS [id number] [facility] 2022-06-22 00:00:00 2022-06-22 00:00:00 Outpatient DEISI GITALYNNETTE CAMPOS [id number] [facility] 2022-06-20 00:00:00 2022-06-20 00:00:00 Outpatient THEDASIA, REY CAMPOS [id number] [facility] 2022-06-14 00:00:00 2022-06-14 00:00:00 Outpatient PREZAS, DEMETRIO CAMPOS [id number] [facility] 2022-06-07 00:00:00 2022-06-07 00:00:00 Outpatient ANN CAMPOS [id number] [facility] 2022-06-06 15:35:00 2022-06-06 15:35:00 Outpatient LAB53 ANN CAMPOS [id number] [facility] Sey[facility] 2022-06-06 14:40:00 2022-06-06 14:40:00 Outpatient REY JACKSON ANN CAMPOS [id number] [facility] 2022-05-24 00:00:00 2022-05-24 00:00:00 Outpatient AHSAN MICHELL ANN CAMPOS [id number] [facility] 2022-05-24 00:00:00 2022-05-24 00:00:00 Outpatient ANN CAMPOS [id number] [facility] 2022-05-24 00:00:00 2022-05-24 00:00:00 Outpatient ANN CAMPOS [id number] [facility] 2022-05-23 00:00:00 2022-05-23 00:00:00 Outpatient AHSAN MICHELL CAMPOS [id number] [facility] 2022-05-22 11:50:00 2022-05-22 11:50:00 Outpatient LAB90 ANN CAMPOS [id number] [facility] 2022-05-22 10:45:00 2022-05-22 10:45:00 Outpatient MICHELL FOREMAN [id number] [facility] 2022-05-22 00:00:00 2022-05-22 00:00:00 Outpatient DEMETRIO GOMEZ ANN CAMPOS [id number] [facility] 2022-05-17 00:00:00 2022-05-17 00:00:00 Outpatient CORNELL OBRIENMEETBAKARI CAMPOS [id number] [facility] 2022-02-27 10:45:56 2022-02-27 10:45:56 Outpatient SFA SFA [id number] Micheal Newton 2022-02-27 00:00:00 2022-02-27 00:00:00 Outpatient Visit [id number] 2022-01-05 00:00:00 2022-01-05 00:00:00 Outpatient Visit [id number] 2021-12-13 00:00:00 2021-12-13 00:00:00 Outpatient Visit [id number] 2021-09-23 10:07:46 2021-09-23 23:59:00 Outpatient R RADHA CABRERA [facility] [id number] [facility] 2021-09-23 10:00:00 2021-09-23 23:59:00 Hospital Encounter Radha Cabrera [facility] 1.2840.114 350.1.13.10 4.2.7.2.686 [id number] [facility] 2020-06-14 00:00:00 2020-06-14 00:00:00 Patient Outreach Rolando Finley [facility] 1.20.114 350.1.13.10 4.2.7.2.686 [id number] [facility] 2020-05-27 11:00:00 2020-05-27 11:00:00 Outpatient R JUVENAL [facility] [id number] [facility] 2019-11-24 10:32:19 2019-11-24 12:31:41 Office Visit Juvenal [facility] Building 1.2840.114 350.1.13.10 4.2.7.2.686 [id number] [facility] 2019-11-24 10:32:19 2019-11-24 12:31:[address] [facility] 1.2840.114 350.1.13.10 4.2.7.2.686 [id number] 2019-11-24 11:54:28 2019-11-24 12:09:28 Posting Clerk Visit 2, Adc Lab [facility] 1.2.840.114 350.1.13.10 4.2.7.2.686 [id number] [facility] 2019-11-24 11:54:28 2019-11-24 12:09:28 Posting Clerk Visit 2, Adc Lab [facility] nal Building 1.2.840.114 350.1.13.10 4.2.7.2.686 [id number] 2019-11-24 10:30:00 2019-11-24 10:30:00 Outpatient R JUVENAL [facility] [id number] [facility] 2019-10-21 14:59:18 2019-10-21 15:47:43 Office Visit Supriya Waldrop [facility] Building 1.2.840.114 350.1.13.10 4.2.7.2.686 [id number] [facility] 2019-10-21 15:00:00 2019-10-21 15:00:00 Outpatient R SUPRIYA WALDROP [facility] [id number] [facility] 2019-09-22 16:05:23 2019-09-22 16:49:16 Office Visit Juvenal [facility] Building 1.2.840.114 350.1.13.10 4.2.7.2.686 [id number] [facility] 2019-09-22 16:15:00 2019-09-22 16:15:00 Outpatient R JUVENAL [facility] [id number] [facility] 2019-09-11 07:56:00 2019-09-11 11:28:00 [facility] 1.84.114 350.1.13.10 4.2.7.2.686 [id number] [facility] 2019-09-10 09:53:37 2019-09-10 10:08:37 Laboratory Only Only, Adc Test Juvenal [facility] Building 1.84.114 350.1.13.10 4.2.7.2.686 [id number] [facility] 2019-09-10 10:00:00 2019-09-10 10:00:00 Outpatient R JUVENAL [facility] [id number] [facility] 2019-09-04 09:17:03 2019-09-04 09:32:03 Posting Clerk Visit Pob, Adc Lab Main [facility] 1.284.114 350.1.13.10 4.2.7.2.686 [id number] [facility] 2019-09-04 09:15:00 2019-09-04 09:15:00 Outpatient R JUVENAL [facility] [id number] [facility] 2019-09-04 00:00:00 2019-09-04 00:00:00 Orders Only Doctor Unassigned, [place] [facility] 1..114 350.1.13.10 4.2.7.2.686 [id number] [facility] 2019-08-26 00:00:00 2019-08-26 00:00:00 Telephone Barbra Mccoy [facility] 1.84.114 350.1.13.10 4.2.7.2.686 [id number] [facility] 2019-08-22 00:00:00 2019-08-22 00:00:00 Orders Only Doctor Unassigned, [place] [facility] 1.2.840.114 350.1.13.10 4.2.7.2.686 [id number] [facility] 2019-08-11 00:00:00 2019-08-11 00:00:00 Telephone Barbra Mccoy [facility] Building 1.2.840.114 350.1.13.10 4.2.7.2.686 [id number] [facility] 2019-08-11 00:00:00 2019-08-11 00:00:00 Prep For Surgery Barbra Mccoy [facility] Building 1.2.840.114 350.1.13.10 4.2.7.2.686 [id number] [facility] 2019-07-30 00:00:00 2019-07-30 00:00:00 Telephone Barbra Mccoy [facility] 1.2.840.114 350.1.13.10 4.2.7.2.686 [id number] [facility] 2019-06-23 00:00:00 2019-06-23 00:00:00 Telephone Barbra Mccoy [facility] 1.2.840.114 350.1.13.10 4.2.7.2.686 [id number] [facility] 2019-06-18 00:00:00 2019-06-18 00:00:00 Telephone Bill Sanford [facility] 1.2.840.114 350.1.13.10 4.2.7.2.686 [id number] [facility] 2019-06-16 13:29:45 2019-06-16 14:45:06 Office Visit Bill Sanford , Adc Surg Spec Procedure [facility] 1.2.840.114 350.1.13.10 4.2.7.2.686 [id number] [facility] 2019-06-16 13:30:00 2019-06-16 13:30:00 [facility] [id number] 2019-06-16 00:00:00 2019-06-16 00:00:00 Orders Only Doctor Unassigned, [place] [facility] 1.2.840.114 350.1.13.10 4.2.7.2.686 [id number] [facility] 2019-06-16 00:00:00 2019-06-16 00:00:00 Prep For Surgery Barbra Mccoy [facility] Building 1.2.840.114 350.1.13.10 4.2.7.2.686 [id number] [facility] 2019-06-08 00:00:00 2019-06-08 00:00:00 Orders Only Doctor Unassigned, [place] [facility] 1.2840.114 350.1.13.10 4.2.7.2.686 [id number] [facility] 2019-05-30 08:03:09 2019-05-30 08:41:03 Office Visit NadineBarbra [facility] Building 1.2.840.114 350.1.13.10 4.2.7.2.686 [id number] [facility] Results Test Description Test Time Test Comments Results Result Co mments Source n[place] ExternalPOCT GLUCOSE (AUTOMATED)2023-04-16 18:05:27* Test Item Value Reference Range Interpretation Comme nts POCT GLU (test code = 5279169977) 197 mg/dL 70-110 H Lab Interpretation (test cod e = 38371-5) [facility] [id number] 16:37:59EXAM: XR SHOULDER 2+ VW LEFT HISTORY: 73 years-old Male; s/p fall . COMPARISON: None FINDINGS: Radiographs of the left shoulder were obtained. No acute fracture ortraumatic dislocation is visualized.The alignment is maintained. ModerateAC joint and mild glenohumeral joint space narrowing with osteophytosis.[facility] GLUCOSE (AUTOMATED)2023-04-16 13:52:05* Test Item Value Reference Range Interpretation Comme nts POCT GLU (test code = 1396448903) 193 mg/dL 70-110 H Lab Interpretation (test cod e = 71141-2) Abnormal [facility] GLUCOSE (AUTOMATED)2023-04-16 02:41:46* Test Item Value Reference Range Interpretation Comme nts POCT GLU (test code = 9698252352) 221 mg/dL 70-110 H Lab Interpretation (test cod e = 89768-1) Abnormal [facility] HAND LEFT W [id number] 18:03:58 PROCEDURE:CT HAND LEFT W CONTRAST ORDERING PHYSICIAN:[employer] HISTORY: ?Soft tissue mass of left hand TECHNIQUE: CT left hand was performed with contrast TECHNICAL QUALITY: Adequate COMPARISON: ?None available FINDINGS: There is no acute fracture or osseous malalignment. There is radialcutaneous thickening and ill-defined edema that could reflect cellulitis.There is no drainable abscess.[facility] FOREARM LEFT WO CONTRAST 2023-04-13 18:48:52EXAM: CT FOREARM LEFT WO CONTRAST, EXAM: CT HAND LEFT WO CONTRAST HISTORY: Soft tissue mass, forearm, deep . History of cat bite. TECHNIQUE:Axial CT imaging of the left forearm was obtained without IV contrast.Sagittal and coronal reformatted images were created. Axial CT imaging of the left hand was obtained without IV contrast.Sagittal and coronal reformatted images were created. COMPARISON: Radiographs 04/11/2022. FINDINGS: No acute fracture, dislocation, periosteal reaction or osseous destructionis present. Mild degenerative changes are present at the elbow. 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 No elbow joint effusion is present. There is diffuse skin thickening about theforearm and hand with softtissue swelling and stranding. Evaluation for fluid collection is limitedwithout IV contrast. Fluid density surrounds the extensor tendons of the wrist.[facility] HAND LEFT WO [id number] 18:48:52EXAM: CT FOREARM LEFT WO CONTRAST, EXAM: CT HAND LEFT WO CONTRAST HISTORY: Soft tissue mass, forearm, deep . History of cat bite. TECHNIQUE:Axial CT imaging of the left forearm was obtained without IV contrast.Sagittal and coronal reformatted images were created. Axial CT imaging of the left hand was obtained without IV contrast.Sagittal and coronal reformatted images were created. COMPARISON: Radiographs 04/11/2022. FINDINGS: No acute fracture, dislocation, periosteal reaction or osseous destructionis present. Mild degenerative changes are present at the elbow. There isdiffuse mild interphalang eal joint space narrowing with osteophytosis.Osteoarthritic changes are also present at the thumb carpometacarpal joint. No elbow joint effusion is present. There is diffuse skin thickening about theforearm and hand with softtissue swelling and stranding. Evaluation for fluid collection is limitedwithout IV contrast. Fluid density surrounds the extensor tendons of the wrist.[facility]2023-[facility]-12 17:25:19* Test Item Value Reference Range Interpretation Comme nts HGB A1C (test code = 4548-4) 8.1 % 4.0-5.7 H HUE (test code = HUE) Reference RangesNormal: <5.7%Prediabetes: 5.7 - 6.4%Diabetes: > 6.5% Lab Interpretation (test code = 07142-8) Abnormal [facility] [id number] 03:14:54* Test Item Value Reference Range Interpretation Comme nts WBC (test code = 6690-2) 2.85 See_Comment L [Automated messa ge] The system which generated this result transmitted reference range: 4.20 - 10.70 10*3/?L. The reference range was not used to interpret this result as normal/abnormal. RBC (test code = 789-8) 3.14 See_Comment L [Automated messa ge] The system which generated this result transmitted reference range: 4.26 - 5.52 10*6/?L. The reference range was not used to interpret this result as normal/abnormal. HGB (test code = 718-7) 9.1 g/dL 12.2-16.4 L HCT (test code = 4544-3) 27.4 % 38.4-49.3 L MCV (test code = 787-2) 87.3 fL 81.7-95.6 MCH (test code = 785-6) 29.0 pg 26.1-32.7 MCHC (test code = 786-4) 33.2 g/dL 31.2-35.0 RDW-SD (test code = 16028-4) 43.4 fL 38.5-51.6 RDW-CV (test code = 788-0) 13.7 % 12.1-15.4 PLT (test code = 777-3) 47 See_Comment LL [Automated [employer]] The system which generated this result transmitted reference range: 150 - 328 10*3/?L. The reference range was not used to interpret this result as normal/abnormal. MPV (test code = 79748-6) 10.9 fL 9.8-13.0 IPF % (test code = 4450202368) 3.4 % 1.2-10.7 Platelet count measured by fluorescence method. NRBC/100 WBC (test code = 0561670625) 0.0 See_Comment [Automated [employer] ssage] The system which generated this result transmitted reference range: 0.0 - 10.0 /100 WBCs. The reference range was not used to interpret this result as normal/abnormal. NRBC x10^3 (test code = 1361424442) See_Comment [[employer]ated [employer]] The system which generated this result transmitted reference range: 10*3/?L. The reference range was not used to interpret this result as normal/abnormal. GRAN MAT (NEUT) % (test code = 770-8) 69.1 % IMM GRAN % (test code = 7753982617) 1.80 % LYMPH % (test code = 736-9) 15.4 % MONO % (test code = 5905-5) 12.3 % EOS % (test code = 713-8) 0.7 % BASO % (test code = 706-2) 0.7 % GRAN MAT x10^3(ANC) (test code = 1264346905) 1.97 10*3/uL 1.99-6.95 L IMM GRAN x10^3 (test code = 2647724177) 0.05 10*3/uL 0.00-0.06 LYMPH x10^3 (test code = 731-0) 0.44 10*3/uL 1.09-3.23 L MONO x10^3 (test code = 742-7) 0.35 10*3/uL 0.36-1.02 L EOS x10^3 (test code = 711-2) 0.06-0.53 L BASO x10^3 (test code = 704-7) 0.01-0.09 Lab Interpretation (test code = 41197-5) [facility] [id number] 01:45:44Ordering physician: TARA PENN Clinical indication: Left hand and arm wounds. Comparison: None Technique: Left hand, 3 views. Left forearm, 2 views. Technical quality: Adequate Findings: Mild dorsal soft tissue swelling of the hand is evident. No soft tissue airof the forearm or hand is evident. No bony erosions or areas of gross bonydestruction are evident to suggest osteomyelitis. No frac tures areidentified. There is mild narrowing of the interphalangeal joint spaces ofthe hand, compatible with degenerative change.[facility] 2 VW [id number] 01:45:44Ordering physician: TARA PENN Clinical indication: Left hand and arm wounds. Comparison: None Technique: Left hand, 3 views. Left forearm, 2 views. Technical quality: Adequate Findings: Mild dorsal soft tissue swelling of the hand is evident. No soft tissue airof the forearm or hand is evident. No bony erosions or areas of gross bonydestruction are evident to suggest osteomyelitis. No fractures areidentified. There is mild narrowing of the interphalangeal joint spaces ofthe hand, compatible with degenerative change.[facility] CHEST 1 [id number] 01:28:00ORDERING PHYSICIAN: BRITTANY VITAL CLINICAL HISTORY:AMS TECHNIQUE:AP chest radiograph. COMPARISON:None. FINDINGS:No focal pulmonary consolidation, pleural effusion or pneumothorax.Moderately enlarged heart. Calcifications and tortuosity of descendingthoracic aorta. Visualized bones are unremarkable.[facility] HospitalTROPONIN [id number] 01:11:02* Test Item Value Reference Range Interpretation Comme nts TROPONIN I (test code = 2161578891) 0.011 ng/mL <=0.034 HUE (test code = HUE) Reference (Normal) Range (defined by the 99th percentile reference limit): <= 0.034 ng/mL Note: Cardiac troponin begins to rise 3-4 hours after the onset of ischemia. Repeat in 4-6 hours if the sample was drawn within 3-4 hours of the onset of the symptom and found normal. Diagnosis of myocardial injury is made with acute changes in cTn concentrations with at least one serial sample above the 99th percentile upper reference limit (URL), taken together with the patient's clinical presentation. Biotin has been reported to cause a negative bias, interpret results relative to patient's use of biotin. Lab Interpretation (test code = 69192-1) Normal [facility] HospitalAmmonia, [id number] 01:03:07* Test Item Value Reference Range Interpretation Comme nts AMMONIA (test code = 3131651668) 9-33 L Lab Interpretation (test cod e = 48546-2) Abnormal [facility] HospitalCOMP. METABOLIC PANEL (60555)2023-04-12 00:59:18* Test Item Value Reference Range Interpretation Comme nts NA (test code = 2262083078) 138 mmol/L 135-145 K (test code = 6190555958) 3.9 mmol/L 3.5-5.0 CL (test code = 0306270262) 108 mmol/L 98-108 CO2 TOTAL (test code = 4437617461) 26 mmol/L 23-31 AGAP (test code = 3291017453) 4 2-16 BUN (test code = 8548912455) 17 mg/dL 7-23 GLUCOSE (test code = 5597616071) 140 mg/dL 70-110 H CREATININE (test code = 1515426275) 0.88 mg/dL 0.60-1.25 TOTAL BILI (test code = 2196076501) 3.6 mg/dL 0.1-1.1 H CALCIUM (test code = 5496229806) 9.1 mg/dL 8.6-10.6 T PROTEIN (test code = 8345183998) 6.6 g/dL 6.3-8.2 ALBUMIN (test code = 3121380881) 3.5 g/dL 3.5-5.0 ALK PHOS (test code = 9894603887) 74 U/L 34-122 ALTv (test code = 1742-6) 21 U/L 5-50 AST(SGOT) (test code = 1897521870) 57 U/L 13-40 H eGFR (test code = 52044-3) 90.8 mL/min/1.73m2 CKD-EPI eGFR (2020). Assuming creatinine has been stable day-to-day for at least three months, the eGFR indicates Category G1 (>= 90 mL/min/1.73 m2) Lab Interpretation (test code = 51358-8) Abnormal [facility] HospitalMagnesium2024-01-04 00:59:18* Test Item Value Reference Range Interpretation Comme nts MAGNESIUM (test code = 6184697383) 1.7 mg/dL 1.7-2.4 Lab Interpretation (test cod e = 64711-8) Normal [facility] HospitalTSH + FREE T4 [id number] 06:43:12* Test Item Value Reference Range Interpretation Comme nts TSH, THIRD GENERATION (test code = 2821) 1.140 UIU/ML 0.400-4.100 FREE T4 (THYROXINE) (test co de = 2823) 1.08 NG/DL 0.80-1.90 LIPID [id number] 03:53:32* Test Item Value Reference Range Interpretation Comme nts CHOLESTEROL (test code = 2210) 118 MG/DL <200 TRIGLYCERIDES (test code = 2232) 231 MG/DL <150 H HDL CHOLESTEROL (test code = 2220) 33 MG/DL >39 L CALC LDL CHOL (test code = 2237) 56 MG/DL <100 NOTE: CALCULATED LDL IS BASED ON LISA-SELF METHOD WHICHINCLUDES ADJUSTABLE TRIGLYCERIDE:VLDL CHOLESTEROL RATIO.THIS FACTOR VARIES BY MEASURED TRIGLYCERIDE AND NON-HDLCHOLESTEROL CONCENTRATIONS WITH INCREASED CALCULATED LDL SEENIN HIGHER TRIGLYCERIDE OR LOWER NON-HDL SPECIMENS. FOR MOREINFORMATION, SEE CLIENT ANNOUNCEMENT AT [email or web address] RISK RATIO LDL/HDL (test code = 2238) 1.70 RATIO <3.55 COMPREHENSIVE METABOLIC [id number] 03:53:32* Test Item Value Reference Range Interpretation Comme nts GLUCOSE (test code = 2216) 250 MG/DL 70-99 H BUN (test code = 2207) 8 MG/DL 8-23 CREATININE (test code = 2213) 0.70 MG/DL 0.80-1.40 L eGFR (2020 CKD-EPI) (test code = 35560) 99 ML/MIN/1.73 >60 CALC BUN/CREAT (test code = 2234) 11 RATIO 6-28 SODIUM (test code = 2230) 138 MEQ/L 133-146 POTASSIUM (test code = 2227) 4.5 MEQ/L 3.5-5.4 CHLORIDE (test code = 2214) 101 MEQ/L 95-107 CARBON DIOXIDE (test code = 2205) 22 MEQ/L 19-31 CALCIUM (test code = 2208) 9.8 MG/DL 8.5-10.5 PROTEIN, TOTAL (test code = 2228) 7.1 G/DL 6.1-8.3 ALBUMIN (test code = 2200) 4.2 G/DL 3.5-5.2 CALC GLOBULIN (test code = 2239) 2.9 G/DL 1.9-3.7 CALC A/G RATIO (test code = 2233) 1.4 RATIO 1.0-2.6 BILIRUBIN, TOTAL (test code = 2206) 2.9 MG/DL See_Comment H [Automated me ssage] The system which generated this result transmitted reference range: <=1.2. The reference range was not used to interpret this result as normal/abnormal. ALKALINE PHOSPHATASE (test code = 2203) 101 U/L 40-125 AST (test code = 2217) 42 U/L 9-50 ALT (test code = 2218) 25 U/L 5-50 HEMOGLOBIN [id number] 03:35:51* Test Item Value Reference Range Interpretation Comme [facility] HEMOGLOBIN A1c (test code = 93298) 10.0 % 4.2-5.6 H [employer] GUIDELINES FOR HGB A1C: PREDIABETES/INCREASED RISK . . . . . . . 5.7-6.4% DIAGNOSIS OF DIABETES . . . . . . . . . >=6.5% WITH CONFIRMATION OR APPROPRIATE SYMPTOMS NOTE: ASSAY MAY BE AFFECTED BY HEMOGLOBINOPATHIES (SICKLE CELL ANEMIA, S-C DISEASE, OTHERS) OR ARTIFICIALLY LOWERED BY DECREASED RED CELL SURVIVAL (HEMOLYTIC ANEMIAS, BLOOD LOSS, ETC.). CONSIDER ALTERNATE TESTING OR LABORATORY CONSULTATION. CBC W/AUTO DIFF WITH [id number] 02:23:35* Test Item Value Reference Range Interpretation Comme nts WBC (test code = 1001) 3.0 K/UL 3.5-11.0 L RBC (test code = 1002) 4.49 M/UL 4.50-6.10 L HEMOGLOBIN (test code = 1003) 11.4 G/DL 13.5-17.0 L HEMATOCRIT (test code = 1004) 35.9 % 40.0-51.0 L MCV (test code = 1005) 80.0 fL 80.0-99.0 MCH (test code = 1006) 25.4 PG 25.0-33.0 MCHC (test code = 1007) 31.8 G/DL 31.0-36.0 RDW (test code = 1038) 15.2 % 11.5-15.0 H NEUTROPHILS (test code = 1008) 65.2 % LYMPHOCYTES (test code = 1010) 19.2 % MONOCYTES (test code = 1011) 12.6 % EOSINOPHILS (test code = 1012) 2.0 % BASOPHILS (test code = 1013) 0.7 % IMMATURE GRANULOCYTES (test code = 1036) 0.3 % NUCLEATED RBCS (test code = 1065) 0.0 /100 WBC'S See_Comment [Automated message] The system which generated this result transmitted reference range: 0.0. The reference range was not used to interpret this result as normal/abnormal. PLATELET COUNT (test code = 1015) 89 K/UL 130-400 L ABSOLUTE NEUTROPHILS (test code = 1066) 1.97 K/UL 1.50-7.50 ABSOLUTE LYMPHOCYTES (test code = 1067) 0.58 K/UL 1.00-4.00 L ABSOLUTE MONOCYTES (test code = 1068) 0.38 K/UL 0.20-1.00 ABSOLUTE EOSINOPHILS (test code = 1040) 0.06 K/UL 0.00-0.50 ABSOLUTE BASOPHILS (test code = 1069) 0.02 K/UL 0.00-0.20 ABS IMMATURE GRANULOCYTES (test code = 1020) 0.01 K/UL 0.00-0.10 ABS NUCLEATED RBCS (test code = 37099) 0.00 K/UL 0.00-0.11 UNLESS OTHER HENDRICKS INDICATED, ALL TESTING PERFORMED [facility] [address] [place] [address] SLAB STRIPPER: YOMI FOLEY M.D. CLIA NUMBER [id number] [facility] [place]. [id number] HEMOGLOBIN A1c [ADDED]2022-01-06 00:00:00* Test Item Value Reference Range Interpretation Comme nts HEMOGLOBIN A1c (test code = 75684) 10.0 % LIPID PANEL [ADDED]2022-01-06 00:00:00* Test Item Value Reference Range Interpretation Comme nts CHOLESTEROL (test code = 2210) 118 MG/DL TRIGLYCERIDES (test code = 2232) 231 MG/DL HDL CHOLESTEROL (test code = 2220) 33 MG/DL CALC LDL CHOL (test code = 2237) 56 MG/DL RISK RATIO LDL/HDL (test cod e = 2238) 1.70 RATIO COMPREHENSIVE METABOLIC PANEL [ADDED]2022-01-06 00:00:00* Test Item Value Reference Range Interpretation Comme nts GLUCOSE (test code = 2217) 250 MG/DL BUN (test code = 2208) 8 MG/DL CREATININE (test code = 2214) 0.70 MG/DL eGFR (2020 CKD-EPI) (test co de = 83033) 99 ML/MIN/1.73 CALC BUN/CREAT (test code = 2235) 11 RATIO SODIUM (test code = 2231) 138 MEQ/L POTASSIUM (test code = 2228) 4.5 MEQ/L CHLORIDE (test code = 2215) 101 MEQ/L CARBON DIOXIDE (test code = 2206) 22 MEQ/L CALCIUM (test code = 2209) 9.8 MG/DL PROTEIN, TOTAL (test code = 2229) 7.1 G/DL ALBUMIN (test code = 2201) 4.2 G/DL CALC GLOBULIN (test code = 2240) 2.9 G/DL CALC A/G RATIO (test code = 2234) 1.4 RATIO BILIRUBIN, TOTAL (test code = 2207) 2.9 MG/DL ALKALINE PHOSPHATASE (test code = 2204) 101 U/L AST (test code = 2218) 42 U/L ALT (test code = 2219) 25 U/L TSH + FREE T4 PROFILE [ADDED]2022-01-06 00:00:00* Test Item Value Reference Range Interpretation Comme nts TSH, THIRD GENERATION (test code = 2821) 1.140 UIU/ML FREE T4 (THYROXINE) (test co de = 2823) 1.08 NG/DL CBC W/AUTO DIFF WITH PLATELETS [ADDED]2022-01-06 00:00:00* Test Item Value Reference Range Interpretation Comme nts WBC (test code = 1001) 3.0 K/UL [...] = 1013) 0.7 % IMMATURE GRANULOCYTES (test code = 1036) 0.3 % NUCLEATED RBCS (test code = 1065) 0.0 /100WBC'S PLATELET COUNT (test code = 1015) 89 K/UL ABSOLUTE NEUTROPHILS (test c ode = 1066) 1.97 K/UL ABSOLUTE LYMPHOCYTES (test c ode = 1067) 0.58 K/UL ABSOLUTE MONOCYTES (test cod e = 1068) 0.38 K/UL ABSOLUTE EOSINOPHILS (test c ode = 1040) 0.06 K/UL ABSOLUTE BASOPHILS (test cod e = 1069) 0.02 K/UL ABS IMMATURE GRANULOCYTES (t est code = 1020) 0.01 K/UL ABS NUCLEATED RBCS (test cod e = 44240) 0.00 K/UL HEMOGLOBIN A1c [ADDED]2022-01-06 00:00:00* Test Item Value Reference Range Interpretation Comme nts HEMOGLOBIN A1c (test code = 65317) 10.0 % LIPID PANEL [ADDED]2022-01-06 00:00:00* Test Item Value Reference Range Interpretation Comme nts CHOLESTEROL (test code = 2210) 118 MG/DL TRIGLYCERIDES (test code = 2232) 231 MG/DL HDL CHOLESTEROL (test code = 2220) 33 MG/DL CALC LDL CHOL (test code = 2237) 56 MG/DL RISK RATIO LDL/HDL (test cod e = 2238) 1.70 RATIO COMPREHENSIVE METABOLIC PANEL [ADDED]2022-01-06 00:00:00* Test Item Value Reference Range Interpretation Comme nts GLUCOSE (test code = 2217) 250 MG/DL BUN (test code = 2208) 8 MG/DL CREATININE (test code = 2214) 0.70 MG/DL eGFR (2020 CKD-EPI) (test co de = 46995) 99 ML/MIN/1.73 CALC BUN/CREAT (test code = 2235) 11 RATIO SODIUM (test code = 2231) 138 MEQ/L POTASSIUM (test code = 2228) 4.5 MEQ/L CHLORIDE (test code = 2215) 101 MEQ/L CARBON DIOXIDE (test code = 2206) 22 MEQ/L CALCIUM (test code = 2209) 9.8 MG/DL PROTEIN, TOTAL (test code = 2229) 7.1 G/DL ALBUMIN (test code = 2201) 4.2 G/DL CALC GLOBULIN (test code = 2240) 2.9 G/DL CALC A/G RATIO (test code = 2234) 1.4 RATIO BILIRUBIN, TOTAL (test code = 2207) 2.9 MG/DL ALKALINE PHOSPHATASE (test code = 2204) 101 U/L AST (test code = 2218) 42 U/L ALT (test code = 2219) 25 U/L TSH + FREE T4 PROFILE [ADDED]2022-01-06 00:00:00* Test Item Value Reference Range Interpretation Comme [facility] TSH, THIRD GENERATION (test code = 2821) 1.140 UIU/ML FREE T4 (THYROXINE) (test co de = 2823) 1.08 NG/DL CBC W/AUTO DIFF WITH PLATELETS [ADDED]2022-01-06 00:00:00* Test Item Value Reference Range Interpretation Comme nts WBC (test code = 1001) 3.0 K/UL [...] = 1013) 0.7 % IMMATURE GRANULOCYTES (test code = 1036) 0.3 % NUCLEATED RBCS (test code = 1065) 0.0 /100WBC'S PLATELET COUNT (test code = 1015) 89 K/UL ABSOLUTE NEUTROPHILS (test c ode = 1066) 1.97 K/UL ABSOLUTE LYMPHOCYTES (test c ode = 1067) 0.58 K/UL ABSOLUTE MONOCYTES (test cod e = 1068) 0.38 K/UL ABSOLUTE EOSINOPHILS (test c ode = 1040) 0.06 K/UL ABSOLUTE BASOPHILS (test cod e = 1069) 0.02 K/UL ABS IMMATURE GRANULOCYTES (t est code = 1020) 0.01 K/UL ABS NUCLEATED RBCS (test cod e = 84649) 0.00 K/UL HEMOGLOBIN [id number] 11:30:19* Test Item Value Reference Range Interpretation Comme nts HEMOGLOBIN A1c (test code = 16797) 7.7 % 4.2-5.6 H [employer] GUIDELINES FOR HGB A1C: PREDIABETES/INCREASED RISK . . . . . . . 5.7-6.4% DIAGNOSIS OF DIABETES . . . . . . . . . >=6.5% WITH CONFIRMATION OR APPROPRIATE SYMPTOMS NOTE: ASSAY MAY BE AFFECTED BY HEMOGLOBINOPATHIES (SICKLE CELL ANEMIA, S-C DISEASE, OTHERS) OR ARTIFICIALLY LOWERED BY DECREASED RED CELL SURVIVAL (HEMOLYTIC ANEMIAS, BLOOD LOSS, ETC.). CONSIDER ALTERNATE TESTING OR LABORATORY CONSULTATION. CBC W/AUTO DIFF WITH [id number] 06:08:59* Test Item Value Reference Range Interpretation Comme nts WBC (test code = 1001) 2.2 K/UL 3.5-11.0 L RBC (test code = 1002) 4.07 M/UL 4.50-6.10 L HEMOGLOBIN (test code = 1003) 10.2 G/DL 13.5-17.0 L HEMATOCRIT (test code = 1004) 32.2 % 40.0-51.0 L MCV (test code = 1005) 79.1 fL 80.0-99.0 L MCH (test code = 1006) 25.1 PG 25.0-33.0 MCHC (test code = 1007) 31.7 G/DL 31.0-36.0 RDW (test code = 1038) 15.0 % 11.5-15.0 NEUTROPHILS (test code = 1008) 58.8 % LYMPHOCYTES (test code = 1010) 23.1 % MONOCYTES (test code = 1011) 15.3 % EOSINOPHILS (test code = 1012) 2.3 % BASOPHILS (test code = 1013) 0.5 % IMMATURE GRANULOCYTES (test code = 1036) 0.0 % NUCLEATED RBCS (test code = 1065) 0.0 /100 WBC'S See_Comment [Automated messa ge] The system which generated this result transmitted reference range: 0.0. The reference range was not used to interpret this result as normal/abnormal. PLATELET COUNT (test code = 1015) 94 K/UL 130-400 L ABSOLUTE NEUTROPHILS (test code = 1066) 1.27 K/UL 1.50-7.50 L ABSOLUTE LYMPHOCYTES (test code = 1067) 0.50 K/UL 1.00-4.00 L ABSOLUTE MONOCYTES (test code = 1068) 0.33 K/UL 0.20-1.00 ABSOLUTE EOSINOPHILS (test code = 1040) 0.05 K/UL 0.00-0.50 ABSOLUTE BASOPHILS (test code = 1069) 0.01 K/UL 0.00-0.20 ABS IMMATURE GRANULOCYTES (test code = 1020) 0.00 K/UL 0.00-0.10 ABS NUCLEATED RBCS (test code = 40489) 0.00 K/UL 0.00-0.11 COMPREHENSIVE METABOLIC [id number] 05:29:47* Test Item Value Reference Range Interpretation Comme nts GLUCOSE (test code = 2217) 166 MG/DL 70-99 H BUN (test code = 2208) 11 MG/DL 8-23 CREATININE (test code = 2214) 0.77 MG/DL 0.80-1.40 L eGFR (2020 CKD-EPI) (test code = 12609) 96 ML/MIN/1.73 >60 CALC BUN/CREAT (test code = 2235) 14 RATIO 6-28 SODIUM (test code = 2230) 142 MEQ/L 133-146 POTASSIUM (test code = 8) 4.3 MEQ/L 3.5-5.4 CHLORIDE (test code = 2214) 106 MEQ/L 95-107 CARBON DIOXIDE (test code = 2205) 25 MEQ/L 19-31 CALCIUM (test code = 2208) 9.5 MG/DL 8.5-10.5 PROTEIN, TOTAL (test code = 2228) 6.9 G/DL 6.1-8.3 ALBUMIN (test code = 2200) 4.2 G/DL 3.5-5.2 CALC GLOBULIN (test code = 0) 2.7 G/DL 1.9-3.7 CALC A/G RATIO (test code = 2233) 1.6 RATIO 1.0-2.6 BILIRUBIN, TOTAL (test code = 2206) 2.6 MG/DL See_Comment H [Automated me ssage] The system which generated this result transmitted reference range: <=1.2. The reference range was not used to interpret this result as normal/abnormal. ALKALINE PHOSPHATASE (test code = 2203) 93 U/L 40-125 AST (test code = 2217) 34 U/L 9-50 ALT (test code = 2218) 21 U/L 5-50 PROTHROMBIN TIME (PT)2021-07-21 05:26:49* Test Item Value Reference Range Interpretation Comme nts PROTHROMBIN TIME (PT) (test code = 1402) 15.4 SECONDS 12.5-14.7 H INR (test code = 20349) 1.2 SEE BELOW CURRENT RECOMMENDATIONS ARE FOR AN INR OF 2.0-3.0 FOR ALL PATIENTS ON VITAMIN K ANTAGONISTS, EXCEPT THOSE WITH PROSTHETIC HEART VALVES, FOR WHOM INR OF 2.5-3.5 IS RECOMMENDED. UNLESS OTHERWISE INDICATED, ALL TESTING PERFORMED [facility] [address] [place] [address] SLAB STRIPPER: YOMI FOLEY M.D. CLIA NUMBER [id number] [facility] [place]. [id number] HEMOGLOBIN [id number] 00:00:00* Test Item Value Reference Range Interpretation Comme nts HEMOGLOBIN A1c (test code = 08355) 7.7 % PROTHROMBIN TIME (PT)2021-07-21 00:00:00* Test Item Value Reference Range Interpretation Comme nts PROTHROMBIN TIME (PT) (test code = 1402) 15.4 SECONDS INR (test code = 81650) 1.2 CBC W/AUTO [id number] 00:00:00* Test Item Value Reference Range Interpretation Comme nts WBC (test code = 1001) 2.2 K/UL [...] = 1013) 0.5 % IMMATURE GRANULOCYTES (test code = 1036) 0.0 % NUCLEATED RBCS (test code = 1065) 0.0 /100WBC'S PLATELET COUNT (test code = 1015) 94 K/UL ABSOLUTE NEUTROPHILS (test c ode = 1066) 1.27 K/UL ABSOLUTE LYMPHOCYTES (test c ode = 1067) 0.50 K/UL ABSOLUTE MONOCYTES (test cod e = 1068) 0.33 K/UL ABSOLUTE EOSINOPHILS (test c ode = 1040) 0.05 K/UL ABSOLUTE BASOPHILS (test cod e = 1069) 0.01 K/UL ABS IMMATURE GRANULOCYTES (t est code = 1020) 0.00 K/UL ABS NUCLEATED RBCS (test cod e = 24297) 0.00 K/UL COMPREHENSIVE METABOLIC [id number] 00:00:00* Test Item Value Reference Range Interpretation Comme nts GLUCOSE (test code = 2217) 166 MG/DL BUN (test code = 2208) 11 MG/DL CREATININE (test code = 2214) 0.77 MG/DL eGFR (2020 CKD-EPI) (test co de = 46037) 96 ML/MIN/1.73 CALC BUN/CREAT (test code = 2235) 14 RATIO SODIUM (test code = 2231) 142 MEQ/L POTASSIUM (test code = 2228) 4.3 MEQ/L CHLORIDE (test code = 2215) 106 MEQ/L CARBON DIOXIDE (test code = 2206) 25 MEQ/L CALCIUM (test code = 2209) 9.5 MG/DL PROTEIN, TOTAL (test code = 2229) 6.9 G/DL ALBUMIN (test code = 2201) 4.2 G/DL CALC GLOBULIN (test code = 2240) 2.7 G/DL CALC A/G RATIO (test code = 2234) 1.6 RATIO BILIRUBIN, TOTAL (test code = 2207) 2.6 MG/DL ALKALINE PHOSPHATASE (test code = 2204) 93 U/L AST (test code = 2218) 34 U/L ALT (test code = 2219) 21 U/L HEMOGLOBIN [id number] 00:00:00* Test Item Value Reference Range Interpretation Comme nts HEMOGLOBIN A1c (test code = 50313) 7.7 % PROTHROMBIN TIME (PT)2021-07-21 00:00:00* Test Item Value Reference Range Interpretation Comme nts PROTHROMBIN TIME (PT) (test code = 1402) 15.4 SECONDS INR (test code = 36469) 1.2 CBC W/AUTO [id number] 00:00:00* Test Item Value Reference Range Interpretation Comme nts WBC (test code = 1001) 2.2 K/UL [...] = 1013) 0.5 % IMMATURE GRANULOCYTES (test code = 1036) 0.0 % NUCLEATED RBCS (test code = 1065) 0.0 /100WBC'S PLATELET COUNT (test code = 1015) 94 K/UL ABSOLUTE NEUTROPHILS (test c ode = 1066) 1.27 K/UL ABSOLUTE LYMPHOCYTES (test c ode = 1067) 0.50 K/UL ABSOLUTE MONOCYTES (test cod e = 1068) 0.33 K/UL ABSOLUTE EOSINOPHILS (test c ode = 1040) 0.05 K/UL ABSOLUTE BASOPHILS (test cod e = 1069) 0.01 K/UL ABS IMMATURE GRANULOCYTES (t est code = 1020) 0.00 K/UL ABS NUCLEATED RBCS (test cod e = 19288) 0.00 K/UL COMPREHENSIVE METABOLIC [id number] 00:00:00* Test Item Value Reference Range Interpretation Comme nts GLUCOSE (test code = 2217) 166 MG/DL BUN (test code = 2208) 11 MG/DL CREATININE (test code = 2214) 0.77 MG/DL eGFR (2020 CKD-EPI) (test co de = 07066) 96 ML/MIN/1.73 CALC BUN/CREAT (test code = 2235) 14 RATIO SODIUM (test code = 2231) 142 MEQ/L POTASSIUM (test code = 2228) 4.3 MEQ/L CHLORIDE (test code = 2215) 106 MEQ/L CARBON DIOXIDE (test code = 2206) 25 MEQ/L CALCIUM (test code = 2209) 9.5 MG/DL PROTEIN, TOTAL (test code = 2229) 6.9 G/DL ALBUMIN (test code = 2201) 4.2 G/DL CALC GLOBULIN (test code = 2240) 2.7 G/DL CALC A/G RATIO (test code = 2234) 1.6 RATIO BILIRUBIN, TOTAL (test code = 2207) 2.6 MG/DL ALKALINE PHOSPHATASE (test code = 2204) 93 U/L AST (test code = 2218) 34 U/L ALT (test code = 2219) 21 U/L HEMOGLOBIN [id number] 00:00:00* Test Item Value Reference Range Interpretation Comme nts HEMOGLOBIN A1c (test code = 39408) 7.7 % PROTHROMBIN TIME (PT)2021-07-21 00:00:00* Test Item Value Reference Range Interpretation Comme nts PROTHROMBIN TIME (PT) (test code = 1402) 15.4 SECONDS INR (test code = 70125) 1.2 CBC W/AUTO [id number] 00:00:00* Test Item Value Reference Range Interpretation Comme nts WBC (test code = 1001) 2.2 K/UL [...] = 1013) 0.5 % IMMATURE GRANULOCYTES (test code = 1036) 0.0 % NUCLEATED RBCS (test code = 1065) 0.0 /100WBC'S PLATELET COUNT (test code = 1015) 94 K/UL ABSOLUTE NEUTROPHILS (test c ode = 1066) 1.27 K/UL ABSOLUTE LYMPHOCYTES (test c ode = 1067) 0.50 K/UL ABSOLUTE MONOCYTES (test cod e = 1068) 0.33 K/UL ABSOLUTE EOSINOPHILS (test c ode = 1040) 0.05 K/UL ABSOLUTE BASOPHILS (test cod e = 1069) 0.01 K/UL ABS IMMATURE GRANULOCYTES (t est code = 1020) 0.00 K/UL ABS NUCLEATED RBCS (test cod e = 51287) 0.00 K/UL COMPREHENSIVE METABOLIC [id number] 00:00:00* Test Item Value Reference Range Interpretation Comme nts GLUCOSE (test code = 2217) 166 MG/DL BUN (test code = 2208) 11 MG/DL CREATININE (test code = 2214) 0.77 MG/DL eGFR (2020 CKD-EPI) (test co de = 68635) 96 ML/MIN/1.73 CALC BUN/CREAT (test code = 2235) 14 RATIO SODIUM (test code = 2231) 142 MEQ/L POTASSIUM (test code = 2228) 4.3 MEQ/L CHLORIDE (test code = 2215) 106 MEQ/L CARBON DIOXIDE (test code = 2206) 25 MEQ/L CALCIUM (test code = 2209) 9.5 MG/DL PROTEIN, TOTAL (test code = 2229) 6.9 G/DL ALBUMIN (test code = 2201) 4.2 G/DL CALC GLOBULIN (test code = 2240) 2.7 G/DL CALC A/G RATIO (test code = 2234) 1.6 RATIO BILIRUBIN, TOTAL (test code = 2207) 2.6 MG/DL ALKALINE PHOSPHATASE (test code = 2204) 93 U/L AST (test code = 2218) 34 U/L ALT (test code = 2219) 21 U/L HEMOGLOBIN [id number] 00:39:46* Test Item Value Reference Range Interpretation Comme nts HEMOGLOBIN A1c (test code = 02927) 7.2 % 4.2-5.6 H [employer] GUIDELINES FOR HGB A1C: PREDIABETES/INCREASED RISK . . . . . . . 5.7-6.4% DIAGNOSIS OF DIABETES . . . . . . . . . >=6.5% WITH CONFIRMATION OR APPROPRIATE SYMPTOMS NOTE: ASSAY MAY BE AFFECTED BY HEMOGLOBINOPATHIES (SICKLE CELL ANEMIA, S-C DISEASE, OTHERS) OR ARTIFICIALLY LOWERED BY DECREASED RED CELL SURVIVAL (HEMOLYTIC ANEMIAS, BLOOD LOSS, ETC.). CONSIDER ALTERNATE TESTING OR LABORATORY CONSULTATION. HEMOGLOBIN [id number] 00:00:00* Test Item Value Reference Range Interpretation Comme [facility] HEMOGLOBIN A1c (test code = 63972) 7.2 % HEMOGLOBIN [id number] 00:00:00* Test Item Value Reference Range Interpretation Comme nts HEMOGLOBIN A1c (test code = 91476) 7.2 % HEMOGLOBIN [id number] 00:00:00* Test Item Value Reference Range Interpretation Comme nts HEMOGLOBIN A1c (test code = 39371) 7.2 % CBC W/AUTO DIFF WITH [id number] 13:09:01* Test Item Value Reference Range Interpretation Comme nts WBC (test code = 1001) 2.1 K/UL 3.5-11.0 L RBC (test code = 1002) 4.30 M/UL 4.50-6.10 L HEMOGLOBIN (test code = 1003) 11.0 G/DL 13.5-17.0 L HEMATOCRIT (test code = 1004) 35.5 % 40.0-51.0 L MCV (test code = 1005) 82.6 fL 80.0-99.0 MCH (test code = 1006) 25.6 PG 25.0-33.0 MCHC (test code = 1007) 31.0 G/DL 31.0-36.0 RDW (test code = 1038) 15.5 % 11.5-15.0 H NEUTROPHILS (test code = 1008) 59.7 % LYMPHOCYTES (test code = 1010) 26.3 % MONOCYTES (test code = 1011) 9.6 % EOSINOPHILS (test code = 1012) 2.6 % BASOPHILS (test code = 1013) 1.8 % PLATELET COUNT (test code = 1015) 63 K/UL 130-400 L ABSOLUTE NEUTROPHILS (test code = 1066) 1.25 K/UL 1.50-7.50 L ABSOLUTE LYMPHOCYTES (test code = 1067) 0.55 K/UL 1.00-4.00 L ABSOLUTE MONOCYTES (test code = 1068) 0.20 K/UL 0.20-1.00 ABSOLUTE EOSINOPHILS (test code = 1040) 0.05 K/UL 0.00-0.50 ABSOLUTE BASOPHILS (test code = 1069) 0.04 K/UL 0.00-0.20 COMMENTS (test code = 1016) (NOTE) SLIGHT ANISOCYTO SIS FEW ELLIPTOCYTES PLATELETS APPEAR MARKEDLY DECREASED LIPID [id number] 06:03:32* Test Item Value Reference Range Interpretation Comme nts CHOLESTEROL (test code = 2210) 129 MG/DL <200 TRIGLYCERIDES (test code = 2232) 149 MG/DL <150 HDL CHOLESTEROL (test code = 2220) 43 MG/DL >39 CALC LDL CHOL (test code = 2237) 63 MG/DL <100 NOTE: CALCULATED LDL IS BASED ON LISA-SELF METHOD WHICHINCLUDES ADJUSTABLE TRIGLYCERIDE:VLDL CHOLESTEROL RATIO.THIS FACTOR VARIES BY MEASURED TRIGLYCERIDE AND NON-HDLCHOLESTEROL CONCENTRATIONS WITH INCREASED CALCULATED LDL SEENIN HIGHER TRIGLYCERIDE OR LOWER NON-HDL SPECIMENS. FOR MOREINFORMATION, SEE CLIENT ANNOUNCEMENT AT [email or web address] RISK RATIO LDL/HDL (test code = 2238) 1.47 RATIO <3.55 COMPREHENSIVE METABOLIC [id number] 06:03:32* Test Item Value Reference Range Interpretation Comme nts GLUCOSE (test code = 2217) 170 MG/DL 70-99 H BUN (test code = 2208) 13 MG/DL 8-23 CREATININE (test code = 2214) 0.83 MG/DL 0.80-1.40 eGFR (2020 CKD-EPI) (test code = 49628) 94 ML/MIN/1.73 >60 CALC BUN/CREAT (test code = 2235) 16 RATIO 6-28 SODIUM (test code = 2231) 144 MEQ/L 133-146 POTASSIUM (test code = 2228) 4.6 MEQ/L 3.5-5.4 CHLORIDE (test code = 2215) 105 MEQ/L 95-107 CARBON DIOXIDE (test code = 2206) 27 MEQ/L 19-31 CALCIUM (test code = 2209) 9.8 MG/DL 8.5-10.5 PROTEIN, TOTAL (test code = 222) 7.1 G/DL 6.1-8.3 ALBUMIN (test code = 220) 4.2 G/DL 3.5-5.2 CALC GLOBULIN (test code = 2240) 2.9 G/DL 1.9-3.7 CALC A/G RATIO (test code = 2234) 1.4 RATIO 1.0-2.6 BILIRUBIN, TOTAL (test code = 2207) 2.6 MG/DL See_Comment H [Automated me ssage] The system which generated this result transmitted reference range: <=1.2. The reference range was not used to interpret this result as normal/abnormal. ALKALINE PHOSPHATASE (test code = 2203) 102 U/L 40-125 AST (test code = 2218) 31 U/L 9-50 ALT (test code = 2219) 22 U/L 5-50 UNLESS OTHERWISE INDICATED, ALL TESTING PERFORMED [facility] [address] [place] [id number] [employer] STRIPPER: YOMI FOLEY M.D. CLIA NUMBER [id number] [facility] [place]. [id number] COMPREHENSIVE METABOLIC [id number] 00:00:00* Test Item Value Reference Range Interpretation Comme nts GLUCOSE (test code = 2217) 170 MG/DL BUN (test code = 2208) 13 MG/DL CREATININE (test code = 2214) 0.83 MG/DL eGFR (2020 CKD-EPI) (test co de = 03039) 94 ML/MIN/1.73 CALC BUN/CREAT (test code = 2235) 16 RATIO SODIUM (test code = 2231) 144 MEQ/L POTASSIUM (test code = 2228) 4.6 MEQ/L CHLORIDE (test code = 2215) 105 MEQ/L CARBON DIOXIDE (test code = 2206) 27 MEQ/L CALCIUM (test code = 2209) 9.8 MG/DL PROTEIN, TOTAL (test code = 2229) 7.1 G/DL ALBUMIN (test code = 2201) 4.2 G/DL CALC GLOBULIN (test code = 2240) 2.9 G/DL CALC A/G RATIO (test code = 2234) 1.4 RATIO BILIRUBIN, TOTAL (test code = 2207) 2.6 MG/DL ALKALINE PHOSPHATASE (test code = 2204) 102 U/L AST (test code = 2218) 31 U/L ALT (test code = 2219) 22 U/L CBC W/AUTO [id number] 00:00:00* Test Item Value Reference Range Interpretation Comme nts WBC (test code = 1001) 2.1 K/UL [...] = 1015) 63 K/UL ABSOLUTE NEUTROPHILS (test c ode = 1066) 1.25 K/UL ABSOLUTE LYMPHOCYTES (test c ode = 1067) 0.55 K/UL ABSOLUTE MONOCYTES (test cod e = 1068) 0.20 K/UL ABSOLUTE EOSINOPHILS (test c ode = 1040) 0.05 K/UL ABSOLUTE BASOPHILS (test cod e = 1069) 0.04 K/UL COMMENTS (test code = 1016) (NOTE) LIPID [id number] 00:00:00* Test Item Value Reference Range Interpretation Comme nts CHOLESTEROL (test code = 2210) 129 MG/DL TRIGLYCERIDES (test code = 2232) 149 MG/DL HDL CHOLESTEROL (test code = 2220) 43 MG/DL CALC LDL CHOL (test code = 2237) 63 MG/DL RISK RATIO LDL/HDL (test cod e = 2238) 1.47 RATIO COMPREHENSIVE METABOLIC [id number] 00:00:00* Test Item Value Reference Range Interpretation Comme nts GLUCOSE (test code = 2217) 170 MG/DL BUN (test code = 2208) 13 MG/DL CREATININE (test code = 2214) 0.83 MG/DL eGFR (2020 CKD-EPI) (test co de = 27427) 94 ML/MIN/1.73 CALC BUN/CREAT (test code = 2235) 16 RATIO SODIUM (test code = 2231) 144 MEQ/L POTASSIUM (test code = 2228) 4.6 MEQ/L CHLORIDE (test code = 2215) 105 MEQ/L CARBON DIOXIDE (test code = 2206) 27 MEQ/L CALCIUM (test code = 2209) 9.8 MG/DL PROTEIN, TOTAL (test code = 2229) 7.1 G/DL ALBUMIN (test code = 2201) 4.2 G/DL CALC GLOBULIN (test code = 2240) 2.9 G/DL CALC A/G RATIO (test code = 2234) 1.4 RATIO BILIRUBIN, TOTAL (test code = 2207) 2.6 MG/DL ALKALINE PHOSPHATASE (test code = 2204) 102 U/L AST (test code = 2218) 31 U/L ALT (test code = 2219) 22 U/L CBC W/AUTO [id number] 00:00:00* Test Item Value Reference Range Interpretation Comme nts WBC (test code = 1001) 2.1 K/UL [...] = 1015) 63 K/UL ABSOLUTE NEUTROPHILS (test c ode = 1066) 1.25 K/UL ABSOLUTE LYMPHOCYTES (test c ode = 1067) 0.55 K/UL ABSOLUTE MONOCYTES (test cod e = 1068) 0.20 K/UL ABSOLUTE EOSINOPHILS (test c ode = 1040) 0.05 K/UL ABSOLUTE BASOPHILS (test cod e = 1069) 0.04 K/UL COMMENTS (test code = 1016) (NOTE) LIPID [id number] 00:00:00* Test Item Value Reference Range Interpretation Comme nts CHOLESTEROL (test code = 2210) 129 MG/DL TRIGLYCERIDES (test code = 2232) 149 MG/DL HDL CHOLESTEROL (test code = 2220) 43 MG/DL CALC LDL CHOL (test code = 2237) 63 MG/DL RISK RATIO LDL/HDL (test cod e = 2238) 1.47 RATIO COMPREHENSIVE METABOLIC [id number] 00:00:00* Test Item Value Reference Range Interpretation Comme nts GLUCOSE (test code = 2217) 170 MG/DL BUN (test code = 2208) 13 MG/DL CREATININE (test code = 2214) 0.83 MG/DL eGFR (2020 CKD-EPI) (test co de = 81678) 94 ML/MIN/1.73 CALC BUN/CREAT (test code = 2235) 16 RATIO SODIUM (test code = 2231) 144 MEQ/L POTASSIUM (test code = 2228) 4.6 MEQ/L CHLORIDE (test code = 2215) 105 MEQ/L CARBON DIOXIDE (test code = 2206) 27 MEQ/L CALCIUM (test code = 2209) 9.8 MG/DL PROTEIN, TOTAL (test code = 2229) 7.1 G/DL ALBUMIN (test code = 2201) 4.2 G/DL CALC GLOBULIN (test code = 2240) 2.9 G/DL CALC A/G RATIO (test code = 2234) 1.4 RATIO BILIRUBIN, TOTAL (test code = 2207) 2.6 MG/DL ALKALINE PHOSPHATASE (test code = 2204) 102 U/L AST (test code = 2218) 31 U/L ALT (test code = 2219) 22 U/L CBC W/AUTO [id number] 00:00:00* Test Item Value Reference Range Interpretation Comme nts WBC (test code = 1001) 2.1 K/UL [...] = 1015) 63 K/UL ABSOLUTE NEUTROPHILS (test c ode = 1066) 1.25 K/UL ABSOLUTE LYMPHOCYTES (test c ode = 1067) 0.55 K/UL ABSOLUTE MONOCYTES (test cod e = 1068) 0.20 K/UL ABSOLUTE EOSINOPHILS (test c ode = 1040) 0.05 K/UL ABSOLUTE BASOPHILS (test cod e = 1069) 0.04 K/UL COMMENTS (test code = 1016) (NOTE) LIPID [id number] 00:00:00* Test Item Value Reference Range Interpretation Comme nts CHOLESTEROL (test code = 2210) 129 MG/DL TRIGLYCERIDES (test code = 2232) 149 MG/DL HDL CHOLESTEROL (test code = 2220) 43 MG/DL CALC LDL CHOL (test code = 2237) 63 MG/DL RISK RATIO LDL/HDL (test cod e = 2238) 1.47 RATIO LIPID [id number] 00:00:00* Test Item Value Reference Range Interpretation Comme nts CHOLESTEROL (test code = 2210) 138 MG/DL TRIGLYCERIDES (test code = 2232) 169 MG/DL HDL CHOLESTEROL (test code = 2220) 41 MG/DL CALC LDL CHOL (test code = 2237) 72 MG/DL RISK RATIO LDL/HDL (test cod e = 2238) 1.76 RATIO COMPREHENSIVE METABOLIC [id number] 00:00:00* Test Item Value Reference Range Interpretation Comme nts GLUCOSE (test code = 2217) 191 MG/DL BUN (test code = 2208) 11 MG/DL CREATININE (test code = 2214) 0.73 MG/DL eGFR AMER. (test cod e = 85973) 109 ML/MIN/1.73 eGFR NON- AMER. (test code = 99865) 94 ML/MIN/1.73 CALC BUN/CREAT (test code = 2235) 15 RATIO SODIUM (test code = 2231) 140 MEQ/L POTASSIUM (test code = 2228) 4.5 MEQ/L CHLORIDE (test code = 2215) 103 MEQ/L CARBON DIOXIDE (test code = 2206) 26 MEQ/L CALCIUM (test code = 2209) 9.8 MG/DL PROTEIN, TOTAL (test code = 2229) 7.3 G/DL ALBUMIN (test code = 2201) 4.3 G/DL CALC GLOBULIN (test code = 2240) 3.0 G/DL CALC A/G RATIO (test code = 2234) 1.4 RATIO BILIRUBIN, TOTAL (test code = 2207) 3.8 MG/DL ALKALINE PHOSPHATASE (test code = 2204) 82 U/L AST (test code = 2218) 27 U/L ALT (test code = 2219) 22 U/L CBC W/AUTO [id number] 00:00:00* Test Item Value Reference Range Interpretation Comme nts WBC (test code = 1001) 2.3 K/UL [...] = 1013) 0.9 % IMMATURE GRANULOCYTES (test code = 1036) 0.4 % NUCLEATED RBCS (test code = 1065) 0.0 /100WBC'S PLATELET COUNT (test code = 1015) 71 K/UL ABSOLUTE NEUTROPHILS (test c ode = 1066) 1.39 K/UL ABSOLUTE LYMPHOCYTES (test c ode = 1067) 0.52 K/UL ABSOLUTE MONOCYTES (test cod e = 1068) 0.34 K/UL ABSOLUTE EOSINOPHILS (test c ode = 1040) 0.04 K/UL ABSOLUTE BASOPHILS (test cod e = 1069) 0.02 K/UL ABS IMMATURE GRANULOCYTES (t est code = 1020) 0.01 K/UL ABS NUCLEATED RBCS (test cod e = 44445) 0.00 K/UL HEMOGLOBIN [id number] 00:00:00* Test Item Value Reference Range Interpretation Comme nts HEMOGLOBIN A1c (test code = 56636) 7.3 % LIPID [id number] 00:00:00* Test Item Value Reference Range Interpretation Comme nts CHOLESTEROL (test code = 2210) 138 MG/DL TRIGLYCERIDES (test code = 2232) 169 MG/DL HDL CHOLESTEROL (test code = 2220) 41 MG/DL CALC LDL CHOL (test code = 2237) 72 MG/DL RISK RATIO LDL/HDL (test cod e = 2238) 1.76 RATIO COMPREHENSIVE METABOLIC [id number] 00:00:00* Test Item Value Reference Range Interpretation Comme nts GLUCOSE (test code = 2217) 191 MG/DL BUN (test code = 2208) 11 MG/DL CREATININE (test code = 2214) 0.73 MG/DL eGFR AMER. (test cod e = 79163) 109 ML/MIN/1.73 eGFR NON- AMER. (test code = 26997) 94 ML/MIN/1.73 CALC BUN/CREAT (test code = 2235) 15 RATIO SODIUM (test code = 2231) 140 MEQ/L POTASSIUM (test code = 2228) 4.5 MEQ/L CHLORIDE (test code = 2215) 103 MEQ/L CARBON DIOXIDE (test code = 2206) 26 MEQ/L CALCIUM (test code = 2209) 9.8 MG/DL PROTEIN, TOTAL (test code = 2229) 7.3 G/DL ALBUMIN (test code = 2201) 4.3 G/DL CALC GLOBULIN (test code = 2240) 3.0 G/DL CALC A/G RATIO (test code = 2234) 1.4 RATIO BILIRUBIN, TOTAL (test code = 2207) 3.8 MG/DL ALKALINE PHOSPHATASE (test code = 2204) 82 U/L AST (test code = 2218) 27 U/L ALT (test code = 2219) 22 U/L CBC W/AUTO [id number] 00:00:00* Test Item Value Reference Range Interpretation Comme nts WBC (test code = 1001) 2.3 K/UL [...] = 1013) 0.9 % IMMATURE GRANULOCYTES (test code = 1036) 0.4 % NUCLEATED RBCS (test code = 1065) 0.0 /100WBC'S PLATELET COUNT (test code = 1015) 71 K/UL ABSOLUTE NEUTROPHILS (test c ode = 1066) 1.39 K/UL ABSOLUTE LYMPHOCYTES (test c ode = 1067) 0.52 K/UL ABSOLUTE MONOCYTES (test cod e = 1068) 0.34 K/UL ABSOLUTE EOSINOPHILS (test c ode = 1040) 0.04 K/UL ABSOLUTE BASOPHILS (test cod e = 1069) 0.02 K/UL ABS IMMATURE GRANULOCYTES (t est code = 1020) 0.01 K/UL ABS NUCLEATED RBCS (test cod e = 12117) 0.00 K/UL HEMOGLOBIN [id number] 00:00:00* Test Item Value Reference Range Interpretation Comme nts HEMOGLOBIN A1c (test code = 49413) 7.3 % LIPID [id number] 00:00:00* Test Item Value Reference Range Interpretation Comme nts CHOLESTEROL (test code = 2210) 138 MG/DL TRIGLYCERIDES (test code = 2232) 169 MG/DL HDL CHOLESTEROL (test code = 2220) 41 MG/DL CALC LDL CHOL (test code = 2237) 72 MG/DL RISK RATIO LDL/HDL (test cod e = 2238) 1.76 RATIO COMPREHENSIVE METABOLIC [id number] 00:00:00* Test Item Value Reference Range Interpretation Comme nts GLUCOSE (test code = 2217) 191 MG/DL BUN (test code = 2208) 11 MG/DL CREATININE (test code = 2214) 0.73 MG/DL eGFR AMER. (test cod e = 90949) 109 ML/MIN/1.73 eGFR NON- AMER. (test code = 06793) 94 ML/MIN/1.73 CALC BUN/CREAT (test code = 2235) 15 RATIO SODIUM (test code = 2231) 140 MEQ/L POTASSIUM (test code = 2228) 4.5 MEQ/L CHLORIDE (test code = 2215) 103 MEQ/L CARBON DIOXIDE (test code = 2206) 26 MEQ/L CALCIUM (test code = 2209) 9.8 MG/DL PROTEIN, TOTAL (test code = 2229) 7.3 G/DL ALBUMIN (test code = 2201) 4.3 G/DL CALC GLOBULIN (test code = 2240) 3.0 G/DL CALC A/G RATIO (test code = 2234) 1.4 RATIO BILIRUBIN, TOTAL (test code = 2207) 3.8 MG/DL ALKALINE PHOSPHATASE (test code = 2204) 82 U/L AST (test code = 2218) 27 U/L ALT (test code = 2219) 22 U/L CBC W/AUTO [id number] 00:00:00* Test Item Value Reference Range Interpretation Comme nts WBC (test code = 1001) 2.3 K/UL [...] = 1013) 0.9 % IMMATURE GRANULOCYTES (test code = 1036) 0.4 % NUCLEATED RBCS (test code = 1065) 0.0 /100WBC'S PLATELET COUNT (test code = 1015) 71 K/UL ABSOLUTE NEUTROPHILS (test c ode = 1066) 1.39 K/UL ABSOLUTE LYMPHOCYTES (test c ode = 1067) 0.52 K/UL ABSOLUTE MONOCYTES (test cod e = 1068) 0.34 K/UL ABSOLUTE EOSINOPHILS (test c ode = 1040) 0.04 K/UL ABSOLUTE BASOPHILS (test cod e = 1069) 0.02 K/UL ABS IMMATURE GRANULOCYTES (t est code = 1020) 0.01 K/UL ABS NUCLEATED RBCS (test cod e = 43852) 0.00 K/UL HEMOGLOBIN [id number] 00:00:00* Test Item Value Reference Range Interpretation Comme nts HEMOGLOBIN A1c (test code = 54478) 7.3 % LIPID [id number] 00:00:00* Test Item Value Reference Range Interpretation Comme nts CHOLESTEROL (test code = 2210) 140 MG/DL TRIGLYCERIDES (test code = 2232) 132 MG/DL HDL CHOLESTEROL (test code = 2220) 44 MG/DL CALC LDL CHOL (test code = 2237) 74 MG/DL RISK RATIO LDL/HDL (test cod e = 2238) 1.68 RATIO COMPREHENSIVE METABOLIC [id number] 00:00:00* Test Item Value Reference Range Interpretation Comme nts GLUCOSE (test code = 2217) 159 MG/DL BUN (test code = 2208) 9 MG/DL CREATININE (test code = 2214) 0.87 MG/DL eGFR AMER. (test cod e = 84848) 101 ML/MIN/1.73 eGFR NON- AMER. (test code = 33652) 87 ML/MIN/1.73 CALC BUN/CREAT (test code = 2235) 10 RATIO SODIUM (test code = 2231) 141 MEQ/L POTASSIUM (test code = 2228) 4.9 MEQ/L CHLORIDE (test code = 2215) 103 MEQ/L CARBON DIOXIDE (test code = 2206) 28 MEQ/L CALCIUM (test code = 2209) 9.9 MG/DL PROTEIN, TOTAL (test code = 2229) 7.1 G/DL ALBUMIN (test code = 2201) 4.3 G/DL CALC GLOBULIN (test code = 2240) 2.8 G/DL CALC A/G RATIO (test code = 2234) 1.5 RATIO BILIRUBIN, TOTAL (test code = 2207) 2.5 MG/DL ALKALINE PHOSPHATASE (test code = 2204) 77 U/L AST (test code = 2218) 36 U/L ALT (test code = 2219) 23 U/L CBC W/AUTO [id number] 00:00:00* Test Item Value Reference Range Interpretation Comme nts WBC (test code = 1001) 2.5 K/UL [...] = 1013) 0.8 % IMMATURE GRANULOCYTES (test code = 1036) 0.0 % NUCLEATED RBCS (test code = 1065) 0.0 /100WBC'S PLATELET COUNT (test code = 1015) 72 K/UL ABSOLUTE NEUTROPHILS (test c ode = 1066) 1.52 K/UL ABSOLUTE LYMPHOCYTES (test c ode = 1067) 0.62 K/UL ABSOLUTE MONOCYTES (test cod e = 1068) 0.34 K/UL ABSOLUTE EOSINOPHILS (test c ode = 1040) 0.03 K/UL ABSOLUTE BASOPHILS (test cod e = 1069) 0.02 K/UL ABS IMMATURE GRANULOCYTES (t est code = 1020) 0.00 K/UL ABS NUCLEATED RBCS (test cod e = 19527) 0.00 K/UL HEMOGLOBIN [id number] 00:00:00* Test Item Value Reference Range Interpretation Comme nts HEMOGLOBIN A1c (test code = 78855) 7.3 % LIPID [id number] 00:00:00* Test Item Value Reference Range Interpretation Comme nts CHOLESTEROL (test code = 2210) 140 MG/DL TRIGLYCERIDES (test code = 2232) 132 MG/DL HDL CHOLESTEROL (test code = 2220) 44 MG/DL CALC LDL CHOL (test code = 2237) 74 MG/DL RISK RATIO LDL/HDL (test cod e = 2238) 1.68 RATIO COMPREHENSIVE METABOLIC [id number] 00:00:00* Test Item Value Reference Range Interpretation Comme nts GLUCOSE (test code = 2217) 159 MG/DL BUN (test code = 2208) 9 MG/DL CREATININE (test code = 2214) 0.87 MG/DL eGFR AMER. (test cod e = 09164) 101 ML/MIN/1.73 eGFR NON- AMER. (test code = 95050) 87 ML/MIN/1.73 CALC BUN/CREAT (test code = 2235) 10 RATIO SODIUM (test code = 2231) 141 MEQ/L POTASSIUM (test code = 2228) 4.9 MEQ/L CHLORIDE (test code = 2215) 103 MEQ/L CARBON DIOXIDE (test code = 2206) 28 MEQ/L CALCIUM (test code = 2209) 9.9 MG/DL PROTEIN, TOTAL (test code = 2229) 7.1 G/DL ALBUMIN (test code = 2201) 4.3 G/DL CALC GLOBULIN (test code = 2240) 2.8 G/DL CALC A/G RATIO (test code = 2234) 1.5 RATIO BILIRUBIN, TOTAL (test code = 2207) 2.5 MG/DL ALKALINE PHOSPHATASE (test code = 2204) 77 U/L AST (test code = 2218) 36 U/L ALT (test code = 2219) 23 U/L CBC W/AUTO [id number] 00:00:00* Test Item Value Reference Range Interpretation Comme nts WBC (test code = 1001) 2.5 K/UL [...] = 1013) 0.8 % IMMATURE GRANULOCYTES (test code = 1036) 0.0 % NUCLEATED RBCS (test code = 1065) 0.0 /100WBC'S PLATELET COUNT (test code = 1015) 72 K/UL ABSOLUTE NEUTROPHILS (test c ode = 1066) 1.52 K/UL ABSOLUTE LYMPHOCYTES (test c ode = 1067) 0.62 K/UL ABSOLUTE MONOCYTES (test cod e = 1068) 0.34 K/UL ABSOLUTE EOSINOPHILS (test c ode = 1040) 0.03 K/UL ABSOLUTE BASOPHILS (test cod e = 1069) 0.02 K/UL ABS IMMATURE GRANULOCYTES (t est code = 1020) 0.00 K/UL ABS NUCLEATED RBCS (test cod e = 36570) 0.00 K/UL HEMOGLOBIN [id number] 00:00:00* Test Item Value Reference Range Interpretation Comme nts HEMOGLOBIN A1c (test code = 61165) 7.3 % LIPID [id number] 00:00:00* Test Item Value Reference Range Interpretation Comme nts CHOLESTEROL (test code = 2210) 140 MG/DL TRIGLYCERIDES (test code = 2232) 132 MG/DL HDL CHOLESTEROL (test code = 2220) 44 MG/DL CALC LDL CHOL (test code = 2237) 74 MG/DL RISK RATIO LDL/HDL (test cod e = 2238) 1.68 RATIO COMPREHENSIVE METABOLIC [id number] 00:00:00* Test Item Value Reference Range Interpretation Comme nts GLUCOSE (test code = 2217) 159 MG/DL BUN (test code = 2208) 9 MG/DL CREATININE (test code = 2214) 0.87 MG/DL eGFR AMER. (test cod e = 98236) 101 ML/MIN/1.73 eGFR NON- AMER. (test code = 97906) 87 ML/MIN/1.73 CALC BUN/CREAT (test code = 2235) 10 RATIO SODIUM (test code = 2231) 141 MEQ/L POTASSIUM (test code = 2228) 4.9 MEQ/L CHLORIDE (test code = 2215) 103 MEQ/L CARBON DIOXIDE (test code = 2206) 28 MEQ/L CALCIUM (test code = 2209) 9.9 MG/DL PROTEIN, TOTAL (test code = 2229) 7.1 G/DL ALBUMIN (test code = 2201) 4.3 G/DL CALC GLOBULIN (test code = 2240) 2.8 G/DL CALC A/G RATIO (test code = 2234) 1.5 RATIO BILIRUBIN, TOTAL (test code = 2207) 2.5 MG/DL ALKALINE PHOSPHATASE (test code = 2204) 77 U/L AST (test code = 2218) 36 U/L ALT (test code = 2219) 23 U/L CBC W/AUTO [id number] 00:00:00* Test Item Value Reference Range Interpretation Comme nts WBC (test code = 1001) 2.5 K/UL [...] = 1013) 0.8 % IMMATURE GRANULOCYTES (test code = 1036) 0.0 % NUCLEATED RBCS (test code = 1065) 0.0 /100WBC'S PLATELET COUNT (test code = 1015) 72 K/UL ABSOLUTE NEUTROPHILS (test c ode = 1066) 1.52 K/UL ABSOLUTE LYMPHOCYTES (test c ode = 1067) 0.62 K/UL ABSOLUTE MONOCYTES (test cod e = 1068) 0.34 K/UL ABSOLUTE EOSINOPHILS (test c ode = 1040) 0.03 K/UL ABSOLUTE BASOPHILS (test cod e = 1069) 0.02 K/UL ABS IMMATURE GRANULOCYTES (t est code = 1020) 0.00 K/UL ABS NUCLEATED RBCS (test cod e = 25503) 0.00 K/UL HEMOGLOBIN [id number] 00:00:00* Test Item Value Reference Range Interpretation Comme nts HEMOGLOBIN A1c (test code = 78704) 7.3 % POCT URINALYSIS, [id number] 15:44:00* Test Item Value Reference Range Interpretation Comme nts POCT U SP GRAV (test code = 3255) 1.020 mg/dl 1.005-1.025 POCT PH U (test code = 3254) 7.0 mg/dl 5-8 POCT U LEUK EST (test code = 3263) Negative Negative - Negative POCT U NIT (test code = 3262) Negative Negative - Negati ve POCT U PROT (test code = 3259) Negative Negative - Negative POCT U GLU (test code = 3256) Negative Negative - Negati ve POCT U KETONE (test code = 3258) Negative Negative - Negative POCT U UROBILI (test code = 3260) 1.0 mg/dl 0.2-1 POCT U BILI (test code = 3261) Negative Negative - Negative POCT U BLD (test code = 3257) Negative Negative - Negati ve POCT U COLOR (test code = 3266) yellow POCT U APPEAR (test code = 3267) clear Lab Interpretation (test cod e = 69309-6) Normal [facility] URINALYSIS, [id number] 15:44:00 * Test Item Value Reference Range Interpretation Comme nts POCT U SP GRAV (test code = 3255) 1.020 mg/dl 1.005-1.025 POCT PH U (test code = 3254) 7.0 mg/dl 5-8 POCT U LEUK EST (test code = 3263) Negative Negative - Negative POCT U NIT (test code = 3262) Negative Negative - Negati ve POCT U PROT (test code = 3259) Negative Negative - Negative POCT U GLU (test code = 3256) Negative Negative - Negati ve POCT U KETONE (test code = 3258) Negative Negative - Negative POCT U UROBILI (test code = 3260) 1.0 mg/dl 0.2-1 POCT U BILI (test code = 3261) Negative Negative - Negative POCT U BLD (test code = 3257) Negative Negative - Negati ve POCT U COLOR (test code = 3266) yellow POCT U APPEAR (test code = 3267) clear Lab Interpretation (test cod e = 77054-2) [facility] [id number] 15:44:00 * Test Item Value Reference Range Interpretation Comme nts POCT U SP GRAV (test code = 3255) 1.020 mg/dl 1.005-1.025 POCT PH U (test code = 3254) 7.0 mg/dl 5-8 POCT U LEUK EST (test code = 3263) Negative Negative - Negative POCT U NIT (test code = 3262) Negative Negative - Negati ve POCT U PROT (test code = 3259) Negative Negative - Negative POCT U GLU (test code = 3256) Negative Negative - Negati ve POCT U KETONE (test code = 3258) Negative Negative - Negative POCT U UROBILI (test code = 3260) 1.0 mg/dl 0.2-1 POCT U BILI (test code = 3261) Negative Negative - Negative POCT U BLD (test code = 3257) Negative Negative - Negati ve POCT U COLOR (test code = 3266) yellow POCT U APPEAR (test code = 3267) clear Lab Interpretation (test cod e = 70485-2) [facility]2019-10-03 00:00:00* Test Item Value Reference Range Interpretation Comme nts WHITE BLOOD CELL COUNT (test code = 6690-2) 2.6 Thousand/uL RED BLOOD CELL COUNT (test code = 789-8) 4.80 Million/uL HEMOGLOBIN (test code = 718-7) 12.7 g/dL HEMATOCRIT (test code = 4544-3) 40.5 % MCV (test code = 787-2) 84.4 fL MCH (test code = 785-6) 26.5 pg MCHC (test code = 786-4) 31.4 g/dL RDW (test code = 788-0) 14.6 % PLATELET COUNT (test code = 777-3) 85 Thousand/uL MPV (test code = 776-5) 11.9 fL ABSOLUTE NEUTROPHILS (test code = 751-8) 1503 cells/uL ABSOLUTE BAND NEUTROPHILS (test code = 33418-2) DNR cells/uL ABSOLUTE METAMYELOCYTES (graciela t code = 25784-0) DNR cells/uL ABSOLUTE MYELOCYTES (test code = 49004-7) DNR cells/uL ABSOLUTE PROMYELOCYTES (test code = 73129-4) DNR cells/uL ABSOLUTE LYMPHOCYTES (test code = 731-0) 637 cells/uL ABSOLUTE MONOCYTES (test cod e = 742-7) 380 cells/uL ABSOLUTE EOSINOPHILS (test code = 711-2) 60 cells/uL ABSOLUTE BASOPHILS (test cod e = 704-7) 21 cells/uL ABSOLUTE BLASTS (test code = 11170-5) DNR cells/uL ABSOLUTE NUCLEATED RBC (test code = 45953-3) DNR cells/uL NEUTROPHILS (test code = 770-8) 57.8 % BAND NEUTROPHILS (test code = 764-1) DNR % METAMYELOCYTES (test code = 740-1) DNR % MYELOCYTES (test code = 749-2) DNR % PROMYELOCYTES (test code = 783-1) DNR % LYMPHOCYTES (test code = 736-9) 24.5 % REACTIVE LYMPHOCYTES (test code = 26961-2) DNR % MONOCYTES (test code = 5905-5) 14.6 % EOSINOPHILS (test code = 713-8) 2.3 % BASOPHILS (test code = 706-2) 0.8 % BLASTS (test code = 709-6) DNR % NUCLEATED RBC (test code = 06886-9) DNR /100WBC COMMENT(S) (test code = 8251-1) DNR HEMOGLOBIN [id number] 00:00:00* Test Item Value Reference Range Interpretation Comme nts HEMOGLOBIN A1c (test code = 4548-4) 6.7 %oftotalHgb CBC (INCLUDES DIFF/PLT)2019-10-03 00:00:00* Test Item Value Reference Range Interpretation Comme nts WHITE BLOOD CELL COUNT (test code = 6690-2) 2.6 Thousand/uL RED BLOOD CELL COUNT (test code = 789-8) 4.80 Million/uL HEMOGLOBIN (test code = 718-7) 12.7 g/dL HEMATOCRIT (test code = 4544-3) 40.5 % MCV (test code = 787-2) 84.4 fL MCH (test code = 785-6) 26.5 pg MCHC (test code = 786-4) 31.4 g/dL RDW (test code = 788-0) 14.6 % PLATELET COUNT (test code = 777-3) 85 Thousand/uL MPV (test code = 776-5) 11.9 fL ABSOLUTE NEUTROPHILS (test code = 751-8) 1503 cells/uL ABSOLUTE BAND NEUTROPHILS (test code = 65021-2) DNR cells/uL ABSOLUTE METAMYELOCYTES (graciela t code = 81611-0) DNR cells/uL ABSOLUTE MYELOCYTES (test code = 33289-8) DNR cells/uL ABSOLUTE PROMYELOCYTES (test code = 14546-9) DNR cells/uL ABSOLUTE LYMPHOCYTES (test code = 731-0) 637 cells/uL ABSOLUTE MONOCYTES (test cod e = 742-7) 380 cells/uL ABSOLUTE EOSINOPHILS (test code = 711-2) 60 cells/uL ABSOLUTE BASOPHILS (test cod e = 704-7) 21 cells/uL ABSOLUTE BLASTS (test code = 91496-5) DNR cells/uL ABSOLUTE NUCLEATED RBC (test code = 02733-2) DNR cells/uL NEUTROPHILS (test code = 770-8) 57.8 % BAND NEUTROPHILS (test code = 764-1) DNR % METAMYELOCYTES (test code = 740-1) DNR % MYELOCYTES (test code = 749-2) DNR % PROMYELOCYTES (test code = 783-1) DNR % LYMPHOCYTES (test code = 736-9) 24.5 % REACTIVE LYMPHOCYTES (test code = 48207-5) DNR % MONOCYTES (test code = 5905-5) 14.6 % EOSINOPHILS (test code = 713-8) 2.3 % BASOPHILS (test code = 706-2) 0.8 % BLASTS (test code = 709-6) DNR % NUCLEATED RBC (test code = 38948-3) DNR /100WBC COMMENT(S) (test code = 8251-1) DNR HEMOGLOBIN [id number] 00:00:00* Test Item Value Reference Range Interpretation Comme nts HEMOGLOBIN A1c (test code = 4548-4) 6.7 %oftotalHgb CBC (INCLUDES DIFF/PLT)2019-10-03 00:00:00* Test Item Value Reference Range Interpretation Comme nts WHITE BLOOD CELL COUNT (test code = 6690-2) 2.6 Thousand/uL RED BLOOD CELL COUNT (test code = 789-8) 4.80 Million/uL HEMOGLOBIN (test code = 718-7) 12.7 g/dL HEMATOCRIT (test code = 4544-3) 40.5 % MCV (test code = 787-2) 84.4 fL MCH (test code = 785-6) 26.5 pg MCHC (test code = 786-4) 31.4 g/dL RDW (test code = 788-0) 14.6 % PLATELET COUNT (test code = 777-3) 85 Thousand/uL MPV (test code = 776-5) 11.9 fL ABSOLUTE NEUTROPHILS (test code = 751-8) 1503 cells/uL ABSOLUTE BAND NEUTROPHILS (test code = 63750-3) DNR cells/uL ABSOLUTE METAMYELOCYTES (graciela t code = 68431-4) DNR cells/uL ABSOLUTE MYELOCYTES (test code = 18922-7) DNR cells/uL ABSOLUTE PROMYELOCYTES (test code = 16371-6) DNR cells/uL ABSOLUTE LYMPHOCYTES (test code = 731-0) 637 cells/uL ABSOLUTE MONOCYTES (test cod e = 742-7) 380 cells/uL ABSOLUTE EOSINOPHILS (test code = 711-2) 60 cells/uL ABSOLUTE BASOPHILS (test cod e = 704-7) 21 cells/uL ABSOLUTE BLASTS (test code = 09214-1) DNR cells/uL ABSOLUTE NUCLEATED RBC (test code = 50222-3) DNR cells/uL NEUTROPHILS (test code = 770-8) 57.8 % BAND NEUTROPHILS (test code = 764-1) DNR % METAMYELOCYTES (test code = 740-1) DNR % MYELOCYTES (test code = 749-2) DNR % PROMYELOCYTES (test code = 783-1) DNR % LYMPHOCYTES (test code = 736-9) 24.5 % REACTIVE LYMPHOCYTES (test code = 32114-1) DNR % MONOCYTES (test code = 5905-5) 14.6 % EOSINOPHILS (test code = 713-8) 2.3 % BASOPHILS (test code = 706-2) 0.8 % BLASTS (test code = 709-6) DNR % NUCLEATED RBC (test code = 01954-1) DNR /100WBC COMMENT(S) (test code = 8251-1) DNR HEMOGLOBIN [id number] 00:00:00* Test Item Value Reference Range Interpretation Comme nts HEMOGLOBIN A1c (test code = 4548-4) 6.7 %oftotalHgb POCT URINALYSIS, [id number] 21:47:00* Test Item Value Reference Range Interpretation Comme nts POCT U SP GRAV (test code = 3255) >=1.030 1.005-1.025 POCT PH U (test code = 3254) 6.0 mg/dl 5-8 POCT U LEUK EST (test code = 3263) negative Negative - Negative POCT U NIT (test code = 3262) negative Negative - Negative POCT U PROT (test code = 3259) Negative - Negative POCT U GLU (test code = 3256) negative Negative - Negative POCT U KETONE (test code = 3258) negative Negative - Negative POCT U UROBILI (test code = 3260) 1.0 mg/dl 0.2-1 POCT U BILI (test code = 3261) small Negative - Negative POCT U BLD (test code = 3257) moderate Negative - Negative POCT U COLOR (test code = 3266) otilia POCT U APPEAR (test code = 3267) slightly cloudy [facility] [id number] 21:47:00 * Test Item Value Reference Range Interpretation Comme nts POCT U SP GRAV (test code = 3255) >=1.030 1.005-1.025 POCT PH U (test code = 3254) 6.0 mg/dl 5-8 POCT U LEUK EST (test code = 3263) negative Negative - Negative POCT U NIT (test code = 3262) negative Negative - Negative POCT U PROT (test code = 3259) Negative - Negative POCT U GLU (test code = 3256) negative Negative - Negative POCT U KETONE (test code = 3258) negative Negative - Negative POCT U UROBILI (test code = 3260) 1.0 mg/dl 0.2-1 POCT U BILI (test code = 3261) small Negative - Negative POCT U BLD (test code = 3257) moderate Negative - Negative POCT U COLOR (test code = 3266) otilia POCT U APPEAR (test code = 3267) slightly cloudy [facility] WITH [id number] 16:47:00* Test Item Value Reference Range Interpretation Comme nts WBC (test code = 6690-2) See_Comment LL [Automated messa ge] The system which generated this result transmitted reference range: 4.20 - 10.70 10*3/?L. The reference range was not used to interpret this result as normal/abnormal. RBC (test code = 789-8) See_Comment L [Automated messa ge] The system which generated this result transmitted reference range: 4.26 - 5.52 10*6/?L. The reference range was not used to interpret this result as normal/abnormal. HGB (test code = 718-7) 11.5 g/dL 12.2-16.4 L HCT (test code = 4544-3) 35.7 % 38.4-49.3 L MCV (test code = 787-2) 84.4 fL 81.7-95.6 MCH (test code = 785-6) 27.2 pg 26.1-32.7 MCHC (test code = 786-4) 32.2 g/dL 31.2-35 RDW-SD (test code = 05443-6) 43.3 fL 38.5-51.6 RDW-CV (test code = 788-0) 14.0 % 12.1-15.4 PLT (test code = 777-3) See_Comment L [Automated messa ge] The system which generated this result transmitted reference range: 150 - 328 10*3/?L. The reference range was not used to interpret this result as normal/abnormal. MPV (test code = 94004-1) 11.2 fL 9.8-13 IPF % (test code = 9078515112) 4.7 % 1.2-10.7 Platelet count measured by fluorescence method. NRBC/100 WBC (test code = 6183327820) See_Comment [Automated [employer] ssage] The system which generated this result transmitted reference range: 0.0 - 10.0 /100 WBCs. The reference range was not used to interpret this result as normal/abnormal. NRBC x10^3 (test code = 2503571892) <0.01 See_Comment [Automated messa ge] The system which generated this result transmitted reference range: 10*3/?L. The reference range was not used to interpret this result as normal/abnormal. GRAN MAT (NEUT) % (test code = 770-8) 57.3 % IMM GRAN % (test code = 5701790042) 0.00 % LYMPH % (test code = 736-9) 24.7 % MONO % (test code = 5905-5) 15.5 % EOS % (test code = 713-8) 1.5 % BASO % (test code = 706-2) 1.0 % GRAN MAT x10^3(ANC) (test code = 9231340294) 1.11 10*3/uL 1.99-6.95 L IMM GRAN x10^3 (test code = 9012701334) <0.03 0-0.06 LYMPH x10^3 (test code = 731-0) 0.48 10*3/uL 1.09-3.23 L MONO x10^3 (test code = 742-7) 0.30 10*3/uL 0.36-1.02 L EOS x10^3 (test code = 711-2) 0.03 10*3/uL 0.06-0.53 L BASO x10^3 (test code = 704-7) <0.03 0.01-0.09 Lab Interpretation (test code = 07767-3) [facility] [id number] 14:57:10* Test Item Value Reference Range Interpretation Comme nts ABO & RH (test code = 20) A Positive Performed at [facility] Laboratory Services - [facility] Blood [address] [place], [place] [address]Toll Free: [phone] No. [id number] IAT (test code = 1185) Negative Performed at [facility] Laboratory Services - [facility] Blood [address] [place], [place] [id number] Free: [phone] No. [id number] [facility] METABOLIC PANEL (NA, K, CL, CO2, GLUCOSE, BUN, CREATININE, CA)2019-09-11 14:03:00* Test Item Value Reference Range Interpretation Comme nts NA (test code = 1529418207) 138 mmol/L 135-145 K (test code = 7699020061) 4.3 mmol/L 3.5-5 CL (test code = 6861325287) 106 mmol/L 98-108 CO2 TOTAL (test code = 9193104338) 27 mmol/L 23-31 AGAP (test code = 8386981540) 2-16 BUN (test code = 7287601367) 12 mg/dL 7-23 GLUCOSE (test code = 3336080066) 153 mg/dL 70-110 H CREATININE (test code = 6628313964) 0.65 mg/dL 0.6-1.25 CALCIUM (test code = 8786223287) 9.8 mg/dL 8.6-10.6 eGFR Calculation (Non-) (test code = 4224676085) mL/min/1.73m2 eGFR Calculation () (test code = 2737236319) mL/min/1.73m2 HUE (test code = HUE) Association of [...] or abnormalities in imaging tests). Lab Interpretation (test code = 97853-9) Abnormal [facility] URINALYSIS, [id number] 19:02:00 * Test Item Value Reference Range Interpretation Comme nts POCT U SP GRAV (test code = 3255) >=1.030 1.005-1.025 POCT PH U (test code = 3254) 5.5 mg/dl 5-8 POCT U LEUK EST (test code = 3263) negative Negative - Negative POCT U NIT (test code = 3262) negative Negative - Negati ve POCT U PROT (test code = 3259) negative Negative - Negat delfina POCT U GLU (test code = 3256) negtive Negative - Negati ve POCT U KETONE (test code = 3258) negative Negative - Negative POCT U UROBILI (test code = 3260) 1.0 mg/dl 0.2-1 POCT U BILI (test code = 3261) small Negative - Negat delfina POCT U BLD (test code = 3257) negative Negative - Negati ve POCT U COLOR (test code = 3266) orange POCT U APPEAR (test code = 3267) clear [facility] URINALYSIS, [id number] 19:02:00 * Test Item Value Reference Range Interpretation Comme nts POCT U SP GRAV (test code = 3255) >=1.030 1.005-1.025 POCT PH U (test code = 3254) 5.5 mg/dl 5-8 POCT U LEUK EST (test code = 3263) negative Negative - Negative POCT U NIT (test code = 3262) negative Negative - Negati ve POCT U PROT (test code = 3259) negative Negative - Negat delfina POCT U GLU (test code = 3256) negtive Negative - Negati ve POCT U KETONE (test code = 3258) negative Negative - Negative POCT U UROBILI (test code = 3260) 1.0 mg/dl 0.2-1 POCT U BILI (test code = 3261) small Negative - Negat delfina POCT U BLD (test code = 3257) negative Negative - Negati ve POCT U COLOR (test code = 3266) orange POCT U APPEAR (test code = 3267) clear [facility] URINALYSIS, [id number] 14:19:00 * Test Item Value Reference Range Interpretation Comme nts POCT U SP GRAV (test code = 3255) >=1.030 1.005-1.025 POCT PH U (test code = 3254) 5.5 mg/dl 5-8 POCT U LEUK EST (test code = 3263) negative Negative - Negative POCT U NIT (test code = 3262) negative Negative - Negati ve POCT U PROT (test code = 3259) negative Negative - Negat delfina POCT U GLU (test code = 3256) Negative - Negati ve POCT U KETONE (test code = 3258) negative Negative - Negative POCT U UROBILI (test code = 3260) 1.0 mg/dl 0.2-1 POCT U BILI (test code = 3261) small Negative - Negat delfina POCT U BLD (test code = 3257) negative Negative - Negati ve POCT U COLOR (test code = 3266) yellow POCT U APPEAR (test code = 3267) clear [facility] URINALYSIS, [id number] 14:19:00 * Test Item Value Reference Range Interpretation Comme nts POCT U SP GRAV (test code = 3255) >=1.030 1.005-1.025 POCT PH U (test code = 3254) 5.5 mg/dl 5-8 POCT U LEUK EST (test code = 3263) negative Negative - Negative POCT U NIT (test code = 3262) negative Negative - Negati ve POCT U PROT (test code = 3259) negative Negative - Negat delfina POCT U GLU (test code = 3256) Negative - Negati ve POCT U KETONE (test code = 3258) negative Negative - Negative POCT U UROBILI (test code = 3260) 1.0 mg/dl 0.2-1 POCT U BILI (test code = 3261) small Negative - Negat delfina POCT U BLD (test code = 3257) negative Negative - Negati ve POCT U COLOR (test code = 3266) yellow POCT U APPEAR (test code = 3267) clear [facility]T)2019-05-20 00:00:00* Test Item Value Reference Range Interpretation Comme nts WHITE BLOOD CELL COUNT (test code = 6690-2) 2.7 Thousand/uL RED BLOOD CELL COUNT (test code = 789-8) 5.08 Million/uL HEMOGLOBIN (test code = 718-7) 14.3 g/dL HEMATOCRIT (test code = 4544-3) 43.7 % MCV (test code = 787-2) 86.0 fL MCH (test code = 785-6) 28.1 pg MCHC (test code = 786-4) 32.7 g/dL RDW (test code = 788-0) 14.2 % PLATELET COUNT (test code = 777-3) 64 Thousand/uL MPV (test code = 776-5) 12.1 fL ABSOLUTE NEUTROPHILS (test code = 751-8) 1561 cells/uL ABSOLUTE BAND NEUTROPHILS (test code = 70430-2) DNR cells/uL ABSOLUTE METAMYELOCYTES (graciela t code = 72691-9) DNR cells/uL ABSOLUTE MYELOCYTES (test code = 00433-7) DNR cells/uL ABSOLUTE PROMYELOCYTES (test code = 78257-0) DNR cells/uL ABSOLUTE LYMPHOCYTES (test code = 731-0) 751 cells/uL ABSOLUTE MONOCYTES (test cod e = 742-7) 340 cells/uL ABSOLUTE EOSINOPHILS (test code = 711-2) 30 cells/uL ABSOLUTE BASOPHILS (test cod e = 704-7) 19 cells/uL ABSOLUTE BLASTS (test code = 50589-3) DNR cells/uL ABSOLUTE NUCLEATED RBC (test code = 59892-3) DNR cells/uL NEUTROPHILS (test code = 770-8) 57.8 % BAND NEUTROPHILS (test code = 764-1) DNR % METAMYELOCYTES (test code = 740-1) DNR % MYELOCYTES (test code = 749-2) DNR % PROMYELOCYTES (test code = 783-1) DNR % LYMPHOCYTES (test code = 736-9) 27.8 % REACTIVE LYMPHOCYTES (test code = 65269-5) DNR % MONOCYTES (test code = 5905-5) 12.6 % EOSINOPHILS (test code = 713-8) 1.1 % BASOPHILS (test code = 706-2) 0.7 % BLASTS (test code = 709-6) DNR % NUCLEATED RBC (test code = 60142-2) DNR /100WBC COMMENT(S) (test code = 8251-1) HEMOGLOBIN [id number] 00:00:00* Test Item Value Reference Range Interpretation Comme nts HEMOGLOBIN A1c (test code = 4548-4) 7.1 %oftotalHgb PSA, [id number] 00:00:00* Test Item Value Reference Range Interpretation Comme nts PSA, TOTAL (test code = 2857-1) 0.2 ng/mL PLATELET ESTIMATION [ADDED]2019-05-20 00:00:00* Test Item Value Reference Range Interpretation Comme nts PLATELET ESTIMATION (test co de = 9317-9) DECREASED COMPREHENSIVE METABOLIC [id number] 00:00:00* Test Item Value Reference Range Interpretation Comme nts GLUCOSE (test code = 2345-7) 115 mg/dL UREA NITROGEN (BUN) (test code = 3094-0) 14 mg/dL CREATININE (test code = 2160-0) 0.73 mg/dL eGFR NON-AFR. [place] (test code = 91331-0) 84 mL/min/1.73m2 eGFR (test code = 36154-1) 97 mL/min/1.73m2 BUN/CREATININE RATIO (test code = 3097-3) NOT APPLICABLE (calc) SODIUM (test code = 2951-2) 140 mmol/L POTASSIUM (test code = 2823-3) 4.5 mmol/L CHLORIDE (test code = 2075-0) 103 mmol/L CARBON DIOXIDE (test code = 2027-9) 24 mmol/L CALCIUM (test code = 54761-6) 9.5 mg/dL PROTEIN, TOTAL (test code = 2885-2) 7.0 g/dL ALBUMIN (test code = 1751-7) 4.2 g/dL GLOBULIN (test code = 97175-1) 2.8 g/dL(calc) ALBUMIN/GLOBULIN RATIO (test code = 1759-0) 1.5 (calc) BILIRUBIN, TOTAL (test code = 1975-2) 2.3 mg/dL ALKALINE PHOSPHATASE (test code = 6768-6) 78 U/L AST (test code = 1920-8) 18 U/L ALT (test code = 1742-6) 15 U/L LIPID [id number] 00:00:00* Test Item Value Reference Range Interpretation Comme nts CHOLESTEROL, TOTAL (test cod e = 2093-3) 155 mg/dL HDL CHOLESTEROL (test code = 2085-9) 41 mg/dL TRIGLYCERIDES (test code = 2571-8) 156 mg/dL LDL-CHOLESTEROL (test code = 17494-7) 89 mg/dL(calc) CHOL/HDLC RATIO (test code = 9830-1) 3.8 (calc) NON HDL CHOLESTEROL (test code = 15458-0) 114 mg/dL(calc) CBC (INCLUDES DIFF/PLT)2019-05-20 00:00:00* Test Item Value Reference Range Interpretation Comme nts WHITE BLOOD CELL COUNT (test code = 6690-2) 2.7 Thousand/uL RED BLOOD CELL COUNT (test code = 789-8) 5.08 Million/uL HEMOGLOBIN (test code = 718-7) 14.3 g/dL HEMATOCRIT (test code = 4544-3) 43.7 % MCV (test code = 787-2) 86.0 fL MCH (test code = 785-6) 28.1 pg MCHC (test code = 786-4) 32.7 g/dL RDW (test code = 788-0) 14.2 % PLATELET COUNT (test code = 777-3) 64 Thousand/uL MPV (test code = 776-5) 12.1 fL ABSOLUTE NEUTROPHILS (test code = 751-8) 1561 cells/uL ABSOLUTE BAND NEUTROPHILS (test code = 67237-9) DNR cells/uL ABSOLUTE METAMYELOCYTES (graciela t code = 04688-0) DNR cells/uL ABSOLUTE MYELOCYTES (test code = 94937-5) DNR cells/uL ABSOLUTE PROMYELOCYTES (test code = 39978-6) DNR cells/uL ABSOLUTE LYMPHOCYTES (test code = 731-0) 751 cells/uL ABSOLUTE MONOCYTES (test cod e = 742-7) 340 cells/uL ABSOLUTE EOSINOPHILS (test code = 711-2) 30 cells/uL ABSOLUTE BASOPHILS (test cod e = 704-7) 19 cells/uL ABSOLUTE BLASTS (test code = 53420-0) DNR cells/uL ABSOLUTE NUCLEATED RBC (test code = 50260-7) DNR cells/uL NEUTROPHILS (test code = 770-8) 57.8 % BAND NEUTROPHILS (test code = 764-1) DNR % METAMYELOCYTES (test code = 740-1) DNR % MYELOCYTES (test code = 749-2) DNR % PROMYELOCYTES (test code = 783-1) DNR % LYMPHOCYTES (test code = 736-9) 27.8 % REACTIVE LYMPHOCYTES (test code = 78837-8) DNR % MONOCYTES (test code = 5905-5) 12.6 % EOSINOPHILS (test code = 713-8) 1.1 % BASOPHILS (test code = 706-2) 0.7 % BLASTS (test code = 709-6) DNR % NUCLEATED RBC (test code = 81433-2) DNR /100WBC COMMENT(S) (test code = 8251-1) HEMOGLOBIN [id number] 00:00:00* Test Item Value Reference Range Interpretation Comme nts HEMOGLOBIN A1c (test code = 4548-4) 7.1 %oftotalHgb PSA, [id number] 00:00:00* Test Item Value Reference Range Interpretation Comme nts PSA, TOTAL (test code = 2857-1) 0.2 ng/mL PLATELET ESTIMATION [ADDED]2019-05-20 00:00:00* Test Item Value Reference Range Interpretation Comme nts PLATELET ESTIMATION (test co de = 9317-9) DECREASED COMPREHENSIVE METABOLIC [id number] 00:00:00* Test Item Value Reference Range Interpretation Comme nts GLUCOSE (test code = 2345-7) 115 mg/dL UREA NITROGEN (BUN) (test code = 3094-0) 14 mg/dL CREATININE (test code = 2160-0) 0.73 mg/dL eGFR NON-AFR. [place] (test code = 12435-5) 84 mL/min/1.73m2 eGFR (test code = 88531-3) 97 mL/min/1.73m2 BUN/CREATININE RATIO (test code = 3097-3) NOT APPLICABLE (calc) SODIUM (test code = 2951-2) 140 mmol/L POTASSIUM (test code = 2823-3) 4.5 mmol/L CHLORIDE (test code = 2075-0) 103 mmol/L CARBON DIOXIDE (test code = 2027-9) 24 mmol/L CALCIUM (test code = 16920-3) 9.5 mg/dL PROTEIN, TOTAL (test code = 2885-2) 7.0 g/dL ALBUMIN (test code = 1751-7) 4.2 g/dL GLOBULIN (test code = 81016-5) 2.8 g/dL(calc) ALBUMIN/GLOBULIN RATIO (test code = 1759-0) 1.5 (calc) BILIRUBIN, TOTAL (test code = 1975-2) 2.3 mg/dL ALKALINE PHOSPHATASE (test code = 6768-6) 78 U/L AST (test code = 1920-8) 18 U/L ALT (test code = 1742-6) 15 U/L LIPID [id number] 00:00:00* Test Item Value Reference Range Interpretation Comme nts CHOLESTEROL, TOTAL (test cod e = 2093-3) 155 mg/dL HDL CHOLESTEROL (test code = 2085-9) 41 mg/dL TRIGLYCERIDES (test code = 2571-8) 156 mg/dL LDL-CHOLESTEROL (test code = 97189-5) 89 mg/dL(calc) CHOL/HDLC RATIO (test code = 9830-1) 3.8 (calc) NON HDL CHOLESTEROL (test code = 92247-5) 114 mg/dL(calc) CBC (INCLUDES DIFF/PLT)2019-05-20 00:00:00* Test Item Value Reference Range Interpretation Comme nts WHITE BLOOD CELL COUNT (test code = 6690-2) 2.7 Thousand/uL RED BLOOD CELL COUNT (test code = 789-8) 5.08 Million/uL HEMOGLOBIN (test code = 718-7) 14.3 g/dL HEMATOCRIT (test code = 4544-3) 43.7 % MCV (test code = 787-2) 86.0 fL MCH (test code = 785-6) 28.1 pg MCHC (test code = 786-4) 32.7 g/dL RDW (test code = 788-0) 14.2 % PLATELET COUNT (test code = 777-3) 64 Thousand/uL MPV (test code = 776-5) 12.1 fL ABSOLUTE NEUTROPHILS (test code = 751-8) 1561 cells/uL ABSOLUTE BAND NEUTROPHILS (test code = 92580-5) DNR cells/uL ABSOLUTE METAMYELOCYTES (graciela t code = 06990-7) DNR cells/uL ABSOLUTE MYELOCYTES (test code = 25805-7) DNR cells/uL ABSOLUTE PROMYELOCYTES (test code = 66540-9) DNR cells/uL ABSOLUTE LYMPHOCYTES (test code = 731-0) 751 cells/uL ABSOLUTE MONOCYTES (test cod e = 742-7) 340 cells/uL ABSOLUTE EOSINOPHILS (test code = 711-2) 30 cells/uL ABSOLUTE BASOPHILS (test cod e = 704-7) 19 cells/uL ABSOLUTE BLASTS (test code = 29113-2) DNR cells/uL ABSOLUTE NUCLEATED RBC (test code = 43563-5) DNR cells/uL NEUTROPHILS (test code = 770-8) 57.8 % BAND NEUTROPHILS (test code = 764-1) DNR % METAMYELOCYTES (test code = 740-1) DNR % MYELOCYTES (test code = 749-2) DNR % PROMYELOCYTES (test code = 783-1) DNR % LYMPHOCYTES (test code = 736-9) 27.8 % REACTIVE LYMPHOCYTES (test code = 70371-0) DNR % MONOCYTES (test code = 5905-5) 12.6 % EOSINOPHILS (test code = 713-8) 1.1 % BASOPHILS (test code = 706-2) 0.7 % BLASTS (test code = 709-6) DNR % NUCLEATED RBC (test code = 97993-3) DNR /100WBC COMMENT(S) (test code = 8251-1) HEMOGLOBIN [id number] 00:00:00* Test Item Value Reference Range Interpretation Comme nts HEMOGLOBIN A1c (test code = 4548-4) 7.1 %oftotalHgb PSA, [id number] 00:00:00* Test Item Value Reference Range Interpretation Comme nts PSA, TOTAL (test code = 2857-1) 0.2 ng/mL PLATELET ESTIMATION [ADDED]2019-05-20 00:00:00* Test Item Value Reference Range Interpretation Comme nts PLATELET ESTIMATION (test co de = 9317-9) DECREASED COMPREHENSIVE METABOLIC [id number] 00:00:00* Test Item Value Reference Range Interpretation Comme nts GLUCOSE (test code = 2345-7) 115 mg/dL UREA NITROGEN (BUN) (test code = 3094-0) 14 mg/dL CREATININE (test code = 2160-0) 0.73 mg/dL eGFR NON-AFR. [place] (test code = 80439-7) 84 mL/min/1.73m2 eGFR (test code = 03960-4) 97 mL/min/1.73m2 BUN/CREATININE RATIO (test code = 3097-3) NOT APPLICABLE (calc) SODIUM (test code = 2951-2) 140 mmol/L POTASSIUM (test code = 2823-3) 4.5 mmol/L CHLORIDE (test code = 2075-0) 103 mmol/L CARBON DIOXIDE (test code = 2027-9) 24 mmol/L CALCIUM (test code = 54621-3) 9.5 mg/dL PROTEIN, TOTAL (test code = 2885-2) 7.0 g/dL ALBUMIN (test code = 1751-7) 4.2 g/dL GLOBULIN (test code = 49278-2) 2.8 g/dL(calc) ALBUMIN/GLOBULIN RATIO (test code = 1759-0) 1.5 (calc) BILIRUBIN, TOTAL (test code = 1975-2) 2.3 mg/dL ALKALINE PHOSPHATASE (test code = 6768-6) 78 U/L AST (test code = 1920-8) 18 U/L ALT (test code = 1742-6) 15 U/L LIPID [id number] 00:00:00* Test Item Value Reference Range Interpretation Comme nts CHOLESTEROL, TOTAL (test cod e = 2093-3) 155 mg/dL HDL CHOLESTEROL (test code = 2085-9) 41 mg/dL TRIGLYCERIDES (test code = 2571-8) 156 mg/dL LDL-CHOLESTEROL (test code = 60576-4) 89 mg/dL(calc) CHOL/HDLC RATIO (test code = 9830-1) 3.8 (calc) NON HDL CHOLESTEROL (test code = 56043-8) 114 mg/dL(calc) Consult Notes Date/Time Note Provider Source 2023-04-12 17:34:59 Associated Order(s): CONSULT INFECTIOUS DISEASE DATE OF SERVICE: 04/12/23 REQUESTING PHYSICIAN: Dr. Montez CHIEF COMPLAINT/REASON FOR CONSULT We were asked to see this patient to give my opinion regarding Flako Reilly, 73 year old , male who presents with cellulitis left hand/arm due to cat bite. HPI Patient is a 73 year old male with a past medical history of cirrhosis, BPH, GERD, leukopenia and diabetes, hypertension who presented to the ED for left hand/arm swelling and redness following a cat bite. PAST MEDICAL HISTORY Past Medical History: Diagnosis Date BPH (benign prostatic hyperplasia) 2005 Diabetes 159 Fatty liver GERD (gastroesophageal reflux disease) well controlled Hyperlipemia Hypertension well controlled SURGICAL HISTORY Past Surgical History: Procedure Laterality Date COLONOSCOPY N/A 03/28/2017 Surgeon: Radha Madrid MD; Location: [facility] OR Location ESOPHAGOGASTRODUODENOSCOPY N/A 03/21/2017 Surgeon: Radha Madrid MD; Location: [facility] OR Location ESOPHAGOGASTRODUODENOSCOPY N/A 03/28/2017 Surgeon: Rahda Madrid MD; Location: [facility] OR [facility] LASER ABLATION OF PROSTATE N/A 09/11/2019 Surgeon: Bill Sanford MD; Location: [facility] OR [facility] PROSTATE SURGERY 2004 TRANSURETHRAL BLADDER NECK RESECTION N/A 09/11/2019 Surgeon: Bill Sanford MD; Location: [facility] OR [facility] MEDICATIONS Current Facility-Administered Medications: ampicillin-sulbactam (UNASYN) 3 g in NaCl 0.9% (NS) 100 mL MINI-BAG, 3 g, IV Piggyback, Q6H Wilfredo RAI Naveed U, MD, Last Rate: 200 mL/hr at 04/12/23 1727, 3 g at 04/12/23 1727 aspirin chewable tablet 81 mg, 81 mg, Oral, DAILY, Lay Dash MD, 81 mg at 04/12/23 0808 atorvastatin (LIPITOR) tablet 20 mg, 20 mg, Oral, DAILY, Lay Dash MD, 20 mg at 04/12/23 0808 FENTanyl PF (SUBLIMAZE (PF)) injection 25 mcg, 25 mcg, Slow IV Push, Q4HPRN, Karlee Bernard FNP SERTraline (ZOLOFT) tablet 50 mg, 50 mg, Oral, DAILY, Lay Dash MD, 50 mg at 04/12/23 0808 tamsulosin (FLOMAX) capsule 0.4 mg, 0.4 mg, Oral, QHS, Lay Dash MD traMADoL (ULTRAM) tablet 50 mg, 50 mg, Oral, Q6HPRN, Karlee Bernard FNP, 50 mg at 04/12/23 1448 vancomycin (VANCOCIN) 1,000 mg in NaCl 0.9% (NS) 250 mL VIAL-MATE IV piggyback, 1,000 mg, IV Piggyback, Q12H ABWilfredo Kemp Naveed U, MD acetaminophen (TYLENOL) tablet 650 mg, 650 mg, Oral, Q6HPRN, Lay Dash MD, 650 mg at 04/12/23 0810 Facility-Administered Medications Ordered in Other Encounters: lidocaine (XYLOCAINE) 2 % jelly URO-JET, , , PRN, Bill Sanford MD, 10 mL at 09/11/19 1004 ALLERGIES Patient has no known allergies. FAMILY HISTORY No family history on file. SOCIAL HISTORY Social History Socioeconomic History Marital status: Tobacco Use Smoking status: Former Smokeless tobacco: Never Tobacco comments: Quit 35 years ago Substance and Sexual Activity Alcohol use: No Drug use: No REVIEW OF SYSTEMS (-)=Negative,(+)=Positive Skin: (+) left hand/arm erythema, edema, warmth, tenderness PHYSICAL EXAM Vitals: 04/12/23 1606 BP: (!) 159/76 Pulse: 82 Resp: 18 Temp: 36.8 ?C (98.2 ?F) SpO2: 96% General: alert and oriented x 4 (person, place, date/time, and situation); no apparent distress HEENT: normocephalic atraumatic, corrective lenses. Lungs: clear to auscultation bilaterally Cardio: regular rate and rhythm Abdomen: soft; non-tender; non-distended; normoactive bowel sounds Skin: left hand/arm erythema, edema, warmth, tenderness LAB DATA CBC BMP PT/INR WBC (10*3/?L) Date Value 04/11/2023 2.85 (L) NA (mmol/L) Date Value 04/11/2023 138 No results found for: "PT" RBC (10*6/?L) Date Value 04/11/2023 3.14 (L) K (mmol/L) Date Value 04/11/2023 3.9 No results found for: "PTINR" PLT (10*3/?L) Date Value 04/11/2023 47 (LL) CALCIUM (mg/dL) Date Value 04/11/2023 9.1 HGB (g/dL) Date Value 04/11/2023 9.1 (L) CL (mmol/L) Date Value 04/11/2023 108 aPTT HCT (%) Date Value 04/11/2023 27.4 (L) BUN (mg/dL) Date Value 04/11/2023 17 No results found for: "APTTPAT" CREATININE (mg/dL) Date Value 04/11/2023 0.88 MICROBIOLOGY/SEROLOGY - Reviewed RADIOLOGY/IMAGING XR HAND <3 VW LEFT Result Date: 04/11/2023 Impression: Mild dorsal soft tissue swelling of the hand. Otherwise, no acute abnormalities evident. RL: [id number] End of Report FOREARM 2 VW LEFT Result Date: 04/11/2023 Impression: Mild dorsal soft tissue swelling of the hand. Otherwise, no acute abnormalities evident. RL: [id number] End of Report CHEST 1 VW Result Date: 04/11/2023 1. Cardiomegaly. No evidence of acute pulmonary abnormality. RL: [id number] End of report. SSMENT Patient Active Problem List Diagnosis Anemia Bladder neck contracture Cat bite, initial encounter Cirrhosis BPH GERD Cat Bite - Started on Unasyn and Vancomycin 04/12 RECOMMENDATIONS - Continue Unasyn and Vancomycin for now - Continue supportive care - Monitor WBC and fever trends Case discussed with Kenneth Zimmerman PROFESSIONAL Associated attestation - Jah Villalobos MD - 04/16/2023 10:23 AM RISK PROFESSIONAL I agree with this note. [facility] 2023-04-12 14:35:00 Associated Order(s): CONSULT PS PASTORAL CARE [employer] visited with patient per consult. Patient received in bed awake. Patient was pleasant and welcoming of the visit. Patient stated that he was in pain but that the nurse had just given him some pain medication. [employer] was a spiritual presence and repossessor. [employer]ler offered the patient words of comfort and support. [employer]ler prayed for patients healing and recovery. [employer] Roller gave patient a spiritual reading resource for continued encouragement. Patient thanked [employer] Roller for the visit. Additional [employer] support is available upon request. [employer] Holli Wooten DMin [facility] Care Department [phone] PROFESSIONAL Holli Wooten [facility] History and Physical Notes Date/Time Note Provider Source 2023-10-04 09:50:51 GASTROENTEROLOGY FOLLOW UP 73 yo here for f/u. Dx Cirrhosis 2017 Underwent w/u at the time - told it was fatty liver H/O Ascites No significant component of edema Takes lasix / aldactone Recent US with LVP with albumin Not following salt No h/o EVs or PSE Has ventral hernia - has been increasing in size over the last several years Seen surgery Concern given underlying cirrhosis and ascites No upper gi symptoms: No dysphagia, odynophagia, gerd, dyspepsia, early satiety, nausea, vomiting, or abdominal pain. Occasional BRBPR - was told hemorrhoidal EGD and colonoscopy done since the last visit FINDINGS: 4 columns of Grade 2 esophageal varices. No stigmata of recent hemorrhage. Subtle PHG in the body of the stomach Small hiatal hernia Otherwise, normal exam in the stomach. Normal exam in the duodenum. Biopsy obtained, results pending. FINDINGS: Rectal varices. Patchy suboptimal preparation Otherwise normal colonoscopy Component Latest Ref Rng 09/05/2022 01/10/2023 06/22/2023 WHITE BLOOD CELL (WBC) COUNT 3.6 - 12.5 10*3/uL 2.3 (L) 1.9 (L) 2.2 (L) RED BLOOD CELL (RBC) COUNT 4.14 - 5.80 10*6/uL 4.39 3.91 (L) 3.81 (L) HEMOGLOBIN 12.6 - 17.7 g/dL 12.3 (L) 11.9 (L) 10.1 (L) HEMATOCRIT 37.5 - 51.0 % 37.7 35.8 (L) 32.0 (L) MCV 79.0 - 97.0 fL 85.9 91.6 84.0 MCH 26.6 - 33.0 pg 28.0 30.4 26.5 (L) MCHC 31.5 - 35.7 g/dL 32.6 33.2 31.6 RDW 11.6 - 15.4 % 16.6 (H) 14.2 14.6 PLATELET COUNT 150 - 450 10*3/uL 55 (L) 65 (L) 93 (L) NEUTROPHILS Not estab. % 67 66 LYMPHS Not estab. % 22 20 MONOCYTES Not estab. % 9 11 EOS Not estab. % 1.0 1.4 BASOS Not estab. % 1.0 0.9 IMMATURE GRANULOCYTES Not estab. % 0.5 0.0 NEUTROPHILS (ABSOLUTE) 1.40 - 7.00 10*3/uL 1.27 (L) 1.46 LYMPHS (ABSOLUTE) 0.70 - 3.10 10*3/uL 0.42 (L) 0.44 (L) MONOCYTES(ABSOLUTE) 0.10 - 0.90 10*3/uL 0.17 0.25 EOS (ABSOLUTE) 0.00 - 0.40 10*3/uL 0.02 0.03 BASO (ABSOLUTE) 0.00 - 0.20 10*3/uL 0.02 0.02 IMMATURE GRANS (ABS) 0.00 - 0.10 10*3/uL 0.01 0.00 GLUCOSE, SERUM 65 - 99 mg/dL 124 (H) BUN 9 - 30 mg/dL 15 CREATININE, SERUM 0.65 - 1.42 mg/dL 0.80 EGFR >=59 93 BUN/CREATININE RATIO 9 - 24 19 SODIUM, SERUM 133 - 143 mmol/L 139 POTASSIUM, SERUM 3.5 - 5.1 mmol/L 4.5 CHLORIDE, SERUM 98 - 109 mmol/L 106 CARBON DIOXIDE, TOTAL 21 - 32 mmol/L 25 CALCIUM, SERUM 8.3 - 10.2 mg/dL 9.3 PROTEIN, TOTAL, SERUM 5.6 - 8.5 g/dL 7.0 ALBUMIN, SERUM 3.3 - 4.9 g/dL 3.8 GLOBULIN, TOTAL 2.2 - 3.9 g/dL 3.2 A/G RATIO 0.7 - 1.7 1.2 BILIRUBIN 0.3 - 1.1 mg/dL 2.2 (H) ALKALINE PHOSPHATASE, SERUM 39 - 119 U/L 110 AST (SGOT) 18 - 40 U/L 32 ALT (SGPT) 11 - 55 U/L 15 IRON BIND.CAP.(TIBC) 250 - 450 ug/dL 327 378 402 UIBC 111 - 343 ug/dL 266 248 364 (H) IRON, SERUM 38 - 169 ug/dL 61 130 38 IRON SATURATION 15 - 55 % 19 34 9 (LL) FERRITIN, SERUM 30 - 400 ng/mL 46 47 20 (L) TSH 0.460 - 3.993 uIU/mL 1.000 Component Latest Ref Rng 06/22/2023 PROTHROMBIN TIME 8.7 - 14.0 Seconds 11.9 INR 0.9 - 1.2 1.1 APTT 22.0 - 33.0 Seconds 27.6 REVIEW OF SYSTEMS: CONSTITUTIONAL: No fever, chills. No recent weight loss or weight gain. CARDIOVASCULAR: No chest pain, palpitations, orthopnea, or paroxysmal nocturnal dyspnea. RESPIRATORY: No shortness of breath, cough or hemoptysis. GASTROINTESTINAL: per HPI MUSCULOSKELETAL: No history of body aches or painful joints. Past Medical History: Diagnosis Date Depression Gallstones GERD (gastroesophageal reflux disease) Liver cirrhosis (multi HCC) Primary hypertension Spleen enlarged Type 2 diabetes mellitus, without long-term current use of insulin (multi HCC) Umbilical hernia without obstruction and without gangrene Past Surgical History: Procedure Laterality Date COLONOSCOPY WITH TOTAL INTRAVENOUS ANESTHESIA N/A 09/12/2023 Performed by Sivakumar Gonsalves MD at [facility] COLONOSCOPY, FLEXIBLE; DIAGNOSTIC, INCLUDING COLLECTION OF SPECIMEN(S) BY BRUSHING OR WASHING, WHEN [address] Faustin ESOPHAGUS ENDOSCOPY [address] Faustin EXTENSIVE PROSTATE SURGERY 2004 TRANSURETHRAL ABLATION OF PROSTATE BY LASER 2019 TRANSURETHRAL RESECTION OF BLADDER NECK 2019 UPPER GI ENDOSCOPY, BIOPSY N/A 09/12/2023 Performed by Sivakumar Gonsalves MD at [facility] Family History Problem Relation Name Age of Onset Anesthesia Problems Neg Hx Social History Tobacco Use Smoking status: Never Smokeless tobacco: Never Vaping Use Vaping status: Never Used Substance Use Topics Alcohol use: Not Currently Drug use: Never No Known Allergies Current Outpatient Medications Medication Sig Dispense Refill Atorvastatin Calcium 20 MG oral Tablet Take 1 tablet (20 mg total) by mouth daily. 90 tablet 3 Ferrous Sulfate 325 (65 Fe) MG oral Tablet Take 1 tablet (325 mg total) by mouth daily (with breakfast). Furosemide 40 MG oral Tablet Take 1 tablet (40 mg total) by mouth daily. Gabapentin 100 MG oral Capsule Take 1 capsule (100 mg total) by mouth 2 times daily as needed (pain). 60 capsule 1 Lisinopril 10 MG oral Tablet Take 1 tablet (10 mg total) by mouth daily. 90 tablet 1 Metformin HCl 1000 MG oral Tablet Take 1 tablet (1,000 mg total) by mouth in the morning and 1 tablet (1,000 mg total) in the evening. Take with meals. 180 tablet 1 Omeprazole 20 MG oral Delayed Release Capsule Take 1 capsule (20 mg total) by mouth daily. 90 capsule 1 Sertraline HCl 50 MG oral Tablet TAKE 1 TABLET BY MOUTH EVERY DAY 90 tablet 1 Spironolactone 100 MG oral Tablet Take 1 tablet (100 mg total) by mouth daily. SSD 1 % apply externally Cream Apply 1 package topically 2 times daily FOR 7 DAYS. No current facility-administered medications for this visit. There were no vitals taken for this visit. GENERAL APPEARANCE: Adult. NAD. RESPIRATORY (LUNGS/CHEST): No symptoms of respiratory distress, dullness or chest wall tenderness. Lungs are clear to auscultation without any rhonchi or crepitations. CARDIOVASCULAR: PMI is not displaced. S1 and S2 are audible in all 4 areas. No murmur or gallop. No edema. GASTROINTESTINAL: Abdomen is not distended. No palpable hepatosplenomegaly or masses. Moderate ascites. No rebound, tenderness, guarding or rigidity. Bowel sounds are present and appeared normal. Non-reducible, Non-tender ventral hernia IMPRESSION/PLAN: Patient is a 73-year-old male with a history of cirrhosis here for evaluation of anemia. It sounds like he was diagnosed with cirrhosis in 2017 presumably a function of fatty liver. He had comprehensive workup done which was unremarkable although I do not have these records available. His cirrhosis has been complicated by ascites, esophageal varices. His management of ascites has been Lasix, Aldactone. He has been noncompliant with salt restriction. -Continue diuretics -I have reiterated the importance of salt restriction, at least 4 g/day. -I have added nadolol at a very low dose for his varices. Discussed risks and benefits. He did have evidence of iron deficiency anemia. No clear etiology on endoscopic workup. Will update labs and only consider further evaluation if needed. He does have a prominent ventral hernia. He is already following with surgery. He did undergo large-volume paracentesis which he does not think helped his hernia symptoms. 1. Cirrhosis of liver with ascites, unspecified hepatic cirrhosis type (multi HCC) CBC WITH DIFFERENTIAL COMP. METABOLIC PANEL (14) PROTHROMBIN TIME (PT) 2. Iron deficiency anemia, unspecified iron deficiency anemia type CBC WITH DIFFERENTIAL COMP. METABOLIC PANEL (14) PROTHROMBIN TIME (PT) 3. Ventral hernia without obstruction or gangrene CBC WITH DIFFERENTIAL COMP. METABOLIC PANEL (14) PROTHROMBIN TIME (PT) 4. Secondary esophageal varices without bleeding (multi HCC) CBC WITH DIFFERENTIAL COMP. METABOLIC PANEL (14) PROTHROMBIN TIME (PT) [facility] 2023-07-02 13:46:35 GASTROENTEROLOGY FOLLOW UP 73 yo here for f/u. Dx Cirrhosis 2017 Underwent w/u at the time - told it was fatty liver H/O Ascites No h/o EVs or PSE Has ventral hernia - has been increasing in size over the last several years Takes lasix 40, spironolactone 100 Not compliant with salt restriction No upper gi symptoms: No dysphagia, odynophagia, gerd, dyspepsia, early satiety, nausea, vomiting, or abdominal pain. Occasional BRBPR - was told hemorrhoidal ?colonoscopy 2019 Component Latest Ref Rng 09/05/2022 01/10/202306/2106/22/2023 WHITE BLOOD CELL (WBC) COUNT 3.6 - 12.5 10*3/uL 2.3 (L) 1.9 (L) 2.2 (L) RED BLOOD CELL (RBC) COUNT 4.14 - 5.80 10*6/uL 4.39 3.91 (L) 3.81 (L) HEMOGLOBIN 12.6 - 17.7 g/dL 12.3 (L) 11.9 (L) 10.1 (L) HEMATOCRIT 37.5 - 51.0 % 37.7 35.8 (L) 32.0 (L) MCV 79.0 - 97.0 fL 85.9 91.6 84.0 MCH 26.6 - 33.0 pg 28.0 30.4 26.5 (L) MCHC 31.5 - 35.7 g/dL 32.6 33.2 31.6 RDW 11.6 - 15.4 % 16.6 (H) 14.2 14.6 PLATELET COUNT 150 - 450 10*3/uL 55 (L) 65 (L) 93 (L) NEUTROPHILS Not estab. % 67 66 LYMPHS Not estab. % 22 20 MONOCYTES Not estab. % 9 11 EOS Not estab. % 1.0 1.4 BASOS Not estab. % 1.0 0.9 IMMATURE GRANULOCYTES Not estab. % 0.5 0.0 NEUTROPHILS (ABSOLUTE) 1.40 - 7.00 10*3/uL 1.27 (L) 1.46 LYMPHS (ABSOLUTE) 0.70 - 3.10 10*3/uL 0.42 (L) 0.44 (L) MONOCYTES(ABSOLUTE) 0.10 - 0.90 10*3/uL 0.17 0.25 EOS (ABSOLUTE) 0.00 - 0.40 10*3/uL 0.02 0.03 BASO (ABSOLUTE) 0.00 - 0.20 10*3/uL 0.02 0.02 IMMATURE GRANS (ABS) 0.00 - 0.10 10*3/uL 0.01 0.00 GLUCOSE, SERUM 65 - 99 mg/dL 124 (H) BUN 9 - 30 mg/dL 15 CREATININE, SERUM 0.65 - 1.42 mg/dL 0.80 EGFR >=59 93 BUN/CREATININE RATIO 9 - 24 19 SODIUM, SERUM 133 - 143 mmol/L 139 POTASSIUM, SERUM 3.5 - 5.1 mmol/L 4.5 CHLORIDE, SERUM 98 - 109 mmol/L 106 CARBON DIOXIDE, TOTAL 21 - 32 mmol/L 25 CALCIUM, SERUM 8.3 - 10.2 mg/dL 9.3 PROTEIN, TOTAL, SERUM 5.6 - 8.5 g/dL 7.0 ALBUMIN, SERUM 3.3 - 4.9 g/dL 3.8 GLOBULIN, TOTAL 2.2 - 3.9 g/dL 3.2 A/G RATIO 0.7 - 1.7 1.2 BILIRUBIN 0.3 - 1.1 mg/dL 2.2 (H) ALKALINE PHOSPHATASE, SERUM 39 - 119 U/L 110 AST (SGOT) 18 - 40 U/L 32 ALT (SGPT) 11 - 55 U/L 15 IRON BIND.CAP.(TIBC) 250 - 450 ug/dL 327 378 402 UIBC 111 - 343 ug/dL 266 248 364 (H) IRON, SERUM 38 - 169 ug/dL 61 130 38 IRON SATURATION 15 - 55 % 19 34 9 (LL) FERRITIN, SERUM 30 - 400 ng/mL 46 47 20 (L) TSH 0.460 - 3.993 uIU/mL 1.000 Component Latest Ref Rng 06/22/2023 PROTHROMBIN TIME 8.7 - 14.0 Seconds 11.9 INR 0.9 - 1.2 1.1 APTT 22.0 - 33.0 Seconds 27.6 REVIEW OF SYSTEMS: CONSTITUTIONAL: No fever, chills. No recent weight loss or weight gain. CARDIOVASCULAR: No chest pain, palpitations, orthopnea, or paroxysmal nocturnal dyspnea. RESPIRATORY: No shortness of breath, cough or hemoptysis. GASTROINTESTINAL: per HPI MUSCULOSKELETAL: No history of body aches or painful joints. Past Medical History: Diagnosis Date Depression Gallstones GERD (gastroesophageal reflux disease) Liver cirrhosis (multi HCC) Primary hypertension Spleen enlarged Type 2 diabetes mellitus, without long-term current use of insulin (multi HCC) Umbilical hernia without obstruction and without gangrene No past surgical history on file. No family history on file. Social History Tobacco Use Smoking status: Never Smokeless tobacco: Never Substance Use Topics Alcohol use: Not Currently Drug use: Never No Known Allergies Current Outpatient Medications Medication Sig Dispense Refill Atorvastatin Calcium 20 MG oral Tablet Take 1 tablet (20 mg total) by mouth daily. 90 tablet 3 Ferrous Sulfate 325 (65 Fe) MG oral Tablet Take 1 tablet (325 mg total) by mouth daily (with breakfast). Lisinopril 10 MG oral Tablet Take 1 tablet (10 mg total) by mouth daily. 90 tablet 1 Metformin HCl 1000 MG oral Tablet Take 1 tablet (1,000 mg total) by mouth in the morning and 1 tablet (1,000 mg total) in the evening. Take with meals. 180 tablet 0 Multiple Vitamin (MULTIVITAMIN ADULT OR) Take 1 tablet by mouth daily Omeprazole 20 MG oral Delayed Release Capsule Take 1 capsule (20 mg total) by mouth daily. 90 capsule 0 Sertraline HCl 50 MG oral Tablet Take 1 tablet (50 mg total) by mouth daily. 90 tablet 1 Furosemide 40 MG oral Tablet Take 1 tablet (40 mg total) by mouth daily 90 tablet 5 HYDROcodone-Acetaminophen (NORCO) 5-325 MG oral Tablet Take 1 tablet by mouth every 4 to 6 hours as needed for pain. Spironolactone 100 MG oral Tablet Take 1 tablet (100 mg total) by mouth daily 90 tablet 5 SSD 1 % apply externally Cream Apply 1 package topically 2 times daily FOR 7 DAYS. Tramadol HCl (ULTRAM) 50 MG oral Tablet Take 1 tablet (50 mg total) by mouth every 6 hours as needed PLEASE SEE ATTACHED FOR DETAILED DIRECTIONS. No current facility-administered medications for this visit. BP 150/72 (Side: Right Arm, Position: SITTING, Cuff Size: Medium Adult) | Pulse 71 | Temp 96.9 ?F (36.1 ?C) (Temporal) | Resp 18 | Ht 5' 10" (1.778 m) | Wt 202 lb 6.4 oz (91.8 kg) | BMI 29.04 kg/m? GENERAL APPEARANCE: Adult. NAD. RESPIRATORY (LUNGS/CHEST): No symptoms of respiratory distress, dullness or chest wall tenderness. Lungs are clear to auscultation without any rhonchi or crepitations. CARDIOVASCULAR: PMI is not displaced. S1 and S2 are audible in all 4 areas. No murmur or gallop. No edema. GASTROINTESTINAL: Abdomen is not distended. No palpable hepatosplenomegaly or masses. No ascites. No rebound, tenderness, guarding or rigidity. Bowel sounds are present and appeared normal. Non-reducible, Non-tender ventral hernia IMPRESSION/PLAN: Patient is a 73-year-old male with a history of cirrhosis here for evaluation of anemia. It sounds like he was diagnosed with cirrhosis in 2017 presumably a function of fatty liver. He had comprehensive workup done which was unremarkable although I do not have these records available. His cirrhosis has been complicated by ascites. No known history of varices or encephalopathy. His management of ascites has been Lasix, Aldactone. He has been noncompliant with salt restriction. -Continue diuretics -Stressed the importance of salt restriction, at least 4 g/day -HCC screening -Vaccination status for hepatitis a and B He does have progressing iron deficiency anemia. We discussed options. Would like to proceed with EGD and colonoscopy for further assessment He does have a ventral hernia which is his main concern. I will refer to surgery accordingly. Follow-up 3 months Cirrhosis of liver with ascites, unspecified hepatic cirrhosis type (multi HCC) - GI CASE REQUEST; Standing - sodium chloride 0.9 % infusion 1,000 mL - NURSE COMM 3; Standing - Sod Picosulfate-Mag Ox-Cit Acd (Clenpiq) 10-3.5-12 MG-GM -GM/175ML oral Solution; Instructions provided to patient. Follow instructions provided by provider.. - GI CASE REQUEST - US ABDOMEN COMPLETE; Future - AFP WITH AFP-L3%; Future - HEP B SURFACE AB; Future - HAVAB+M; Future - ECG- ADULT; Future Iron deficiency anemia, unspecified iron deficiency anemia type - GI CASE REQUEST; Standing - sodium chloride 0.9 % infusion 1,000 mL - NURSE COMM 3; Standing - Sod Picosulfate-Mag Ox-Cit Acd (Clenpiq) 10-3.5-12 MG-GM -GM/175ML oral Solution; Instructions provided to patient. Follow instructions provided by provider.. - GI CASE REQUEST - ECG- ADULT; Future Ventral hernia without obstruction or gangrene - ECG- ADULT; Future [facility] 2023-04-11 23:28:06 [facility] Hospitalist Admission H&P Date of Service: 04/11/2023 CHIEF COMPLAINT: Cat-bite with left hand cellulitis HISTORY OF PRESENT ILLNESS Flako Reilly is a 73 year old male who presents with swelling of the left hand. Patient apparently was playing with a new cat that they have had for a few weeks and the cat bit him on the left hand. Patient developed some erythema with some spread of the left arm. Patient was started on IV antibiotics. Patient does not have any fluctuance. Patient has minimal tenderness on range of motion of the left hand. Patient is able to squeeze his hand fairly tightly. Patient does have a history of leukopenia and diabetes. Patient also with nonalcoholic steatohepatitis. Patient with evidence of cirrhosis with elevated bilirubin and thrombocytopenia with elevated coagulation profile. At this time, patient will be admitted to the hospital for inpatient hospitalization and we will continue with IV antibiotic therapy. As long as patient's infection continues to resolve then patient should be able to stay at our facility. However, if he does develop some fluctuance or worsening swelling and edema then patient may need referral to hand surgery. At this time there is no need for surgical intervention as there is no evidence of abscess or fluctuance on exam. Patient has really good range of motion with minimal tenderness in the area of the erythema. PAST MEDICAL HISTORY Past Medical History: Diagnosis Date BPH (benign prostatic hyperplasia) 2004 Diabetes 159 Fatty liver GERD (gastroesophageal reflux disease) well controlled Hyperlipemia Hypertension well controlled PAST SURGICAL HISTORY Past Surgical History: Procedure Laterality Date COLONOSCOPY N/A 03/28/2017 Surgeon: Radha Madrid MD; Location: [facility] OR [facility] ESOPHAGOGASTRODUODENOSCOPY N/A 03/21/2017 Surgeon: Radha Madrid MD; Location: [facility] OR [facility] ESOPHAGOGASTRODUODENOSCOPY N/A 03/28/2017 Surgeon: Radha Madrid MD; Location: [facility] OR [facility] LASER ABLATION OF PROSTATE N/A 09/11/2019 Surgeon: Bill Sanford MD; Location: [facility] OR [facility] PROSTATE SURGERY 2004 TRANSURETHRAL BLADDER NECK RESECTION N/A 09/11/2019 Surgeon: Bill Sanford MD; Location: [facility] OR [facility] ALLERGIES No Known Allergies MEDICATIONS Current home medication list reviewed: Current Discharge Medication List STOP taking these medications tamsulosin 0.4 mg 24 hr capsule Comments: Reason for Stopping: ranitidine 150 mg tablet Comments: Reason for Stopping: aspirin 81 mg chewable tablet Comments: Reason for Stopping: atorvastatin 20 mg tablet Comments: Reason for Stopping: lisinopril 5 mg tablet Comments: Reason for Stopping: multivitamin tablet Comments: Reason for Stopping: SERTraline 50 mg tablet Comments: Reason for Stopping: metFORMIN 500 mg tablet Comments: Reason for Stopping: FAMILY HISTORY No family history on file. SOCIAL HISTORY Social History Socioeconomic History Marital status: Tobacco Use Smoking status: Former Smokeless tobacco: Never Tobacco comments: Quit 35 years ago Substance and Sexual Activity Alcohol use: No Drug use: No REVIEW OF SYSTEMS 10 systems negative except per HPI PHYSICAL EXAMINATION BP 116/52 | Pulse 84 | Temp 37.5 ?C (99.5 ?F) | Resp 18 | Ht 1.778 m (5' 10") | Wt 89.4 kg (197 lb) | SpO2 95% | BMI 28.27 kg/m? General: No acute distress HEENT: Normal oral mucosa, anicteric sclerae, NCAT Cardiovascular: RRR Lungs: Symmetric expansion, clear bilaterally Abdomen: Soft, NTND Musculoskeletal: No synovitis, normal muscle mass Genitourinary: Normal Skin: Erythema of the left hand with some extension to the left forearm Extremities: No clubbing, no cyanosis, no lower extremity edema Neuro: AAOx3, no focal deficits Psych: Normal affect LABS - reviewed pertinent labs as below: CBC BMP PT/INR WBC (10*3/?L) Date Value 04/11/2023 2.85 (L) NA (mmol/L) Date Value 04/11/2023 138 No results found for: "PT" RBC (10*6/?L) Date Value 04/11/2023 3.14 (L) K (mmol/L) Date Value 04/11/2023 3.9 No results found for: "PTINR" PLT (10*3/?L) Date Value 04/11/2023 47 (LL) CALCIUM (mg/dL) Date Value 04/11/2023 9.1 HGB (g/dL) Date Value 04/11/2023 9.1 (L) CL (mmol/L) Date Value 04/11/2023 108 aPTT HCT (%) Date Value 04/11/2023 27.4 (L) BUN (mg/dL) Date Value 04/11/2023 17 No results found for: "APTTPAT" CREATININE (mg/dL) Date Value 04/11/2023 0.88 IMAGING - reviewed, pertinent results as below: Hospital Encounter on 04/11/23 XR HAND <3 VW LEFT Narrative Ordering physician: TARA PENN Clinical indication: Left hand and arm wounds. Comparison: None Technique: Left hand, 3 views. Left forearm, 2 views. Technical quality: Adequate Findings: Mild dorsal soft tissue swelling of the hand is evident. No soft tissue air of the forearm or hand is evident. No bony erosions or areas of gross bony destruction are evident to suggest osteomyelitis. No fractures are identified. There is mild narrowing of the interphalangeal joint spaces of the hand, compatible with degenerative change. Impression Impression: Mild dorsal soft tissue swelling of the hand. Otherwise, no acute abnormalities evident. RL: 460 End of Report FOREARM 2 VW LEFT Narrative Ordering physician: TARA PENN Clinical indication: Left hand and arm wounds. Comparison: None Technique: Left hand, 3 views. Left forearm, 2 views. Technical quality: Adequate Findings: Mild dorsal soft tissue swelling of the hand is evident. No soft tissue air of the forearm or hand is evident. No bony erosions or areas of gross bony destruction are evident to suggest osteomyelitis. No fractures are identified. There is mild narrowing of the interphalangeal joint spaces of the hand, compatible with degenerative change. Impression Impression: Mild dorsal soft tissue swelling of the hand. Otherwise, no acute abnormalities evident. RL: 460 End of Report CHEST 1 VW Narrative ORDERING PHYSICIAN: BRITTANY VITAL CLINICAL HISTORY: AMS TECHNIQUE: AP chest radiograph. COMPARISON: None. FINDINGS: No focal pulmonary consolidation, pleural effusion or pneumothorax. Moderately enlarged heart. Calcifications and tortuosity of descending thoracic aorta. Visualized bones are unremarkable. Impression 1. Cardiomegaly. No evidence of acute pulmonary abnormality. RL: 6600 End of report. SSMENT: 1. Patient with left hand cellulitis 2. History of type 2 diabetes 3. Patient with nonalcoholic steatohepatitis 4. History of benign prostatic hyperplasia 5. History of dyslipidemia 6. History of gastroesophageal reflux disease 7. History of hypertension PLAN: 1. Patient with left hand cellulitis; continue with IV antibiotic therapy. Continue with pain control. Continue monitoring patient neurovascularly-currently patient completely intact, and will continue with antibiotic therapy. 2. History of type 2 diabetes; strict blood sugar control. Check a hemoglobin A1c 3. Patient with a history of nonalcoholic steatohepatitis; outpatient GI follow-up. Patient with pancytopenia; continue monitoring as an outpatient 4. Patient with dyslipidemia and hypertension; continue with supportive care with home medications 5. GI DVT prophylaxis DVT prophylaxis: enoxaparin Stress ulcer prophylaxis: pantoprazole Code status: FULL Advanced Care Planning (Z71.89) Above assessment and plan discussed at length with patient, patient expressed full understanding. Questions and concerned addressed. Surrogate decision maker: NO Level of care expected after discharge: HOME Time spent: 3 minutes discussing the advanced care plan Smoking Cessation: (Z71.6) Tobacco user?: NO Patient will require inpatient stay of 2 midnights or more given high risk of morbidity and mortality. [place] [employer] was verified during stay Lay Dash MD [facility] 2022-11-03 09:57:09 Formatting of this n ote is different from the original. [facility] follow up note CC: Cirrhosis HPI: Patient is a 72 year old male Hx of cirrhosis dx 2017 Presumed fatty liver disease etiology Complicated with ascites. No prior complication of PSE/Bleeding. MELD- NA- 12 Doing great Weight down 10-12 lbs Compliant on medication No side effect No bleeding No confusion. Past Medical History: Diagnosis Date Depression Gallstones GERD (gastroesophageal reflux disease) Liver cirrhosis (HCC) Primary hypertension Spleen enlarged Type 2 diabetes mellitus, without long-term current use of insulin (HCC) Umbilical hernia without obstruction and without gangrene No past surgical history on file. Social History Tobacco Use Smoking status: Never Smokeless tobacco: Never Substance Use Topics Alcohol use: Not Currently Drug use: Never No Known Allergies Current Outpatient Medications on File Prior to Visit Medication Sig Dispense Refill Atorvastatin Calcium 20 MG oral Tablet Take 1 tablet (20 mg total) by mouth daily 90 tablet 3 Ferrous Sulfate 325 (65 Fe) MG oral Tablet Take 1 tablet (325 mg total) by mouth daily (with breakfast) Lisinopril 5 MG oral Tablet Take 1 tablet (5 mg total) by mouth daily 90 tablet 3 Metformin HCl 1000 MG oral Tablet Take 1 tablet (1,000 mg total) by mouth in the morning and 1 tablet (1,000 mg total) in the evening. Take with meals. 180 tablet 3 Multiple Vitamin (MULTIVITAMIN ADULT OR) Take 1 tablet by mouth daily Omeprazole 20 MG oral Tablet Delayed Response Take 1 tablet (20 mg total) by mouth daily 90 tablet 3 Sertraline HCl 50 MG oral Tablet Take 1 tablet (50 mg total) by mouth daily 30 tablet 2 Current Facility-Administered Medications on File Prior to Visit Medication Dose Route Frequency Provider Last Rate Last Admin [COMPLETED] Ferumoxytol (FERAHEME) 510 mg in sodium chloride 0.9 % 100 mL infusion 510 mg intravenous Once TheboRey MD Stopped at 07/14/22 1551 BP 137/71 | Pulse 72 | Temp 97.6 ?F (36.4 ?C) (Oral) | Resp 20 | Ht 5' 10" (1.778 m) | Wt 191 lb 6.4 oz (86.8 kg) | BMI 27.46 kg/m? GEN: Alert and oriented HEENT:no jaundice, no oral ulcers, no eye erythema CV: RRR RESP: no distress ABD:soft, NTTP,Large reducible periumbilical hernia. ( NO PAIN) EXT: Moves all extremities, no axterixis, no Edema SKIN: no rash NEURO: Follows commands Labs reviewed Assessment: 72 year old M 1.) Cirrhosis- preumed fatty liver based on pt report. Pt report having extensive workup in 2017-will get records - Ascites - seen on CT scan/on exam - No bleeding/PSE/Mass on CT scan seen. 2.) Large umbilical hernia- Reducible- not good surgical candidate given ascites-Counseled on abd binder. 3.) OLEGARIO- chronic issue- followed by Heme- pt report normal EGD/Colonscopy 1-2 year prior- will get records. MELD Na of 12 Doing well on spironolactone 100mg/lasix 40mg. Counseled on importance of salt restriction,. Labs today US/AFP. 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 He was seen in clinic for a ventral hernia. His hemoglobin was decreased from previous labs and he had low iron stores Dedra Leija MA I [facility] 2023-06-22 10:30:16 Chief Complaint Patient presents with Abdominal Pain Abdominal hernia OTHER He would like to have liver checked. Swati Kat MA II [facility] 2023-04-17 15:27:09 TRANSITIONAL CARE MANAGEMENT ASSESSMENT 04/17/2023 Flako Reilly [id number] Flako Reilly is a 73 year old /White male was admitted on 04/11/23 to [facility], [facility] MED SURG. He was discharged on 04/16/23 with discharge disposition of HR- Routine Discharge. Admitting Physician: Lay Dash Discharge Diagnosis:cat bite No linked episodes TCM [id number] outreach documentation: Transition CM attempted to contact patient for post discharge follow up. CM left a message on voicemail with purpose of call and contact information Future Appointments: DON Wallace RN [facility] 2023-04-16 12:47:33 Problem: Venous Thromboembolism, (actual or risk of) Goal: Absence of venous thromboembolism (Risk) Outcome: Adequate for discharge Problem: Infection Risk Goal: Absence of infection Outcome: Adequate for discharge Problem: Pain Goal: Control of pain at or below patient's documented comfort goal Outcome: Adequate for discharge Problem: Falls, Risk of Goal: Absence of falls Outcome: Adequate for discharge PROFESSIONAL Reba Zarate RN [facility] 2023-04-15 22:20:22 Problem: Venous Thromboembolism, (actual or risk of) Goal: Absence of venous thromboembolism (Risk) Outcome: Progressing as expected Problem: Infection Risk Goal: Absence of infection Outcome: Progressing as expected Problem: Pain Goal: Control of pain at or below patient's documented comfort goal Outcome: Progressing as expected Problem: Falls, Risk of Goal: Absence of falls Outcome: Progressing as expected [facility] 2023-04-15 14:58:15 Problem: Infection Risk Goal: Absence of infection Outcome: Progressing as expected Problem: Pain Goal: Control of pain at or below patient's documented comfort goal Outcome: Progressing as expected Problem: Falls, Risk of Goal: Absence of falls Outcome: Progressing as expected Problem: Venous Thromboembolism, (actual or risk of) Goal: Absence of venous thromboembolism (Risk) Outcome: Progressing as expected DON Goldstein RN [facility] 2023-04-15 00:29:08 Problem: Venous Thromboembolism, (actual or risk of) Goal: Absence of venous thromboembolism (Risk) Outcome: Progressing as expected Problem: Infection Risk Goal: Absence of infection Outcome: Progressing as expected Problem: Pain Goal: Control of pain at or below patient's documented comfort goal Outcome: Progressing as expected Problem: Falls, Risk of Goal: Absence of falls Outcome: Progressing as expected [facility] 2023-04-14 13:41:53 Problem: Venous Thromboembolism, (actual or risk of) Goal: Absence of venous thromboembolism (Risk) Outcome: Progressing as expected Problem: Infection Risk Goal: Absence of infection Outcome: Progressing as expected Problem: Pain Goal: Control of pain at or below patient's documented comfort goal Outcome: Progressing as expected Problem: Falls, Risk of Goal: Absence of falls Outcome: Progressing as expected [facility] Delilah Post RN [facility] 2023-04-14 11:50:28 Vancomycin Therapeutic Monitoring Note Pharmacy to monitor vancomycin dosing for patient Flako Reilly, [id number]. Primary Physician: Dr. Chelle ORELLANA Physician, if following: Dr. Villalobos Indication for Vancomycin and Goal Trough: Skin and Soft Tissue Infections - Trough 10-15 mcg/ml Age: [age] year old Weight: Wt Readings from Last 1 Encounters: 04/12/23 89.5 kg (197 lb 4.8 oz) Duration of Antibiotics: TBD (04/11/23 - present) Concurrent Antibiotics: Unasyn 3g IV Q6H (04/12/23 - 04/13/23) 5 doses given Cefepime 2 gm IV x 1 (04/11/23) Levofloxacin 750 mg IV x 1 (04/11/23) Zosyn 3.375 gm x 2 doses (04/12/23) Microbiology: 04/11/23: Blood: no growth at 24 hours 04/12/23: MRSA/MSSA PCR Nares negative Laboratory Data and Vancomycin Dosing: Date Scr (mg/dL) CrCL (mL/min) Dosing Regimen and frequency @ Times (mg) Vancomycin Level @ Time (mcg/mL) 04/11/23 0.88 84.2 1500 mg IV once @ 2031 - 04/12/23 - - Starting Scheduled vancomycin: 1000 mg IV Q12H given @ 1916 - 04/13/23 0.83 88.8 1000 mg IV Q12H given @ 758,2101 - 04/14/23 0.79 95.9 1000mg IV Q12H @0821 Will increase dose to 1250mg Q12H due @1999 7.4@08:13 Subtherapeutic - - - Assessment and Plan: Plan is to: Trough was subtherapeutic at 7.4 on 04/14/23.Will increase dose of vancomycin to 1250 mg(13mg/kg) IV Q12H, AUC 465, predicted trough 14 Plan to draw next trough level on: _04/16/23_ @ _0730_ Thank you for allowing pharmacy to participate in the care of this patient. Please feel free to contact us with any questions or concerns. Rufina Ramirez Sr.[facility] DON Ramirez [facility] 2023-04-13 23:42:00 Jen Aguillon went into room to give pt's meds. Patient was walking out of the bathroom. Patient lost his balance fell against the wall and slide down to the floor. Nurse went to patients aide and with help of other staff placed the patient in bed. Patient stated he was not in any pain. He stated he just lost his balance. Rn placed the bed alarm on patient, took vitals, contacted Dr and charge nurse. Assessed patient for any injury, no injury noted. Will continue to monitor. PROFESSIONAL Henna Paul RN [facility] 2023-04-13 23:40:10 Problem: Venous Thromboembolism, (actual or risk of) Goal: Absence of venous thromboembolism (Risk) 04/13/2023 2340 by Henna aPul RN Outcome: Progressing as expected 04/13/2023 2339 by Henna Paul RN Outcome: Progressing as expected [facility] 2023-04-13 17:37:23 Problem: Venous Thromboembolism, (actual or risk of) Goal: Absence of venous thromboembolism (Risk) Outcome: Progressing as expected [facility] Bibiana Archuleta RN [facility] 2023-04-13 00:05:24 Problem: Venous Thromboembolism, (actual or risk of) Goal: Absence of venous thromboembolism (Risk) 04/13/2023 0005 by Henna Paul RN Outcome: Progressing as expected 04/13/2023 0004 by Henna Paul RN Outcome: Progressing as expected 04/13/2023 0004 by Henna Paul RN Outcome: Progressing as expected 04/13/2023 0004 by Henna Paul RN Outcome: Progressing as expected [facility] 2023-04-13 00:04:14 Problem: Venous Thromboembolism, (actual or risk of) Goal: Absence of venous thromboembolism (Risk) Outcome: Progressing as expected [facility] 2023-04-12 18:15:06 Vancomycin Therapeutic Monitoring Note Pharmacy to monitor vancomycin dosing for patient Flako Reilly, [id number]. Primary Physician: Dr. Chelle ORELLANA Physician, if following: Dr. Villalobos Indication for Vancomycin and Goal Trough: Skin and Soft Tissue Infections - Trough 10-15 mcg/ml Age: [age] year old Weight: Wt Readings from Last 1 Encounters: 04/12/23 89.5 kg (197 lb 4.8 oz) Duration of Antibiotics: TBD Concurrent Antibiotics: Unasyn 3g IV Q6H Microbiology: 04/11/23: Blood: pending Laboratory Data and Vancomycin Dosing: Date Scr (mg/dL) CrCL (mL/min) Dosing Regimen and frequency @ Times (mg) Vancomycin Level @ Time (mcg/mL) 04/11/23 0.88 84.2 1500 mg IV once @ 2031 - 04/12/23 - - Starting Scheduled vancomycin: 1000 mg IV Q12H @1999 - - - - - - Assessment and Plan: Discussed with Dr. Villalobos Plan is to: Start vancomycin scheduled at a dose of: 1000 mg IV Q12H Plan to draw next trough level on: _04/14/23_ @ _0730_ Thank you for allowing pharmacy to participate in the care of this patient. Please feel free to contact us with any questions or concerns. Marco Antonio [facility] - Department of Pharmacy Pager: [phone] 04/12/2023 16:42 PROFESSIONAL Marco Antonio Swartz [facility] 2023-04-12 16:46:05 Vancomycin Therapeutic Monitoring Note Pharmacy to monitor vancomycin dosing for patient Flako Reilly, [id number]. Primary Physician: Dr. Chelle ORELLANA Physician, if following: Dr. Villalobos Indication for Vancomycin and Goal Trough: Skin and Soft Tissue Infections - Trough 10-15 mcg/ml Age: [age] year old Weight: Wt Readings from Last 1 Encounters: 04/12/23 89.5 kg (197 lb 4.8 oz) Duration of Antibiotics: TBD Concurrent Antibiotics: Unasyn 3g IV Q6H Microbiology: 04/11/23: Blood: pending Laboratory Data and Vancomycin Dosing: Date Scr (mg/dL) CrCL (mL/min) Dosing Regimen and frequency @ Times (mg) Vancomycin Level @ Time (mcg/mL) 04/11/23 0.88 84.2 1500 mg IV once @ 2031 - 04/12/23 - - Starting Scheduled vancomycin: 1000 mg IV Q12H @ - - - - - - Assessment and Plan: Discussed with Dr. Villalobos Plan is to: Start vancomycin scheduled at a dose of: 1000 mg IV Q12H Plan to draw next trough level on: _04/14/23_ @ _0430_ Thank you for allowing pharmacy to participate in the care of this patient. Please feel free to contact us with any questions or concerns. Dianne Ravi PharmD, [facility] - Department of Pharmacy Pager: [phone] 04/12/2023 16:42 PROFESSIONAL Dianne Ravi [facility] 2023-04-12 16:41:15 Problem: Venous Thromboembolism, (actual or risk of) Goal: Absence of venous thromboembolism (Risk) 04/12/2023 1641 by Bibiana Ortega RN Outcome: Progressing as expected 04/12/2023 1640 by Bibiana Ortega RN Outcome: Progressing as expected [facility] 2023-04-11 22:05:58 Nurse Report Report given to Karan INFANTE at [facility]. Chief complaint, assessment findings, infusion verify and orders reviewed. Plan of care discussed at bedside with nurse. Krystal E Andie, RN DON Chaves RN [facility] 2023-04-11 18:17:00 [facility] states: "Patient came in with complaints of swelling to his left hand and arm due to cat bite 2 days ago and generalized weakness and lethargy since then, family also said that he looks jaundiced. Noted cat scratch on the right side of his abdomen." PROFESSIONAL Deisy Oro RN [facility] 2023-04-11 18:10:00 Images from the original note were not included. EMERGENCY DEPARTMENT ENCOUNTER [facility] Patient Name: Flako Reilly Date of : 1950 73 year old Exam Room:OR2/[facility] Primary Care Physician: Anyi Wade [facility]- [facility] Patient Escorted by: Self [9] Mode of Arrival: EMS - [facility] [51] EMS Treatment Prior to ED Arrival: ED Events Date/Time Event User Comments 04/11/231825 Medical Screening Begins BRITTANY VITAL MD -- 04/11/231825 First Provider Evaluation BRITTANY VITAL MD -- Chief Complaint Chief Complaint Patient presents with Animal Bite cat Weakness Generalized x 2 days ED Triage Notes Deisy Oro RN 04/11/2023 18:35 [facility] states: "Patient came in with complaints of swelling to his left hand and arm due to cat bite 2 days ago and generalized weakness and lethargy since then, family also said that he looks jaundiced. Noted cat scratch on the right side of his abdomen." Original note by Deisy Oro RN at 04/11/2023 18:28 HPI The patient is a 73-year-old gentleman who presents for fever and a cat bite. He states that 2 days ago he was bit on the left hand by his cat. The cat is immunized fully. He now has swelling and streaking up his left upper extremity. He denies any other symptoms. He presents for evaluation History provided by: Patient Fever Associated symptoms: rash Associated symptoms: no chest pain, no chills, no cough, no dysuria, no headaches, no nausea and no vomiting Past Medical History / Immunizations Past Medical History: Diagnosis Date BPH (benign prostatic hyperplasia) 2005 Diabetes 159 Fatty liver GERD (gastroesophageal reflux disease) well controlled Hyperlipemia Hypertension well controlled Tetanus received in last 5 years: Unknown Past Surgical History Past Surgical History: Procedure Laterality Date COLONOSCOPY N/A 03/28/2017 Surgeon: Radha Madrid MD; Location: [facility] OR [facility] ESOPHAGOGASTRODUODENOSCOPY N/A 03/21/2017 Surgeon: Radha Madrid MD; Location: [facility] OR [facility] ESOPHAGOGASTRODUODENOSCOPY N/A 03/28/2017 Surgeon: Radha Madrid MD; Location: [facility] OR [facility] LASER ABLATION OF PROSTATE N/A 09/11/2019 Surgeon: Bill Sanford MD; Location: [facility] OR [facility] PROSTATE SURGERY 2004 TRANSURETHRAL BLADDER NECK RESECTION N/A 09/11/2019 Surgeon: Bill Sanford MD; Location: [facility] OR [facility] Allergies No Known Allergies Social History Tobacco Use Former Smokeless Tobacco: Never used smokeless tobacco. Comments: Quit 35 years ago Alcohol Use No. Drug Use No. Review of Systems Review of Systems Constitutional: Positive for fever. Negative for chills, fatigue and unexpected weight change. HENT: Negative. Eyes: Negative. Negative for discharge and itching. Respiratory: Negative. Negative for cough, chest tightness, shortness of breath and wheezing. Cardiovascular: Negative. Negative for chest pain and palpitations. Gastrointestinal: Negative. Negative for abdominal distention, abdominal pain, nausea and vomiting. Genitourinary: Negative. Negative for dysuria, urgency, frequency and flank pain. Musculoskeletal: Negative. Skin: Positive for rash. Negative for color change, pallor and wound. Neurological: Negative. Negative for dizziness, syncope, light-headedness and headaches. Psychiatric/Behavioral: Negative. Negative for agitation and behavioral problems. All other systems reviewed and are negative. Endocrine: Endocrine negative Physical Exam ED Triage Vitals [04/11/23 1817] Weight 90.7 kg (200 lb) Actual or estimated Estimated by patient/family report Height 1.778 m (5' 10") BP (!) 144/58 Pulse 81 Resp 20 Temp 38.4 ?C (101.2 ?F) Temp source Oral SpO2 98 % Measured on Room air Physical Exam Vitals reviewed. Constitutional: Appearance: He is well-developed. HENT: Head: Normocephalic and atraumatic. Nose: Nose normal. Eyes: General: Scleral icterus present. Neck: Trachea: No tracheal deviation. Cardiovascular: Rate and Rhythm: Normal rate and regular rhythm. Heart sounds: Normal heart sounds. No murmur heard. No friction rub. Pulmonary: Effort: Pulmonary effort is normal. No respiratory distress. Breath sounds: Normal breath sounds. No stridor. No wheezing or rales. Abdominal: General: Bowel sounds are normal. There is no distension. Palpations: Abdomen is soft. Tenderness: There is no abdominal tenderness. There is no guarding or rebound. Musculoskeletal: General: Normal range of motion. Cervical back: Normal range of motion and neck supple. Skin: General: Skin is warm. Neurological: Mental Status: He is alert and oriented to person, place, and time. Cranial Nerves: No cranial nerve deficit. Sensory: No sensory deficit. Psychiatric: Behavior: Behavior normal. Labs Lab Results CBC WITH DIFF - Abnormal Result Value Ref Range WBC 2.85 (*) 4.20 - 10.70 10*3/?L RBC 3.14 (*) 4.26 - 5.52 10*6/?L HGB 9.1 (*) 12.2 - 16.4 g/dL HCT 27.4 (*) 38.4 - 49.3 % MCV 87.3 81.7 - 95.6 fL MCH 29.0 26.1 - 32.7 pg MCHC 33.2 31.2 - 35.0 g/dL RDW-SD 43.4 38.5 - 51.6 fL RDW-CV 13.7 12.1 - 15.4 % PLT 47 (*) 150 - 328 10*3/?L MPV 10.9 9.8 - 13.0 fL IPF % 3.4 1.2 - 10.7 % NRBC/100 WBC 0.0 0.0 - 10.0 /100 WBCs NRBC x10 3 <0.01 10*3/?L GRAN MAT (NEUT) % 69.1 % IMM GRAN % 1.80 % LYMPH % 15.4 % MONO % 12.3 % EOS % 0.7 % BASO % 0.7 % GRAN MAT x10 3 (ANC) 1.97 (*) 1.99 - 6.95 10*3/uL IMM GRAN x10 3 0.05 0.00 - 0.06 10*3/uL LYMPH x10 3 0.44 (*) 1.09 - 3.23 10*3/uL MONO x10 3 0.35 (*) 0.36 - 1.02 10*3/uL EOS x10 3 <0.03 (*) 0.06 - 0.53 10*3/uL BASO x10 3 <0.03 0.01 - 0.09 10*3/uL COMP. METABOLIC PANEL (26336) - Abnormal NA 138 135 - 145 mmol/L K 3.9 3.5 - 5.0 mmol/L CL 108 98 - 108 mmol/L CO2 TOTAL 26 23 - 31 mmol/L AGAP 4 2 - 16 BUN 17 7 - 23 mg/dL GLUCOSE 140 (*) 70 - 110 mg/dL CREATININE 0.88 0.60 - 1.25 mg/dL TOTAL BILI 3.6 (*) 0.1 - 1.1 mg/dL CALCIUM 9.1 8.6 - 10.6 mg/dL T PROTEIN 6.6 6.3 - 8.2 g/dL ALBUMIN 3.5 3.5 - 5.0 g/dL ALK PHOS 74 34 - 122 U/L ALTv 21 5 - 50 U/L AST(SGOT) 57 (*) 13 - 40 U/L eGFR 90.8 mL/min/1.73m2 AMMONIA, PLASMA - Abnormal AMMONIA <9 (*) 9 - 33 umol/L URINALYSIS - Abnormal APPEARANCE Clear Clear COLOR Otilia (*) Yellow PH 6.0 4.8 - 8.0 SP GRAVITY 1.025 1.003 - 1.030 GLU U QUAL Normal Normal BLOOD Negative Negative KETONES 5 mg/dL (*) Negative PROTEIN 30 mg/dL (*) Negative UROBILIN 4.0 mg/dL (*) Normal BILIRUBIN Negative Negative NITRITE Negative Negative LEUK ROSETTA Negative Negative RBC/HPF 4 (*) 0 - 3 HPF WBC/HPF 2 0 - 5 HPF BACTERIA Negative Negative MUCOUS Slight (*) Negative LPF SQ EPITH 1 HPF MAGNESIUM - Normal MAGNESIUM 1.7 1.7 - 2.4 mg/dL LACTIC ACID WHOLE BLOOD - Normal LACTIC ACID 1.58 0.50 - 2.20 mmol/L TROPONIN I - Normal TROPONIN I 0.011 <=0.034 ng/mL COVID-19 (ID NOW RAPID TESTING) - Normal SARS-CoV-2 Rapid ID NOW Not Detected Not Detected RAPID INFLUENZA A/B - Normal Rapid Influenza A Negative Negative Rapid Influenza B Negative Negative BLOOD CULTURE SCREEN BLOOD CULTURE SCREEN Imaging XR CHEST 1 VW Final Result ORDERING PHYSICIAN: BRITTANY VITAL CLINICAL HISTORY: AMS TECHNIQUE: AP chest radiograph. COMPARISON: None. FINDINGS: No focal pulmonary consolidation, pleural effusion or pneumothorax. Moderately enlarged heart. Calcifications and tortuosity of descending thoracic aorta. Visualized bones are unremarkable. IMPRESSION 1. Cardiomegaly. No evidence of acute pulmonary abnormality. RL: 6600 End of report. HAND <3 VW LEFT Final Result Ordering physician: TARA PENN Clinical indication: Left hand and arm wounds. Comparison: None Technique: Left hand, 3 views. Left forearm, 2 views. Technical quality: Adequate Findings: Mild dorsal soft tissue swelling of the hand is evident. No soft tissue air of the forearm or hand is evident. No bony erosions or areas of gross bony destruction are evident to suggest osteomyelitis. No fractures are identified. There is mild narrowing of the interphalangeal joint spaces of the hand, compatible with degenerative change. IMPRESSION Impression: Mild dorsal soft tissue swelling of the hand. Otherwise, no acute abnormalities evident. RL: 460 End of Report FOREARM 2 VW LEFT Final Result Ordering physician: TARA PENN Clinical indication: Left hand and arm wounds. Comparison: None Technique: Left hand, 3 views. Left forearm, 2 views. Technical quality: Adequate Findings: Mild dorsal soft tissue swelling of the hand is evident. No soft tissue air of the forearm or hand is evident. No bony erosions or areas of gross bony destruction are evident to suggest osteomyelitis. No fractures are identified. There is mild narrowing of the interphalangeal joint spaces of the hand, compatible with degenerative change. IMPRESSION Impression: Mild dorsal soft tissue swelling of the hand. Otherwise, no acute abnormalities evident. RL: 460 End of Report Orders and Treatments Orders Placed This Encounter Procedures XR CHEST 1 VW XR HAND <3 VW LEFT XR FOREARM 2 VW LEFT CBC WITH DIFF COMP. METABOLIC PANEL (11261) Ammonia, Plasma Magnesium Lactic Acid Whole Blood Lactic Acid Whole Blood URINALYSIS BLOOD CULTURE SCREEN BLOOD CULTURE SCREEN TROPONIN I COVID-19 (ID NOW TESTING) RAPID INFLUENZA A/B Lab Only COVID Interpretation Orders Placed This Encounter Medications ketorolac (TORADOL) injection 15 mg vancomycin (VANCOCIN) 1,500 mg in NaCl 0.9% (NS) 500 mL VIAL-MATE IV piggyback ceFEPIme (MAXIPIME) 2,000 mg in NaCl 0.9% (NS) 100 mL MINI-BAG FENTanyl PF (SUBLIMAZE (PF)) injection 75 mcg DISCONTD: acetaminophen (TYLENOL) tablet 975 mg acetaminophen (TYLENOL) tablet 1,000 mg piperacillin-tazobactam (ZOSYN) 3.375 g in NaCl 0.9% (NS) 100 mL MINI-BAG levoFLOXacin in D5W (LEVAQUIN) 750 mg/150 mL Piggyback 750 mg Procedures EKG Time 1824 Rate 83 Normal sinus [place] normal Intervals normal No acute ischemia Notes & MDM Patient was evaluated for an emergency medical condition related to Animal Bite (cat) and Weakness (Generalized x 2 days) . Diagnosis/Impression as of 04/11/23 2156 Cat bite, initial encounter Fever, unspecified fever cause Cellulitis, unspecified cellulitis site Leukopenia, unspecified type Thrombocytopenia Medical Decision Making Problems Addressed: Cat bite, initial encounter: acute illness or injury Amount and/or Complexity of Data Reviewed Labs: ordered. Decision-making details documented in ED Course. Risk Prescription drug management. Parenteral controlled substances. Decision regarding hospitalization. AdmissionCare Guideline: Cellulitis - INPT, Inpatient Based on the indications selected for the patient, the bed status of Admit to Inpatient was determined to be MET The following indications were selected as present at the time of evaluation of the patient: - Clinical presentation (eg, acuity of infection, rapidity of progression) or treatment regimen is judged to require intensity of patient monitoring (eg, vital sign measurement, checks for infection progression, laboratory testing) that cannot be provided at other than inpatient level of care. AdmissionCare documentation entered by: Brittany Vital [facility], 27th edition, Copyright ? 2022 [facility] [employer] [facility] All Rights Reserved. [id number] Limitations to patient care and compliance: none. Assessment/Summary: The patient is a 73-year-old gentleman who presents with fever and cellulitis. He also may have lymphangitis from the cat bite. He has thrombocytopenia which is chronic. He is also leukopenic. Otherwise, lab studies are within acceptable limits. He was started on vancomycin and cefepime. Blood culture sent first. He was given Tylenol and Toradol for fever. The patient was admitted to the inpatient medicine service for further management. History, physical exam findings, results of visit, differential diagnosis, medication regimens and plan of future care have been considered. Additional MDM may be found in the ED course. Differential diagnosis considered and final disposition made based on information gathered during evaluation and may not be completely ruled out or specifically listed. Vital signs were rechecked before final disposition. Diagnosis Final diagnoses: [W55.01XA] Cat bite, initial encounter (Primary) [R50.9] Fever, unspecified fever cause [L03.90] Cellulitis, unspecified cellulitis site [D72.819] Leukopenia, unspecified type [D69.6] Thrombocytopenia Disposition & Follow Up ED Disposition ED Disposition Admit - Inpatient Condition -- Comment -- Patient's Medications START taking these medications No medications on file CONTINUE taking these medications which have NOT CHANGED ASPIRIN 81 MG CHEWABLE TABLET Take 81 mg by mouth daily. ATORVASTATIN 20 MG TABLET Take 20 mg by mouth daily. LISINOPRIL 5 MG TABLET Take 5 mg by mouth daily. METFORMIN 500 MG TABLET Take 500 mg by mouth 2 (two) times daily. MULTIVITAMIN TABLET Take 1 tablet by mouth daily. RANITIDINE 150 MG TABLET Take 150 mg by mouth daily. SERTRALINE 50 MG TABLET Take 50 mg by mouth daily. TAMSULOSIN 0.4 MG 24 HR CAPSULE Take 1 capsule by mouth at bedtime. START taking Modified Medications as Prescribed No medications on file STOP taking these medications No medications on file Brittany Vital Jr., MD Clinical Liner Worker [facility] Emergency Department [employer] is used frequently and may produce errors. Promptly contact for obvious discrepancies. Brittany Vital MD 04/11/23 6722 [facility] 2023-04-11 18:10:00 AdmissionCare Guideline: Cellulitis - INPT, Inpatient Based on the indications selected for the patient, the bed status of Admit to Inpatient was determined to be MET The following indications were selected as present at the time of evaluation of the patient: - Clinical presentation (eg, acuity of infection, rapidity of progression) or treatment regimen is judged to require intensity of patient monitoring (eg, vital sign measurement, checks for infection progression, laboratory testing) that cannot be provided at other than inpatient level of care. AdmissionCare documentation entered by: Brittany Vital [facility], 27th edition, Copyright ? 2022 [facility] All Rights Reserved. [id number] [facility] 2022-12-07 15:13:26 Chief Complaint Patient presents with Hematology Follow-up Leukopenia, unspecified type Nitza Garay [facility] 2022-11-03 09:43:40 Chief Complaint Patient presents with Abdominal Pain Right middle upper abdominal pain Rectal Problem Diarrhea, blood in stool,fasting, pt have concern Aravind Tavarez [facility]
--- NOTE | 2023-12-23 18:24 | RAD REPORT ---
EXAMINATION: ONE VIEW CHEST XR CLINICAL INDICATION: Male, 73 years old. [facility] MAIN Dyspnea;Pain Bed Name: 6 TECHNIQUE: 1 View, AP supine, X-ray of the chest was performed. [id number]. COMPARISON: No prior exam. FINDINGS: Lungs and pleura: Clear lungs. No effusion. Heart and mediastinum: Normal heart size. Unremarkable mediastinal contours. Osseous structures: No acute abnormality. Tubes/lines: None Other: Large hiatal hernia IMPRESSION: No acute intrathoracic abnormality.
--- NOTE | 2023-12-23 18:35 | RAD REPORT ---
EXAM:Ribs Right HISTORY: [facility] MAIN right lateral/posterior ribs BLUNT CHEST TRAUMA Bed Name: 6 COMPARISON: Single chest x-ray FINDINGS/IMPRESSION: No displaced or healing right-sided rib fractures. No pneumothorax.
--- NOTE | 2023-12-23 18:41 | RAD REPORT ---
EXAM:Tib Fib Right HISTORY: [facility] MAIN PAIN Bed Name: 6 COMPARISON: None FINDINGS/IMPRESSION: No fracture of tibia or fibula identified. Peripheral vascular calcifications.
--- NOTE | 2023-12-23 18:43 | RAD REPORT ---
EXAM:Femur Right HISTORY: [facility] MAIN PAIN Bed Name: 6 COMPARISON: None FINDINGS/IMPRESSION: No right femur fracture or hip dislocation. Peripheral vascular calcifications. Mild right acetabular degenerative changes.
--- NOTE | 2023-12-23 18:50 | EDPHYS ---
Physician Documentation [facility] Name: Flako Lugo Age: 73 yrs Sex: Male : 1950 Arrival Date: 12/23/2023 Time: 17:34 Bed 6 Private MD: ED Physician Zia Pollard HPI: 12/22 20:11 This 73 yrs old Male presents to ER via EMS with complaints of Fall Injury. 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 States he didn't see a step stool that was in the restroom, tripped over it and hit his right chest on the bathtub. Denies hitting head, loc. states pt hit his leg on the ground and she wants to make sure he didn't break his hip. Pt denies hip pain. Pt complains of shortness of breath as well. Pt is on hospice for throat cancer, has cirrhosis, an enlarged pancreas and large hernia. . Historical: - Allergies: 17:40 No Known Allergies; hb - PMHx: 17:40 Cirrhosis; Diabetes - NIDDM; enlarged spleen; hb - Immunization history:: Adult Immunizations up to date. - Infectious Disease History:: Denies. - Social history:: Smoking status: unknown. ROS: 17:50 Constitutional: As per HPI kb Exam: 18:44 Constitutional: This is a well developed, well nourished patient who is awake, alert, kb and in no acute distress. Head/Face: Normocephalic, atraumatic. ENT: Moist Mucous membranes Cardiovascular: Regular rate Respiratory: Respirations even and unlabored. No increased work of breathing. Talking in full sentences MS/ Extremity: Pulses equal, no cyanosis. Neurovascular intact. Full, normal range of motion. Neuro: Awake and alert, GCS 15, oriented to person, place, time, and situation. Moves all extremities. Normal gait. 18:44 Chest/axilla: Inspection: normal, Palpation: tenderness, that is mild, of the right lateral posterior chest, that totally reproduces the patient's complaints, 18:44 Abdomen/GI: Inspection: distension, that is moderate, in the abdomen diffusely, Palpation: abdomen is soft and non-tender, in all quadrants, Hernia: noted in the umbilical area, 18:44 Skin: injury, abrasion(s), small abrasion noted, of the right keating, Vital Signs: 17:38 BP 155 / 82; Pulse 79; Resp 18; Temp 97.7(O); Pulse Ox 98% on R/A; Weight 83.91 kg; hb Height 5 ft. 11 in. ; Pain 8/10; 19:06 BP 141 / 91; Pulse 80; Resp 17; Temp 97.7; Pulse Ox 95% on R/A; Pain 0/10; bm8 17:38 Body Mass Index 25.80 (83.91 kg, 180.34 cm) hb 17:38 Pain Scale: Adult hb 19:06 Pain Scale: Adult bm8 Paola Coma Score: 19:06 Eye Response: spontaneous(4). Motor Response: obeys commands(6). Verbal Response: bm8 oriented(5). Total: 15. MDM: 17:40 Patient medically screened. kb 19:51 Differential diagnosis: contusion, fracture. Data reviewed: vital signs, nurses notes. kb 19:54 Test considered but Not performed: Labs: labs considered for abd distention but pt and kb report distention is normal for pt. Historians other than the Patient: Spouse/Significant Other: . Counseling: I had a detailed discussion with the patient and/or guardian regarding the historical points, exam findings, and any diagnostic results supporting the discharge/admit diagnosis, radiology results, the need for outpatient follow up, a family practitioner, to return to the emergency department if symptoms worsen or persist or if there are any questions or concerns that arise at home. ED course: Resp even and unlabored, lungs clear bilaterally, oxygen saturation 96-98% on room air. Pt states he is ready to go home. . 12/22 17:47 Order name: Chest Single View XRAY; Complete Time: 18:26 kb 12/22 17:47 Order name: Ribs Right XRAY; Complete Time: 18:39 kb 12/22 17:47 Order name: Femur Right XRAY; Complete Time: 18:44 kb 12/22 17:47 Order name: Tib Fib Right XRAY; Complete Time: 18:44 kb Administered Medications: No medications were administered Disposition: 12/23 07:44 Co-signature as Attending Physician, Zia Pollard MD I reviewed the patient's care rn provided by the Advanced Practice Provider and agree with the diagnosis and treatment plan. Disposition Summary: 12/23/23 18:49 Discharge Ordered Notes: Location: Home kb Condition: Stable kb Diagnosis - Chest pain, unspecified - right posterior lateral chest wall kb - Abrasion of lower leg - right kb Followup: kb - With: Emergency Department - When: As needed - Reason: Worsening of condition Followup: kb - With: Private Physician - When: 2 - 3 days - Reason: Recheck today's complaints, Continuance of care, Re-evaluation by your physician Discharge Instructions: - Discharge Summary Sheet kb - Musculoskeletal Pain kb - Chest Wall Pain, [id number]-Mjji kb Forms: - Medication Reconciliation Form kb - Antibiotic Education kb - Prescription Opioid Use kb - Patient Portal Instructions kb - Leadership Thank You Letter kb Signatures: Dispatcher [employer] EDMS Rosalva Snow, PAINTER SPRING-C PAINTER SPRING-Ckb Zia Pollard MD MD rn Baxter, Heather, RN RN Walt Strauss RN RN bm8 Corrections: (The following items were deleted from the chart) 12/22 17:48 17:48 Chest Single View+RAD.RAD.BRZ ordered. EDDE EDMS
--- NOTE | 2023-12-23 18:50 | ER ---
Nurse's Notes [facility] Name: Flako Lugo Age: 73 yrs Sex: Male : 1950 Arrival Date: 12/23/2023 Time: 17:34 Bed 6 Private MD: Diagnosis: Chest pain, unspecified-right posterior lateral chest wall;Abrasion of lower leg-right Presentation: 12/22 17:38 Chief complaint: Slipped in bathroom, hit right flank on side of bath tub, now c/o hb right flank pain and SOB. Coronavirus screen: At this time, the client does not indicate any symptoms associated with coronavirus-19. Ebola Screen: No symptoms or risks identified at this time. Initial Sepsis Screen: Does the patient meet any 2 criteria? No. Patient's initial sepsis screen is negative. Does the patient have a suspected source of infection? No. Patient's initial sepsis screen is negative. Risk Assessment: Do you want to hurt yourself or someone else? Patient reports no desire to harm self or others. Onset of symptoms was December 23, 2023. 17:38 Method Of Arrival: EMS: [facility] hb 17:38 Acuity: KENYETTA 3 hb Historical: - Allergies: 17:40 No Known Allergies; hb - PMHx: 17:40 Cirrhosis; Diabetes - NIDDM; enlarged spleen; hb - Immunization history:: Adult Immunizations up to date. - Infectious Disease History:: Denies. - Social history:: Smoking status: unknown. Screenin:43 [facility] ED Fall Risk Assessment (Adult) History of falling in the last 3 months, aa5 including since admission Yes- single mechanical fall (1 pt) Confusion or Disorientation No (0 pts) Intoxicated or Sedated No (0 pts) Impaired Gait Yes (1 pt) Mobility Assist Device Used Yes (1 pt) Altered Elimination No (0 pt) Score/Fall Risk Level 3 or more points = High Risk Oriented to surroundings, Maintained a safe environment, Educated pt \T\ family on fall prevention, incl call for assistance when getting out of bed, Assessed \T\ reinforced patient's understanding of fall precautions. Abuse screen: Denies threats or abuse. Nutritional screening: No deficits noted. Tuberculosis screening: No symptoms or risk factors identified. Assessment: 17:40 General: Appears comfortable, Behavior is calm, cooperative. Pain: Complains of pain in aa5 right flank Pain does not radiate. Pain currently is 8 out of 10 on a pain scale. Quality of pain is described as aching, Pain began post fall Is continuous. Neuro: Level of Consciousness is awake, alert, obeys commands, Oriented to person, place, time, situation. Cardiovascular: Heart tones S1 S2 present Rhythm is regular. Respiratory: Reports shortness of breath Airway is patent Respiratory effort is even, unlabored, Respiratory pattern is regular, symmetrical. GI: Abdomen is noted to have ascites, Large hernia noted. : No signs and/or symptoms were reported regarding the genitourinary system. EENT: Reports Dressing noted to right side of neck, pt reports hx of throat cancer. . Derm: Skin is dry, Skin is pale, Skin temperature is warm Small abrasion noted to right lower leg, no active bleeding noted. Musculoskeletal: Range of motion: intact in all extremities. 19:06 Reassessment: Patient appears in no apparent distress at this time. Patient and/or bm8 family updated on plan of care and expected duration. Pain level reassessed. Patient is alert, oriented x 3, equal unlabored respirations, skin warm/dry/pink. Patient denies pain at this time. Patient states feeling better. Patient states symptoms have improved. Vital Signs: 17:38 BP 155 / 82; Pulse 79; Resp 18; Temp 97.7(O); Pulse Ox 98% on R/A; Weight 83.91 kg; hb Height 5 ft. 11 in. ; Pain 8/10; 19:06 BP 141 / 91; Pulse 80; Resp 17; Temp 97.7; Pulse Ox 95% on R/A; Pain 0/10; bm8 17:38 Body Mass Index 25.80 (83.91 kg, 180.34 cm) hb 17:38 Pain Scale: Adult hb 19:06 Pain Scale: Adult bm8 Paola Coma Score: 19:06 Eye Response: spontaneous(4). Motor Response: obeys commands(6). Verbal Response: bm8 oriented(5). Total: 15. ED Course: 17:38 Patient arrived in ED. hb 17:40 Triage completed. hb 17:40 Rosalva Snow FNP-C is [facility]. kb 17:40 Zia Pollard MD is Attending Physician. kb 17:40 Arm band placed on. hb 17:40 Patient has correct armband on for positive identification. Placed in gown. Bed in low aa5 position. Call light in reach. Side rails up X2. Pulse ox on. NIBP on. 17:41 Sunshine Franklin, RN is Primary Nurse. aa5 18:16 Chest Single View XRAY In Process Unspecified. EDMS 18:16 Ribs Right XRAY In Process Unspecified. EDMS 18:16 Femur Right XRAY In Process Unspecified. EDMS 18:16 Tib Fib Right XRAY In Process Unspecified. EDMS 19:06 Provided Education on: post er care. bm8 19:06 Report received from deanna Gonsalez. bm8 19:06 No provider procedures requiring assistance completed. IV discontinued, intact, bm8 bleeding controlled, No redness/swelling at site. Pressure dressing applied, dc iv from EMS. Administered Medications: No medications were administered Medication: 17:44 VIS not applicable for this client. aa5 Outcome: 18:49 Discharge ordered by MD. kb 19:06 Discharged to home via wheelchair, bm8 19:06 Condition: stable 19:06 Discharge instructions given to patient, family, Instructed on discharge instructions, follow up and referral plans. medication usage, safety practices, Demonstrated understanding of instructions, follow-up care, medications, 19:08 Patient left the ED. bm8 Signatures: Dispatcher [employer] Rosalva Bunch, INTERIOR DESIGN PROFESSIONAL-C INTERIOR DESIGN PROFESSIONAL-CkSunshine [place], RN RN aa5 Barbara Fine RN RN Walt Strauss, RN RN bm8 Corrections: (The following items were deleted from the chart) 17:45 17:40 EENT: No signs and/or symptoms were reported regarding the EENT system. aa5 aa5
[2023-12-23 19:16] VITALS: TEMP 97.7
[2023-12-23 19:18] VITALS: BP 155/82; O2SAT 98
== END 2023-12-23 19:08 | disposition home or self-care (01) ==
LOC: ER 17:34
DX: R07.89 Other chest pain (principal); S80.811A Abrasion, right lower leg, initial encounter; W01.198A Fall on same level from slipping, tripping and stumbling with subsequent striking against other object, initial encounter; C14.0 Malignant neoplasm of pharynx, unspecified
CPT/HCPCS: 71045; 99284